=== PATIENT | female | born 1955 | race Caucasian/White ===

== ENCOUNTER 2023-08-28 12:09 | Outpatient (OUT) | payer OTHER, SELFPAY ==
--- NOTE | 2023-08-28 | ECG_ITS ---
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
== END 2023-08-28 12:10 | disposition home or self-care (01) ==
LOC: CARD 12:10
PROVIDERS: PCP Family Medicine; Visit Provider Family Medicine
DX: Z01.818 Encounter for other preprocedural examination (principal)
CPT/HCPCS: 93005

== ENCOUNTER 2025-01-18 10:57 | Outpatient (RCR) | payer MEDICARE, SELFPAY | END 2025-02-16 06:57 | disposition home or self-care (01) | LOC: PT 10:57 | PROVIDERS: PCP Family Medicine; Visit Provider Family Medicine | DX: R26.89 Other abnormalities of gait and mobility (principal) | CPT/HCPCS: 97110; 97112; 97163 ==

== ENCOUNTER 2025-07-18 11:42 | Outpatient (OUT) | payer MEDICARE, SELFPAY ==
--- OUTSIDE RECORDS SUMMARY | 2025-07-14 06:08 | XMS_ITS | Continuity of Care Document ---
Author Organization [facility] Address [address] [place] [address] Phone Care Team Providers Care Vending Machine Host/Hostess Name Role Phone Frank Herndon DO Primary Care Provider [phone] Self, Referral Attending Provider Unavailable Isi Escudero NP-C Referring Provider [phone] Frank Herndon DO Attending Provider [phone] Care Teams Patient Care Team Team Status: Active Member Role/Relationship Status Dates Frank Herndon DO Primary Care Provider Active Visit Care Team Team Status: Inactive Member Role/Relationship Status Dates Frank Herndon DO Primary Care Provider Active S tart: July 11, 2025 End: July 11, 2025Referral SelfAttending ProviderActiveStart: July 11, 2025 End: July 11, 2025Isi Escudero NP-CReferring ProviderActiveStart: July 11, 2025 End: July 11, 2025 Patient Care Team Team Status: Inactive Member Role/Relationship Status Dates Frank Herndon DO Primary Care Provider Active S tart: July 14, 2025 End: July 14, 2025Davimauricio Herndon DOAttending ProviderActiveStart: July 14, 2025 End: July 14, 2025 Chief Complaint and Reason for Visit Chief Complaint Admit Date Screening July 11, 2025 1 :48pm telephone/cough July 14, 2025 1 0:41am Reason for Visit Admit Date Bronchitis July 14, 2025 1 0:41am 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, 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: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 Allergies, Adverse Reactions, Alerts Allergen Type Severity Reaction Last Updated Verified Status Sulfa (Sulfonamide Antibiotics) Allergy Unknown Swelling of Lip/Tongue/Thr oat, rash July 14, 2025 8:24am Yes Active fluticasone Adverse Reaction Unknown nasal bleeding July 14, 2025 8:24am Yes Active Social History Smoking Status Status Start Date End Date Date of Observa tion Never smoked tobacco (finding) March 20, 2025 11:21am Observation Status Observation Response Date of Response Legal Sex [facility] (finding) [facility] Family History Relationship Condition Age at Onset Recorded Date/T alexis mother Heart disease Unknown Diabetes mellitusUnknownSleep apneaUnknownDepressionUnknownDeceasedUnknown Autoimmune diseaseUnknownfatherDeceasedUnknownHeart diseaseUnknownAcute myocardial infarctionUnknownMyocardial infarctionUnknownDepressionUnknown grandparentCongestive heart failureUnknownDeceasedUnknowngrandparentDeceased UnknowngrandparentDeceasedUnknowngrandparentDeceasedUnknownbrotherDiabetes mellitusUnknownOverweightUnknownsisterOverweightUnknowndaughterAutoimmune diseaseUnknownHashimoto's thyroiditisUnknownmotherDiabetes mellitusUnknown HypertensionUnknownfatherHeart diseaseUnknown Problems Active Problems Problem Diagnosis/Recorded Date Onset Date Stat us 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, 2025 11:03am Unknown Active Exercise counseling December 21, 2023 12:46pm Unknown Active Insomnia December 14, 2023 3:16pm Unknown Active Fatty liver disease, nonalcoholic December 08, 2023 9:2 0am Unknown Active NICA on CPAP November 25, 2023 12:27pm Unknown Act pascual Dietary surveillance and counseling December 21, 2023 12: 45pm Unknown Active Fatty liver January 30, 2025 9:54am Unknown Activ e Bruxism May 6th, 2024 3:16pm Unknown Active Depression May 28, 2023 7:21am Unknown Ac tive Dyspepsia December 08, 2023 9:08am Unknown Acti ve Edema March 20, 2025 10:49am Unknown Ac tive Hyperglycemia January 14, 2024 9:20am Unknown Activ e Hyperlipidemia December 22, 2023 2:53pm Unknown Acti ve Hypothyroidism December 22, 2023 2:53pm Unknown Acti ve Obesity, Class II, BMI 35-39.9 June 09, 2024 12:3 8pm Unknown Active BMI 40.0-44.9, adult January 30, 2025 9:03am Unknown Active Prediabetes February 22, 2024 12:51pm Unknown Acti ve Low hemoglobin January 17, 2025 9:18am Unknown Act pascual Impacted cerumen of right ear February 13, 2025 3:03pm Un known Active Balance problem January 17, 2025 9:36am Unknown Ac tive GERD (gastroesophageal reflux disease) December 07 9:24am Unknown Active Severe obesity (BMI >= 40) December 21, 2023 12:45pm Unkn own Active Bronchitis July 14, 2025 10:57am Unknown A ctive Obesity December 08, 2023 9:23am Unknown Acti ve Hyperkalemia January 14, 2024 9:20am Unknown Active Medications Medication Status Dose Units Route Directions Qty Days Refills S tart Date Stop Date End Date Reason(s) Instructions Adherence Atorvastatin 20 mg tablet Discontinued 20 MG PO D aily 90 3March 2023 11:00pmJune 2023 9:42amBupropion Hcl 150 mg tablet extended release 24 xrZzoqibyjvhes445LADAUbsoe948Wyepn 2023 1:20pmJuly 2023 2:54pmLevothyroxine 150 mcg huxuyuVmzigjbmnlvz745BFTKQVeqgt972Mlekj 2023 1:21pmJune 2023 9:42amtake first thing in the morning on an empty stomach and do not eat or drink anything for 30-45 min after taking Bupropion Hcl 150 mg tablet extended release 24 ybInzwvsnlhxce472SJTDIcckn733 February 17, 2024 2:54pmDecember 2023 10:34amAtorvastatin 20 mg tablet Mujhrzxsrrnp30DCKNQiywi399Eowzzki 2023 2:20pmce2023 10:34am Levothyroxine 175 mcg npjeylKdzwpeclyoym540HLSUYHxdtv990Ieqs 2024 9:02am March 20, 2025 10:48amtake first thing in the morning on an empty stomach, do not eat or drink for 45 min after takingAtorvastatin 20 mg tabletDiscontinued0 .ROUTE.IAPGXZQ805Tdbuglrkw 2024 6:55amDecember 2024 10:43amTAKE 1 TABLET EVERY DAYLevothyroxine 175 mcg sekkjlMwvrdr524OPWUQ.QOHCEZH436Ixqikdhds 2024 11:30ht301 mcg orally on odd days of the month, alternating with 150 MCG; take first thing in the morning on an empty stomach, do not eat or drink for 45 min after takingComplies with drug therapyAzelastine 137 mcg (0.1 %) spray,non-nknmddtHfernfynxbhv0RSEJBPTQMZEBVGW.COMPLEXOctober 2024 11:37am June 07, 2025 11:39am2 SPRAYS INTO EACH NOSTRIL EVERY DAY;Azelastine 137 mcg (0.1 %) spray,non-ipptuuzKjxfrwjgpxiv5ALMRPMTBIKVLLJT.PXRNVNR990Zxaxqth 2024 11:38amNovember 2024 9:07am2 SPRAYS INTO EACH NOSTRIL EVERY DAY;Azelastine 137 mcg (0.1 %) spray,non-aerosolActive0.ROUTE.BROPXSX732Wcpydpfp 2024 9:07amSPRAY 2 SPRAYS IN TO EACH NOSTRIL DAILYComplies with drug therapyAzithromycin 250 mg eninpqMsnmxx1GL.IHLONAG05Xhmmbxmt 3rd, 2025 12:00am For 250 mg dose pack: take 500 mg today (day 1), then 250 mg for 4 days (days 2- 5) POComplies with drug therapyPrednisone 20 mg vlequdZaoxdj0ID.with food or ffit099Zmlslbex 2024 12:00am20 MG BID orally WITH FOOD OR MILK;Complies with drug therapyAtorvastatin 20 mg gfusbvQugjglstiusi08DRSJ2 times dailyOct2022 11:00pmMarch 2023 1:19pmOxybutynin Chloride 10 mg tablet extended release 70ryXfrcoduucgfy56XVDKZcshyGjqqadk 18th, 2023 11:00pmMay 2023 12:19pmLevothyroxine 150 mcg kgokjlDqjfitvuanbt630KUNZOJkubgOyskhlv 18th, 2023 11:00pmMarch 2023 1:22pmOmeprazole 20 mg capsule,delayed release(DR/EC)Dnlsggztzqaa01KCEGWndqgMafbfbn 18th, 2023 11:00pmApril 2023 9:22amBupropion Hcl 150 mg tablet extended release 24 dwXuxepxqsckwl332KSZOJulvu May 27, 2023 11:00pmMarch 2023 1:21pmOmeprazole 20 mg capsule,delayed release(DR/EC)Qyvqhhqhbloz80NBFNWsgyd30008Gxotq 2023 9:17amMay 2023 12:21pmCyclobenzaprine 5 mg tabletDiscontinuedMGPOFebruary 2023 12:00amFebruary 2023 9:54amFreeTextSi-2 tablets Orally q8- 12 hrs prn; Note: Source Status: Refillprn; Refills: 0; Provider: Katrina Pak Azelastine 137 mcg (0.1 %) aerosol,sprayDiscontinuedINTRANASALFebruary 2023 12:00amJune 2023 9:36amFreeTextSig: SPRAY 2 SPRAYS INTO EACH NOSTRIL EVERY DAY; Note: Source Status: Takingprn; Provider: Katrina Marie CBaclofen 10 mg dlmmbsUzxcntobxtgs7IG.q8-12 szisa683Iiwemcyb 2023 12:00amMay 2023 12:19pmtake 1/2 of a 10 MG tablet (5 MG) orally Q8-12 HOURS;Omeprazole 20 mg capsule,delayed release(DR/EC)Ecwcge34YUZUIufqw75544Ezfv 2024 10:16amTake 1 capsule orally 30 minutes before morning meal.Complies with drug therapy Omeprazole 20 mg capsule,delayed release(DR/EC)Refklgquvdhx65YDFNYenox as needed December 21, 2023 12:19pmJune 2024 9:57amMetformin 500 mg tablet extended release 24 hhVqwcadyduaac3398EJUPFuvru805642Cpj 12th, 2024 11:00pmMay 2023 6:41amFirst 2 weeks, take 1 tablet once dailyOmeprazole 20 mg capsule,delayed release(DR/EC)Txnlghzvswpr94QGYY.prn as neededJun2024 9:57amJune 2024 10:18amTizanidine 4 mg wmxdfdOqqnpgdwlyyx8DKWOVqjqp 6 hours as needed July 12, 2024 12:00amFebruary 2024 2:50pmDocusate Sodium (Stool Softener) 100 mg ldemascYlkfuhexgbzc247VAIVDjozo dailyDeceer 2023 12:00am January 17, 2025 9:04amAtorvastatin 20 mg ainisdHczjoikftyif30CLXILfbpf388 July 12, 2024 10:32amSeptember 2024 6:55amBupropion Hcl 150 mg tablet extended release 24 uhSpemvr176ZYECBafye128Egnlbdlv 2023 10:32amComplies with drug therapyLevothyroxine 150 mcg foazwkLfgtukeavycf033LWYJIZorzp715 July 12, 2024 10:32amJune 2024 9:23amtake first thing in the morning on an empty stomach and do not eat or drink anything for 30-45 min after taking Semaglutide Base 0.6 mg/0.5 mLDiscontinued0.5MLSUBCUTevery sfjx86Snueoyj2023 11:00pmFebruary 2024 2:50pmBuderer Drug Compounded Pre-filled Syringes using Semaglutide Base. Dispense 2 mL = (Four 0.5 mL pre-filled syringes)Multivitamin-Calcium Carb-Iron tabletActiveTABPOFebruary 2024 12:00amComplies with drug therapy Ihwefsjk-1-Pip-Lemon [place] Xt 50-12.5-0.5 mg tablet,chewableDiscontinuedTABPO Daily at bedtimeFebruary 2024 12:00amAugust 2024 10:21am Gvxlzngo-7-Qsc-Lemiris Johnstonm Xt 50-12.5-0.5 mg tablet,chewableDiscontinuedTABPO Daily at bedtime as neededAugust 2024 10:20amDecember 2024 10:39am Azelastine 137 mcg (0.1 %) spray,non-vvhhaukKrmpusvejani794IUXHDBYFUXANA.COMPLEX [place] 2024 10:28amOctober 2024 11:90vq392 mcg intranasally 2 SPRAYS INTO EACH NOSTRIL EVERY DAY;Levothyroxine 175 mcg fdezvlLrmnvnzvnyyj022PZFAL .MIFQWEZ325Qfqpws 2024 10:45amSeptember 2024 11:96xl329 mcg orally on odd days of the month, alternating with 150 MCG; take first thing in the morning on an empty stomach, do not eat or drink for 45 min after taking Levothyroxine 150 mcg nldxorAdhijf910ACEQM.EIYXMFY230Qnhgnf 10th, 2025 11:00pm 150 mcg orally on even days of the month, alternating with 175 MCG; take first thing in the morningon an empty stomach, do not eat or drink for 30-45 min after taking;Complies with drug therapyTizanidine 4 mg xicvbeDcseyj9ABIOGfmzc 6 hours as needed for teeth drmlgjphq208Rsxdsn 2024 11:29amComplies with drug therapyCetirizine (Zyrtec) 10 mg qchcfaVdrvbpsyaggh18DADFKocjp as neededMay 2023 11:00pmFebruary 2024 2:49pmConjugated Estrogens (Premarin) 0.625 mg/gram creamDiscontinued0.625MGVAGINALDailyMay 2023 11:00pmOctober 2023 9:12amSaccharomyces Boulardii (Daily Probiotic (S. Boulardii)) 250 mg bjouwfvFxgmwfmyflqz586IEOFWuufa dailyMay 2023 11:00pmJuly 2023 12:03pmRhubarb Root Extract (Estroven Cmplt Menopause Rlf) 4 mg tablet Xokhlhuzsmjd2JMZV9 to 2 times per dayMay 2023 11:00pmJune 2023 9:01am Azelastine 137 mcg (0.1 %) aerosol,ngemnLmawpnzoebqs4WONFDTCWJMVXYMR.COMPLEXJun2023 9:36amJune 2023 9:41amSPRAY 2 SPRAYS INTO EACH NOSTRIL EVERY DAY Azelastine 137 mcg (0.1 %) aerosol,khmbpLfkmpfmajgux4EXQHXTRFDSXNDOW.NBNMLXQ262 January 14, 2024 9:40amAugust 2024 10:28amSPRAY 2 SPRAYS INTO EACH NOSTRIL EVERY DAYAtorvastatin 20 mg rdpxcyKjsxwkzrpjou33LCUZCllso530Eija 6th, 2024 9:41amOctober 2023 2:20pmLevothyroxine 150 mcg qyeysgDczsbbekpsxg419LASNY Gnglq794Ehqy 6th, 2024 9:42amDecember 2023 10:34amtake first thing in the morning on an empty stomach and do not eat or drink anything for 30-45 min after takingSaccharomyces Boulardii (Daily Probiotic (S. Boulardii)) 250 mg capsule Zassyq896OMZHKuespZreu 2023 12:03pmComplies with drug therapyConjugated Estrogens (Premarin) 0.625 mg/gram creamActive0.625MGVAGINALTwice a WeekJune 09, 2024 9:11amComplies with drug therapySemaglutide Base 0.3 mg/0.25 mL Discontinued0.25MLSUBCUTevery tmnq58Gkdkrqqzh 9th, 2024 11:00pmOctober 2023 9:22amBuderer Drug Compounded Pre-filled Syringes using Semaglutide Base. Dispense 1 mL = (Four 0.25 mL pre-filled syringes)Levothyroxine 175 mcg tablet Lyixsvnguwma634PYVCRLvxlb045Ccgr 9th, 2025 11:00pmJune 2024 9:02amtake first thing in the morning on an empty stomach, do not eat or drink for 45 min after takingAtorvastatin 20 mg jielwdEzbfrl88KGNJFoxepRjcoisns 2024 10:43am Unknown Immunizations Immunization Event Date Not Given Reason Dose Number Director Of Event Marketing Lot Number Reason(s) Given Vaccine Information Statement (VIS) Detail Administration Location COVID-19 mRNA, Comirnaty (Pfizer) September 19, 2020 COVID-19 mRNA, Comirnaty (Pfizer)October 10OVID-19 mRNA, Comirnaty (Pfizer)May 07OVID mRNA, Comirnaty (Pfizer)December 03, 2021 COVID-19 Comirnaty (Pfizer) Tri-Sucrose +December 03OVI Comirnaty (Pfizer) Tri-Sucrose +June 22OVI mRNA Bivalent Booster (Pfizer)May 22OVI (Vitrinepix) 12Y and olderOctober OVID (Vitrinepix) 12Y and olderSeptember iphtheria, Tetanus (Ped)October 04, 1997Fluzone TIV High-Dose 65YR+April 13, 2024 Fluzone QIV High-Dose 65YR+May 07, 2021Fluzone QIV High-Dose 65YR+ May 22, 2022Hepatitis A Vaccine, adult dosageJanuary 2018Influenza vaccine, quadrivalent, adjuvantedOctober 2022Influenza vaccine, quadrivalent, adjuvantedSeptember 2019Novel Influenza Z3L1Jzraqsja 2008Pneumococcal Conjugate Vaccine, 13 valentOctober 2017Pneumococcal Polysacc. Vaccine, 23 valentNovember 2018RSV, preF3, adj, pfSeptember 2023Zoster Vaccine Recombinant, AdjuvantedApril 2018Zoster Vaccine Recombinant, AdjuvantedJuly 2018Tetanus, Diphtheria, Pertussis (Tdap) August 17, 2018Trivalent Influenza VaccineOctober 2017Trivalent Influenza VaccineSeptember 2019Trivalent Influenza VaccineSeptember 2020Trivalent Influenza VaccineOctober 2021Trivalent Influenza Vaccine May 30, 2013typhoid vaccine, parenteralJanuary 2018Shingles (Zoster) June 06, 2013 Procedures Procedure Date Performed Status MM screening mammo BI w/CAD July 11, 2025 1 :51pm completed Relevant Diagnostic Tests and/or Laboratory Data Diagnostic Imaging Reports Author Jonah Finney [facility] HospitalAuthoredDece 2024 2:49pmReportDictated Date/TimeDictated ByStatusRadiology ReportDe2024 2:49pmJonah Finney II MDcompleted [facility] [address] [place] [address] Mammography Report Signed Patient: Patt Irene MR#: [id number] : 1955 Acct:[id number] Age/Sex: 70 / F Adm Date: 5 Loc: [place] Room: Type: [facility] CL Attending Dr: Referral Girish Ordering Provider: SELF,REFERRAL Date of Service: 07/11/25 Procedure(s): MM screening mammo BI w/CAD Accession Number(s): ([id number]) MM/MM screening mammo BI w/CAD: SCREENING Copies to: Frank Herndon, SELF,REFERRAL BERE Min~ CLINICAL DATA: Screening for malignancy. BILATERAL SCREENING MAMMOGRAMS - FULL FIELD DIGITAL WITH TOMOSYNTHESIS AND CAD Tomosynthesis craniocaudal and mediolateral oblique views of both breasts were obtained using low-dose digital technique. Comparison is made to prior studies from 06/28/2024, 06/18/2023, 07/22/2012, 07/25/2011, and 07/23/2010. This examination was reviewed with the aid of CAD. The breast parenchyma is heterogeneously dense. Benign-appearing calcifications are present. Benign-appearing lymph nodes are noted. There are no dominant masses, typically malignant calcifications or architectural distortion. There has been no significant interval change. MM/MM screening mammo BI w/CAD IMPRESSION: NO MAMMOGRAPHIC EVIDENCE OF MALIGNANCY. ROUTINE FOLLOW-UP IS RECOMMENDED IN ONE YEAR. RESULT CODE: 2 Benign Findings(s) DENSITY CODE: 3 (approximately 51-75% glandular) The breasts are heterogeneously dense, which may obscure small masses. FOLLOW UP: 1YR The false-negative rate of mammography is approximately 10-percent. Management of a palpable abnormality must be based on clinical grounds. Patient was entered into a reminder system with a target due date for the next mammogram. Impression dictated by: Jonah Finney M.D. 07/11/2025 3:02 PM Dictation Location: [facility] Dictated By: Jonah Finney II, MD 07/11/25 1449 Signed By: <Electronically signed by Jonah Finney II, MD in [place]> 07/11/25 1502 Vital Signs Vital Reading Result Reference Range Collection Date/Time Height 61.5 [in_i] July 14, 2025 10:40am Advance Directives Advance Directive Response Recorded Date/ Time Advance Directives No July 11, 2017 10:03am Insurance Providers Guarantor Patt Trey Irene Address [address] [place] [phone] Info.Home Phone: Coverage Status Update:2024 Payer Group Member ID Coverage Type Subscriber Relationship to Subscriber Effective Date Expiration Date [facility] Employees [id number] A Loparo Id: [id number] [facility] [phone] Home Phone: Email: [email or web address] [id number] A Loparo Id: [id number] [address] [place] [phone] Home Phone: Email: [email or web address] [email or web address] Encounter Location(s) Arrival/Admit Date Discharge/Departure Date Discharge/Departure Disposition Provider(s) [facility] July 11, 2025 1:48pm July 11, 2025 1:49pm Discharged to home care or self care (routine discharge) REFERRAL SELF Departed Physician/ Provider Office Visit -[facility] Family Medicine [place] July 14, 2025 10:41am July 14, 2025 11:07am Discharged to home care or self care (routine discharge) Frank Herndon , DO Recent Diagnosis Onset Date Admit Date Bronchitis Unknown July 14 10:41am Leukoplakia of oral cavity Unknown Decem 2024 10:41am Assessments Diagnosis Onset Date Resolution Status Admit Date Bronchitis acuteDeceer 2024 10:41amLeukoplakia of oral cavityacuteDedign[facility] 2024 10:41am Plan of Treatment Author Lissy Antony [facility] HospitalAuthoredWellspan Health 2024 11:06amShe started Zithromax and Prednisone on 07/12/25 and is feeling better today (07/14/25). She did not want her symptoms to progress because her had similar symptoms. She feels she caught her symptoms in time. She is taking a cough DM cough suppressant for the cough which is helping her symptoms. She is to continue with what she is doing. Rest, push fluids. 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 She voices that the oral surgeon told her that this is more prevalent in women than men. She has to be seen every three to five months. She has had to use Clotrimazole troches prior to the laser surgery a few times. Future Tests Future scheduled test information is unavailable Pending Tests Pending diagnostic test information is unavailable Future Visits Future appointment information is unavailable Future Procedures Future procedure information is unavailable Future Medications Future medication information is unavailable Patient Instructions Patient instructions are unavailable
--- OUTSIDE RECORDS SUMMARY | 2025-07-18 11:52 | XMS_ITS | CCD ---
Author Organization [facility] Care Team Providers Care Preload Supervisor Name Role Phone DO Klaus oHrton Primary Care Provider Community, Outreach Attending Provider Klaus Horton Unavailable CLIFFORD, DR ENRIQUE Admitting Unavailable GIRFAVIAN, DR ENRIQUE Attending Unavailable GIRVIN, DR ENRIQUE Consulting Unavailable GIRVIN, DR ENRIQUE Primary Care Unavailable GIRVIN, DR ENRIQUE Admitting Unavailable GIRVIN, DR ENRIQUE Attending Unavailable GIRVIN, DR ENRIQUE Consulting Unavailable GIRVIN, DR ENRIQUE Primary Care Unavailable GIRVIN, DR ENRIQUE Admitting Unavailable GIRVIN, DR ENRIQUE Attending Unavailable GIRVIN, DR ENRIQUE Consulting Unavailable GIRVIN, DR ENRIQUE Primary Care Unavailable GIRVIN, DR ENRIQUE Admitting Unavailable GIRVIN, DR ENRIQUE Attending Unavailable GIRVIN, DR ENRIQUE Consulting Unavailable GIRVIN, DR ENRIQUE Primary Care Unavailable Timothy Baird Unavailable DO Klaus Horton Attending Provider Klaus Horton Primary Care Physician DO Klaus Horton Primary Care Provider Community, Outreach Attending Provider DO Klaus Horton Primary Care Provider [phone] DO Klaus Horton Attending Provider Shant Daugherty Unavailable DO Klaus Horton Primary Care Provider Community, Outreach Attending Provider DO Klaus Horton Attending Provider [phone] MD Shant Daugherty Attending Provider [phone] DO Klaus Horton Primary Care Provider DO Klaus Horton Attending Provider [phone] ANDRIY Ortega Attending Provider DO Klaus Horton Primary Care Provider MD Timothy Baird Attending Provider [phone] Johanny Sultana Unavailable DO Klaus Horton Primary Care Provider [phone] MD Timothy Baird Attending Provider [phone] DO Klaus Horton Attending Provider DO Klaus Horton Referring Provider [phone] VITALY BECKER Attending Unavailable DO Klaus Horton Primary Care Provider [phone] MD Timothy Baird Attending Provider [phone] DO Klaus Horton Attending Provider DO Klaus Horton Primary Care Provider [phone] DO Klaus Horton Attending Provider [phone] ADRIÁN Patterson Attending Provider [phone] Klaus Horton MD Primary Care Provider [phone] Klaus Horton DO Primary Care Provider Klaus Horton DO Attending Provider REFERRAL, SELF Attending Unavailable REFERRAL, SELF Referring Unavailable Isi Escudero Consulting Unavailable REFERRAL, SELF Admitting Unavailable ACE Escudero Consulting Unavailable Isi Escudero Consulting Unavailable Klaus Horton DO Primary Care Provider Timothy Baird MD Attending Provider Klaus Horton DO Primary Care Provider [phone] Klaus Horton DO Attending Provider Klaus Horton MD Primary Care Provider Timothy Baird MD Other Provider Jordan DELIVERY TRUCK DRIVER HEAVY, Juliet Attending Provider Derek Bennett MD Attending Provider Klaus Horton Primary Care Unavailable Community, Outreach Admitting Unavailable Community, Outreach Attending Unavailable Rishi Patterson Admitting Unavailable Rishi Patterson Attending Unavailable Girvin, Klaus Primary Care Unavailable Girvin, Klaus Primary Care Unavailable Girvin, Klaus Attending Unavailable Girvin, Klaus Admitting Unavailable Girvin, Klaus Primary Care Unavailable Girvin, Klaus Attending Unavailable Girvin, Klaus Admitting Unavailable Girvin, Klaus Primary Care Unavailable Ditty, Timothy Lan Admitting Unavailable Dittgenia, Timothy Lan Attending Unavailable Girvin, Klaus Primary Care Unavailable Girvin, Klaus Attending Unavailable Girvin, Klaus Admitting Unavailable Girvin, Klaus Primary Care Unavailable Girvin, Klaus Attending Unavailable Girvin, Klaus Admitting Unavailable DOLCE, RISHI Giraldo Attending Unavailable DOLCE, RISHI Giraldo Attending Unavailable DOLCE, RISHI Giraldo Attending Unavailable DOLCE, RISHI Giraldo Attending Unavailable FELTER, ABDULLAHI Yang Attending Unavailable DOLCE, RISHI Giraldo Attending Unavailable DOLCE, RISHI Giraldo Attending Unavailable FELTER, ABDULLAHI A Attending Unavailable DOLCE, RISHI Giraldo Attending Unavailable DOLCE, RISHI Giraldo Referring Unavailable DOLCE, RISHI Enzo Attending Unavailable DOLCE, RISHI Giraldo Attending Unavailable DOLCE, RISHI Enzo Attending Unavailable DOLCE, RISHI Enzo Attending Unavailable Allergies Allergy ClassificationReported Allergen(s)Allergy TypeDate of OnsetReaction(s) Facility (20 sources)Sulfonamides (Antibiotic); Translations: [Sulfa (Sulfonamide Antibiotics)]Allergy to -[phone] of Lip/Tongue/Throat, Swelling of Lip/Tongue/Throat, [facility] (20 sources)Sulfonamides (Antibiotic)Propensity to [facility] [employer] Other (1 source)Sulfonamides (Antibiotic)Drug allergy (disorder)[phone] [facility] (4 sources)Sulfonamides (Antibiotic); Translations: [sulfa drugs]Drug allergy [facility] (20 sources)fluticasoneDrug Kjtdxml67-16-0285jhmhn [facility] (20 sources)Sulfamethoxazole / TrimethoprimDrug Dowudze07-88-7375XyvgjmrPIAW Healthcare (20 sources)Sulfonamides (Antibiotic)Drug Jqpspwv10-28-0186Zxlrf, Anaphylaxis [facility] Work Phone: (1 source)fluticasoneDrug Xufbjum19-76-7342WsnojqfpgSelect Medical [facility] [place] [facility] Medications Current Medications MedicationDrug Class(es)DatesSig (Normalized)Sig (Original)acetaminophen 325 mg / HYDROcodone bitartrate 5 mg oral tablet (1 source)Opioid AgonistStart: 04-27-2024 End: 07-88-2986sybm 1 tablet by mouth every six hours as needed for pain HYDROcodone-acetaminophen ([place]) 5-325 MG tablet Indications: Pain Take 1 tablet by mouth every 6 (six) hours if needed for moderate pain (PRN pain) for up to 5 days 20 tablet 04/27/2024 05/02/2024 ActiveAcidophilus Probiotic Blend (3 sources)Start: 82-40-0253Ehdcjktasqw Probiotic Blend Oral, Daily, Refill(s) 0 Start Date: 08/30/20 Status: Orderedazelastine hydrochloride 0.137 mg/actuat metered dose nasal spray (20 sources)Histamine-1 Receptor AntagonistStart: 81-89-6691hwvr 2 spray(s) nasal route once dailyStart: 63-09-1449yylq 2 spray(s) nasal route once daily Azelastine 137 mcg (0.1 %) aerosol,spray Active 2 SPRAY INTRANASAL .COMPLEX January 14, 2024 10:40am SPRAY 2 SPRAYS INTO EACH NOSTRIL EVERY DAYStart: 43-05-2353mjer 2 spray(s) nasal route once dailyAzelastine 137 mcg (0.1 %) aerosol,spray Active 2 SPRAY INTRANASAL .COMPLEX January 14, 2024 9:40am SPRAY 2 SPRAYS INTO EACH NOSTRIL EVERY DAYStart: 59-90-5473viym 2 spray(s) nasal route once dailyAzelastine Active 2 SPRAY INTRANASAL .COMPLEX January 14, 2024 10:40am SPRAY 2 SPRAYS INTO EACH NOSTRIL EVERY DAYStart: 01-14-2024 End: 47-70-7414entf 2 spray(s) nasal route once dailyAzelastine 137 mcg (0.1 %) aerosol,spray Discontinued 2 SPRAY INTRANASAL .COMPLEX January 130:40am March 20, 2025 11:28am SPRAY 2 SPRAYS INTO EACH NOSTRIL EVERY DAYStart: 09-30-2023 End: 05-54-2630Svjzfqkcjl 137 mcg (0.1 %) aerosol,spray Discontinued INTRANASAL September 30, 2023 1:00am January 14, 2024 10:36am FreeTextSig: SPRAY 2 SPRAYS INTO EACH NOSTRIL EVERY DAY; Note: Source Status: Takingprn; Provider: Clifford Enrique CStart: 86-31-5833afmxrogzzg (Astelin) 0.1 % nasal spray 12/16/2022 Active take 2 spray(s) nasal route once daily as neededAzelastine HCl 137 MCG/SPRAY SPRAY 2 SPRAYS INTO EACH NOSTRIL EVERY DAY prn Activetake 2 spray(s) nasal route once daily as neededAzelastine HCl 137 MCG/SPRAY SPRAY 2 SPRAYS INTO EACH NOSTRIL EVERY DAY prn Irajkq69 hr buPROPion hydrochloride 150 mg extended release oral tablet (20 sources)AminoketoneStart: 89-48-1620hrxt 1 tablet by mouth every twenty-four hours in the morningbuPROPion XL (Wellbutrin XL) 150 MG 24 hr tablet Take 150 mg by mouth in the morning. 09/21/2024 ActiveStart: 11-24-2022 End: 20-36-9475oohc 1 tablet by mouth once dailyBupropion Hcl 150 mg tablet extended release 24 hr Discontinued 150 MG PO Daily May 28, 2023 12:00am October 21, 2023 2:21pmStart: 75-07-2957zhbv 1 tablet by mouth every twenty-four hoursbuPROPion 300 mg XL /24 hrs 300 mg = 1 tab(s), Oral, q24hr, Refills(s) 0, Depression Start Date: 09/28/19 Status: Ordered End: 04-81-2364uoRRCJmut XL (Wellbutrin XL) 300 MG 24 hr tablet 1 (one) time each day at the same time 01/30/2025 Discontinued (Dose adjustment)CBD oils (4 sources)CBD oils Activeclindamycin 300 mg oral capsule (20 sources)Lincosamide AntibacterialStart: 33-63-3937beox 2 tablets by mouth once at mealtimeclindamycin (Cleocin) 300 MG capsule Indications: History of total bilateral knee replacement 2 tabs PO once 30-60 mins before dental procedure with food 2 capsule 3 02/16/2025 ActiveStart: 62-57-3978rvoy 2 tablets by mouth once at mealtimeclindamycin (Cleocin) 300 MG capsule Indications: History of total bilateral knee replacement 2 tabs PO once 30-60 mins before dental procedure with food 2 capsule 3 08/11/2024 ActiveStart: 38-10-4461qxtb 2 tablets by mouth once at mealtimeclindamycin (Cleocin) 300 MG capsule Indications: History of total bilateral knee replacement 2 tabs PO once 30-60 mins before dental procedure with food 2 capsule 3 08/25/2023 Active[facility] [place] 0.05 % (3 sources)Start: 00-98-7281Qluqm: 85-59-4807bmws 0.05 spray(s) nasal route once dailyCVS Nasal [place] 0.05 % 2 sprays each nose Nasally daily as directed for 30 days [facility] AllergySpray December, Activedocosahexaenoic acid 120 mg / eicosapentaenoic acid 180 mg oral capsule (20 sources)omega-3 (Fish Oil) 1000 MG capsule 1 capsule 1 (one) time each day at the same time ActiveDosoquin (3 sources)Start: 46-47-2953Zrljsaye Refill(s) 0 Start Date: 05/30/20 Status: OrderedVagifem (8 sources)EstrogenStart: 85-81-4045Mhsvtnw 10 microgram, Vaginal, Twice Weekly, Refills(s) 0 Start Date: 11/24/13 Status: Ordered End: 40-01-4347nrvuldhte (Vagifem) 10 MCG tablet vaginal tablet Insert 10 mcg into the vagina. 04/19/2024 Discontinuedestrogens, conjugated (assisted) 0.625 mg/ml vaginal cream (20 sources)EstrogenStart: 40-80-8263Nlsmelaebt Estrogens (Premarin) 0.625 mg/gram cream Active 0.625 MG VAGINAL Twice a Week June 09, 2024 10:11am Complies with drug therapyStart: 01-01-2024 End: 06-86-1776Vhbfxsedsf Estrogens (Premarin) 0.625 mg/gram cream Discontinued 0.625 MG VAGINAL Daily January 01, 2024 12:00am June 09, 2024 10:12am Estrogens Conjugated (Premarin) 0.625 MG/GM cream ActivePremarin 0.625 MG/GM Vaginal ActiveEstroven (3 sources)Estroven Activefexofenadine (3 sources)Histamine-1 Receptor AntagonistAllegra ActiveguaiFENesin (7 sources)guaiFENesin ActiveMucinex Not-TakingMucinex Activelevothyroxine sodium 0.175 mg oral tablet (20 sources)l-ThyroxineStart: 59-27-1599Uzmkqvmhopasm 150 mcg tablet Active 150 MCG PO .COMPLEX March 20, 2025 12:00am 150 mcg orallyon even days of the month, alternating with 175 MCG; take first thing in the morning on an empty sto mach, do not eat or drink for 30-45 min after taking; Complies with drug therapy Start: 01-17-2025 End: 16-52-5364Rgmqledndwpod 175 mcg tablet Active 175 MCG PO .COMPLEX March 20, 2025 11:45am 175 mcg orallyon odd days of the month, alternating with 150 MCG; take first thing in the morning on an empty stomach, do not eat or drink for 45 min after taking Complies with drug therapyStart: 05-28-2023 End: 65-90-0641sijs 1 tablet by mouth once daily in the morningLevothyroxine 150 mcg tablet Discontinued 150 MCG PO Daily January 14, 2024 10:42am July 12, 2024 11:34am take first thing in the morning on an empty stomach and do not eat or drink anything for 30-45 min after takingStart: 16-90-2170sdfr 1 tablet by mouth once dailylevothyroxine 50 mcg (0.05 mg) Tab mcg tab(s), Oral, Daily, Refills(s) 0 Start Date: 05/30/20 Status: Orderedtake 1 tablet by mouth once daily in the morningLevoxyl 150 MCG TAKE 1 TABLET BY MOUTH ON AN EMPTY STOMACH IN THE MORNING ONCE A DAY Orally as directed ActiveLevoxyl 137 MCG TAKE 1 TABLET BY MOUTH ON AN EMPTY STOMACH IN THE MORNING ONCE A DAY Orally Once a day Active Melatonin (8 sources)Melatonin ActiveMultiple Vitamin (MULTIVITAMIN ADULT PO) (20 sources)Multiple Vitamin (MULTIVITAMIN ADULT PO) 1 (one) time each day at the same time ActiveMultiple Vitamin (MULTIVITAMIN ADULT PO) 1 (one) time each day at the same time. ActiveMultivitamin-Calcium Carb-Iron tablet (8 sources)Start: 59-53-5003Tihjg: 38-39-7759Tgbcqhghnjqb-Calcium Carb-Iron tablet Active TAB PO September 14, 2024 1:00am Complies with drug therapyStart: 69-17-7504Ylsgobskjoqk-Calcium Carb-Iron tablet Active TAB PO September 14, 2024 1:00amStart: 12-35-8673Nckkpnxxzmhf-Calcium Carb-Iron tablet Active TAB PO September 14, 2024 12:00amMultivitamins and Minerals (3 sources)Start: 47-73-5645cmth 1 tablet by mouth once dailyMultivitamins and Minerals 1 tab, Oral, Daily, Refill(s) 0, Prophylaxis Start Date: 08/31/19 Status:Orderedprobiotic (12 sources)probiotic Not-Takingprobiotic Activesaccharomyces boulardii 250 mg oral capsule (20 sources)Start: 28-51-6015kywk 1 capsule by mouth once dailySaccharomyces Boulardii (Daily Probiotic (S. Boulardii)) 250 mg capsule Active 250 MG PO Daily 2023 1:03pm Complies with drug therapyStart: 01-01-2024 End: 07-99-6342mlje 1 capsule by mouth twice dailySaccharomyces Boulardii (Daily Probiotic (S. Boulardii)) 250 mg capsule Discontinued 250 MG PO Twice daily January 01, 2024 12:00am February 22, 2024 1:83glDofvnurl-9-Aws-Lemon [place] Xt 50-12.5-0.5 mg tablet,chewable (9 sources)Start: 02-46-7669afku 5 tablets by mouth once daily at bedtime as zrzmxgToaisvrt-5-Gow-Lemon [place] Xt 50-12.5-0.5 mg tablet,chewable Active TAB PO Daily at bedtime as needed March 20, 2025 11:20am Complies with drug therapy Start: 09-14-2024 End: 69-38-3368fuoc 5 tablets by mouth once daily at jaynxljSdqtzaay-0-Bfh-Lemon [place] Xt 50-12.5-0.5 mg tablet,chewable Discontinued TAB PO Daily at bedtime [facility] 2024 1:00am March 20, 2025 11:21amStart: 43-93-9207fllf 5 tablets by mouth once daily at bedtimeStart: 74-57-5878avpr 5 tablets by mouth once daily at lrypungEiovmcwy-9-Cth-Lemon [place] Xt 50-12.5-0.5 mg tablet,chewable Active TAB PO Daily at bedtime 2024 1:00am Complies with drug therapyStart: 80-67-4858ykqn 5 tablets by mouth once daily at bedtime Hncltzro-0-Khy-Lemon [place] Xt 50-12.5-0.5 mg tablet,chewable Active TAB PO Daily at bedtime 2024 1:00amStart: 48-22-1545wysr 5 tablets by mouth once daily at joewmxtRhuwluez-3-Ozc-Lemon [place] Xt 50-12.5-0.5 mg tablet,chewable Active TAB PO Daily at bedtime 2024 12:00amtriamcinolone acetonide 1 mg/ml topical cream (20 sources)CorticosteroidStart: 29-14-4706slcqytklwcinh (Kenalog) 0.1 % cream Indications: Stasis dermatitis of both legs Apply to affected areas, up to twice a day when flared, do not use one the face, groin, or underarms, 30 day supply 80 g 11 06/27/2024 ActiveTurmeric extract (3 sources)Turmeric ActiveVitamin A (3 sources)Vitamin AStart: 97-09-2067rtto 1 tablet by mouth once dailyvitamin A 1 tab, Oral, Daily, Refills(s) 0, Prophylaxis Start Date: 08/31/19 Status: OrderedVitamin B Complex oral capsule (3 sources)Start: 06-65-9770jpzw 1 capsule by mouth once dailyVitamin B Complex oral capsule 1 cap(s), Oral, Daily, Refill(s) 0, Prophylaxis Start Date: 04/19/13 Status: Ordered Completed/Discontinued Medications MedicationDrug Class(es)DatesSig (Normalized)Sig (Original)acetaminophen 325 mg / oxyCODONE hydrochloride 5 mg oral tablet (4 sources)Opioid AgonistStart: 07-27-2024 End: 75-63-3535zeci 1 tablet by mouth every six hours for painoxyCODONE- acetaminophen (Percocet) 5-325 MG tablet Indications: Pain Take 1 tablet by mouth every 6(six) hours if needed for severe pain for up to 5 days 15 tablet 07/27/2024 08/01/2024 Expiredamoxicillin 875 mg / clavulanate 125 mg oral tablet (6 sources)Penicillin-class AntibacterialStart: 07-63-0736cuee 1 tablet by mouth twice daily at mealtimeAmoxicillin-Pot Clavulanate 875-125 MG 1 tablet Orally two times a day with food for 7 days Not-Takingatorvastatin 20 mg oral tablet (20 sources)HMG-CoA Reductase InhibitorStart: 05-28-2023 End: 15-52-9660urkf 1 tablet by mouth twice dailyAtorvastatin 20 mg tablet Discontinued 20 MG PO 2 times daily May 28, 2023 12:00am October 21, 2023 2:19pmStart: 08-22-2013 End: 94-75-2026yfxr 1 tablet by mouth once dailyAtorvastatin 20 mg tablet Discontinued 20 MG PO Daily January 14, 2024 10:41am June 06, 2024 3:20pm azithromycin 250 mg oral tablet (6 sources)Macrolide AntimicrobialStart: 10-55-1444Kpjceddxdsrn 250 MG 2 tablets on day 1 Orally then take 1 tablet daily on days 2-5 for 5 days Sep, Not-Takingbaclofen 10 mg oral tablet (14 sources)gamma-Aminobutyric Acid-ergic AgonistStart: 09-30-2023 End: 20-60-1521Vkreftds 10 mg tablet Discontinued 0 PO .q8-12 hours September 30, 2023 1:00am December 21, 2023 1:19pm take 1/2 of a 10 MG tablet (5 MG) orally Q8-12 HOURS;Start: 09-30-2023 End: 54-68-8671Uitsirps Discontinued 0 PO .q8-12 hours September 30, 2023 1:00am December 21, 2023 1:19pm take 1/2 of a 10 MG tablet (5 MG) orally Q8-12 HOURS;bifidobacterium animalis [id number] unt / lactobacillus acidophilus [id number] unt oral capsule (20 sources) End: 51-25-3632nhog 1 capsule by mouth in the morningProbiotic Product (Get Smart Content) capsule Take 1 capsule by mouth in the morning. 08/31/2024 DiscontinuedCBD gummies (11 sources)CBD gummies Not-TakingCBD gummies Activecetirizine hydrochloride 10 mg oral tablet (20 sources)Histamine-1 Receptor AntagonistStart: 01-01-2024 End: 30-79-0984rwod 1 tablet by mouth once daily as neededCetirizine (Zyrtec) 10 mg tablet Discontinued 10 MG PO Daily as needed January 01, 2024 12:00am September 14, 2024 3:49pmZyrTEC Not-Taking/PRNZyrTEC Not-TakingZyrTEC ActiveZyrTEC Allergy prn ActiveCranberry preparation (8 sources)Non-Standardized Food Allergenic Extract, Non-Standardized Plant Allergenic ExtractCranberry Not-TakingCranberry Activecyclobenzaprine hydrochloride 10 mg oral tablet (20 sources)Muscle RelaxantStart: 07-20-2024 End: 22-42-2440magz 1 tablet by mouth in the morning, then take 1 tablet by mouth in the evening, then take 1 tablet by mouth at bedtimecyclobenzaprine (Flexeril) 10 MG tablet Indications: Peroneal tendon tear, right, initial encounterTake 1 tablet (10 mg) by mouth in the morning and 1 tablet (10 mg) in the evening and 1 tablet (10 mg) before bedtime. Do all this for 10 days. 30 tablet 07/20/2024 08/31/2024 DiscontinuedStart: 09-30-2023 End: 92-63-3583Uiwiehprehseqqd Discontinued MG PO September 30, 2023 1:00am September 30, 2023 10:54am FreeTextSi-2 tablets Orally q8-12 hrs prn; Note: Source Status: Refillprn; Refills: 0; Provider: Clifford Enrique CStart: 08-12-2022 End: 95-01-1143Eswjvwcpktlfplg 5 mg tablet Discontinued MG PO September 30, 2023 1:00am September 30, 2023 10:54am FreeTextSi-2 tablets Orally q8-12 hrs prn; Note: Source Status: Refillprn; Refills: 0; Provider: Clifford Pak docusate sodium 100 mg oral capsule (9 sources)Start: 07-12-2024 End: 54-68-0835kvef 1 capsule by mouth twice dailyDocusate Sodium (Stool Softener) 100 mg capsule Discontinued 100 MG PO Twice daily July 12, 2024 1:00am January 17, 2025 10:04amDosoquin 5500-200 UNIT-MCG (12 sources)Dosoquin 5500-200 UNIT-MCG as directed Orally Not-TakingDosoquin 5500-200 UNIT-MCG as directed Orally Activefluocinonide 0.0005 mg/mg topical gel (18 sources)CorticosteroidStart: 12-30-2022 End: 84-57-5478jlbtpiuyfehq (Lidex) 0.05 % gel APPLY THIN LAYER TO ORAL LESIONS 2-4 TIMES PER DAY 12/30/2022 04/19/2024 DiscontinuedFluocinonide Active fluticasone propionate 0.05 mg/actuat metered dose nasal spray (5 sources)Corticosteroid End: 11-45-3927olikcljlwpc (Flonase) 50 MCG/ACT nasal spray 1 (one) time each day at the same time. 04/19/2024 DiscontinuedGarlic preparation (5 sources)Non-Standardized Food Allergenic Extract End: 68-25-5838vqkm 1 capsule by mouth in the morningGARLIC PO Take 1 capsule by mouth in the morning. 04/19/2024 Discontinuedtake 1 capsule by mouth in the morningGARLIC PO Take 1 capsule by mouth in the morning. Activeginkgo biloba extract 60 mg oral tablet (5 sources) End: 38-95-8221Qwtwva 60 MG tablet 1 (one) time each day at the same time. 04/19/2024 DiscontinuedKetorolac (20 sources)Nonsteroidal Anti-inflammatory Drug, Cyclooxygenase InhibitorStart: 43-60-9084Owjxzfx per 15 mg May, 2 ccLutein (5 sources) End: 68-89-3696dkdd 1 tablet by mouth in the morningLUTEIN PO Take 1 tablet by mouth in the morning. 04/19/2024 Discontinuedtake 1 tablet by mouth in the morningLUTEIN PO Take 1 tablet by mouth in the morning. Activemeloxicam 15 mg oral tablet (20 sources)Nonsteroidal Anti-inflammatory DrugStart: 08-12-2022 End: 78-52-3696jrsu 1 tablet by mouth once dailymeloxicam (Mobic) 15 MG tablet Indications: Right Achilles tendinitis TAKE 1 TABLET BY MOUTH EVERY DAY 30 tablet 1 07/20/2024 08/31/2024 Mtmcrrpymzri82 hr metFORMIN hydrochloride 500 mg extended release oral tablet (13 sources)BiguanideStart: 12-21-2023 End: 36-09-9914Srjolcdxt 500 mg tablet extended release 24 hr Discontinued 1000 MG PO Daily 180 90 December 21, 2023 12:00am January 06, 2024 7:41am First 2 weeks, take 1 tablet once dailymethylPREDNISolone 4 mg oral tablet (2 sources)CorticosteroidStart: 06-03-2024 End: 92-99-0895bhtd 1 tablet by mouth oncemethylPREDNISolone (Medrol Dospak) 4 MG tablets Indications: Acute Bursitis Take 1 tablet (4 mg) bymouth 1 (one) time for 1 dose Follow schedule on package instructions 1 each 06/03/2024 06/03/2024 ExpiredMultiple Vitamins-Minerals (Hair/Skin/Nails) tablet (5 sources) End: 44-59-9939Chpunrpw Vitamins-Minerals (Hair/Skin/Nails) tablet as directed Orally 04/19/2024 DiscontinuedMultiple Vitamins-Minerals (Hair/Skin/Nails) tablet as directed Orally Activenaproxen 500 mg oral tablet (5 sources)Nonsteroidal Anti-inflammatory Drug End: 79-28-0137cuvf 1 tablet by mouth in the morningnaproxen (Naprosyn) 500 MG tablet Take 500 mg by mouth in the morning and 500 mg in the evening. Take with meals. 04/19/2024 Discontinuednystatin 993513 unt/ml oral suspension (10 sources)Polyene AntifungalStart: 06-12-2023 End: 33-91-1423rvxd 4 mL by mouth four times dailynystatin (Mycostatin) 632053 UNIT/ML suspension SWISH AND SWALLOW 4ML BY MOUTH/THROAT FOUR TIMES A DAY 14 DAYS 06/12/2023 04/19/2024 DiscontinuedStart: 09-20-3652enns 4 mL by mouth four times dailyNystatin 923425 UNIT/ML 4 ml swish and swallow Mouth/Throat Four times a day for 14 days Jun, Activeomeprazole 20 mg delayed release oral capsule (20 sources)Proton Pump InhibitorStart: 01-01-2021 End: 23-70-2888Qobcqddufn 20 mg capsule,delayed release(DR/EC) Discontinued 20 MG PO .prn as needed January 30, 2025 10:57am January 30, 2025 11:18am24 hr oxybutynin chloride 10 mg extended release oral tablet (20 sources)Cholinergic Muscarinic AntagonistStart: 05-19-2023 End: 61-47-9656ctjodjljyk XL (Ditropan-XL) 10 MG 24 hr tablet 05/19/2023 04/19/2024 DiscontinuedStart: 09-28-2019 End: 33-47-2191yeax 1 tablet by mouth once dailyOxybutynin Chloride 10 mg tablet extended release 24hr Discontinued 10 MG PO Daily May 28, 2023 12:00am December 21, 2023 1:19pm End: 62-39-0804xgfdiaioby XL (Ditropan-XL) 5 MG 24 hr tablet 1 (one) time each day at the same time. 04/19/2024 Discontinuedpsyllium 525 mg oral capsule (3 sources)Start: 04-73-4629ozdq 8 capsules by mouth once dailyMetamucil 525 mg oral capsule 1,050 mg = 2 cap(s), Oral, Daily, Take 2 hour apart from the other medications with at least 8 ounces of water, # 160 cap(s), Refills(s) 1, Pharmacy: [facility]/pharmacy #[id number], cm, 05/30/20 15:11:00 EDT, Height/Length Dosing, 92.5, kg, 05/30/20 15:11:00 EDT, Weight Dosing Start Date: 05/30/20 Status: OrderedRhubarb Root Extract (Estroven Cmplt Menopause Rlf) 4 mg tablet (12 sources)Start: 01-01-2024 End: 42-91-6865Xanlhyc Root Extract (Estroven Cmplt Menopause Rlf) 4 mg tablet Discontinued 4 MG PO 1 to 2 times per day December 31, 2023 11:00pm January 14, 2024 9:01amStart: 01-01-2024 End: 60-89-9047Zmyynur Root Extract (Estroven Cmplt Menopause Rlf) 4 mg tablet Discontinued 4 MG PO 1 to 2 times per day January 01, 2024 12:00am January 14, 2024 10:01amStart: 69-55-1506Qiphfau Root Extract ([facility]) 4 mg tablet Active 4 MG PO 1 to 2 times per dayJanuary 01, 2024 12:00amSemaglutide Base 0.3 mg/0.25 mL (9 sources)Start: 04-19-2024 End: 50-49-8630vdjnoa 1 mL by subcutaneous injection every weekSemaglutide Base 0.3 mg/0.25 mL Discontinued 0.25 ML SUBCUT every week April 19, 2024 12:00am June 09, 2024 10:22am [facility] Pre-filled Syringes using Semaglutide Base. Dispense 1 mL = (Four 0.25 mL pre-filled syringes)Start: 04-19-2024 End: 04-12-7778qkorbs 1 mL by subcutaneous injection every weekSemaglutide Base 0.3 mg/0.25 mL Discontinued 0.25 ML SUBCUT every week April 18, 2024 11:00pm June 09, 2024 9:22am [facility] Pre-filled Syringes using Semaglutide Base. Dispense 1 mL = (Four 0.25 mL pre-filled syringes) Semaglutide Base 0.6 mg/0.5 mL (9 sources)Start: 06-09-2024 End: 70-92-8090flvedd 1 mL by subcutaneous injection every weekSemaglutide Base 0.6 mg/0.5 mL Discontinued 0.5 ML SUBCUT every week June 09, 2024 12:00am September 14, 2024 3:50pm [facility] Pre-filled Syringes using Semaglutide Base. Dispense 2 mL = (Four 0.5 mL pre-filled syringes)Start: 06-09-2024 End: 18-08-7102vieros 1 mL by subcutaneous injection every weekSemaglutide Base 0.6 mg/0.5 mL Discontinued 0.5 ML SUBCUT every week June 08, 2024 11:00pm September 14, 2024 2:50pm [facility] Pre-filled Syringes using Semaglutide Base. Dispense 2 mL = (Four 0.5 mL pre-filled syringes)Start: 63-63-5907nzhnnw 1 mL by subcutaneous injection every weekSemaglutide Base 0.6 mg/0.5 mL Active 0.5 ML SUBCUT every week 2 June 08, 2024 11:00pm [facility] Pre-filled Syringes using Semaglutide Base. Dispense 2 mL = (Four 0.5 mL pre-filledsyringes)terconazole 4 mg/ml vaginal cream (11 sources)Azole AntifungalStart: 21-50-4242Ezdhhjwpvbs 0.4 % 1 applicatorful per vagina Vaginal every day at bedtime for 7 day(s) Jan,Not-Taking End: 51-14-0642Nbujmkacmmq (TERAZOL 7 VA) Terazol 7 04/19/2024 Discontinued Terconazole (TERAZOL 7 VA) Terazol 7 ActivetiZANidine 4 mg oral tablet (20 sources)Central alpha-2 Adrenergic AgonistStart: 06-28-2024 End: 29-81-4631rdps 1 tablet by mouth every six hours as neededTizanidine 4 mg tablet Discontinued 4 MG PO Every 6 hours as needed July 12, 2024 1:00am September 14, 2024 3:50pmtrospium chloride 20 mg oral tablet (10 sources)Cholinergic Muscarinic Antagonist End: 81-94-5031ibwx 1 tablet by mouth in the morningtrospium (Sanctura) 20 MG tablet Take 20 mg by mouth in the morning and 20 mg in the evening. 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, unspecified]Onset: 07-99-8482RzagiosJvbpzipdbt and other anemia (10 sources)Hemoglobin low; Translations: [Anemia, unspecified]01-17-2025 EpisodicDeficiency and other anemia (2 sources)Anemia, unspecified; Translations: [Anemia, unspecified]Onset: 739589-83-4473RliakqmfLahjjruy of white blood cells (20 sources)Leukopenia; Translations: [Decreased white blood cell count, unspecified]ChronicDisorders of lipid metabolism (20 sources)Hyperlipidemia; Translations: [Hyperlipidemia, unspecified]Onset: 08-14-2021 Resolved: 48-69-4224PizspywLmldlhqxax disorders (20 sources)Gastroesophageal reflux disease; Translations: [Gastro-esophageal reflux disease without esophagitis]Onset: 08-14-2021 Resolved: 18-89-4268DvzkajeMylns and electrolyte disorders (13 sources)Hyperkalemia; Translations: [Hyperkalemia]15-69-5307Glqsnqmz Hepatitis (20 sources)Nonalcoholic steatohepatitis; Translations: [Nonalcoholic steatohepatitis (BOWSER)]Onset: 11-06-2021 Resolved: 68-29-0275LssgkwxYltgg disorders and dislocations; trauma-related (6 sources)Dislocation of temporomandibular joint; Translations: [Subluxation of peroneal tendon]26-79-1276CqcmnyueUjfmwsncrpppv mental health disorders (20 sources)Bruxism (teeth grinding); Translations: [Other somatoform disorders] 88-05-9619XyytqotLncy disorders (20 sources)Major depressive disorder, single episode, unspecified; Translations: [Depression]ChronicMycoses (3 sources)Candidal stomatitisEpisodicOsteoarthritis (3 sources)Osteoarthritis of flqq34-50-1375KozadyhVgwkjmt on above:LEFT KNEE Other acquired deformities (2 sources)Contracture of joint of right ankle; Translations: [Contracture, right ankle]83-95-9989SsldvzhEhtye and unspecified benign neoplasm (14 sources)History of polyp of colon; Translations: [Personal history of colonic polyps]10-93-1914OujmpmyrJwqeu and unspecified benign neoplasm (1 source)Personal history of colonic polypsEpisodicOther and unspecified benign neoplasm (2 sources)Melanocytic nevus of trunk; Translations: [Melanocytic nevi of trunk] 33-36-4710FnbbpbkySmrcl circulatory disease (2 sources)Spider nevus; Translations: [Nevus, non-neoplastic]02-19-9546Akrfdcfd Other connective tissue disease (1 source)Trigger finger, unspecified fingerEpisodicOther connective tissue disease (17 sources)Right achilles tendonitis; Translations: [Achilles tendinitis, right leg]57-71-3124MfcklmbiFodzu connective tissue disease (4 sources)Plantar fasciitis; Translations: [Plantar fascial fibromatosis] 90-05-5431GpdcuyohLpale connective tissue disease (6 sources)Calcaneal spur of right foot; Translations: [Calcaneal spur, right foot]14-31-7041OwfinmrgAdqdq connective tissue disease (9 sources)Synovitis and tenosynovitis; Translations: [Other synovitis and tenosynovitis, right ankle and foot]75-26-5853NrfhyqweNglyl connective tissue disease (4 sources)Nontraumatic rupture of tibialis posterior tendon; Translations: [Spontaneous rupture of other tendons, right ankle and foot]88-99-9841Owjmfejp Other diseases of bladder and urethra (3 sources)Bladder muscle dysfunction - koudniestd25-03-9219XfoyruuTlbng diseases of veins and lymphatics (2 sources)Disorder of vein of lower extremity; Translations: [Venous insufficiency (chronic) (peripheral)]86-57-2432TidzqyqjUsdbr ear and sense organ disorders (20 sources)Otitis externa; Translations: [Other otitis externa, right ear] ChronicOther ear and sense organ disorders (8 sources)Impacted cerumen in right ear; Translations: [Impacted cerumen, right ear]15-88-6285VcfwhwbhRempg gastrointestinal disorders (20 sources)Irritable bowel syndrome; Translations: [Irritable bowel syndrome without diarrhea]32-13-1590OfkngqiCjbov liver diseases (20 sources)Steatosis of liver; Translations: [Fatty (change of) liver, not elsewhere classified]80-28-7082ExvqltnQtdzy liver diseases (20 sources)Fatty (change of) liver, not elsewhere classified; Translations: [Nonalcoholic fatty liver disease]Onset: 07-24-2021 Resolved: 07-00-3737HazohuzNcwig liver diseases (3 sources)Non-alcoholic fatty -75-4996VyderihEkfcc nervous system disorders (20 sources)Carpal tunnel syndrome of left wrist; Translations: [Carpal tunnel syndrome, left upper limb]ChronicOther nervous system disorders (20 sources)Paresthesia; Translations: [Paresthesia of skin]EpisodicOther nervous system disorders (12 sources)Impairment of balance; Translations: [Other abnormalities of gait and mobility]89-83-4585DpowdshpAecam nervous system disorders (1 source)Other abnormalities of gait and mobility; Translations: [Other symptoms involving nervous and musculoskeletal systems]96-63-6758GxowndihXcmgs nutritional; endocrine; and metabolic disorders (17 sources)Obesity; Translations: [Obesity, unspecified]44-29-8017UeesexqLghyr nutritional; endocrine; and metabolic disorders (20 sources)Body mass index 40+ - severely obese; Translations: [Body mass index (BMI) 40.0-44.9, adult]92-29-4426UlkocosUocml nutritional; endocrine; and metabolic disorders (4 sources)Obesity, unspecified; Translations: [Obesity, unspecified]12-08-2023 ChronicOther nutritional; endocrine; and metabolic disorders (5 sources)Morbid (severe) obesity due to excess calories; Translations: [Morbid obesity]74-36-6894NpuyiezAcvmg nutritional; endocrine; and metabolic disorders (11 sources)Obese class II; Translations: [Class 2 obesity]81-18-3363Urxdtyf Other nutritional; endocrine; and metabolic disorders (3 sources)Abnormal weight gainOnset: 08-14-2021 Resolved: 73-16-9413XdhxlbnmSbfvw nutritional; endocrine; and metabolic disorders (2 sources)Abnormal weight lossEpisodicOther skin disorders (2 sources)Seborrheic keratosis; Translations: [Other seborrheic keratosis] 86-28-8245BunoihtmEwfgf skin disorders (2 sources)Lentiginosis; Translations: [Other melanin hyperpigmentation] 24-43-2488GrirwxcoAhtdw skin disorders (2 sources)Inflamed seborrheic keratosis; Translations: [Inflamed seborrheic keratosis]33-72-1999XvkdhdizJodbm upper respiratory disease (20 sources)Allergic rhinitis; Translations: [Allergic rhinitis, unspecified] ChronicOther upper respiratory disease (1 source)Allergic rhinitis, unspecifiedChronicOther upper respiratory infections (20 sources)Sinusitis; Translations: [Chronic sinusitis, unspecified]Chronic Other upper respiratory infections (1 source)Acute sinusitis, unspecifiedEpisodicResidual codes; unclassified (20 sources)Sleep apnea; Translations: [Sleep apnea, unspecified]ChronicResidual codes; unclassified (2 sources)Sleep apnea, unspecifiedChronicResidual codes; unclassified (20 sources)Obstructive sleep apnea syndrome; Translations: [Obstructive sleep apnea (adult) (pediatric)]47-89-3555ZhdfwqjBgomcgcz codes; unclassified (9 sources)Obstructive sleep apnea (adult) (pediatric); Translations: [Obstructive sleep apnea (adult)(pediatric)]50-92-2054KdhxnxbRzxontvp codes; unclassified (20 sources)Procedure related finding; Translations: [Encounter for cosmetic surgery]EpisodicResidual codes; unclassified (17 sources)Insomnia; Translations: [Insomnia, unspecified]39-06-6716Wiauhkwx Residual codes; unclassified (3 sources)Insomnia, unspecified; Translations: [Insomnia, unspecified] 38-38-8196FgxsickvAdzaggwl codes; unclassified (2 sources)Edema; Translations: [Edema, unspecified]66-45-7933Hmdcidmj Spondylosis; intervertebral disc disorders; other back problems (5 sources)Low back pain; Translations: [Cervicalgia]18-97-7903HqiuddunIzivmfn and strains (20 sources)Tendon injury - lower limb; Translations: [Strain of muscle(s) and tendon(s) of peroneal muscle group at lower leg level, right leg, initial encounter]18-79-6152LovudunzKwzmvzz disorders (20 sources)Hypothyroidism; Translations: [Hypothyroidism, unspecified]Onset: 08-08-2021 Resolved: 43-14-1756FmwebmeTzfemoytascr (3 sources)R26.89 - Other abnormalities of gait and mobilityUrinary tract infections (5 sources)Acute cystitis without hematuria; Translations: [Cystitis, unspecified without hematuria]Onset: 01-14-2022 Resolved: 35-28-6611Aidzgfik Past or Other Problems Problem ClassificationProblemDateDocumented DateEpisodic/ChronicDiabetes mellitus without complication (20 sources)Hyperglycemia, unspecified; Translations: [Hyperglycemia]Onset: 08-14-2021 Resolved: 93-58-3615KszluldfSbwxcgxboturq symptoms and ill-defined conditions (13 sources)Frequency of micturition; Translations: [Hematuria, unspecified] Onset: 08-12-2021 Resolved: 44-68-3071PviufticHaqkd aftercare (6 sources)Other salvage determiner (current) drug therapy; Translations: [OTH CHEMICAL PLANT OPERATOR CURRENT DRUG THERAPY]Onset: 08-14-2021 Resolved: 83-39-9080HuioxiecGtqozweeopcr (2 sources)Cough R05.9 Results Test NameValueInterpretationReference RangeFacilityBasophils [#/volume] in Blood by Automated countOrdered By: Klaus Horton on 93-92-7529Aakxonwmn (Bld) [#/Vol] 0.0 10*3/uLNormal0.0-0.2FKettering Health Greene MemorialComment on above:Result Comment: PERFORMED BY: [place] [address] PATHOLOGIST [employer] MECHANIC SHANIQUA SANTIAGO M.D.Performed By: #### BMP, CBC #### [place] [address] USABasophils/100 leukocytes in Blood by Automated count Ordered By: Klaus Horton on 58-22-5217Ihlbywjfp/100 WBC (Bld)1.0 %Normal. [facility], BeachwoodComment on above:Performed By: #### BMP, CBC #### [place] [address] USAComplete Blood Count Auto Diffon 65-97-7409Kjfj Corpuscular HGB Conc33.4 g/uHWbzcyu39.0-35.0The [facility] Physician GroupComment on above:Performed By: #### BMP, CBC #### [place] [address] USANRBC%0.2 /100{WBC}Normal0-0.5The [facility] Comment on above:Performed By: #### BMP, CBC #### [place] [address] USAWhite Blood Count4.6 [CFU]/mLNormal3.8-11.6The [facility] Physician GroupComment on above:Performed By: #### BMP, CBC #### [place] [id number] USAEosinophils [#/volume] in Blood by Automated countOrdered By: Klaus Horton on 98-59-0094Cfertaglllp (Bld) [#/Vol]0.2 10*3/uLNormal0.0-0.45 [facility], BeachwoodComment on above:Performed By: #### BMP, CBC #### [place] [address] USAEosinophils/100 leukocytes in Blood by Automated count Ordered By: Klaus Horton on 82-71-1023Pamkdqewynt/100 WBC (Bld)3.8 %Normal. [facility], BeachwoodComment on above:Performed By: #### BMP, CBC #### [place] [address] USAErythrocyte distribution width [Ratio] by Automated count Ordered By: Klaus Horton on 89-19-5880Abepjfucscv distribution width (RBC) [Ratio]14.8 %Omblsv84.9-15.3FKettering Health Greene MemorialComment on above: Performed By: #### BMP, CBC #### [place] [address] USAErythrocytes [#/volume] in Blood by Automated countOrdered By: Klaus Horton on 28-22-4609HXR (Bld) [#/Vol]4.33 10*6/uLNormal3.60-5.00 [facility], BeachwoodComment on above:Performed By: #### BMP, CBC #### [place] [address] USAFerritin [Mass/volume] in Serum or PlasmaOrdered By: Klaus Horton on 30-23-7218Tayfiivc [Mass/Vol]87.3 ng/mPPtocgk76.0-306.8[facility], BeachwoodComment on above:Performed By: #### BMP, CBC #### [place] [address] USAHematocrit [Volume Fraction] of Blood by Automated count Ordered By: Klaus Horton on 68-66-7252Btojlrtpdy (Bld) [Volume fraction]37.3 % Ubvruw64.0-46.4FKettering Health Greene MemorialComment on above:Performed By: #### BMP, CBC #### [facility] [address] [place] [address] USAHemoglobin [Mass/volume] in BloodOrdered By: Klaus Horton on 23-82-8545Nbyrhyjubt (Bld) [Mass/Vol]12.5 g/dRHpywqo73.8-15.4FKettering [facility] Greene MemorialComment on above:Performed By: #### BMP, CBC #### [facility] [address] [place] [address] USAIron [Mass/volume] in Serum or PlasmaOrdered By: Klaus Horton on 74-90-5356Nhnn [Mass/Vol]90 ug/pEUixjev56-866EdasccwngSelect Medical [facility], BeachwoodComment on above:Performed By: #### BMP, CBC #### [place] [address] USAIron and TIBC Profileon 03-16-2025% Iron Ejulpiqwte35.6 % Hpkmfd74-16Bxm [facility] Physician GroupComment on above:Performed By: #### BMP, CBC #### [place] [id number] USATotal Iron Binding Mhvyijzr262 ug/xOYhztmk503-095Sbg [facility] Physician GroupComment on above:Performed By: #### BMP, CBC #### [place] [address] USALeukocytes [#/volume] corrected for nucleated erythrocytes in Blood by Automated counOrdered By: Klaus Horton on 09-90-1406AKF corrected for nucl RBC Auto (Bld) [#/Vol]4.6 10*3/uL3.8-11.6FKettering Health Greene MemorialLeukocytes [#/volume] in Blood by Automated countOrdered By: Klaus Horton on 02-48-4276RND (Bld) [#/Vol]4.6 10*3/uLNormal3.8-11.6FKettering Health Greene MemorialComment on above:Performed By: #### BMP, CBC #### [facility] [address] [place] [address] USALymphocytes [#/volume] in Blood by Automated countOrdered By: Klaus Horton on 43-29-6314Xrrbkjzdqsu (Bld) [#/Vol]1.4 10*3/uLNormal1.00-4.8 [facility], BeachwoodComment on above:Performed By: #### BMP, CBC #### [facility] [address] [place] [address] USALymphocytes/100 leukocytes in Blood by Automated count Ordered By: Klaus Horton on 60-62-1914Adikmxdgnfu/100 WBC (Bld)29.9 %Normal. [facility], BeachwoodComment on above:Performed By: #### BMP, CBC #### [address] [Entitic mass] by Automated countOrdered By: Klaus Horton on 26-05-4609MKY (RBC) [Entitic mass]28.8 uwOodpqe37.7-34.3FKettering Health Greene MemorialComment on above:Performed By: #### BMP, CBC #### [address] Auto (RBC) [Mass/Vol]Ordered By: Klaus Horton on 94-13-8197DFJY (RBC) [Mass/Vol]33.4 g/dL32.0-35.0[facility] HospitalV [Entitic volume] by Automated countOrdered By: Klaus Horton on 27-83-2208TML (RBC) [Entitic vol]86.1 hNPwojnm02-414ApzywvfftSelect Medical [facility], BeachwoodComment on above:Performed By: #### BMP, CBC #### [place] [address] USAMonocytes [#/volume] in Blood by Automated countOrdered By: Klaus Horton on 52-85-0838Tdwfvpfco (Bld) [#/Vol]0.3 10*3/uLNormal0.0-0.8 [facility], BeachwoodComment on above:Performed By: #### BMP, CBC #### [place] [address] USAMonocytes/100 leukocytes in Blood by Automated count Ordered By: Klaus Horton on 21-75-8627Xqpvqxhrx/100 WBC (Bld)7.4 %Normal. [facility], BeachwoodComment on above:Performed By: #### BMP, CBC #### [place] [address] USANeutrophils [#/volume] in Blood by Automated countOrdered By: Klaus Horton on 96-31-6917Jftaqwyuape (Bld) [#/Vol]2.7 10*3/uLNormal1.8-7.7 [facility], BeachwoodComment on above:Performed By: #### BMP, CBC #### [place] [address] USANeutrophils/100 leukocytes in Blood by Automated count Ordered By: Klaus Horton on 90-83-2364Jbyegakcvtj/100 WBC (Bld)57.9 %Normal. [facility], BeachwoodComment on above:Performed By: #### BMP, CBC #### [place] [address] USANucleated erythrocytes [Presence] in Blood by Automated countOrdered By: Klaus Horton on 27-35-3080Ukuimuznh RBC Auto Ql (Bld)0.2 /100{WBC}0-0.5FK[facility]tering [facility] Greene MemorialPlatelet mean volume [Entitic volume] in Blood by Automated countOrdered By: Klaus Horton on 03-16-2025 Platelet mean volume (Bld) [Entitic vol]8.1 fLNormal6.3-10.7FKettering Health Greene MemorialComment on above:Performed By: #### BMP, CBC #### [place] [address] USAPlatelets [#/volume] in Blood by Automated countOrdered By: Klaus Horton on 10-33-2813Stgsftrbb (Bld) [#/Vol]220 10*3/sVDgkptn604-893 [facility], BeachwoodComment on above:Performed By: #### BMP, CBC #### [facility] [address] [place] [id number] USASerum or plasma iron binding capacity measurement (mass/volume)Ordered By: Klaus Horton on 30-41-2928Cxil binding capacity [Mass/Vol]381 ug/zY960-501BsgiiqrhfCleveland Clinic Children's Hospital for Rehabilitationerum or plasma iron saturation measurement (mass fraction)Ordered By: Klaus Horton on 35-88-2248Jmvi saturation [Mass fraction]23.6 %20-50[facility] [place] Thyrotropin [Units/volume] in Serum or PlasmaOrdered By: Klaus Horton on 49-25-8077RWG Qn0.43 m[IU]/LLow0.45-5.33[facility], BeachwoodComment on above:Result Comment: PERFORMED BY: [place] [address] PATHOLOGIST [employer] MECHANIC SHANIQUA SANTIAGO M.D.Performed By: #### BMP, CBC #### [place] [id number] USATransferrin [Mass/volume] in Serum or PlasmaOrdered By: Klaus Horton on 88-00-4779Hjlcfaqpghc [Mass/Vol]272 mg/oHYfwhtb423-404IahklgysxSelect [facility], BeachwoodComment on above:Performed By: #### BMP, CBC #### [facility] [address] [place], [place] [id number] USANo Panel Informationon 34-40-3418VFDW IbammdnkxxK3R with Estimated Average Gluon 04-88-7385Jmhygsj [Mass/Vol]126 mg/dLNoAtrium Health Cleveland Physician GroupComment on above:Result Comment: PERFORMED BY: [place] [address] PATHOLOGIST [employer] MECHANIC SHANIQUA SANTIAGO M.D.Performed By: #### CMP, LIPID #### [address] [address] USAAlanine aminotransferase [Enzymatic activity/volume] in Serum or PlasmaOrdered By: Klaus Horton on 88-15-0849QQA [Catalytic activity/Vol]Alanine aminotransferase [Enzymatic activity/volume] in Serum or PlasmaSelect Medical [facility] Clinic [facility] Hospital, BeachwoodALT [Catalytic activity/Vol]31 U/L Normal7[facility], BeachwoodComment on above:Performed By: #### CMP, LIPID #### [facility] [address] [place] [address] USAAlbumin [Mass/volume] in Serum or Plasma by Bromocresol green (BCG) dye binding methoOrdered By: Klaus Horton on 99-79-9646Vwydffq BCG dye [Mass/Vol]Albumin [Mass/volume] in Serum or Plasma by Bromocresol green (BCG) dye binding metho3.5-5.7FK[facility]tering Health Greene MemorialAlbumin BCG dye [Mass/Vol]4.1 g/dL3.5-5.7FKettering Health Greene MemorialAlkaline phosphatase [Enzymatic activity/volume] in Serum or PlasmaOrdered By: Klaus Horton on 80-24-3060HJM [Catalytic activity/Vol]Alkaline phosphatase [Enzymatic activity/volume] in Serum or Bbzrwy09-558Uzhtqozlm[address] Nguyen StreetALP [Catalytic activity/Vol]96 U/FFwwqny93-539Wkzslaean[address] [place] [address] Comment on above:Performed By: #### CMP, LIPID #### [facility] [address] [place] [address] USAAspartate aminotransferase [Enzymatic activity/volume] in Serum or PlasmaOrdered By: Klaus Horton on 15-59-4464RIZ [Catalytic activity/Vol]Aspartate aminotransferase [Enzymatic activity/volume] in Serum or Ppwaap55-44Vpcvztzjz[address] StreetAST [Catalytic activity/Vol]26 U/L Ndlrpv46-60Hjlokppxg[address] [place], [place] [address]Comment on above:Performed By: #### CMP, LIPID #### [facility] [address] [place] [address] USABasophils Auto (Bld) [#/Vol]Ordered By: Klaus Horton on 60-53-9498Xuuincfhd (Bld) [#/Vol]Automated basophil count0.0-0.2FKettering Health Greene MemorialBasophils [#/volume] in Blood by Automated countOrdered By: Klaus Horton on 30-98-5034Gsaxpuyzp (Bld) [#/Vol]0.0 10*3/uLNormal0.0-0.2 [facility], BeachwoodComment on above:Result Comment: PERFORMED BY: [place] [address] PATHOLOGIST [employer] MECHANIC SHANIQUA SANTIAGO M.D.Performed By: #### CMP, LIPID #### [place] [address] USABasophils/100 WBC Auto (Bld)Ordered By: Klaus Horton on 26-37-3616Jrumeunam/100 WBC (Bld)Automated basophil %.[facility], BeachwoodBasophils/100 leukocytes in Blood by Automated countOrdered By: Klaus Horton on 94-79-6464Jnfhehxeh/100 WBC (Bld)0.8 %Normal.[facility], BeachwoodComment on above:Performed By: #### CMP, LIPID #### [place] [address] USABilirubin.total [Mass/volume] in Serum or PlasmaOrdered By: Klaus Horton on 92-43-9556Ehhiawgxl [Mass/Vol]Bilirubin.total [Mass/volume] in Serum or Plasma0.3-1.0[facility], BeachwoodBilirubin [Mass/Vol] 0.6 mg/dLNormal0.3-1.0[facility], BeachwoodComment on above: Performed By: #### CMP, LIPID #### [place] [address] USABlood estimated average glucose determination by estimation from glycated hemoglobinOrdered By: Klaus Horton on 33-23-0297Ctvxgww glucose Estimated from glycated hemoglobin (Bld) [Mass/Vol]Glucose mean value [Mass/volume] in Blood Estimated from glycated hemoglobinSelect Medical [facility], BeachwoodAverage glucose Estimated from glycated hemoglobin (Bld) [Mass/Vol]126 mg/dLSelect Medical [facility] Clinic Rehabilitation Hospital, BeachwoodCalcium [Mass/volume] in Serum or PlasmaOrdered By: Klaus Horton on 12-18-2248Lhfkmax [Mass/Vol]Calcium [Mass/volume] in Serum or Plasma8.6-10.3FKettering [facility] MemorialCalcium [Mass/Vol]8.6 mg/dLNormal8.6-10.3FKettering Health Greene MemorialComment on above:Performed By: #### CMP, LIPID #### [facility] [address] [place] [address] USACarbon dioxide, total [Moles/volume] in Serum or Plasma Ordered By: Kluas Horton on 32-09-9626YU8 [Moles/Vol]Carbon dioxide, total [Moles/volume] in Serum or Fsqdyb74.0-31.0[facility], BeachwoodCO2 [Moles/Vol]28.5 mmol/MVtfsgl21.0-31.0[facility], BeachwoodComment on above:Performed By: #### CMP, LIPID #### [facility] [address] [place] [id number] USAChloride [Moles/volume] in Serum or PlasmaOrdered By: Klaus Horton on 66-40-9489Xendlrvx [Moles/Vol]Chloride [Moles/volume] in Serum or Zzymar96-246VjdiokxjwSelect Medical [facility], BeachwoodChloride [Moles/Vol]106 mmol/L Asiuuo09-541Qu[address] [place], [place] [address]Comment on above:Performed By: #### CMP, LIPID #### [facility] [address] [place] [id number] USACholesterol [Mass/volume] in Serum or PlasmaOrdered By: Klaus Horton on 84-80-8926Tjocdpmflcb [Mass/Vol]Cholesterol [Mass/volume] in Serum or Dqmryb211-240WzxrpxrdeSelect Medical [facility], BeachwoodComment on above:Chol less than 200 mg/dl low riskChol 201-239 mg/dl borderline riskChol 240 mg/dl and greater high riskCholesterol [Mass/Vol]155 mg/uZOeuzmb269-525QvzilgakySelect Medical [facility], BeachwoodComment on above:Chol less than 200 mg/dl low riskChol 201-239 mg/dl borderline riskChol 240 mg/dl and greater high riskResult Comment: Chol less than 200 mg/dl low risk Chol 201-239 mg/dl borderline risk Chol 240 mg/dl and greater high riskPerformed By: #### CMP, LIPID #### [facility] [address] [place] [address] USACholesterol in HDL [Mass/volume] in Serum or PlasmaOrdered By: Klaus Horton on 83-68-7500Ngcpfwrhqxw in HDL [Mass/Vol]Serum or plasma high density lipoprotein (HDL) cholesterol tbjinxccskv78-89VjnveigjoSelect Medical [facility] Hospital, BeachwoodComment on above:HDL CHOL ATP-III CLASSIFICATION Cardiovascular RiskHDL > or equal to 60 mg/dL LOWHDL < 40 mg/dL HIGHCholesterol in HDL [Mass/Vol]66 mg/oNQgsbyf51-92QacruoztdSelect Medical [facility], BeachwoodComment on above: HDL CHOL ATP-III CLASSIFICATION Cardiovascular RiskHDL > or equal to 60 mg/dL LOWHDL < 40 mg/dL HIGHResult Comment: HDL CHOL ATP-III CLASSIFICATION Cardiovascular Risk HDL > or equal to 60 mg/dL LOW HDL < 40 mg/dL HIGHPerformed By: #### CMP, LIPID #### [facility] [address] [place] [address] USACholesterol in LDL Calc [Mass/Vol]Ordered By: Klaus Horton on 63-47-9994Yhilxitztan in LDL [Mass/Vol]Cholesterol in LDL [Mass/volume] in Serum or Plasma by calculationSelect Medical [facility] Hospital, BeachwoodComment on above:LDL ATP III CLASSIFICATIONLDL less than 100 mg/dL OptimalLDL 100-129 mg/dL Near or above fprccfdPQX400-101 mg/dL Borderline highLDL 160-189 mg/dL HighLDL greater than 189 mg/dL Very highCholesterol in LDL [Mass/Vol]71 mg/dL0100 [facility], BeachwoodComment on above:LDL ATP III CLASSIFICATIONLDL less than 100 mg/dL OptimalLDL 100-129 mg/dL Near or above rgyoucbMPZ360-786 mg/dL Borderline highLDL 160-189 mg/dL HighLDL greater than 189 mg/dL Very high Cholesterol in VLDL Calc [Mass/Vol]Ordered By: Klaus Horton on 01-12-2025 Cholesterol in VLDL [Mass/Vol]Cholesterol in VLDL [Mass/volume] in Serum or Plasma by calculationSelect Medical [facility] Hospital, BeachwoodCholesterol in VLDL [Mass/Vol]17 mg/dLSelect Medical [facility], BeachwoodComplete Blood Count Auto Diffon 54-01-7360Vltw Corpuscular HGB Conc33.2 g/fXZldvcr62.0-35.0The [facility] Physician GroupComment on above:Performed By: #### CMP, LIPID #### [place] [address] USANRBC%0.1 /100{WBC}Normal0-0.5[facility] Comment on above:Performed By: #### CMP, LIPID #### [place] [address] USAComprehensive Metabolic Panelon 17-47-5016Jrnbwtw [Mass/Vol]4.1 g/dLNormal3.5-5.7[facility] HospitalComment on above: Performed By: #### CMP, LIPID #### [place] [address] USAGFR/1.73 sq M.predicted MDRD (S/P/Bld) [Vol rate/Area] mL/min/{1.73_m2}NormalThe [facility] Physician [facility] HospitalComment on above:Performed By: #### CMP, LIPID #### [place] [address] USACreatinine [Mass/volume] in Serum or PlasmaOrdered By: Klaus Horton on 13-32-6976Vfyybbsknz [Mass/Vol]Creatinine [Mass/volume] in Serum or Plasma0.60-1.20[facility], BeachwoodCreatinine [Mass/Vol]0.78 mg/dLNormal0.60-1.20[facility], BeachwoodComment on above:Performed By: #### CMP, LIPID #### [place] [address] USAEosinophils Auto (Bld) [#/Vol]Ordered By: Klaus Horton on 20-93-5335Wopkwajsdhv (Bld) [#/Vol]Automated eosinophil count0.0-0.45[facility], BeachwoodEosinophils [#/volume] in Blood by Automated countOrdered By: Klaus Horton on 39-83-1380Fsscideolse (Bld) [#/Vol]0.1 10*3/uLNormal 0.0-0.45[facility], BeachwoodComment on above:Performed By: #### CMP, LIPID #### [facility] [address] [place] [address] USAEosinophils/100 WBC Auto (Bld)Ordered By: Klaus Horton on 23-84-7911Kdgsyqufzsj/100 WBC (Bld)Automated eosinophil %.[facility], BeachwoodEosinophils/100 leukocytes in Blood by Automated countOrdered By: Klaus Horton on 08-43-3190Rtnuqpjpdsp/100 WBC (Bld)2.3 %Normal.[facility], BeachwoodComment on above:Performed By: #### CMP, LIPID #### [place] [address] USAErythrocyte distribution width Auto (RBC) [Ratio]Ordered By: Klaus Horton on 78-53-4086Fedmpdqylcm distribution width (RBC) [Ratio] Erythrocyte distribution width [Ratio] by Automated count11.9-15.3FKettering Health Greene MemorialErythrocyte distribution width [Ratio] by Automated count Ordered By: Klaus Horton on 49-15-4452Hdihwhumlpg distribution width (RBC) [Ratio]14.5 %Rwprpr14.9-15.3FKettering Health Greene MemorialComment on above: Performed By: #### CMP, LIPID #### [place] [address] USAErythrocytes [#/volume] in Blood by Automated countOrdered By: Klaus Horton on 16-91-3441YLB (Bld) [#/Vol]4.51 10*6/uLNormal3.60-5.00 [facility], BeachwoodComment on above:Performed By: #### CMP, LIPID #### [place] [address] USAGlobulin Calc (S) [Mass/Vol]Ordered By: Klaus Horton on 34-84-6504Jgoqsjsw (S) [Mass/Vol]Serum globulin measurement by calculation (mass/volume)[facility], BeachwoodGlucose [Mass/volume] in Serum or PlasmaOrdered By: Klaus Horton on 47-79-4267Mzonjuw [Mass/Vol]Glucose [Mass/volume] in Serum or Zddgku43-922NrgmuemgwSelect Medical [facility], BeachwoodComment on above:ADA recommended reference rangeRandom Glucose Reference Range is dependent on time and content of last meal. Glucose of more than 200 mg/dL in a nonstressed, ambulatory subject supports the diagnosisof Diabetes Mellitus. Glucose [Mass/Vol]90 mg/dRPdiubf82-390InbsrtltoSelect Medical [facility] Hospital, BeachwoodComment on above:ADA recommended reference rangeRandom Glucose Reference Range is dependent on time and content of last meal. Glucose of more than 200 mg/dL in a nonstressed, ambulatory subject supports the diagnosisof Diabetes Mellitus. Result Comment: Random Glucose Reference Range is dependent on time and content of last meal. Glucose of more than 200 mg/dL in a nonstressed, ambulatory subject supports the diagnosis of Diabetes Mellitus. ADA recommended reference rangePerformed By: #### CMP, LIPID #### [facility] [address] [place] [id number] USAHematocrit Auto (Bld) [Volume fraction]Ordered By: Klaus Horton on 12-57-9330Ttcdchncrd (Bld) [Volume fraction]Hematocrit [Volume Fraction] of Blood by Automated count34.0-46.4FKettering Health [facility] Memorial Hematocrit [Volume Fraction] of Blood by Automated countOrdered By: Klaus Horton on 56-95-2280Rjxsmygcth (Bld) [Volume fraction]38.6 %Wobyzv04.0-46.4FKettering Health Greene MemorialComment on above:Performed By: #### CMP, LIPID #### [facility] [address] [place] [id number] USAHemoglobin A1c/Hemoglobin.total in BloodOrdered By: Klaus Horton on 76-64-5460SbI6v (Bld) [Mass fraction]Hemoglobin A1c percentageHigh 4.3-5.6FKettering Health Greene MemorialComment on above:Increased risk for diabetes: 5.7 - 6.4diabetes: >6.4glycemic control for adults with diabetes: &l t;7.0HbA1c (Bld) [Mass fraction]6.0 %High4.3-5.6FKettering Health Greene MemorialComment on above:Increased risk for diabetes: 5.7 - 6.4diabetes: >6.4glycemic control for adults with diabetes: <7.0Result Comment: Increased risk for diabetes: 5.7 - 6.4 diabetes: >6.4 glycemic control for adults with diabetes: <7.0Performed By: #### CMP, LIPID #### [facility] [address] [place] [address] USAHemoglobin [Mass/volume] in BloodOrdered By: Klaus Horton on 38-40-5266Qmtnfylrfw (Bld) [Mass/Vol]Hemoglobin [Mass/volume] in Blood 11.8-15.4FKettering Health Greene MemorialHemoglobin (Bld) [Mass/Vol]12.8 g/dL Jftrux60.8-15.4FKettering Health Greene MemorialComment on above:Performed By: #### CMP, LIPID #### [facility] [address] [place] [address] USALeukocytes [#/volume] corrected for nucleated erythrocytes in Blood by Automated counOrdered By: Klaus Horton on 83-25-6850GWV corrected for nucl RBC Auto (Bld) [#/Vol]Leukocytes [#/volume] corrected for nucleated erythrocytes in Blood by Automated coun3.8-11.6FKettering [facility] Memorial WBC corrected for nucl RBC Auto (Bld) [#/Vol]4.0 10*3/uL3.8-11.6FKettering Health Greene MemorialLeukocytes [#/volume] in Blood by Automated countOrdered By: Klaus Horton on 83-46-4915ZIX (Bld) [#/Vol]4.0 10*3/uLNormal3.8-11.6 [facility], BeachwoodComment on above:Performed By: #### CMP, LIPID #### [facility] [address] [place] [address] USALipid Panelon 17-71-8223KGD Cholesterol,Kvqjvdlwyz14 mg/dL Normal0-100The [facility] Physician GroupComment on above:Result Comment: LDL ATP III CLASSIFICATION LDL less than 100 mg/dL Optimal LDL 100-129 mg/dL Near or above optimal LDL 130-159 mg/dL Borderline high LDL 160-189 mg/dL High LDL greater than 189 mg/dL Very highPerformed By: #### CMP, LIPID #### [facility] [address] [place] [address] USATriglyceride w/Yclxio00 mg/dLNormal0-149[facility] Physician GroupComment on above:Result Comment: TRIG ATP III CLASSIFICATION TRIG less than 150 mg/dL Normal TRIG 150-199 mg/dL Borderline high TRIG 200-500 mg/dL High TRIG greater than 500 mg/dL Very high Standard traceable to the Center for Disease Conrtrol and Prevention (CDC) test method.Performed By: #### CMP, LIPID #### [facility] [address] [place] [address] USAVLDL SJOKDNWPOME66 mg/dLNormalThe [facility] Physician GroupComment on above:Performed By: #### CMP, LIPID #### [place] [address] USALymphocytes Auto (Bld) [#/Vol]Ordered By: Klaus Horton on 22-66-5184Decddnjyfnb (Bld) [#/Vol]Lymphocytes [#/volume] in Blood by Automated count1.00-4.8[facility], BeachwoodLymphocytes [#/volume] in Blood by Automated countOrdered By: Klaus Horton on 20-57-8355Frwufxujfkb (Bld) [#/Vol] 1.2 10*3/uLNormal1.00-4.8[facility], BeachwoodComment on above: Performed By: #### CMP, LIPID #### [place] [address] USALymphocytes/100 WBC Auto (Bld)Ordered By: Klaus Horton on 58-80-9322Reowcwezwyf/100 WBC (Bld)Lymphocytes/100 leukocytes in Blood by Automated count.[facility], BeachwoodLymphocytes/100 leukocytes in Blood by Automated countOrdered By: Klaus Horton on 28-40-9086Rweuqyfqmul/100 WBC (Bld)30.3 %Normal.[facility], BeachwoodComment on above: Performed By: #### CMP, LIPID #### [place] [address] USAH Auto (RBC) [Entitic mass]Ordered By: Klaus Horton on 70-62-7719CYU (RBC) [Entitic mass]MCH [Entitic mass] by Automated count24.7-34.3 [facility] [Entitic mass] by Automated countOrdered By: Klaus Horton on 26-42-7882PUT (RBC) [Entitic mass]28.4 nfYxtgcy34.7-34.3 [facility], BeachwoodComment on above:Performed By: #### CMP, LIPID #### [facility] [address]HC Auto (RBC) [Mass/Vol]Ordered By: Klaus Horton on 65-70-6703OWWD (RBC) [Mass/Vol]MCHC [Mass/volume] by Automated count32.0-35.0 [facility] HospitalHC (RBC) [Mass/Vol]33.2 g/dL32.0-35.0 [facility] Auto (RBC) [Entitic vol]Ordered By: Klaus Horton on 96-00-0570IGG (RBC) [Entitic vol]MCV [Entitic volume] by Automated tsbir64-587HpstnnttbUC Health [Entitic volume] by Automated countOrdered By: Klaus Horton on 48-98-6698QFH (RBC) [Entitic vol]85.6 fLNormal 80-100[facility], BeachwoodComment on above:Performed By: #### CMP, LIPID #### [facility] [address] [place] [address] USAMonocytes Auto (Bld) [#/Vol]Ordered By: Klaus Horton on 63-39-6587Zngraekjr (Bld) [#/Vol]Automated blood monocyte count0.0-0.8[facility], BeachwoodMonocytes [#/volume] in Blood by Automated countOrdered By: Klaus Horton on 63-97-1155Lwusmzkvg (Bld) [#/Vol]0.4 10*3/uLNormal0.0-0.8 [facility], BeachwoodComment on above:Performed By: #### CMP, LIPID #### [facility] [address] [place] [id number] USAMonocytes/100 WBC Auto (Bld)Ordered By: Klaus Horton on 26-19-4173Qbaukcxfp/100 WBC (Bld)Automated monocyte %.[facility], BeachwoodMonocytes/100 leukocytes in Blood by Automated countOrdered By: Klaus Horton on 25-33-5312Tmfginczn/100 WBC (Bld)10.3 %Normal.[facility], BeachwoodComment on above:Performed By: #### CMP, LIPID #### [facility] [address] [place] [id number] USANeutrophils Auto (Bld) [#/Vol]Ordered By: Klaus Horton on 31-52-5613Gfegtmkpcdj (Bld) [#/Vol]Neutrophils [#/volume] in Blood by Automated count1.8-7.7FKettering Health Greene MemorialNeutrophils [#/volume] in Blood by Automated countOrdered By: Klaus Horton on 28-39-3191Cmvyrclzkwi (Bld) [#/Vol] 2.2 10*3/uLNormal1.8-7.7FKettering Health Greene MemorialComment on above: Performed By: #### CMP, LIPID #### [facility] [address] [place] [id number] USANeutrophils/100 WBC Auto (Bld)Ordered By: Klaus Horton on 43-48-7597Salirhxacux/100 WBC (Bld)Automated neutrophil %.[facility], BeachwoodNeutrophils/100 leukocytes in Blood by Automated countOrdered By: Klaus Horton on 35-43-6418Pbkvexcuxgt/100 WBC (Bld)56.3 %Normal.[facility], BeachwoodComment on above:Performed By: #### CMP, LIPID #### [facility] [address] [place] [id number] USANo Panel InformationOrdered By: Klaus Horton on 01-12-2025 Estimated GFR (CKD-EPI)> 60.0 mL/MinSelect Medical Cleveland Clinic Rehabilitation Hospital, BeachwoodPharmacy Creatinine Clearance (ChemN/[facility] HospitalNucleated erythrocytes [Presence] in Blood by Automated countOrdered By: Klaus Horton on 69-01-0156Ifxwiegvy RBC Auto Ql (Bld)Nucleated erythrocytes [Presence] in Blood by Automated count0-0.5FK[facility] Health Greene MemorialNucleated RBC Auto Ql (Bld)0.1 /100{WBC}0-0.5FKettering Health Greene MemorialPlatelet mean volume Auto (Bld) [Entitic vol]Ordered By: Klaus Horton on 74-24-4035Irgtuesu mean volume (Bld) [Entitic vol]Platelet mean volume [Entitic volume] in Blood by Automated count6.3-10.7FKettering Health Greene MemorialPlatelet mean volume [Entitic volume] in Blood by Automated countOrdered By: Klaus Horton on 13-28-9090Eidyhbok mean volume (Bld) [Entitic vol]7.4 fLNormal6.3-10.7FKettering Health Greene MemorialComment on above:Performed By: #### CMP, LIPID #### [facility] [address] [place] [address] USAPlatelets Auto (Bld) [#/Vol]Ordered By: Klaus Horton on 07-16-5916Wppthxbix (Bld) [#/Vol]Platelets [#/volume] in Blood by Automated vooxu497-264DuryrcsfwSelect Medical [facility] Clinic Rehabilitation Hospital, BeachwoodPlatelets [#/volume] in Blood by Automated countOrdered By: Klaus Horton on 98-25-2649Spghpsbyo (Bld) [#/Vol]219 10*3/wWWpyitq618-930Ewkt[address] [place], [place] [address]Comment on above:Performed By: #### CMP, LIPID #### [facility] [address] [place], [place] [id number] USAPotassium [Moles/volume] in Serum or PlasmaOrdered By: Klaus Horton on 31-93-7366Dnhyiwbku [Moles/Vol]Potassium [Moles/volume] in Serum or Plasma3.5-5.1FK[facility]tering Health Greene MemorialPotassium [Moles/Vol]4.2 mmol/LNormal3.5-5.1FKettering Health Greene MemorialComment on above:Performed By: #### CMP, LIPID #### [facility] [address] [place], [place] [id number] USAProtein [Mass/volume] in Serum or PlasmaOrdered By: Klaus Horton on 97-11-7502Ykascgu [Mass/Vol]Protein [Mass/volume] in Serum or Plasma 6.4-8.9[facility], BeachwoodProtein [Mass/Vol]6.6 g/dLNormal6.4-8.9 [facility], BeachwoodComment on above:Performed By: #### CMP, LIPID #### [facility] [address] [place] [address] USARBC Auto (Bld) [#/Vol]Ordered By: Klaus Horton on 53-45-9172IJZ (Bld) [#/Vol]Erythrocytes [#/volume] in Blood by Automated count 3.60-5.00[facility] for Rehabilitationerum globulin measurement by calculation (mass/volume)Ordered By: Klaus Horton on 61-10-4469Xawyzndc (S) [Mass/Vol]2.5 g/dLNoOhioHealth Dublin Methodist HospitalComment on above: Performed By: #### CMP, LIPID #### [facility] [address] [place] [address] USASerum or plasma albumin/globulin mass ratioOrdered By: Klaus Horton on 22-06-3719Ifqdlob/Globulin [Mass ratio]Serum or plasma albumin/globulin mass ratioSelect Medical [facility] Clinic Rehabilitation Hospital, BeachwoodAlbumin/Globulin [Mass ratio]1.6 {ratio}NormalSelect Medical [facility] Clinic Rehabilitation Hospital, BeachwoodComment on above: Performed By: #### CMP, LIPID #### [place] [id number] USASerum or plasma anion gap determinationOrdered By: Klaus Horton on 08-67-8428Wlows gap [Moles/Vol]Serum or plasma anion gap determination 6.0-15.0[facility], BeachwoodAnion gap [Moles/Vol]8.7 mmol/LNormal 6.0-15.0[facility], BeachwoodComment on above:Performed By: #### CMP, LIPID #### [facility] [address] [place] [id number] USASerum or plasma total cholesterol/high density lipoprotein (HDL) cholesterol mass ratOrdered By: Klaus Horton on 01-12-2025 Cholesterol.total/Cholesterol in HDL [Mass ratio]Serum or plasma total cholesterol/high density lipoprotein (HDL) cholesterol mass rat<5.0[facility], BeachwoodCholesterol.total/Cholesterol in HDL [Mass ratio]2.3 {ratio}Normal<5.0[facility], BeachwoodComment on above:Performed By: #### CMP, LIPID #### [facility] [address] [place] [address] USASodium [Moles/volume] in Serum or PlasmaOrdered By: Klaus Horton on 63-11-7611Zdxsie [Moles/Vol]Sodium [Moles/volume] in Serum or Plasma 136-145[facility] for Rehabilitationodium [Moles/Vol]139 mmol/LNormal 136-145[facility], BeachwoodComment on above:Performed By: #### CMP, LIPID #### [facility] [address] [place], [place] [id number] USAThyrotropin [Units/volume] in Serum or PlasmaOrdered By: Klaus Horton on 14-81-3869RXD QnThyrotropin [Units/volume] in Serum or Plasma 0.45-5.33[facility], BeachwoodTSH Qn4.18 m[IU]/LNormal0.45-5.33 [facility], BeachwoodComment on above:Result Comment: PERFORMED BY: [place] [id number] PATHOLOGIST [employer] SHANIQUA SANTIAGO M.D.Performed By: #### CMP, LIPID #### [facility] [address] [place], [place] [id number] USATriglyceride [Mass/volume] in Serum or PlasmaOrdered By: Klaus Horton on 79-80-8832Trdgmqyiqlgp [Mass/Vol]Triglyceride [Mass/volume] in Serum or Plasma0-149[facility], BeachwoodComment on above:TRIG ATP III CLASSIFICATIONTRIG less than 150 mg/dL NormalTRIG 150-199 mg/dL Borderline highTRIG 200-500 mg/dL High TRIG greater than 500 mg/dL Very highStandard traceable to the Center for Disease Conrtrol and Prevention (CDC) test method. Triglyceride [Mass/Vol]88 mg/dL0-149[facility], BeachwoodComment on above:TRIG ATP III CLASSIFICATIONTRIG less than 150 mg/dL NormalTRIG 150-199 mg/dL Borderline highTRIG 200-500 mg/dL High TRIG greater than 500 mg/dL Very highStandard traceable to the Center for Disease Conrtrol and Prevention (CDC) test method.Urea nitrogen [Mass/volume] in Serum or PlasmaOrdered By: Klaus Horton on 78-62-1845Unip nitrogen [Mass/Vol]Urea nitrogen [Mass/volume] in Serum or Plasma03-03[facility], BeachwoodUrea nitrogen [Mass/Vol]24 mg/dL Normal03-03[facility], BeachwoodComment on above:Performed By: #### CMP, LIPID #### [facility] [address] [place] [address] USAWBC Auto (Bld) [#/Vol]Ordered By: Klaus Horton on 17-09-0233CWL (Bld) [#/Vol]Leukocytes [#/volume] in Blood by Automated count 3.8-11.6FK[facility]tering Health Greene MemorialPatient Letter FTon [phone] Letter FTPatient Letter FT August 18, 2024 [address]ATT IRENE [address] [place] [phone] : 1955 Dear Patt, This is a reminder that you are due for an appointment with [facility]. Please contact our office at [phone] to schedule an appointment at your earliest convenience. Thank you, [facility] Patient contacted office and stated she is seeing a different GI provider.Normal [facility] HospitalAlanine aminotransferase [Enzymatic activity/volume] in Serum or PlasmaOrdered By: Klaus Horton on 09-21-6723OWZ [Catalytic activity/Vol]Alanine aminotransferase [Enzymatic activity/volume] in Serum or PlasmaSelect Medical Cleveland Clinic Rehabilitation Hospital, BeachwoodAlbumin [Mass/volume] in Serum or Plasma by Bromocresol green (BCG) dye binding methoOrdered By: Klaus Horton on 29-50-4147Ksfnjtj BCG dye [Mass/Vol]Albumin [Mass/volume] in Serum or Plasma by Bromocresol green (BCG) dye binding metho3.5-5.7FKettering Health Greene MemorialAlkaline phosphatase [Enzymatic activity/volume] in Serum or PlasmaOrdered By: Klaus Horton on 13-11-4494JNJ [Catalytic activity/Vol]Alkaline phosphatase [Enzymatic activity/volume] in Serum or Figngn20-447JrgpsqemvSelect Medical [facility] Clinic [facility] Hospital, BeachwoodAspartate aminotransferase [Enzymatic activity/volume] in Serum or Plasma Ordered By: Klasu Horton on 78-52-1700USC [Catalytic activity/Vol]Aspartate aminotransferase [Enzymatic activity/volume] in Serum or Xamjgr51-23VkfmkowboSelect Medical [facility] Hospital, BeachwoodBilirubin.total [Mass/volume] in Serum or PlasmaOrdered By: Klaus Horton on 02-89-9180Ajtxpddom [Mass/Vol]Bilirubin.total [Mass/volume] in Serum or Plasma0.3-1.0[facility], BeachwoodCalcium [Mass/volume] in Serum or PlasmaOrdered By: Klaus Horton on 82-51-5657Ikvxwqm [Mass/Vol] Calcium [Mass/volume] in Serum or Plasma8.6-10.3FKettering Health Greene MemorialCarbon dioxide, total [Moles/volume] in Serum or PlasmaOrdered By: Klaus Horton on 30-84-4778UL6 [Moles/Vol]Carbon dioxide, total [Moles/volume] in Serum or Vihlzz15.0-31.0[facility], BeachwoodChloride [Moles/volume] in Serum or PlasmaOrdered By: Klaus Horton on 47-36-9110Lbxzjngg [Moles/Vol] Chloride [Moles/volume] in Serum or Oomxvl04-386UoqpcpjtxSelect Medical [facility], BeachwoodCholesterol [Mass/volume] in Serum or PlasmaOrdered By: Klaus Horton on 66-80-5308Vgglpdlbtxk [Mass/Vol]Cholesterol [Mass/volume] in Serum or Plasma 140-200[facility], BeachwoodComment on above:Chol less than 200 mg/dl low riskChol 201-239 mg/dl borderline riskChol 240 mg/dl and greater high riskCholesterol in HDL [Mass/volume] in Serum or PlasmaOrdered By: Klaus Horton on 69-94-8968Luvcvrkwtsk in HDL [Mass/Vol]Serum or plasma high density lipoprotein (HDL) cholesterol -80OizccnuvySelect Medical [facility], [place] Comment on above:HDL CHOL ATP-III CLASSIFICATION Cardiovascular RiskHDL > or equal to 60 mg/dL LOWHDL < 40 mg/dL HIGHCholesterol in LDL Calc [Mass/Vol] Ordered By: Klaus Horton on 25-08-3180Axwbabooyiu in LDL [Mass/Vol]Cholesterol in LDL [Mass/volume] in Serum or Plasma by calculationHigh0-100[facility], BeachwoodComment on above:LDL ATP III CLASSIFICATIONLDL less than 100 mg/dL OptimalLDL 100-129 mg/dL Near or above mkdbfooOAZ401-890 mg/dL Borderline highLDL 160-189 mg/dL HighLDL greater than 189 mg/dL Very high Cholesterol in VLDL Calc [Mass/Vol]Ordered By: Klaus Horton on 09-09-2024 Cholesterol in VLDL [Mass/Vol]Cholesterol in VLDL [Mass/volume] in Serum or Plasma by calculationSelect Medical [facility], BeachwoodComprehensive Metabolic Panelon 18-99-5492Tqhniwh [Mass/Vol]4.1 g/dLNormal3.5-5.7The [facility] Physician GroupComment on above:Performed By: #### CMP, LIPID #### [facility] [address] [place] [address] USAAlbumin/Globulin [Mass ratio]1.6 {ratio}NormalThe [facility] Physician [facility] HospitalComment on above:Performed By: #### CMP, LIPID #### [facility] [address] [place] [address] USAALP [Catalytic activity/Vol]88 U/HFcripd59-954Hgd [facility] Physician GroupComment on above:Performed By: #### CMP, LIPID #### [facility] [address] [place] [address] USAALT [Catalytic activity/Vol]33 U/LNormal7-52The [facility] Physician GroupComment on above:Performed By: #### CMP, LIPID #### [facility] [address] [place] [address] USAAnion gap [Moles/Vol]8.4 mmol/LNormal6.0-15.0The [facility] Physician GroupComment on above:Performed By: #### CMP, LIPID #### [facility] [address] [place] [address] USAAST [Catalytic activity/Vol]23 U/OHxnegd63-33Euj [facility] Physician GroupComment on above:Performed By: #### CMP, LIPID #### [facility] [address] [place] [address] USABilirubin [Mass/Vol]0.5 mg/dLNormal0.3-1.0The [facility] Physician GroupComment on above:Performed By: #### CMP, LIPID #### [facility] [address] [place] [address] USACalcium [Mass/Vol]9.1 mg/dLNormal8.6-10.3The [facility] Physician GroupComment on above:Performed By: #### CMP, LIPID #### [facility] [address] [place] [address] USAChloride [Moles/Vol]106 mmol/UYhcvbp37-046Cwn [facility] Physician GroupComment on above:Performed By: #### CMP, LIPID #### [facility] [address] [place] [address] USACO2 [Moles/Vol]29.8 mmol/VRkokmf14.0-31.0The [facility] Physician GroupComment on above:Performed By: #### CMP, LIPID #### [facility] [address] [place] [address] USACreatinine [Mass/Vol]0.90 mg/dLNormal0.60-1.20The [facility] Physician GroupComment on above:Performed By: #### CMP, LIPID #### [facility] [address] [place] [address] USAGFR/1.73 sq M.predicted MDRD (S/P/Bld) [Vol rate/Area] mL/min/{1.73_m2}NormalThe [facility] Physician GroupComment on above:Performed By: #### CMP, LIPID #### [facility] [address] [place] [id number] USAGlobulin (S) [Mass/Vol]2.5 g/dLNormalThe [facility] Physician GroupComment on above:Performed By: #### CMP, LIPID #### [facility] [address] [place] [address] USAGlucose [Mass/Vol]95 mg/gOOtwuft71-512Bkb [facility] Physician GroupComment on above:Result Comment: Random Glucose Reference Range is dependent on time and content of last meal. Glucose of more than 200 mg/dL in a nonstressed, ambulatory subject supports the diagnosis of Diabetes Mellitus. ADA recommended reference rangePerformed By: #### CMP, LIPID #### [facility] [address] [place] [address] USAPotassium [Moles/Vol]4.2 mmol/LNormal3.5-5.1The [facility] Physician GroupComment on above:Performed By: #### CMP, LIPID #### [facility] [address] [place] [address] USAProtein [Mass/Vol]6.6 g/dLNormal6.4-8.9The [facility] Physician GroupComment on above:Performed By: #### CMP, LIPID #### [facility] [address] [place] [address] USASodium [Moles/Vol]140 mmol/LTbmjjp287-625Spu [facility] Physician GroupComment on above:Performed By: #### CMP, LIPID #### [facility] [address] [place] [id number] USAUrea nitrogen [Mass/Vol]19 mg/dLNormal7-25The [facility] Physician GroupComment on above:Performed By: #### CMP, LIPID #### [facility] [address] [place] [id number] USACreatinine [Mass/volume] in Serum or PlasmaOrdered By: Klaus Horton on 50-87-1089Axixopobkq [Mass/Vol]Creatinine [Mass/volume] in Serum or Plasma0.60-1.20[facility], BeachwoodGlobulin Calc (S) [Mass/Vol] Ordered By: Klaus Horton on 84-81-0269Ycnpjbgd (S) [Mass/Vol]Serum globulin measurement by calculation (mass/volume)[facility], BeachwoodGlucose [Mass/volume] in Serum or PlasmaOrdered By: Klaus Horton on 52-44-1429Uqrvjoc [Mass/Vol]Glucose [Mass/volume] in Serum or Rfnwgm27-742DveokhrjcSelect Medical [facility], BeachwoodComment on above:ADA recommended reference rangeRandom Glucose Reference Range is dependent on time and content of last meal. Glucose of more than 200 mg/dL in a nonstressed, ambulatory subject supports the diagnosisof Diabetes Mellitus.Lipid Panelon 98-91-0623Xzedsxtkxvd [Mass/Vol]194 mg/dLNormal 140-200The [facility] Physician GroupComment on above:Result Comment: Chol less than 200 mg/dl low risk Chol 201-239 mg/dl borderline risk Chol 240 mg/dl and greater high riskPerformed By: #### CMP, LIPID #### [facility] [address] [place] [id number] USACholesterol in HDL [Mass/Vol]60 mg/wJVkdyii46-73Gsf [facility] Physician GroupComment on above:Result Comment: HDL CHOL ATP-III CLASSIFICATION Cardiovascular Risk HDL > or equal to 60 mg/dL LOW HDL < 40 mg/dL HIGHPerformed By: #### CMP, LIPID #### [facility] [address] [place] [id number] USACholesterol.total/Cholesterol in HDL [Mass ratio]3.2 {ratio}Normal<5.0The [facility] Physician GroupComment on above:Result Comment: PERFORMED BY: [place] [address] PATHOLOGIST [employer] MECHANIC DAYNE BAUM M.D.Performed By: #### CMP, LIPID #### [place] [id number] USALDL Cholesterol,Ffdnnrfvbt809 mg/dLHigh0-100The [facility] Physician GroupComment on above:Result Comment: LDL ATP III CLASSIFICATION LDL less than 100 mg/dL Optimal LDL 100-129 mg/dL Near or above optimal LDL 130-159 mg/dL Borderline high LDL 160-189 mg/dL High LDL greater than 189 mg/dL Very highPerformed By: #### CMP, LIPID #### [facility] [address] [place] [id number] USATriglyceride w/Ihwejp865 mg/dLNormal0-149The [facility] Physician GroupComment on above:Result Comment: TRIG ATP III CLASSIFICATION TRIG less than 150 mg/dL Normal TRIG 150-199 mg/dL Borderline high TRIG 200-500 mg/dL High TRIG greater than 500 mg/dL Very high Standard traceable to the Center for Disease Conrtrol and Prevention (CDC) test method.Performed By: #### CMP, LIPID #### [facility] [address] [place] [address] USAVLDL LWEYTRMPQCQ40 mg/dLNoAtrium Health Cleveland Physician GroupComment on above:Performed By: #### CMP, LIPID #### [facility] [address] [place] [address] USANo Panel InformationOrdered By: Klaus Horton on 09-09-2024 Estimated GFR (CKD-EPI)> 60.0 mL/MinSelect Medical [facility] Clinic Rehabilitation Hospital, BeachwoodPharmacy Creatinine Clearance (ChemN/[facility] HospitalPotassium [Moles/volume] in Serum or PlasmaOrdered By: Klaus Horton on 61-88-7157Ibmhawpzp [Moles/Vol]Potassium [Moles/volume] in Serum or Plasma3.5-5.1FKettering Health Greene MemorialProtein [Mass/volume] in Serum or PlasmaOrdered By: Klaus Horton on 77-08-9327Aquwjky [Mass/Vol]Protein [Mass/volume] in Serum or Plasma6.4-8.9 [facility] for Rehabilitationerum or plasma albumin/globulin mass ratio Ordered By: Klaus Horton on 86-34-5990Xqolsaj/Globulin [Mass ratio]Serum or plasma albumin/globulin mass ratioCleveland Clinic Children's Hospital for Rehabilitationerum or plasma anion gap determinationOrdered By: Klaus Horton on 75-79-4033Xioky gap [Moles/Vol]Serum or plasma anion gap determination6.0-15.0[facility] for Rehabilitationerum or plasma total cholesterol/high density lipoprotein (HDL) cholesterol mass ratOrdered By: Klaus Horton on 09-09-2024 Cholesterol.total/Cholesterol in HDL [Mass ratio]Serum or plasma total cholesterol/high density lipoprotein (HDL) cholesterol mass rat<5.0[facility] for Rehabilitationodium [Moles/volume] in Serum or PlasmaOrdered By: Klaus Horton on 69-70-1651Fvsrpj [Moles/Vol]Sodium [Moles/volume] in Serum or Plasma 136-145[facility], BeachwoodTriglyceride [Mass/volume] in Serum or PlasmaOrdered By: Klaus Horton on 43-85-9073Qheayapmoymb [Mass/Vol]Triglyceride [Mass/volume] in Serum or Plasma0-149[facility], BeachwoodComment on above:TRIG ATP III CLASSIFICATIONTRIG less than 150 mg/dL NormalTRIG 150-199 mg/dL Borderline highTRIG 200-500 mg/dL High TRIG greater than 500 mg/dL Very highStandard traceable to the Center for Disease Conrtrol and Prevention (CDC) test method.Urea nitrogen [Mass/volume] in Serum or PlasmaOrdered By: Klaus Horton on 48-14-6512Wcjy nitrogen [Mass/Vol]Urea nitrogen [Mass/volume] in Serum or Plasma03-03[facility], BeachwoodA1C with Estimated Average Gluon 44-23-6023Mhvalmv [Mass/Vol]120 mg/dLNormalThe [facility] Physician GroupComment on above:Result Comment: PERFORMED BY: [place] [address] PATHOLOGIST [employer]CHANIC DAYNE BAUM M.D.Performed By: #### CUU, CBC, LIPID, CMP, A1C WT eA, T3F, T4F, TSH3, ADDONUAPLUS #### [facility] [address] [place] [address] MYWXkZ4x (Bld) [Mass fraction]5.8 %High4.3-5.6The [facility] Physician GroupComment on above:Result Comment: Increased risk for diabetes: 5.7 - 6.4 diabetes: >6.4 glycemic control for adults with diabetes: <7.0Performed By: #### CUU, CBC, LIPID, CMP, A1C WTH eA, T3F, T4F, TSH3, ADDONUAPLUS #### [facility] [address] [place] [id number] USAAlanine aminotransferase [Enzymatic activity/volume] in Serum or PlasmaOrdered By: Klaus Horton on 98-96-9195RCX [Catalytic activity/Vol]Alanine aminotransferase [Enzymatic activity/volume] in Serum or PlasmaMary Babb Randolph Cancer CenterSelect Medical [facility], BeachwoodAlbumin [Mass/volume] in Serum or Plasma by Bromocresol green (BCG) dye binding methoOrdered By: Klaus Horton on 76-72-8437Jhilhoh BCG dye [Mass/Vol]Albumin [Mass/volume] in Serum or Plasma by Bromocresol green (BCG) dye binding metho3.5-5.7FKettering Health Greene MemorialAlkaline phosphatase [Enzymatic activity/volume] in Serum or PlasmaOrdered By: Klaus Horton on 20-79-4319BUY [Catalytic activity/Vol]Alkaline phosphatase [Enzymatic activity/volume] in Serum or Srzbxx92-497FmtifpwvuSelect Medical Cleveland Clinic Rehabilitation Hospital, BeachwoodAppearance of UrineOrdered By: Klaus Horton on 16-90-6158Hjkeafvewc (U) Urine appearanceCleLakeHealth TriPoint Medical CenterAspartate aminotransferase [Enzymatic activity/volume] in Serum or PlasmaOrdered By: Klaus Horton on 06-91-4653BEX [Catalytic activity/Vol]Aspartate aminotransferase [Enzymatic activity/volume] in Serum or Iwgtzr86-55DigmaybrzSelect Medical [facility] Clinic [facility], [place] Bacteria [Presence] in Urine by AutomatedOrdered By: Klaus Horton on 07-04-2024 Bacteria Auto Ql (U)Bacteria [Presence] in Urine by AutomatedNone SeenSelect Medical Cleveland Clinic Rehabilitation Hospital, BeachwoodBasophils Auto (Bld) [#/Vol]Ordered By: Klaus Horton on 00-99-8460Dmyelabpr (Bld) [#/Vol]Automated basophil count0.0-0.2FKettering Health Greene MemorialBasophils/100 WBC Auto (Bld)Ordered By: Klaus Horton on 47-15-9930Neotrijzd/100 WBC (Bld)Automated basophil %.[facility], BeachwoodBilirubin Test strip Ql (U)Ordered By: Klaus Horton on 07-04-2024 Bilirubin Ql (U)Bilirubin.total [Presence] in Urine by Test stripNegative [facility], BeachwoodBilirubin.total [Mass/volume] in Serum or PlasmaOrdered By: Klaus Horton on 39-88-3197Ifjwyeasz [Mass/Vol]Bilirubin.total [Mass/volume] in Serum or Plasma0.3-1.0[facility], BeachwoodBlood estimated average glucose determination by estimation from glycated hemoglobin Ordered By: Klaus Horton on 14-42-8818Ktblqul glucose Estimated from glycated hemoglobin (Bld) [Mass/Vol]Glucose mean value [Mass/volume] in Blood Estimated from glycated hemoglobinSelect Medical [facility] Clinic Rehabilitation Hospital, BeachwoodCalcium [Mass/volume] in Serum or PlasmaOrdered By: Klaus Horton on 68-66-5112Vbazxuu [Mass/Vol] Calcium [Mass/volume] in Serum or Plasma8.6-10.3FKettering Health Greene MemorialCarbon dioxide, total [Moles/volume] in Serum or PlasmaOrdered By: Klaus Horton on 39-43-1214WW9 [Moles/Vol]Carbon dioxide, total [Moles/volume] in Serum or Jjcqgl61.0-31.0[facility], BeachwoodChloride [Moles/volume] in Serum or PlasmaOrdered By: Klaus Horton on 53-96-1035Tjbemjkc [Moles/Vol] Chloride [Moles/volume] in Serum or Lfyryv82-295QgpkylugrSelect Medical Cleveland Clinic Rehabilitation Hospital, BeachwoodCholesterol [Mass/volume] in Serum or PlasmaOrdered By: Klaus Horton on 35-91-7305Cqkzytzcpjq [Mass/Vol]Cholesterol [Mass/volume] in Serum or PlasmaHigh 140-200[facility], BeachwoodComment on above:Chol less than 200 mg/dl low riskChol 201-239 mg/dl borderline riskChol 240 mg/dl and greater high riskCholesterol in HDL [Mass/volume] in Serum or PlasmaOrdered By: Klaus Horton on 27-98-9680Cvukzagcbxi in HDL [Mass/Vol]Serum or plasma high density lipoprotein (HDL) cholesterol gtxyvakvucs53-73XwaprhzgeSelect Medical [facility] Clinic [facility], [place] Comment on above:HDL CHOL ATP-III CLASSIFICATION Cardiovascular RiskHDL > or equal to 60 mg/dL LOWHDL < 40 mg/dL HIGHCholesterol in LDL Calc [Mass/Vol] Ordered By: Klaus Horton on 15-60-6070Agppgijljhb in LDL [Mass/Vol]Cholesterol in LDL [Mass/volume] in Serum or Plasma by calculationHigh0-100[facility], BeachwoodComment on above:LDL ATP III CLASSIFICATIONLDL less than 100 mg/dL OptimalLDL 100-129 mg/dL Near or above jqroszcNFU982-006 mg/dL Borderline highLDL 160-189 mg/dL HighLDL greater than 189 mg/dL Very high Cholesterol in VLDL Calc [Mass/Vol]Ordered By: Klaus Horton on 07-04-2024 Cholesterol in VLDL [Mass/Vol]Cholesterol in VLDL [Mass/volume] in Serum or Plasma by calculationSelect Medical [facility] Clinic Rehabilitation Hospital, BeachwoodColor Auto (U)Ordered By: Klaus Horton on 56-97-2825Patsy (U)Color of Urine by AutoYelKindred Hospital LimaComplete Blood Count Auto Diffon 13-99-6143Ckbmebmrj (Bld) [#/Vol]0.0 10*3/uLNormal0.0-0.2The [facility] Physician GroupComment on above:Result Comment: PERFORMED BY: [place] [address] PATHOLOGIST [employer] MECHANIC DAYNE BAUM M.D.Performed By: #### CUU, CBC, LIPID, CMP, A1C WTH eA, T3F, T4F, TSH3, ADDONUAPLUS #### [place] [address] USABasophils/100 WBC (Bld)1.0 %Normal.The [facility] Physician GroupComment on above:Performed By: #### CUU, CBC, LIPID, CMP, A1C WTH eA, T3F, T4F, TSH3, ADDONUAPLUS #### [place] [address] USAEosinophils (Bld) [#/Vol]0.1 10*3/uLNormal0.0-0.45The [facility] Physician GroupComment on above:Performed By: #### CUU, CBC, LIPID, CMP, A1C WTH eA, T3F, T4F, TSH3, ADDONUAPLUS #### [place] [address] USAEosinophils/100 WBC (Bld)2.3 %Normal.The [facility] Physician GroupComment on above:Performed By: #### CUU, CBC, LIPID, CMP, A1C WTH eA, T3F, T4F, TSH3, ADDONUAPLUS #### [place] [address] USAErythrocyte distribution width (RBC) [Ratio]15.0 %Normal 11.9-15.3The [facility] Physician GroupComment on above:Performed By: #### CUU, CBC, LIPID, CMP, A1C WTH eA, T3F, T4F, TSH3, ADDONUAPLUS #### [place] [address] USAHematocrit (Bld) [Volume fraction]41.9 %Bjxbwz41.0-46.4The [facility] Physician GroupComment on above:Performed By: #### CUU, CBC, LIPID, CMP, A1C WTH eA, T3F, T4F, TSH3, ADDONUAPLUS #### [place] [address] USAHemoglobin (Bld) [Mass/Vol]14.0 g/qLLekmhe10.8-15.4The [facility] Physician GroupComment on above:Performed By: #### CUU, CBC, LIPID, CMP, A1C WTH eA, T3F, T4F, TSH3, ADDONUAPLUS #### [place] [address] USALymphocytes (Bld) [#/Vol]1.2 10*3/uLNormal1.00-4.8The [facility] Physician GroupComment on above:Performed By: #### CUU, CBC, LIPID, CMP, A1C WTH eA, T3F, T4F, TSH3, ADDONUAPLUS #### [place] [address] USALymphocytes/100 WBC (Bld)29.5 %Normal.The [facility] Physician GroupComment on above:Performed By: #### CUU, CBC, LIPID, CMP, A1C WTH eA, T3F, T4F, TSH3, ADDONUAPLUS #### [place] [address] USAH (RBC) [Entitic mass]28.9 tpThvwui58.7-34.3The [facility] Physician GroupComment on above:Performed By: #### CUU, CBC, LIPID, CMP, A1C WTH eA, T3F, T4F, TSH3, ADDONUAPLUS #### [place] [address] USAV (RBC) [Entitic vol]86.6 zXXynjvt72-963Hrd [facility] Physician GroupComment on above:Performed By: #### CUU, CBC, LIPID, CMP, A1C WTH eA, T3F, T4F, TSH3, ADDONUAPLUS #### [facility] [address] [place] [address] USAMean Corpuscular HGB Conc33.4 g/oSSdrdtt26.0-35.0The [facility] Physician GroupComment on above:Performed By: #### CUU, CBC, LIPID, CMP, A1C WTH eA, T3F, T4F, TSH3, ADDONUAPLUS #### [facility] [address] [place] [address] USAMonocytes (Bld) [#/Vol]0.4 10*3/uLNormal0.0-0.8The [facility] Physician GroupComment on above:Performed By: #### CUU, CBC, LIPID, CMP, A1C WTH eA, T3F, T4F, TSH3, ADDONUAPLUS #### [facility] [address] [place] [address] USAMonocytes/100 WBC (Bld)8.7 %Normal.The [facility] Physician GroupComment on above:Performed By: #### CUU, CBC, LIPID, CMP, A1C WTH eA, T3F, T4F, TSH3, ADDONUAPLUS #### [place] [address] USANeutrophils (Bld) [#/Vol]2.5 10*3/uLNormal1.8-7.7The [facility] Physician GroupComment on above:Performed By: #### CUU, CBC, LIPID, CMP, A1C WTH eA, T3F, T4F, TSH3, ADDONUAPLUS #### [facility] [address] [place], [place] [id number] USANeutrophils/100 WBC (Bld)58.5 %Normal.The [facility] Physician GroupComment on above:Performed By: #### CUU, CBC, LIPID, CMP, A1C WTH eA, T3F, T4F, TSH3, ADDONUAPLUS #### [facility] [address] [place] [address] USANRBC%0.0 /100{WBC}Normal0-0.5The [facility] Comment on above:Performed By: #### CUU, CBC, LIPID, CMP, A1C WTH eA, T3F, T4F, TSH3, ADDONUAPLUS #### [facility] [address] [place] [address] USAPlatelet mean volume (Bld) [Entitic vol]7.2 fLNormal 6.3-10.7The [facility] Physician GroupComment on above:Performed By: #### CUU, CBC, LIPID, CMP, A1C WTH eA, T3F, T4F, TSH3, ADDONUAPLUS #### [facility] [address] [place] [address] USAPlatelets (Bld) [#/Vol]248 10*3/wKAijjfj516-205Cav [facility] Physician GroupComment on above:Performed By: #### CUU, CBC, LIPID, CMP, A1C WTH eA, T3F, T4F, TSH3, ADDONUAPLUS #### [facility] [address] [place] [address] USARBC (Bld) [#/Vol]4.84 10*6/uLNormal3.60-5.00The [facility] Physician GroupComment on above:Performed By: #### CUU, CBC, LIPID, CMP, A1C WTH eA, T3F, T4F, TSH3, ADDONUAPLUS #### [facility] [address] [place] [address] USAWBC (Bld) [#/Vol]4.2 10*3/uLNormal3.8-11.6The [facility] Physician GroupComment on above:Performed By: #### CUU, CBC, LIPID, CMP, A1C WTH eA, T3F, T4F, TSH3, ADDONUAPLUS #### [place] [address] USAComprehensive Metabolic Panelon 56-02-0100Iiusmqc [Mass/Vol]4.4 g/dLNormal3.5-5.7The [facility] Physician GroupComment on above: Performed By: #### CMP, LIPID #### [facility] [address] [place] [address] USAAlbumin/Globulin [Mass ratio]1.6 {ratio}NormalThe [facility] Physician GroupComment on above:Performed By: #### CMP, LIPID #### [facility] [address] [place] [address] USAALP [Catalytic activity/Vol]94 U/UZotuju07-569Jjm [facility] Physician GroupComment on above:Performed By: #### CMP, LIPID #### [facility] [address] [place] [address] USAALT [Catalytic activity/Vol]55 U/LHigh7-52The [facility] Physician GroupComment on above:Performed By: #### CMP, LIPID #### [facility] [address] [place] [address] USAAnion gap [Moles/Vol]9.5 mmol/LNormal6.0-15.0The [facility] Physician GroupComment on above:Performed By: #### CMP, LIPID #### [facility] [address] [place] [address] USAAST [Catalytic activity/Vol]33 U/XLxogrg89-23Bfu [facility] Physician GroupComment on above:Performed By: #### CMP, LIPID #### [facility] [address] [place] [address] USABilirubin [Mass/Vol]0.4 mg/dLNormal0.3-1.0The [facility] Physician GroupComment on above:Performed By: #### CMP, LIPID #### [facility] [address] [place] [address] USACalcium [Mass/Vol]9.7 mg/dLNormal8.6-10.3The [facility] Physician GroupComment on above:Performed By: #### CMP, LIPID #### [facility] [address] [place] [address] USAChloride [Moles/Vol]105 mmol/RJpxsqz48-902Gce [facility] Physician GroupComment on above:Performed By: #### CMP, LIPID #### [facility] [address] [place] [address] USACO2 [Moles/Vol]29.4 mmol/JYnczst21.0-31.0The [facility] Physician GroupComment on above:Performed By: #### CMP, LIPID #### [facility] [address] [place] [address] USACreatinine [Mass/Vol]1.03 mg/dLNormal0.60-1.20The [facility] Physician GroupComment on above:Performed By: #### CMP, LIPID #### [facility] [address] [place] [address] USAEstimated GFR58.132 mL/MinNormalThe [facility] Physician GroupComment on above:Performed By: #### CMP, LIPID #### [facility] [address] [place] [address] USAGlobulin (S) [Mass/Vol]2.7 g/dLNormMetroHealth Main Campus Medical Centere [facility] Physician GroupComment on above:Performed By: #### CMP, LIPID #### [facility] [address] [place] [address] USAGlucose [Mass/Vol]86 mg/cHRkygie74-454Zbr [facility] Physician GroupComment on above:Result Comment: Random Glucose Reference Range is dependent on time and content of last meal. Glucose of more than 200 mg/dL in a nonstressed, ambulatory subject supports the diagnosis of Diabetes Mellitus. ADA recommended reference rangePerformed By: #### CMP, LIPID #### [facility] [address] [place] [address] USAPotassium [Moles/Vol]4.9 mmol/LNormal3.5-5.1The [facility] Physician GroupComment on above:Performed By: #### CMP, LIPID #### [facility] [address] [place] [address] USAProtein [Mass/Vol]7.1 g/dLNormal6.4-8.9The [facility] Physician GroupComment on above:Performed By: #### CMP, LIPID #### [facility] [address] [place] [address] USASodium [Moles/Vol]139 mmol/KYqpcfh341-367Wlu [facility] Physician GroupComment on above:Performed By: #### CMP, LIPID #### [facility] [address] [place] [address] USAUrea nitrogen [Mass/Vol]19 mg/dLNormal7-25The [facility] Physician GroupComment on above:Performed By: #### CMP, LIPID #### [facility] [address] [place] [address] USACreatinine [Mass/volume] in Serum or PlasmaOrdered By: Klaus Horton on 78-77-0302Ouhhweztdz [Mass/Vol]Creatinine [Mass/volume] in Serum or Plasma0.60-1.20[facility], BeachwoodDipstick and Microscopicon 50-97-9409Cfghrigomg (U)ClearNormalClearThe [facility] Physician GroupComment on above:Order Comment: Name Collection Type:: Clean-Voided MidstreamPerformed By: #### CUU, CBC, LIPID, CMP, A1C WTH eA, T3F, T4F, TSH3, ADDONUAPLUS #### [facility] [address] [place] [address] USABacteria,UrineRareNormalNone SeenThe [facility] Physician GroupComment on above:Order Comment: Name Collection Type:: Clean-Voided MidstreamPerformed By: #### CUU, CBC, LIPID, CMP, A1C WTH eA, T3F, T4F, TSH3, ADDONUAPLUS #### [facility] [address] [place] [address] USABilirubin,UrineNegativeNormalNegativeThe [facility] Physician GroupComment on above:Order Comment: Name Collection Type:: Clean- Voided MidstreamPerformed By: #### CUU, CBC, LIPID, CMP, A1C WTH eA, T3F, T4F, TSH3, ADDONUAPLUS #### [facility] [address] [place] [id number] USAColor (U)Light-YellowNormalYellowThe [facility] Physician GroupComment on above:Order Comment: Name Collection Type:: Clean-Voided MidstreamPerformed By: #### CUU, CBC, LIPID, CMP, A1C WTH eA, T3F, T4F, TSH3, ADDONUAPLUS #### [facility] [address] [place] [id number] USAGlucose Ql (U)NormalNormalNormalThe [facility] Physician GroupComment on above:Order Comment: Name Collection Type:: Clean-Voided MidstreamPerformed By: #### CUU, CBC, LIPID, CMP, A1C WTH eA, T3F, T4F, TSH3, ADDONUAPLUS #### [facility] [address] [place] [address] USAHyaline Casts,UrineNoneNormal0-8The [facility] Physician GroupComment on above:Order Comment: Name Collection Type:: Clean-Voided MidstreamPerformed By: #### CUU, CBC, LIPID, CMP, A1C WTH eA, T3F, T4F, TSH3, ADDONUAPLUS #### [facility] [address] [place] [address] USAKetones Ql (U)NegativeNormalNegativeBaptist Health [facility] Hospital Physician GroupComment on above:Order Comment: Name Collection Type:: Clean- Voided MidstreamPerformed By: #### CUU, CBC, LIPID, CMP, A1C WTH eA, T3F, T4F, TSH3, ADDONUAPLUS #### [facility] [address] [place], [place] [id number] USALeukocyte esterase Test strip Ql (U)3+HighNegativeBaptist Health [facility]aton [facility] Hospital Physician GroupComment on above:Order Comment: Name Collection Type:: Clean-Voided MidstreamPerformed By: #### CUU, CBC, LIPID, CMP, A1C WTH eA, T3F, T4F, TSH3, ADDONUAPLUS #### [facility] [address] [place], [place] [id number] USAMucus,UrineRareNormalThe [facility] Physician GroupComment on above:Order Comment: Name Collection Type:: Clean-Voided MidstreamResult Comment: PERFORMED BY: [place] [address] PATHOLOGIST [employer] MECHANIC DAYNE BAUM M.D.Performed By: #### CUU, CBC, LIPID, CMP, A1C WTH eA, T3F, T4F, TSH3, ADDONUAPLUS #### [facility] [address] [place] [address] USANitrite,UrineNegativeNormalNegativeThe [facility] Physician GroupComment on above:Order Comment: Name Collection Type:: Clean-Voided MidstreamPerformed By: #### CUU, CBC, LIPID, CMP, A1C WTH eA, T3F, T4F, TSH3, ADDONUAPLUS #### [facility] [address] [place] [address] USANon-Squamous Epithelial Cell,U1 [HPF]HighNone SeenThe [facility] Physician GroupComment on above:Order Comment: Name Collection Type:: Clean-Voided MidstreamPerformed By: #### CUU, CBC, LIPID, CMP, A1C WTH eA, T3F, T4F, TSH3, ADDONUAPLUS #### [place] [address] USAOccult Blood,UrineNegativeNormalNegativeThe [facility] Physician GroupComment on above:Order Comment: Name Collection Type:: Clean- Voided MidstreamPerformed By: #### CUU, CBC, LIPID, CMP, A1C WTH eA, T3F, T4F, TSH3, ADDONUAPLUS #### [place] [address] USApH (U)6.5 [pH]Normal5.0-9.0The [facility] Comment on above:Order Comment: Name Collection Type:: Clean-Voided Midstream Performed By: #### CUU, CBC, LIPID, CMP, A1C WTH eA, T3F, T4F, TSH3, ADDONUAPLUS #### [place] [id number] USAProtein,UrineNegativeNormalNegativeThe [facility] Physician GroupComment on above:Order Comment: Name Collection Type:: Clean-Voided MidstreamPerformed By: #### CUU, CBC, LIPID, CMP, A1C WTH eA, T3F, T4F, TSH3, ADDONUAPLUS #### [address] [address] USARBC,UrineNone SeenNormal0-4The [facility] Comment on above:Order Comment: Name Collection Type:: Clean-Voided Midstream Performed By: #### CUU, CBC, LIPID, CMP, A1C WTH eA, T3F, T4F, TSH3, ADDONUAPLUS #### [facility] [address] [place] [address] USASpecificy [place],Urine1.515Evrpfq2.001-1.030The [facility] Physician GroupComment on above:Order Comment: Name Collection Type:: Clean- Voided MidstreamPerformed By: #### CUU, CBC, LIPID, CMP, A1C WTH eA, T3F, T4F, TSH3, ADDONUAPLUS #### [facility] [address] [place] [address] USASquamous Epithelial Cell,Urine1 [HPF]Normal0-2The [facility] Physician GroupComment on above:Order Comment: Name Collection Type:: Clean-Voided MidstreamPerformed By: #### CUU, CBC, LIPID, CMP, A1C WTH eA, T3F, T4F, TSH3, ADDONUAPLUS #### [facility] [address] [place] [address] USAUrobilinogen,UrineNormalNormalNormalThe [facility] Physician GroupComment on above:Order Comment: Name Collection Type:: Clean- Voided MidstreamPerformed By: #### CUU, CBC, LIPID, CMP, A1C WTH eA, T3F, T4F, TSH3, ADDONUAPLUS #### [facility] [address] [place], [place] [id number] USAWBC,Urine5 [HPF]High0-4The [facility] Comment on above:Order Comment: Name Collection Type:: Clean-Voided Midstream Performed By: #### CUU, CBC, LIPID, CMP, A1C WTH eA, T3F, T4F, TSH3, ADDONUAPLUS #### [facility] [address] [place], [place] [id number] USAEosinophils Auto (Bld) [#/Vol]Ordered By: Klaus Horton on 18-56-6394Wlwjibqiypy (Bld) [#/Vol]Automated eosinophil count0.0-0.45[facility], BeachwoodEosinophils/100 WBC Auto (Bld)Ordered By: Klaus Horton on 66-16-3546Npvleqyypzz/100 WBC (Bld)Automated eosinophil %.[facility], BeachwoodEpithelial cells.non-squamous [#/area] in Urine sediment by Automated countOrdered By: Klaus Horton on 30-70-4709Evgtzipekx cells.non- squamous Auto (Urine sed) [#/Area]Epithelial cells.non-squamous [#/area] in Urine sediment by Automated countHighNone SeenSelect Medical [facility] Clinic [facility], [place] Epithelial cells.squamous [#/area] in Urine sediment by Automated countOrdered By: Klaus Horton on 26-63-2794Pojtnpzftw cells.squamous Auto (Urine sed) [#/Area]Epithelial cells.squamous [#/area] in Urine sediment by Automated count 0-2FKettering Health Greene MemorialErythrocyte distribution width Auto (RBC) [Ratio]Ordered By: Klaus Horton on 11-19-1092Gpffnvmhfhd distribution width (RBC) [Ratio]Erythrocyte distribution width [Ratio] by Automated count11.9-15.3 [facility], BeachwoodErythrocytes [#/area] in Urine sediment by Automated countOrdered By: Klaus Horton on 23-85-8698EMS Auto (Urine sed) [#/Area]Erythrocytes [#/area] in Urine sediment by Automated count0-4FKettering Health Greene MemorialFree T4 (Free Thyroxine)on 72-88-5411Omyi T4 [Mass/Vol] 0.92 ng/dLNormal0.61-1.12The [facility] Physician GroupComment on above:Performed By: #### CMP, LIPID #### [facility] [address] [place] [address] USAGlobulin Calc (S) [Mass/Vol]Ordered By: Klaus Horton on 77-76-9577Thymxzga (S) [Mass/Vol]Serum globulin measurement by calculation (mass/volume)[facility], BeachwoodGlucose [Mass/volume] in Serum or PlasmaOrdered By: Klaus Horton on 93-92-9375Xgpfyzb [Mass/Vol]Glucose [Mass/volume] in Serum or Qutogj40-719UlqfxedxvSelect Medical [facility] Hospital, BeachwoodComment on above:ADA recommended reference rangeRandom Glucose Reference Range is dependent on time and content of last meal. Glucose of more than 200 mg/dL in a nonstressed, ambulatory subject supports the diagnosisof Diabetes Mellitus. Glucose [Mass/volume] in Urine by Test stripOrdered By: Klaus Horton on 59-03-0443Xsbijzr Test strip (U) [Mass/Vol]Glucose [Mass/volume] in Urine by Test stripNormalSelect Medical [facility], BeachwoodHematocrit Auto (Bld) [Volume fraction]Ordered By: Klaus Horton on 74-34-7499Tuwvvfheqd (Bld) [Volume fraction]Hematocrit [Volume Fraction] of Blood by Automated count34.0-46.4 [facility], BeachwoodHemoglobin A1c/Hemoglobin.total in BloodOrdered By: Klaus Horton on 03-43-9814FqQ1v (Bld) [Mass fraction]Hemoglobin A1c percentageHigh4.3-5.6FKettering Health Greene MemorialComment on above:Increased risk for diabetes: 5.7 - 6.4diabetes: >6.4glycemic control for adults with diabetes: <7.0Hemoglobin Test strip Ql (U)Ordered By: Klaus Horton on 20-39-8343Vusvklqqkn Ql (U)Hemoglobin [Presence] in Urine by Test stripNegative [facility], BeachwoodHemoglobin [Mass/volume] in BloodOrdered By: Klaus Horton on 43-68-4084Rpbmqrxvoh (Bld) [Mass/Vol]Hemoglobin [Mass/volume] in Blood11.8-15.4FKettering Health Greene MemorialHyaline casts [#/area] in Urine sediment by Automated countOrdered By: Klaus Horton on 27-21-5752Qxxqpxh casts Auto (Urine sed) [#/Area]Hyaline casts [#/area] in Urine sediment by Automated count0-8[facility], BeachwoodKetones Test strip Ql (U)Ordered By: Klaus Horton on 64-44-2011Xkaqxzd Ql (U)Ketones [Presence] in Urine by Test stripNegativeSelect Medical [facility], BeachwoodLeukocyte esterase [Presence] in Urine by Test stripOrdered By: Klaus Horton on 75-77-7148Bsfrrqmka esterase Test strip Ql (U)Leukocyte esterase [Presence] in Urine by Test stripHighNegative [facility], BeachwoodLeukocytes [#/area] in Urine sediment by Automated countOrdered By: Klaus Horton on 50-81-8412RES Auto (Urine sed) [#/Area]Leukocytes [#/area] in Urine sediment by Automated countHigh0-4FKettering Health Greene MemorialLeukocytes [#/volume] corrected for nucleated erythrocytes in Blood by Automated counOrdered By: Klaus Horton on 52-74-9552OML corrected for nucl RBC Auto (Bld) [#/Vol]Leukocytes [#/volume] corrected for nucleated erythrocytes in Blood by Automated coun3.8-11.6FKettering Health Greene MemorialLipid Panelon 91-09-1590Bzmahoomtju [Mass/Vol]290 mg/oWCooi019-839 The [facility] Physician GroupComment on above:Result Comment: Chol less than 200 mg/dl low risk Chol 201-239 mg/dl borderline risk Chol 240 mg/dl and greater high riskPerformed By: #### CMP, LIPID #### [facility] [address] [place] [address] USACholesterol in HDL [Mass/Vol]68 mg/xYZberso83-57Szh [facility] Physician GroupComment on above:Result Comment: HDL CHOL ATP-III CLASSIFICATION Cardiovascular Risk HDL > or equal to 60 mg/dL LOW HDL < 40 mg/dL HIGHPerformed By: #### CMP, LIPID #### [facility] [address] [place] [address] USACholesterol.total/Cholesterol in HDL [Mass ratio]4.3 {ratio}Normal<5.0The [facility] Physician GroupComment on above:Performed By: #### CMP, LIPID #### [facility] [address] [place] [address] USALDL Cholesterol,Tnpgulrcez413 mg/dLHigh0-100The [facility] Physician GroupComment on above:Result Comment: LDL ATP III CLASSIFICATION LDL less than 100 mg/dL Optimal LDL 100-129 mg/dL Near or above optimal LDL 130-159 mg/dL Borderline high LDL 160-189 mg/dL High LDL greater than 189 mg/dL Very highPerformed By: #### CMP, LIPID #### [facility] [address] [place] [id number] USATriglyceride w/Lblesl081 mg/dLNormal0-149The [facility] Physician GroupComment on above:Result Comment: TRIG ATP III CLASSIFICATION TRIG less than 150 mg/dL Normal TRIG 150-199 mg/dL Borderline high TRIG 200-500 mg/dL High TRIG greater than 500 mg/dL Very high Standard traceable to the Center for Disease Conrtrol and Prevention (CDC) test method.Performed By: #### CMP, LIPID #### [facility] [address] [place] [address] USAVLDL XZOPLWQTCKT20 mg/dLNormalThe [facility] Physician GroupComment on above:Performed By: #### CMP, LIPID #### [facility] [address] [place] [id number] USALymphocytes Auto (Bld) [#/Vol]Ordered By: Klaus Horton on 35-64-2607Atxexwdxphy (Bld) [#/Vol]Lymphocytes [#/volume] in Blood by Automated count1.00-4.8[facility], BeachwoodLymphocytes/100 WBC Auto (Bld) Ordered By: Klaus Horton on 84-36-0023Awdbcxkfyjl/100 WBC (Bld)Lymphocytes/100 leukocytes in Blood by Automated count.[facility] Auto (RBC) [Entitic mass]Ordered By: Klaus Horton on 23-19-7043LOW (RBC) [Entitic mass]MCH [Entitic mass] by Automated count24.7-34.3FOhioHealth Mansfield HospitalHC Auto (RBC) [Mass/Vol]Ordered By: Klaus Horton on 48-36-3540IXOT (RBC) [Mass/Vol]MCHC [Mass/volume] by Automated count32.0-35.0[facility] HospitalV Auto (RBC) [Entitic vol]Ordered By: Klaus Horton on 07-04-2024 MCV (RBC) [Entitic vol]MCV [Entitic volume] by Automated vqeze86-982CpttyuxonSelect Medical [facility] Clinic Rehabilitation Hospital, BeachwoodMonocytes Auto (Bld) [#/Vol]Ordered By: Klaus Horton on 74-22-3719Tmykfgvpu (Bld) [#/Vol]Automated blood monocyte count0.0-0.8[facility], BeachwoodMonocytes/100 WBC Auto (Bld)Ordered By: Kalus Horton on 97-59-3890Iyqbtgigp/100 WBC (Bld)Automated monocyte %.[facility], BeachwoodMucus [Presence] in Urine by AutomatedOrdered By: Klaus Horton on 55-07-4875Eyurx Auto Ql (U)Mucus [Presence] in Urine by AutomatedSelect Medical [facility] Clinic Rehabilitation Hospital, BeachwoodNeutrophils Auto (Bld) [#/Vol]Ordered By: Klaus Horton on 05-65-7050Brywifxpeod (Bld) [#/Vol]Neutrophils [#/volume] in Blood by Automated count1.8-7.7FKettering Health Greene MemorialNeutrophils/100 WBC Auto (Bld) Ordered By: Klaus Horton on 00-62-0187Kctvduntdos/100 WBC (Bld)Automated neutrophil %.[facility], BeachwoodNitrite Test strip Ql (U)Ordered By: Klaus Horton on 53-85-8559Lovdwxt Ql (U)Nitrite [Presence] in Urine by Test stripNegativeSelect Medical [facility], BeachwoodNo Panel InformationOrdered By: Klaus Horton on 42-29-8277Embtvemxr GFR (CKD-EPI)58.132 mL/MinSelect Medical [facility] Clinic Rehabilitation Hospital, BeachwoodPharmacy Creatinine Clearance (ChemN/[facility] HospitalNucleated erythrocytes [Presence] in Blood by Automated countOrdered By: Klaus Horton on 66-04-8782Acqkteddr RBC Auto Ql (Bld)Nucleated erythrocytes [Presence] in Blood by Automated count0-0.5FKettering Health Greene Memorial Platelet mean volume Auto (Bld) [Entitic vol]Ordered By: Klaus Horton on 46-14-1683Gsdioqsw mean volume (Bld) [Entitic vol]Platelet mean volume [Entitic volume] in Blood by Automated count6.3-10.7FKettering [facility] Memorial Platelets Auto (Bld) [#/Vol]Ordered By: Klaus Horton on 34-28-5924Edeehejws (Bld) [#/Vol]Platelets [#/volume] in Blood by Automated xzsyf241-119YuaenhhobSelect Medical Cleveland Clinic Rehabilitation Hospital, BeachwoodPotassium [Moles/volume] in Serum or PlasmaOrdered By: Klaus Horton on 54-35-6339Qcpqdhuse [Moles/Vol]Potassium [Moles/volume] in Serum or Plasma3.5-5.1FKettering Health Greene MemorialProtein Test strip (U) [Mass/Vol]Ordered By: Klaus Horton on 47-27-1074Zhxhmxu (U) [Mass/Vol]Protein [Mass/volume] in Urine by Test stripNegativeSelect Medical [facility], [place] Protein [Mass/volume] in Serum or PlasmaOrdered By: Klaus Horton on 07-04-2024 Protein [Mass/Vol]Protein [Mass/volume] in Serum or Plasma6.4-8.9[facility], BeachwoodRBC Auto (Bld) [#/Vol]Ordered By: Klaus Horton on 13-22-1019RFH (Bld) [#/Vol]Erythrocytes [#/volume] in Blood by Automated count 3.60-5.00[facility] for Rehabilitationerum or plasma albumin/globulin mass ratioOrdered By: Klaus Horton on 69-32-0078Ghimjdw/Globulin [Mass ratio]Serum or plasma albumin/globulin mass ratioCleveland Clinic Children's Hospital for Rehabilitationerum or plasma anion gap determinationOrdered By: Klaus Horton on 85-14-9845Mmizt gap [Moles/Vol]Serum or plasma anion gap determination6.0-15.0[facility] for Rehabilitationerum or plasma total cholesterol/high density lipoprotein (HDL) cholesterol mass ratOrdered By: Klaus Horton on 07-04-2024 Cholesterol.total/Cholesterol in HDL [Mass ratio]Serum or plasma total cholesterol/high density lipoprotein (HDL) cholesterol mass rat<5.0[facility] for Rehabilitationodium [Moles/volume] in Serum or PlasmaOrdered By: Klaus Horton on 98-68-9043Xiramd [Moles/Vol]Sodium [Moles/volume] in Serum or Plasma 136-145[facility] for Rehabilitationpecific gravity Test strip (U) [Rel density]Ordered By: Klaus Horton on 13-43-9288Fsxvyhlc gravity (U) [Rel density] Specific gravity of Urine by Test strip1.001-1.030[facility], BeachwoodThyroid Stimulating Hormoneon 49-21-6158LKS Qn2.67 m[IU]/LNormal0.45-5.33 The [facility] Physician GroupComment on above:Result Comment: PERFORMED BY: [address] [address] PATHOLOGIST [employer] MECHANIC DAYNE BAUM M.D.Performed By: #### CMP, LIPID #### [facility] [address] [place] [address] USAThyrotropin [Units/volume] in Serum or PlasmaOrdered By: Klaus Horton on 79-84-1425QHB QnThyrotropin [Units/volume] in Serum or Plasma 0.45-5.33[facility], BeachwoodThyroxine (T4) free [Mass/volume] in Serum or PlasmaOrdered By: Klaus Horton on 74-43-4019Txpp T4 [Mass/Vol]Thyroxine (T4) free [Mass/volume] in Serum or Plasma0.61-1.12[facility], BeachwoodTriglyceride [Mass/volume] in Serum or PlasmaOrdered By: Klaus Horton on 25-23-9077Qiiipguejqpz [Mass/Vol]Triglyceride [Mass/volume] in Serum or Plasma 0-149[facility], BeachwoodComment on above:TRIG ATP III CLASSIFICATIONTRIG less than 150 mg/dL NormalTRIG 150-199 mg/dL Borderline highTRIG 200-500 mg/dL High TRIG greater than 500 mg/dL Very highStandard traceable to the Center for Disease Conrtrol and Prevention (CDC) test method. Triiodothyronine (T3) Freeon 95-44-3747Ovzkklgzapnsqsro (T3) Free3.09 pg/mL Normal2.50-3.90The [facility] Physician GroupComment on above:Result Comment: PERFORMED BY: [address] [address] PATHOLOGIST [employer] MECHANIC DAYNE BAUM M.D.Performed By: #### CUU, CBC, LIPID, CMP, A1C WTH eA, T3F, T4F, TSH3, ADDONUAPLUS #### [facility] [address] [place] [id number] USATriiodothyronine (T3) Free [Mass/volume] in Serum or PlasmaOrdered By: Klaus Horton on 08-77-4232Jlwf T3 [Mass/Vol]Triiodothyronine (T3) Free [Mass/volume] in Serum or Plasma2.50-3.90[facility], BeachwoodUrea nitrogen [Mass/volume] in Serum or PlasmaOrdered By: Klaus Horton on 37-12-1702Kfjy nitrogen [Mass/Vol]Urea nitrogen [Mass/volume] in Serum or Plasma 03-03[facility], BeachwoodUrine Cultureon 43-46-1348Wrhstbte identified Cx Nom (U)20,000 colonies/ml mixed bacterial skin contaminants 2 Days PERFORMED BY: [place] [address] PATHOLOGIST [employer] MECHANIC DAYNE BAUM M.D.NormalBaptist Health Boca Raton Regional Hospital Physician GroupComment on above: Performed By: #### CMP, LIPID #### [place] [address] USAUrine cultureOrdered By: Klaus Horton on 07-04-2024 Bacteria identified Cx Nom (U)Urine cultureSelect Medical Cleveland Clinic Rehabilitation [facility], Beachwood Urobilinogen Test strip (U) [Mass/Vol]Ordered By: Klaus Horton on 07-04-2024 Urobilinogen (U) [Mass/Vol]Urobilinogen [Mass/volume] in Urine by Test strip [facility] HospitalWBC Auto (Bld) [#/Vol]Ordered By: Klaus Horton on 81-75-0105CBH (Bld) [#/Vol]Leukocytes [#/volume] in Blood by Automated count3.8-11.6FKettering Health Greene MemorialpH Test strip (U)Ordered By: Klaus Horton on 25-59-3723nL (U)pH of Urine by Test strip5.0-9.0[facility], BeachwoodMA Mamm Screen w/CAD if perf and 3D Bilon 93-10-8256GG Mamm Screen w/CAD if perf and 3D BilExam Date/Time: 06/28/2024 10:39 EST Reason for Exam: SCREENING Report IMPRESSION: BIRADS 1 NEGATIVE, NORMAL INTERVAL FOLLOW-UP. CLINICAL HISTORY: Screening. COMPARISON: Priors dating back to 2018. RESULT: Digital mammography and 3D tomosynthesis of bilateral breasts was performed. Category C - Heterogenously dense, which may obscure small masses. There is no suspicious mass, asymmetry, architectural distortion, or calcification. Vascular calcifications: Absent. CAD analysis was performed and used in the interpretation. Dense Breast: Yes Follow-up: 12 MONTH RECALL. Board Certified Radiologists. Accredited by the ACR and FDA. MAMMOGRAPHY IS VERY IMPORTANT TO YOUR HEALTH. THE [place] [employer] GUIDELINES RECOMMEND THAT WOMEN 40 YEARS OF AGE AND OLDER SHOULD HAVE A MAMMOGRAM EVERY YEAR. A REMINDER LETTER WILL BE SENT AT THE APPROPRIATE TIME. THIS FACILITY UTILIZES A REMINDER SYSTEM TO ENSURE ALL PATIENTS RECEIVE REMINDER NOTIFICATIONS AT THE APPROPRIATE TIME BASED ON THE RECOMMENDATIONS OF THIS EXAM. THIS INCLUDES REMINDERS FOR ROUTINE SCREENING MAMMOGRAMS, DIAGNOSTIC MAMMOGRAMS IN WHICH THE PATIENT IS ASKED TO RETURN FOR ADDITIONAL VIEWS, OR OTHER BREAST IMAGING INTERVENTIONS WHEN APPROPRIATE. THE PATIENT WILL BE PLACED IN THE APPROPRIATE REMINDER SYSTEM INCLUDING A REMINDER AT THE APPROPRIATE TIME FOR ANY PENDING ADDITIONAL VIEWS. Report Ordering Provider: REFERRAL, SELF FINAL REPORT Dictated: 06/28/2024 4:05 pm Sanya Joshua MD Signed (Electronic Signature): 06/28/2024 4:05 pm Signed by: Sanya Joshua MD Transcribed by: ALEXUS Technologist: HAYDEN Assessment: BI-RADS Category 1-Negative Recommendation: Normal [facility] Automated basophil %Ordered By: Rishi Patterson on 39-18-6020Chtpbdgxd/100 WBC (Bld) 0.7 %Normal.[facility], BeachwoodComment on above:Performed By: #### BMP, CBC #### [place] [address] USAAutomated basophil countOrdered By: Rishi Patterson on 90-90-5781Sjcglbqyx (Bld) [#/Vol]0.0 10*3/uLNormal0.0-0.2FKettering Health Greene MemorialComment on above:Result Comment: PERFORMED BY: [place] [address] PATHOLOGIST [employer] MECHANIC GENOVEVA LEE M.D.Performed By: #### BMP, CBC #### [place] [address] USAAutomated blood monocyte countOrdered By: Rishi Patterson on 70-81-7094Nwqysxtsq (Bld) [#/Vol]0.4 10*3/uLNormal0.0-0.8[facility], BeachwoodComment on above:Performed By: #### BMP, CBC #### [place] [address] USAAutomated eosinophil %Ordered By: Rishi Yesenia on 04-12-2024 Eosinophils/100 WBC (Bld)2.1 %Normal.[facility], BeachwoodComment on above:Performed By: #### BMP, CBC #### [place] [address] USAAutomated eosinophil countOrdered By: Rishi Yesenia on 38-89-4607Crczldvtved (Bld) [#/Vol]0.1 10*3/uLNormal0.0-0.45[facility], BeachwoodComment on above:Performed By: #### BMP, CBC #### [place] [address] USAAutomated monocyte %Ordered By: Rishi Patterson on 04-12-2024 Monocytes/100 WBC (Bld)8.1 %Normal.[facility], BeachwoodComment on above:Performed By: #### BMP, CBC #### [place] [address] USAAutomated neutrophil %Ordered By: Rishi Yesenia on 04-12-2024 Neutrophils/100 WBC (Bld)58.7 %Normal.[facility], BeachwoodComment on above:Performed By: #### BMP, CBC #### [place] [address] USABasic Metabolic Panelon 39-72-7090FTZ/1.73 sq M.predicted MDRD (S/P/Bld) [Vol rate/Area]58.132 mL/min/{1.73_m2}NormalThe Kindred Hospital [facility] Greensboro Physician GroupComment on above:Performed By: #### BMP, CBC #### [place] [address] USABasic metabolic 1998 panelon 53-81-0317Apmhd gap [Moles/Vol]8.1 mmol/L6.0 - 15.0NOMS HealthcareCalcium [Mass/Vol]9.9 mg/dL8.6 - 10.3 mg/dLNOMS HealthcareChloride [Moles/Vol]105 mmol/L98 - 107 mmol/LNOMS HealthcareCO2 [Moles/Vol]29.2 mmol/L21.0 - 31.0 mmol/LNOMS HealthcareCreatinine (U) [Mass/Vol]1.03 mg/dL0.60 - 1.20 mg/dLNORI HealthcareGFR/1.73 sq M.predicted MDRD (S/P/Bld) [Vol rate/Area]58.132 mL/min/{1.73_m2}[facility]OMS HealthcareGlucose [Mass/Vol]97 mg/dL70 - 100 mg/dLNORI HealthcareComment on above:Random Glucose Reference Range is dependent on time and content of last meal. Glucose of more than 200 mg/dL in a nonstressed, ambulatory subject supports the diagnosis of Diabetes Mellitus. ADA recommended reference range Potassium [Moles/Vol]4.3 mmol/L3.5 - 5.1 mmol/LNOMS HealthcareSodium [Moles/Vol] 138 mmol/L136 - 145 mmol/LNOMS HealthcareUrea nitrogen [Mass/Vol]19 mg/dL7 - 25 mg/dLNORI HealthcareNORI HealthcareCBC W Auto Differential panel (Bld)on 94-10-4844Vcxvkvadm (Bld) [#/Vol]0.0 10*3/uL0.0 - 0.2 10*3/uLNOMS Healthcare Basophils/100 WBC Manual cnt (Syn fld)0.7 %.NOMS HealthcareEosinophils (Bld) [#/Vol]0.1 10*3/uL0.0 - 0.45 10*3/uLNOMS HealthcareEosinophils/100 WBC Manual cnt (Syn fld)2.1 %.NOMS HealthcareErythrocyte distribution width (RBC) [Ratio] 14.3 %11.9 - 15.3 %NOMS HealthcareHematocrit (Bld) [Volume fraction]39.9 %34.0 - 46.4 %NOMS HealthcareHemoglobin (Bld) [Mass/Vol]13.4 g/dL11.8 - 15.4 g/dLALTA VIEW HOSPITAL HealthcareLymphocytes (Bld) [#/Vol]1.7 10*3/uL1.00 - 4.8 10*3/uLNOMS Healthcare Lymphocytes/100 WBC Manual cnt (Syn fld)30.4 %.[facility] HospitalH (RBC) [Entitic mass]28.8 pg24.7 - 34.3 pgFreeman Neosho HospitalHC (RBC) [Mass/Vol]33.5 g/dL32.0 - 35.0 g/dLFreeman Neosho HospitalV (RBC) [Entitic vol]86.0 fL80 - 100 fLALTA VIEW HOSPITAL Healthcare Monocytes (Bld) [#/Vol]0.4 10*3/uL0.0 - 0.8 10*3/uLNOMS Healthcare Monocytes+Macrophages/100 WBC Manual cnt (Syn fld)8.1 %.[facility] Neutrophils (Bld) [#/Vol]3.3 10*3/uL1.8 - 7.7 10*3/uLNOMS Healthcare Neutrophils/100 WBC Manual cnt (Syn fld)58.7 %.[facility] HealthcareNRBC0.1 /100{WBC}0 - 0.5 /100{WBC}[facility] HealthcarePlatelet mean volume (Bld) [Entitic vol]7.6 fL6.3 - 10.7 fLALTA VIEW HOSPITAL HealthcarePlatelets (Bld) [#/Vol]224 10*3/uL150 - 450 10*3/uLNOMS Medina HospitalRBC LM.HPF (Urine sed) [#/Area]4.65 /[HPF]3.60 - 5.00[facility] WBC (Bld) [#/Vol]5.6 10*3/uL3.8 - 11.6 10*3/uLNOMS HealthcareWBC LM.HPF (Urine sed) [#/Area]5.6 10*3/uL3.8 - 11.6 10*3/uLNOMS [facility] HealthcareCalcium [Mass/volume] in Serum or PlasmaOrdered By: Rishi Patterson on 63-55-6930Udouqxv [Mass/Vol]9.9 mg/dLNormal8.6-10.3FKettering Health Greene MemorialComment on above:Result Comment: PERFORMED BY: [place] [address] PATHOLOGIST [employer] MECHANIC GENOVEVA LEE M.D.Performed By: #### BMP, CBC #### [place] [address] USACarbon dioxide, total [Moles/volume] in Serum or Plasma Ordered By: Rishi Patterson on 82-05-4957XC0 [Moles/Vol]29.2 mmol/EHsvuyy53.0-31.0 [facility], BeachwoodComment on above:Performed By: #### BMP, CBC #### [place] [address] USAChloride [Moles/volume] in Serum or PlasmaOrdered By: Rishi Patterson on 43-57-9313Objnrymk [Moles/Vol]105 mmol/AIaxeaw04-978RmvpehyelSelect Medical [facility], BeachwoodComment on above:Performed By: #### BMP, CBC #### [place] [address] USAComplete Blood Count Auto Diffon 05-56-4024Yrid Corpuscular HGB Conc33.5 g/hMHxbnjh69.0-35.0The [facility] Physician GroupComment on above:Performed By: #### BMP, CBC #### [place] [address] USANRBC%0.1 /100{WBC}Normal0-0.5The [facility] Comment on above:Performed By: #### BMP, CBC #### [place] [address] USACreatinine [Mass/volume] in Serum or PlasmaOrdered By: Rishi Patterson on 42-46-7899Jlpvmvhiks [Mass/Vol]1.03 mg/dLNormal0.60-1.20[facility], BeachwoodComment on above:Performed By: #### BMP, CBC #### [place] [address] USAECG 12 lead ECGon 18-44-6441RKG 12 lead ECGMANSFIELD [place] [address] Electrocardiograph Report Signed Patient: Patt Irene MR#: [id number] [birth year] : 1955 Acct:[id number] Age/Sex: 69 / F ADM Date: 04/12/24 Loc: Room: Type: [facility] Attending Dr: Rishi Patterson DPM Ordering Provider: Rishi Patterson DPM Date of Service: 04/12/24/ ECG/ECG 12 lead ECG: PST Copies to: Test Reason : Blood Pressure : */* mmHG Vent. Rate : 68 BPM Atrial Rate : 68 BPM P-R Int : 162 ms QRS Dur : 94 ms QT Int : 368 ms P-R-T Axes : 54 31 41 degrees QTcB Int : 391 ms Normal sinus rhythm Normal ECG When compared with ECG of 06-Dec-2016 10:10, No significant change was found Confirmed by Rene Israel ([id number]) on 04/13/2024 3:04:56 PM Referred By: Electronically Signed By: Rene Israel Transcribed By: MUS Signed By Rene Israel MD 04/13/[address] [place] [address] Physician GroupErythrocyte distribution width [Ratio] by Automated countOrdered By: Rishi Patterson on 38-55-8226Ophdtnzqzdr distribution width (RBC) [Ratio]14.3 %Suedbl47.9-15.3FKettering Health Greene MemorialComment on above:Performed By: #### BMP, CBC #### [facility] [address] [place] [address] USAErythrocytes [#/volume] in Blood by Automated countOrdered By: Rishi Patterson on 14-58-8198DJC (Bld) [#/Vol]4.65 10*6/uLNormal3.60-5.00 [facility], BeachwoodComment on above:Performed By: #### BMP, CBC #### [facility] [address] [place] [address] USAGlucose [Mass/volume] in Serum or PlasmaOrdered By: Rishi Patterson on 26-16-2554Nivfdaa [Mass/Vol]97 mg/bXDxgyhj75-497EskptkhtsSelect Medical [facility] Hospital, BeachwoodComment on above:ADA recommended reference rangeRandom Glucose Reference Range is dependent on time and content of last meal. Glucose of more than 200 mg/dL in a nonstressed, ambulatory subject supports the diagnosisof Diabetes Mellitus.Result Comment: Random Glucose Reference Range is dependent on time and content of last meal. Glucose of more than 200 mg/dL in a nonstressed, ambulatory subject supports the diagnosis of Diabetes Mellitus. ADA recommended reference rangePerformed By: #### BMP, CBC #### [facility] [address] [place] [id number] USAHematocrit [Volume Fraction] of Blood by Automated count Ordered By: Rishi Patterson on 90-00-6393Cxvyyozlnr (Bld) [Volume fraction]39.9 % Ydguza96.0-46.4FKettering Health Greene MemorialComment on above:Performed By: #### BMP, CBC #### [place] [address] USAHemoglobin [Mass/volume] in BloodOrdered By: Rishi Patterson on 92-97-3320Filjrjbuqs (Bld) [Mass/Vol]13.4 g/yDGxtgzj98.8-15.4FKettering Health Greene MemorialComment on above:Performed By: #### BMP, CBC #### [place] [address] USALeukocytes [#/volume] corrected for nucleated erythrocytes in Blood by Automated counOrdered By: Rishi Patterson on 78-51-4815JVL corrected for nucl RBC Auto (Bld) [#/Vol]5.6 10*3/uL3.8-11.6FKettering Health Greene Memorial Leukocytes [#/volume] in Blood by Automated countOrdered By: Rishi Patterson on 99-99-5038WZY (Bld) [#/Vol]5.6 10*3/uLNormal3.8-11.6FKettering Health Greene MemorialComment on above:Performed By: #### BMP, CBC #### [place] [address] USALymphocytes [#/volume] in Blood by Automated countOrdered By: Rishi Patterson on 26-22-8838Rjvheraapxr (Bld) [#/Vol]1.7 10*3/uLNormal1.00-4.8 [facility], BeachwoodComment on above:Performed By: #### BMP, CBC #### [facility] [address] [place] [id number] USALymphocytes/100 leukocytes in Blood by Automated count Ordered By: Rishi Patterson on 40-66-9151Akvvssyxuvm/100 WBC (Bld)30.4 %Normal. [facility], BeachwoodComment on above:Performed By: #### BMP, CBC #### [address] [Entitic mass] by Automated countOrdered By: Rishi Patterson on 39-43-1413DWF (RBC) [Entitic mass]28.8 xtCuocpu11.7-34.3FKettering Health Greene MemorialComment on above:Performed By: #### BMP, CBC #### [address] Auto (RBC) [Mass/Vol]Ordered By: Rishi Patterson on 29-28-5398BHUQ (RBC) [Mass/Vol]33.5 g/dL32.0-35.0[facility], BeachwoodMCV [Entitic volume] by Automated countOrdered By: Rishi Patterson on 00-35-4638NMK (RBC) [Entitic vol]86.0 rHGsnciu03-691HlhcukodbSelect Medical [facility] Clinic Rehabilitation Hospital, BeachwoodComment on above:Performed By: #### BMP, CBC #### [place] [address] USANeutrophils [#/volume] in Blood by Automated countOrdered By: Rishi Patterson on 97-65-3843Cxsebywkukz (Bld) [#/Vol]3.3 10*3/uLNormal1.8-7.7 [facility], BeachwoodComment on above:Performed By: #### BMP, CBC #### [place] [address] USANo Panel InformationOrdered By: Rishi Patterson on 04-12-2024 Estimated GFR (CKD-EPI)58.132 mL/MinSelect Medical Cleveland Clinic Rehabilitation Hospital, BeachwoodPharmacy Creatinine Clearance (ChemN/AFKettering Health Greene MemorialNucleated erythrocytes [Presence] in Blood by Automated countOrdered By: Rishi Patterson on 36-13-4574Cklfjnlha RBC Auto Ql (Bld)0.1 /100{WBC}0-0.5FKettering Health Greene MemorialPlatelet mean volume [Entitic volume] in Blood by Automated count Ordered By: Rishi Patterson on 06-15-7794Ewhxifqf mean volume (Bld) [Entitic vol]7.6 fLNormal6.3-10.7FKettering Health Greene MemorialComment on above:Performed By: #### BMP, CBC #### [facility] [address] [place] [address] USAPlatelets [#/volume] in Blood by Automated countOrdered By: Rishi Patterson on 53-37-4074Hslxhjfyb (Bld) [#/Vol]224 10*3/zCUsdsib635-828 [facility], BeachwoodComment on above:Performed By: #### BMP, CBC #### [facility] [address] [place] [address] USAPotassium [Moles/volume] in Serum or PlasmaOrdered By: Rishi Patterson on 57-19-1777Bxompkkre [Moles/Vol]4.3 mmol/LNormal3.5-5.1FKettering Health Greene MemorialComment on above:Performed By: #### BMP, CBC #### [facility] [address] [place] [address] USASerum or plasma anion gap determinationOrdered By: Rishi Patterson on 87-61-6786Aeyil gap [Moles/Vol]8.1 mmol/LNormal6.0-15.0[facility], BeachwoodComment on above:Performed By: #### BMP, CBC #### [facility] [address] [place] [address] USASodium [Moles/volume] in Serum or PlasmaOrdered By: Rishi Patterson on 59-88-3023Aqneiu [Moles/Vol]138 mmol/IIaemle004-286FutemxjyqSelect Medical [facility], BeachwoodComment on above:Performed By: #### BMP, CBC #### [facility] [address] [place] [address] USAUrea nitrogen [Mass/volume] in Serum or PlasmaOrdered By: Rishi Patterson on 76-49-9605Dlza nitrogen [Mass/Vol]19 mg/dLNormal7-25[facility], BeachwoodComment on above:Performed By: #### BMP, CBC #### [facility] [address] [place] [id number] USAXR chest 2V*on 08-13-6508AY chest 2V*[facility] [address] [place] [address] XRay Report Signed Patient: Patt Irene MR#: [id number] [birth year] : 1955 Acct:[id number] Age/Sex: 69 / F ADM Date: 04/12/24 Loc: Room: Type: [facility] Attending Dr: Rishi Patterson DPM Copies to: Rishi Patterson DPM Ordering Provider: Rishi Patterson DPM Date of Service: 04/12/24 XR/XR chest 2V*: Z01.818 Chest 2 views CLINICAL HISTORY: Preop foot surgery. COMPARISON: Chest 12/01/2022 FINDINGS: Heart normal size. Lungs are clear. No free air. XR/XR chest 2V* IMPRESSION: NO ACUTE CARDIOPULMONARY ABNORMALITY. Impression dictated by: Rafat Birmingham Jr., D.O.04/12/2024 2:28 PM Dictation Location: [place] [address] Transcribed By: [facility] 04/12/24 1428 Dictated By: Rafat Birmingham Jr, DO 04/12/24 1428 Signed By: 04/12/24 1428NoAtrium Health Cleveland Physician GroupCalcium [Mass/volume] in Serum or PlasmaOrdered By: Klaus Horton on 07-90-1776Jmoplme [Mass/Vol]9.5 mg/dL 8.6-10.3FKettering Health Greene MemorialCarbon dioxide, total [Moles/volume] in Serum or PlasmaOrdered By: Klaus Horton on 85-96-4550CX3 [Moles/Vol]29.7 mmol/L 21.0-31.0[facility], BeachwoodChloride [Moles/volume] in Serum or PlasmaOrdered By: Klaus Horton on 08-95-7151Quirdluf [Moles/Vol]104 mmol/L98-107 [facility], BeachwoodCreatinine [Mass/volume] in Serum or Plasma Ordered By: Klaus Hroton on 19-33-7002Wrdeuvfixs [Mass/Vol]0.95 mg/dL0.60-1.20 [facility], BeachwoodGlucose [Mass/volume] in Serum or PlasmaOrdered By: Klaus Horton on 00-83-2048Hsutfkq [Mass/Vol]97 mg/nO51-631GzyfklmmbSelect Medical Cleveland Clinic Rehabilitation Hospital, BeachwoodComment on above:ADA recommended reference rangeRandom Glucose Reference Range is dependent on time and content of last meal. Glucose of more than 200 mg/dL in a nonstressed, ambulatory subject supports the diagnosisof Diabetes Mellitus.No Panel InformationOrdered By: Klaus Horton on 60-42-8496Dqlmntnvo GFR (CKD-EPI)> 60.0 mL/MinSelect Medical Cleveland Clinic Rehabilitation Hospital, Beachwood Pharmacy Creatinine Clearance (ChemN/[facility] HospitalPotassium [Moles/volume] in Serum or PlasmaOrdered By: Klaus Horton on 02-16-2024 Potassium [Moles/Vol]4.3 mmol/L3.5-5.1FKettering Health Springfielderum or plasma anion gap determinationOrdered By: Klaus Horton on 28-06-9260Qqvxr gap [Moles/Vol]9.6 mmol/L6.0-15.0[facility] for Rehabilitationodium [Moles/volume] in Serum or PlasmaOrdered By: Klaus Horton on 62-19-4880Bnzjzk [Moles/Vol]139 mmol/V477-649HzomgbfwiSelect Medical [facility] Clinic Rehabilitation Hospital, BeachwoodUrea nitrogen [Mass/volume] in Serum or PlasmaOrdered By: Klaus Horton on 70-28-3091Avgn nitrogen [Mass/Vol]22 mg/dL7-25[facility], BeachwoodCholesterol [Mass/volume] in Serum or PlasmaOrdered By: Klaus Horton on 01-13-2024 Cholesterol [Mass/Vol]228 mg/hLOobm890-173AolsuhdfsSelect Medical Cleveland Clinic Rehabilitation Hospital, [place] Comment on above:Chol less than 200 mg/dl low riskChol 201-239 mg/dl borderline riskChol 240 mg/dl and greater high riskCholesterol in LDL Calc [Mass/Vol] Ordered By: Klaus Horton on 09-66-8568Xtxhxgoyhso in LDL [Mass/Vol]136 mg/dLHigh 0-100[facility], BeachwoodComment on above:LDL ATP III CLASSIFICATIONLDL less than 100 mg/dL OptimalLDL 100-129 mg/dL Near or above mljgbgqZFH962-223 mg/dL Borderline highLDL 160-189 mg/dL HighLDL greater than 189 mg/dL Very highCholesterol in VLDL Calc [Mass/Vol]Ordered By: Klaus Horton on 23-31-7349Ikbucituaso in VLDL [Mass/Vol]20 mg/dLCleveland Clinic Children's Hospital for Rehabilitationerum or plasma high density lipoprotein (HDL) cholesterol measurement Ordered By: Klaus Horton on 26-62-2030Bctksgjvzra in HDL [Mass/Vol]71 mg/dL23-92 [facility], BeachwoodComment on above:HDL CHOL ATP-III CLASSIFICATION Cardiovascular RiskHDL > or equal to 60 mg/dL LOWHDL < 40 mg/dL HIGHSerum or plasma total cholesterol/high density lipoprotein (HDL) cholesterol mass ratOrdered By: Klaus Horton on 57-81-0657Ifwqxtmbpmp.total/Cholesterol in HDL [Mass ratio]3.2 {ratio}<5.0[facility], BeachwoodTriglyceride [Mass/volume] in Serum or PlasmaOrdered By: Klaus Horton on 01-13-2024 Triglyceride [Mass/Vol]103 mg/dL0-149[facility], BeachwoodComment on above:TRIG ATP III CLASSIFICATIONTRIG less than 150 mg/dL NormalTRIG 150-199 mg/dL Borderline highTRIG 200-500 mg/dL High TRIG greater than 500 mg/dL Very highStandard traceable to the Center for Disease Conrtrol and Prevention (CDC) test method.Alanine aminotransferase [Enzymatic activity/volume] in Serum or PlasmaOrdered By: Klaus Horton on 82-87-4955YGQ [Catalytic activity/Vol]27 U/L 7-52[facility], BeachwoodAlbumin [Mass/volume] in Serum or Plasma by Bromocresol green (BCG) dye binding methoOrdered By: Klaus Horton on 05-17-2024 Albumin BCG dye [Mass/Vol]4.4 g/dL3.5-5.7FKettering Health Greene Memorial Alkaline phosphatase [Enzymatic activity/volume] in Serum or PlasmaOrdered By: Klaus Horton on 52-12-8510WAO [Catalytic activity/Vol]95 U/L30-582EsbiwusmjSelect Medical Cleveland Clinic Rehabilitation Hospital, BeachwoodAspartate aminotransferase [Enzymatic activity/volume] in Serum or PlasmaOrdered By: Klaus Horton on 96-37-3158EUV [Catalytic activity/Vol]23 U/V84-95MlzvohussSelect Medical Cleveland Clinic Rehabilitation Hospital, BeachwoodBasophils Auto (Bld) [#/Vol]Ordered By: Klaus Horton on 38-32-4447Kiyahzvwk (Bld) [#/Vol]0.0 10*3/uL 0.0-0.2FKettering Health Greene MemorialBasophils/100 WBC Auto (Bld)Ordered By: Klaus Horton on 27-42-6692Jjrbcmyfg/100 WBC (Bld)0.9 %.[facility], BeachwoodBilirubin.total [Mass/volume] in Serum or PlasmaOrdered By: Klaus Horton on 51-64-2619Qflhjlmpg [Mass/Vol]0.5 mg/dL0.3-1.0[facility], BeachwoodCalcium [Mass/volume] in Serum or PlasmaOrdered By: Klaus Horton on 87-00-4159Atmrodg [Mass/Vol]9.3 mg/dL8.6-10.3FKettering Health Greene MemorialCarbon dioxide, total [Moles/volume] in Serum or PlasmaOrdered By: Klaus Horton on 65-79-3311WK6 [Moles/Vol]27.0 mmol/L21.0-31.0[facility], BeachwoodChloride [Moles/volume] in Serum or PlasmaOrdered By: Klaus Horton on 08-66-3771Tjtshlrm [Moles/Vol]106 mmol/D08-232CnbbfrbnySelect Medical Cleveland Clinic Rehabilitation Hospital, BeachwoodCreatinine [Mass/volume] in Serum or PlasmaOrdered By: Klaus Horton on 32-30-8641Wdvasatdel [Mass/Vol]0.96 mg/dL0.60-1.20[facility], BeachwoodEosinophils Auto (Bld) [#/Vol]Ordered By: Klaus Horton on 12-25-2023 Eosinophils (Bld) [#/Vol]0.1 10*3/uL0.0-0.45[facility] [place] Eosinophils/100 WBC Auto (Bld)Ordered By: Klaus Horton on 12-25-2023 Eosinophils/100 WBC (Bld)2.2 %.[facility], BeachwoodErythrocyte distribution width Auto (RBC) [Ratio]Ordered By: Klaus Horton on 12-25-2023 Erythrocyte distribution width (RBC) [Ratio]14.1 %11.9-15.3FKettering Health Greene MemorialGlobulin Calc (S) [Mass/Vol]Ordered By: Klaus Horton on 12-25-2023 Globulin (S) [Mass/Vol]2.8 g/dLSelect Medical Cleveland Clinic Rehabilitation Hospital, BeachwoodGlucose [Mass/volume] in Serum or PlasmaOrdered By: Klaus Horton on 84-24-1818Cujxloe [Mass/Vol]95 mg/iW01-081QjukiminsSelect Medical Cleveland Clinic Rehabilitation Hospital, BeachwoodComment on above:ADA recommended reference rangeRandom Glucose Reference Range is dependent on time and content of last meal. Glucose of more than 200 mg/dL in a nonstressed, ambulatory subject supports the diagnosisof Diabetes Mellitus.Glucose mean value [Mass/volume] in Blood Estimated from glycated hemoglobinOrdered By: Klaus Horton on 82-89-3809Dtiotce glucose Estimated from glycated hemoglobin (Bld) [Mass/Vol]123 mg/dLSelect Medical Cleveland Clinic Rehabilitation Hospital, BeachwoodHematocrit Auto (Bld) [Volume fraction]Ordered By: Klaus Horton on 10-85-7632Jmchaifakh (Bld) [Volume fraction]40.1 %34.0-46.4FKettering Health Greene MemorialHemoglobin A1c percentageOrdered By: Klaus Horton on 35-07-6670JmJ5u (Bld) [Mass fraction]5.9 % High4.3-5.6FKettering Health Greene MemorialComment on above:Increased risk for diabetes: 5.7 - 6.4diabetes: >6.4glycemic control for adults with diabetes: &l t;7.0Hemoglobin [Mass/volume] in BloodOrdered By: Klaus Horton on 12-25-2023 Hemoglobin (Bld) [Mass/Vol]13.2 g/dL11.8-15.4FKettering Health Greene Memorial Leukocytes [#/volume] corrected for nucleated erythrocytes in Blood by Automated counOrdered By: Klaus Horton on 93-78-7599HEQ corrected for nucl RBC Auto (Bld) [#/Vol]4.3 10*3/uL3.8-11.6FKettering Health Greene MemorialLymphocytes Auto (Bld) [#/Vol]Ordered By: Klaus Horton on 26-67-7588Hkjnxinzzfu (Bld) [#/Vol]1.4 10*3/uL1.00-4.8[facility], BeachwoodLymphocytes/100 WBC Auto (Bld) Ordered By: Klaus Horton on 15-57-1354Oliwyfvhvyu/100 WBC (Bld)33.2 %.[facility] Auto (RBC) [Entitic mass]Ordered By: Klaus Horton on 85-71-3943GKR (RBC) [Entitic mass]28.6 pg24.7-34.3FKettering Health Greene MemorialMCHC Auto (RBC) [Mass/Vol]Ordered By: Klaus Horton on 13-11-8690XLWG (RBC) [Mass/Vol]32.8 g/dL32.0-35.0[facility], BeachwoodMCV Auto (RBC) [Entitic vol]Ordered By: Klaus Horton on 74-92-6718INE (RBC) [Entitic vol]87.1 aW56-743FhsttljtmSelect Medical Cleveland Clinic Rehabilitation Hospital, BeachwoodMonocytes Auto (Bld) [#/Vol]Ordered By: Klaus Horton on 41-50-9013Drhlcaaii (Bld) [#/Vol]0.4 10*3/uL0.0-0.8[facility], BeachwoodMonocytes/100 WBC Auto (Bld)Ordered By: Klaus Horton on 41-36-7115Ylvlaahun/100 WBC (Bld)9.8 %.Select [facility] [place] Neutrophils Auto (Bld) [#/Vol]Ordered By: Klaus Horton on 52-31-5089Yplioxrftvc (Bld) [#/Vol]2.3 10*3/uL1.8-7.7FKettering Health Greene MemorialNeutrophils/100 WBC Auto (Bld)Ordered By: Klaus Horton on 20-66-0081Cdfxddyekkf/100 WBC (Bld) 53.9 %.[facility] BeachwoodNo Panel InformationOrdered By: Klaus Horton on 96-87-0889Iunwpctvq GFR (CKD-EPI)> 60.0 mL/MinSelect Medical [facility], BeachwoodPharmacy Creatinine Clearance (ChemN/AFKettering Health Greene MemorialNucleated erythrocytes [Presence] in Blood by Automated countOrdered By: Klaus Horton on 05-09-3013Lwuyoxaud RBC Auto Ql (Bld)0.2 /100{WBC}0-0.5FKettering Health Greene MemorialPlatelet mean volume Auto (Bld) [Entitic vol]Ordered By: Klaus Horton on 31-04-6921Mocfvdvy mean volume (Bld) [Entitic vol]7.5 fL6.3-10.7 [facility], BeachwoodPlatelets Auto (Bld) [#/Vol]Ordered By: Klaus Horton on 24-17-9345Wivxkmvsc (Bld) [#/Vol]229 10*3/qX344-209CvnekzvfzSelect Medical [facility], [place]woodPotassium [Moles/volume] in Serum or PlasmaOrdered By: Klaus Horton on 44-70-0564Ndykbcgqo [Moles/Vol]5.2 mmol/LHigh3.5-5.1FKettering Health Greene MemorialProtein [Mass/volume] in Serum or PlasmaOrdered By: Klaus Horton on 27-92-9964Pobaiyy [Mass/Vol]7.2 g/dL6.4-8.9[facility] [place] RBC Auto (Bld) [#/Vol]Ordered By: Klaus Horton on 96-96-9253VFF (Bld) [#/Vol] 4.61 10*6/uL3.60-5.00[facility] Rehabilitationerum or plasma albumin/globulin mass ratioOrdered By: Klaus Horton on 12-25-2023 Albumin/Globulin [Mass ratio]1.6 {ratio}[facility] for Rehabilitationerum or plasma anion gap determinationOrdered By: Klaus Horton on 31-11-2224Whehw gap [Moles/Vol]10.2 mmol/L6.0-15.0[facility] Rehabilitationodium [Moles/volume] in Serum or PlasmaOrdered By: Klaus Horton on 82-87-6005Wcvadc [Moles/Vol]138 mmol/H869-506SbxpeogkySelect Medical [facility], BeachwoodThyrotropin [Units/volume] in Serum or PlasmaOrdered By: Klaus Horton on 66-67-7394AFU Qn 3.62 m[IU]/L0.45-5.33[facility], BeachwoodThyroxine (T4) free [Mass/volume] in Serum or PlasmaOrdered By: Klaus Horton on 25-00-6425Acst T4 [Mass/Vol]1.05 ng/dL0.61-1.12[facility], BeachwoodTriiodothyronine (T3) Free [Mass/volume] in Serum or PlasmaOrdered By: Klaus Horton on 12-25-2023 Free T3 [Mass/Vol]3.23 pg/mL2.50-3.90[facility] BeachwoodUrea nitrogen [Mass/volume] in Serum or PlasmaOrdered By: Klaus Horton on 12-25-2023 Urea nitrogen [Mass/Vol]20 mg/dL7-25[facility], BeachwoodWBC Auto (Bld) [#/Vol]Ordered By: Klaus Horton on 93-82-9871YSA (Bld) [#/Vol]4.3 10*3/uL 3.8-11.6FKettering Health Greene MemorialAlanine aminotransferase [Enzymatic activity/volume] in Serum or PlasmaOrdered By: Timothy Baird on 18-92-3472ZLU [Catalytic activity/Vol]33 U/L7-52[facility], BeachwoodAlbumin [Mass/volume] in Serum or Plasma by Bromocresol green (BCG) dye binding metho Ordered By: Timothy Baird on 09-84-1764Nbpmbvk BCG dye [Mass/Vol]4.3 g/dL3.5-5.7 [facility], BeachwoodAlkaline phosphatase [Enzymatic activity/volume] in Serum or PlasmaOrdered By: Timotyh Baird on 53-71-7541PCK [Catalytic activity/Vol]90 U/M50-283JlxpsufqgSelect Medical [facility], BeachwoodAspartate aminotransferase [Enzymatic activity/volume] in Serum or PlasmaOrdered By: Timothy Baird on 61-46-2935OXL [Catalytic activity/Vol]26 U/H45-77UwffpgmneSelect Medical [facility], BeachwoodBilirubin.direct [Mass/volume] in Serum or PlasmaOrdered By: Timothy Baird on 60-37-6369Sicuhlpld.direct [Mass/Vol]0.10 mg/dL0.03-0.18 [facility], BeachwoodBilirubin.total [Mass/volume] in Serum or PlasmaOrdered By: Timothy Baird on 07-79-7710Olwpcorvz [Mass/Vol]0.7 mg/dL 0.3-1.0[facility], BeachwoodGlobulin Calc (S) [Mass/Vol]Ordered By: Timothy Baird on 76-58-5273Leolusvb (S) [Mass/Vol]2.3 g/dLSelect Medical [facility], BeachwoodProtein [Mass/volume] in Serum or PlasmaOrdered By: Timothy Baird on 45-80-6801Uqkpsop [Mass/Vol]6.6 g/dL6.4-8.9[facility] [place] Serum or plasma albumin/globulin mass ratioOrdered By: Timothy Baird on 65-91-3665Kusavgi/Globulin [Mass ratio]1.9 {ratio}[facility] Rehabilitationerum or plasma non-glucuronidated bilirubin measurement (mass/volume) Ordered By: Timothy Baird on 00-50-2608Sweertrfi.indirect [Mass/Vol]0.6 mg/dL [facility], BeachwoodAlanine aminotransferase [Enzymatic activity/volume] in Serum or PlasmaOrdered By: Klaus Horton on 29-75-7122ZPT [Catalytic activity/Vol]25 U/L7-52[facility] BeachwoodAlbumin [Mass/volume] in Serum or Plasma by Bromocresol green (BCG) dye binding metho Ordered By: Klaus Horton on 26-59-7351Epycgxo BCG dye [Mass/Vol]4.3 g/dL3.5-5.7 [facility] BeachwoodAlkaline phosphatase [Enzymatic activity/volume] in Serum or PlasmaOrdered By: Klaus Horton on 88-67-6577HMM [Catalytic activity/Vol]90 U/O88-539NywhnqugeSelect Medical [facility], BeachwoodAspartate aminotransferase [Enzymatic activity/volume] in Serum or PlasmaOrdered By: Klaus Horton on 15-58-9066QXG [Catalytic activity/Vol]21 U/L68-48MpmoektojSelect Medical [facility], BeachwoodBasophils Auto (Bld) [#/Vol]Ordered By: Klaus Horton on 06-30-2023 Basophils (Bld) [#/Vol]0.0 10*3/uL0.0-0.2FKettering Health Greene Memorial Basophils/100 WBC Auto (Bld)Ordered By: Klaus Horton on 69-61-0041Ibczeymsk/100 WBC (Bld)0.9 %.[facility], BeachwoodBilirubin.total [Mass/volume] in Serum or PlasmaOrdered By: Klaus Horton on 24-88-8335Axahmmddw [Mass/Vol]0.6 mg/dL0.3-1.0[facility] BeachwoodCalcium [Mass/volume] in Serum or PlasmaOrdered By: Klaus Horton on 38-94-6401Smbvxem [Mass/Vol]9.4 mg/dL8.6-10.3 [facility] BeachwoodCarbon dioxide, total [Moles/volume] in Serum or PlasmaOrdered By: Klaus Horton on 39-32-2387NF4 [Moles/Vol]30.7 mmol/L 21.0-31.0[facility] [place]woodChloride [Moles/volume] in Serum or PlasmaOrdered By: Klaus Horton on 99-24-9898Qdgcdhut [Moles/Vol]106 mmol/L98-107 [facility] [place]woodCholesterol [Mass/volume] in Serum or Plasma Ordered By: Klaus Horton on 36-42-4536Scgkpwjpejk [Mass/Vol]183 mg/fU298-050 [facility], BeachwoodComment on above:Chol less than 200 mg/dl low riskChol 201-239 mg/dl borderline riskChol 240 mg/dl and greater high risk Cholesterol in LDL Calc [Mass/Vol]Ordered By: Klaus Horton on 06-30-2023 Cholesterol in LDL [Mass/Vol]94 mg/dL0-100[facility] [place] Comment on above:LDL ATP III CLASSIFICATIONLDL less than 100 mg/dL OptimalLDL 100-129 mg/dL Near or above yzklovpIXF038-022 mg/dL Borderline highLDL 160-189 mg/dL HighLDL greater than 189 mg/dL Very highCholesterol in VLDL Calc [Mass/Vol]Ordered By: Klaus Horton on 56-68-6256Ukzpyhaqerz in VLDL [Mass/Vol]26 mg/dLSelect Medical [facility], BeachwoodCreatinine [Mass/volume] in Serum or PlasmaOrdered By: Klaus Horton on 22-55-3185Iqonqqdrrp [Mass/Vol]0.89 mg/dL 0.60-1.20[facility] BeachwoodEosinophils Auto (Bld) [#/Vol]Ordered By: Klaus Horton on 80-22-0303Enwwuuktokj (Bld) [#/Vol]0.1 10*3/uL0.0-0.45 [facility] BeachwoodEosinophils/100 WBC Auto (Bld)Ordered By: Klaus Horton on 58-78-7330Hqebtyjonqt/100 WBC (Bld)2.0 %.[facility] BeachwoodErythrocyte distribution width Auto (RBC) [Ratio]Ordered By: Klaus Horton on 97-87-2248Vkppxliksvu distribution width (RBC) [Ratio]14.0 %11.9-15.3 [facility] [place]woodGlobulin Calc (S) [Mass/Vol]Ordered By: Klaus Horton on 80-29-6171Xzsiynsm (S) [Mass/Vol]2.7 g/dLSelect Medical [facility], BeachwoodGlucose [Mass/volume] in Serum or PlasmaOrdered By: Klaus Horton on 85-24-2889Suneqgg [Mass/Vol]90 mg/nI76-494WuhgjihcsSelect [facility] [place] Comment on above:ADA recommended reference rangeRandom Glucose Reference Range is dependent on time and content of last meal. Glucose of more than 200 mg/dL in a nonstressed, ambulatory subject supports the diagnosisof Diabetes Mellitus. Glucose mean value [Mass/volume] in Blood Estimated from glycated hemoglobin Ordered By: Klaus Horton on 24-42-3882Qtfzgqm glucose Estimated from glycated hemoglobin (Bld) [Mass/Vol]126 mg/dLSelect Medical [facility], BeachwoodHematocrit Auto (Bld) [Volume fraction]Ordered By: Klaus Horton on 54-58-8239Dobaivjopo (Bld) [Volume fraction]39.3 %34.0-46.4FKettering Health Greene Memorial Hemoglobin A1c percentageOrdered By: Klaus Horton on 54-30-3537CsB8s (Bld) [Mass fraction]6.0 %4.3-5.6FKettering Health Greene MemorialComment on above: Increased risk for diabetes: 5.7 - 6.4diabetes: >6.4glycemic control for adults with diabetes: <7.0Hemoglobin [Mass/volume] in BloodOrdered By: Klaus Horton on 52-38-6830Zfujojyfml (Bld) [Mass/Vol]12.9 g/dL11.8-15.4FKettering Health Greene MemorialLeukocytes [#/volume] corrected for nucleated erythrocytes in Blood by Automated counOrdered By: Klaus Horton on 15-25-7132CNP corrected for nucl RBC Auto (Bld) [#/Vol]5.0 10*3/uL3.8-11.6FKettering Health [facility] Memorial Lymphocytes Auto (Bld) [#/Vol]Ordered By: Klaus Horton on 87-01-7463Besmojhgdif (Bld) [#/Vol]1.4 10*3/uL1.00-4.8[facility] BeachwoodLymphocytes/100 WBC Auto (Bld)Ordered By: Klaus Horton on 73-94-5907Yyxvbnpbnvx/100 WBC (Bld) 27.3 %.[facility] Auto (RBC) [Entitic mass]Ordered By: Klaus Horton on 10-12-0666BUC (RBC) [Entitic mass]28.1 pg24.7-34.3FKettering Health Greene MemorialMCHC Auto (RBC) [Mass/Vol]Ordered By: Klaus Horton on 28-57-7685MAPO (RBC) [Mass/Vol]32.8 g/dL32.0-35.0[facility] BeachwoodMCV Auto (RBC) [Entitic vol]Ordered By: Klaus Horton on 92-22-3382JIN (RBC) [Entitic vol]85.7 yG30-897LeirpvtkhSelect Medical [facility], [place]woodMonocytes Auto (Bld) [#/Vol]Ordered By: Klaus Horton on 96-79-7573Kvfcazuew (Bld) [#/Vol]0.4 10*3/uL0.0-0.8[facility] [place]woodMonocytes/100 WBC Auto (Bld) Ordered By: Klaus Horton on 99-56-3303Hwvzokyks/100 WBC (Bld)7.9 %.[facility] [place]woodNeutrophils Auto (Bld) [#/Vol]Ordered By: Klaus Horton on 71-84-4194Bhmuavzftwv (Bld) [#/Vol]3.1 10*3/uL1.8-7.7FKettering Health Greene MemorialNeutrophils/100 WBC Auto (Bld)Ordered By: Klaus Horton on 06-30-2023 Neutrophils/100 WBC (Bld)61.9 %.[facility] [place]woodNo Panel InformationOrdered By: Klaus Horton on 46-67-8681Koinhdiap GFR (CKD-EPI)> 60.0 mL/MinSelect Medical [facility], BeachwoodPharmacy Creatinine Clearance (ChemN/A [facility] BeachwoodNucleated erythrocytes [Presence] in Blood by Automated countOrdered By: Klaus Horton on 49-87-6714Gtkvblyjc RBC Auto Ql (Bld) 0.1 /100{WBC}0-0.5FKettering Health Greene MemorialPlatelet mean volume Auto (Bld) [Entitic vol]Ordered By: Klaus Horton on 45-53-3711Deplkvqo mean volume (Bld) [Entitic vol]7.3 fL6.3-10.7FKettering Health Greene MemorialPlatelets Auto (Bld) [#/Vol]Ordered By: Klaus Horton on 42-03-5693Kbhwyocrf (Bld) [#/Vol]230 10*3/dI420-289XdubydynoSelect Medical [facility], [place]woodPotassium [Moles/volume] in Serum or PlasmaOrdered By: Klaus Horton on 84-96-7455Xyrujrgrp [Moles/Vol]4.6 mmol/L 3.5-5.1FKettering Health Greene MemorialProtein [Mass/volume] in Serum or Plasma Ordered By: Klaus Horton on 12-36-0225Mknhmyp [Mass/Vol]7.0 g/dL6.4-8.9[facility], [place]woodRBC Auto (Bld) [#/Vol]Ordered By: Klaus Horton on 71-92-2028MOE (Bld) [#/Vol]4.59 10*6/uL3.60-5.00[facility] for Rehabilitationerum or plasma albumin/globulin mass ratioOrdered By: Klaus Horton on 25-48-0333Ojcppiw/Globulin [Mass ratio]1.6 {ratio}[facility] for Rehabilitationerum or plasma anion gap determinationOrdered By: Klaus Horton on 68-45-4258Oswyw gap [Moles/Vol]7.9 mmol/L6.0-15.0[facility] for Rehabilitationerum or plasma high density lipoprotein (HDL) cholesterol measurement Ordered By: Klaus Horton on 84-47-9019Jaoqlfhbhhf in HDL [Mass/Vol]62 mg/dL23-92 [facility], BeachwoodComment on above:HDL CHOL ATP-III CLASSIFICATION Cardiovascular RiskHDL > or equal to 60 mg/dL LOWHDL < 40 mg/dL HIGHSerum or plasma total cholesterol/high density lipoprotein (HDL) cholesterol mass ratOrdered By: Klaus Horton on 06-24-3032Zozgjlcwigk.total/Cholesterol in HDL [Mass ratio]3.0 {ratio}<5.0[facility] Rehabilitationodium [Moles/volume] in Serum or PlasmaOrdered By: Klaus Horton on 52-38-6013Ilbcot [Moles/Vol]140 mmol/Y283-762JlvbuantcSelect Medical [facility], [place]woodThyrotropin [Units/volume] in Serum or PlasmaOrdered By: Klaus Horton on 80-31-9139PZI Qn 0.72 m[IU]/L0.45-5.33[facility], BeachwoodThyroxine (T4) free [Mass/volume] in Serum or PlasmaOrdered By: Klaus Horton on 29-95-8130Yqzm T4 [Mass/Vol]1.09 ng/dL0.61-1.12[facility], [place]woodTriglyceride [Mass/volume] in Serum or PlasmaOrdered By: Klaus Horton on 06-30-2023 Triglyceride [Mass/Vol]134 mg/dL0-149[facility], BeachwoodComment on above:TRIG ATP III CLASSIFICATIONTRIG less than 150 mg/dL NormalTRIG 150-199 mg/dL Borderline highTRIG 200-500 mg/dL High TRIG greater than 500 mg/dL Very highStandard traceable to the Center for Disease Conrtrol and Prevention (CDC) test method.Triiodothyronine (T3) Free [Mass/volume] in Serum or PlasmaOrdered By: Klaus Horton on 80-73-9237Teqa T3 [Mass/Vol]3.10 pg/mL2.50-3.90[facility] BeachwoodUrea nitrogen [Mass/volume] in Serum or PlasmaOrdered By: Klaus Horton on 63-49-2551Twev nitrogen [Mass/Vol]18 mg/dL7-25[facility] [place]woodWBC Auto (Bld) [#/Vol]Ordered By: Klaus Horton on 44-02-2011BUK (Bld) [#/Vol]5.0 10*3/uL3.8-11.6FKettering Health [facility] Memorial XR chest 2V*on 43-90-6228IO chest 2V*[facility] [employer] Other XR chest 2V*[facility] [employer] Other XR chest 2V*[address] [place] [address] [employer] Other XR chest 2V*[place] [address]Eow[place] [employer] Other XR chest 2V*XRay [facility] [employer] Other XR chest 2V*[facility] [employer] Other XR chest 2V*Patient: Patt Irene MR#: [id number] [employer] Other XR chest 2V*[address] [place] [address] [employer] Other XR chest 2V*: 1955 Acct:[id number] [employer] Other XR chest 2V*Age/Sex: 67 / F ADM Date: 12/01/22[place] [employer] Other XR chest 2V*Loc: ICXD Room: Type: REG CLINmiacosa Other XR chest 2V*Attending Dr: Klaus Horton [facility] [employer] Other XR chest 2V*Copies to: Klaus Horton,[employer] Other XR chest 2V*Ordering Provider: Klaus Horton,[employer] Other XR chest 2V*Date of Service: 12/01/22[facility] Other XR chest 2V* XR/XR chest 2V*: [facility]CRE[facility] Other XR chest 2V*PA AND LATERAL CHEST:[employer] Other XR chest 2V*CLINICAL HISTORY: Chest burning. Hoarseness.[employer] Other XR chest 2V*COMPARISON: 08/27/2011[employer] Other XR chest 2V*There is no focal parenchymal consolidation, effusion or pneumothorax. The cardiac, hilar [facility]CRE[facility] Other XR chest 2V*mediastinal silhouettes are within normal limits. There is no vascular congestion. The visualAdvanced Care Hospital of Southern New MexicoCREATETHE GROUP Other XR chest 2V*ed bony thorax is intact. There is subtle dextroscoliotic curvature and endplate spurring.[employer] Other XR chest 2V* XR/XR chest 2V*[employer] Other XR chest 2V*IMPRESSION:[employer] Other XR chest 2V*NO ACUTE CARDIOPULMONARY ABNORMALITY.[employer] Other XR chest 2V*Impression dictated by: Vandana Matson M.D.12/01/2022 4:44 [facility]EN[facility] Other XR chest 2V*Dictation Location: [id number] [employer] Other XR chest 2V*Transcribed By: LISA 12/01/[address] [place] [address] [employer] Other XR chest 2V*Dictated By: Vandana Matson MD 12/01/[address] [place] [address] [employer] Other XR chest 2V*Signed By:[place]erman [employer] Other XR chest 2V*12/01/[address] [place] [address] [employer] Other XR thoracic spine 3V*on 20-10-3154TQ thoracic spine 3V*[facility] [employer] Other XR thoracic spine 3V*[facility] [employer] Other XR thoracic spine 3V*[facility] [employer] Other XR thoracic spine 3V*[place] [address]Dsqno [employer] Other XR thoracic spine 3V*XRay ReportHerman [employer] Other XR thoracic spine 3V*SignedHerman [employer] Other XR thoracic spine 3V*Patient: Patt Irene MR#: [id number] [employer] Other XR thoracic spine 3V*[address] [place] [address] [employer] Other XR thoracic spine 3V*: 1955 Acct:[id number] [facility] [employer] Other XR thoracic spine 3V*Age/Sex: 67 / F ADM Date: 09/09/22[place] [employer] Other XR thoracic spine 3V*Loc: XD Room: Type: [facility] [employer] Other XR thoracic spine 3V*Attending Dr: Klaus Horton DO [facility] [employer] Other XR thoracic spine 3V*Copies to: Klaus Horton,[employer] Other XR thoracic spine 3V*Ordering Provider: Klaus Horton,[employer] Other XR thoracic spine 3V*Date of Service: 09/09/22[place] [employer] Other XR thoracic spine 3V* XR/XR thoracic spine 3V*: [facility].6[facility] [employer] Other XR thoracic spine 3V*([id number]) XR/XR cervical spine 5V*: M54.2[place] [employer] Other XR thoracic spine 3V*CERVICAL SPINE 5 views, thoracic spine 3 views:[employer] Other XR thoracic spine 3V*CLINICAL HISTORY: Muscle spasms in neck/upper back for 3 weeks.[employer] Other XR thoracic spine 3V*COMPARISON: NoneAudrain Medical CentermSnap Other XR thoracic spine 3V*FINDINGS:[employer] Other XR thoracic spine 3V*Cervical spine: Vertebral body heights appear maintained. Mild disc space narrowing C4-5 C5-6 andHerman [employer] Other XR thoracic spine 3V*C6-7 with endplate, uncovertebral and facet joint degenerative changes. No prevertebral soft tissueHerman [employer] Other XR thoracic spine 3V*swelling.[employer] Other XR thoracic spine 3V*Thoracic spine: Vertebral body heights appear maintained. Scattered endplate degenerative changes.[employer] Other XR thoracic spine 3V*Pedicles appear intact.[employer] Other XR thoracic spine 3V* XR/XR cervical spine 5V*[employer] Other XR thoracic spine 3V*IMPRESSION:[employer] Other XR thoracic spine 3V*DEGENERATIVE CHANGES INVOLVING THE CERVICAL THORACIC SPINE ABOVE. NO ACUTE BONY PROCESS.[employer] Other xr thoracic spine 3V*Impression dictated by: Rafat Birmingham Jr., D.Stephanie09/09/2022 3:08 PMNcox south [employer] Other xr thoracic spine 3V*Dictation Location: [place] [address] [employer] Other xr thoracic spine 3V*Transcribed By: PWS 09/09/22 1508 [employer] Other xr thoracic spine 3V*Dictated By: Rafat Birmingham Jr, DO 09/09/[address] [place] [address] [employer] Other xr thoracic spine 3V*Signed By:[employer] Other xr thoracic spine 3V*09/09/[address] [place] [address] [employer] Other Albumin [Mass/volume] in Serum or PlasmaOrdered By: Klaus Horton on 28-37-8716Rplnpsj [Mass/Vol]4.0 g/dL3.2-5.5FKettering Health Greene MemorialAlkaline phosphatase [Enzymatic activity/volume] in Serum or PlasmaOrdered By: Klaus Horton on 34-36-2911QHC [Catalytic activity/Vol]84 U/L 32-92[facility], BeachwoodAspartate aminotransferase [Enzymatic activity/volume] in Serum or PlasmaOrdered By: Klaus Horton on 32-24-6261PUJ [Catalytic activity/Vol]30 U/C67-53DmlkrgtmbSelect Medical [facility], BeachwoodBasophils Auto (Bld) [#/Vol]Ordered By: Klaus Horton on 59-22-6220Pdtnhzosg (Bld) [#/Vol] 0.1 10*3/uL0.0-0.2FKettering Health Greene MemorialBasophils/100 WBC Auto (Bld) Ordered By: Klaus Horton on 88-99-2985Zmnauewly/100 WBC (Bld)1.2 %.[facility], BeachwoodBilirubin.total [Mass/volume] in Serum or PlasmaOrdered By: Klaus Horton on 61-82-8919Jymxfpehh [Mass/Vol]0.7 mg/dL0.3-1.2FKettering Health Greene MemorialCalcium [Mass/volume] in Serum or PlasmaOrdered By: Klaus Horton on 83-62-0804Ooomhrb [Mass/Vol]9.4 mg/dL8.2-10.2FKettering Health Greene MemorialCarbon dioxide, total [Moles/volume] in Serum or PlasmaOrdered By: Klaus Horton on 83-49-9736US2 [Moles/Vol]27.3 mmol/L22.0-30.0[facility], BeachwoodChloride [Moles/volume] in Serum or PlasmaOrdered By: Klaus Horton on 86-82-2631Dujdwggg [Moles/Vol]105 mmol/H45-088ZrrkkspcaSelect Medical [facility], BeachwoodCholesterol [Mass/volume] in Serum or PlasmaOrdered By: Klaus Horton on 30-91-4943Lqrjjazdcsb [Mass/Vol]191 mg/hH205-397OdbnkkqwlSelect Medical [facility], BeachwoodComment on above:Chol less than 200 mg/dl low riskChol 201-239 mg/dl borderline riskChol 240 mg/dl and greater high riskCholesterol in LDL Calc [Mass/Vol]Ordered By: Klaus Horton on 43-46-8446Dbpgyqyincl in LDL [Mass/Vol] 110 mg/dL0-100[facility], BeachwoodComment on above:LDL ATP III CLASSIFICATIONLDL less than 100 mg/dL OptimalLDL 100-129 mg/dL Near or above joynawsOVZ514-937 mg/dL Borderline highLDL 160-189 mg/dL HighLDL greater than 189 mg/dL Very highCholesterol in VLDL Calc [Mass/Vol]Ordered By: Klaus Horton on 61-87-1957Gzwedoreoso in VLDL [Mass/Vol]9 mg/dLSelect Medical [facility], BeachwoodCreatinine and Glomerular filtration rate.predicted panel (S/P/Bld)Ordered By: Klaus Horton on 38-87-7675Qymoxwiqxe [Mass/Vol]0.87 mg/dL0.44-1.03[facility], BeachwoodEosinophils Auto (Bld) [#/Vol]Ordered By: Klaus Horton on 37-59-0743Itjgcugvwnm (Bld) [#/Vol]0.1 10*3/uL0.0-0.45[facility] BeachwoodEosinophils/100 WBC Auto (Bld)Ordered By: Klaus Horton on 19-07-0112Xfkjazssosh/100 WBC (Bld)2.9 %.[facility] [place] Erythrocyte distribution width Auto (RBC) [Ratio]Ordered By: Klaus Horton on 61-82-0744Kgrhjpskeak distribution width (RBC) [Ratio]14.5 %11.9-15.3FKettering Health Greene MemorialEstimated glomerular filtration rate (GFR) non- AmericanOrdered By: Klaus Horton on 46-84-2267NAX/1.73 sq M.predicted among non- blacks MDRD (S/P/Bld) [Vol rate/Area]> 60 mL/MinSelect Medical [facility] Clinic Rehabilitation Hospital, BeachwoodGlobulin Calc (S) [Mass/Vol]Ordered By: Klaus Horton on 94-64-3219Tpwkrowq (S) [Mass/Vol]2.5 g/dLSelect Medical Cleveland Clinic Rehabilitation Hospital, BeachwoodGlucose [Mass/volume] in Serum or PlasmaOrdered By: Klaus Horton on 54-36-6772Huhqjlg [Mass/Vol]106 mg/dO06-193SjqhgdyzxSelect Medical Cleveland Clinic Rehabilitation Hospital, BeachwoodComment on above:ADA recommended reference rangeRandom Glucose Reference Range is dependent on time and content of last meal. Glucose of more than 200 mg/dL in a nonstressed, ambulatory subject supports the diagnosisof Diabetes Mellitus.Glucose mean value [Mass/volume] in Blood Estimated from glycated hemoglobinOrdered By: Klaus Horton on 31-76-6753Qqfpggp glucose Estimated from glycated hemoglobin (Bld) [Mass/Vol]131 mg/dLSelect Medical Cleveland Clinic Rehabilitation Hospital, BeachwoodHematocrit Auto (Bld) [Volume fraction]Ordered By: Klaus Horton on 81-71-5782Vjyzsequdi (Bld) [Volume fraction]39.7 %34.0-46.4FKettering Health Greene MemorialHemoglobin A1c percentageOrdered By: Klaus Horton on 34-63-3279QxK2c (Bld) [Mass fraction]6.2 % 4.3-5.6FKettering Health Greene MemorialComment on above:Increased risk for diabetes: 5.7 - 6.4diabetes: >6.4glycemic control for adults with diabetes: &l t;7.0Hemoglobin [Mass/volume] in BloodOrdered By: Klaus Horton on 08-25-2022 Hemoglobin (Bld) [Mass/Vol]12.9 g/dL11.8-15.4FKettering [facility] Memorial Leukocytes [#/volume] corrected for nucleated erythrocytes in Blood by Automated counOrdered By: Klaus Horton on 09-01-4120LMJ corrected for nucl RBC Auto (Bld) [#/Vol]4.2 10*3/uL3.8-11.6FKettering Health Greene MemorialLymphocytes Auto (Bld) [#/Vol]Ordered By: Klaus Horton on 92-84-2837Rghgqviywga (Bld) [#/Vol]1.2 10*3/uL1.00-4.8[facility], BeachwoodLymphocytes/100 WBC Auto (Bld) Ordered By: Klaus Horton on 07-04-5837Nsmhnvhlisn/100 WBC (Bld)29.4 %.[facility] Auto (RBC) [Entitic mass]Ordered By: Klaus Horton on 76-75-8466PKC (RBC) [Entitic mass]28.5 pg24.7-34.3FKettering Health Greene MemorialMCHC Auto (RBC) [Mass/Vol]Ordered By: Klaus Horton on 61-21-8061OXIT (RBC) [Mass/Vol]32.5 g/dL32.0-35.0[facility], BeachwoodMCV Auto (RBC) [Entitic vol]Ordered By: Klaus Horton on 51-53-8856VTN (RBC) [Entitic vol]87.6 zB39-947AfnohmdesSelect Medical Cleveland Clinic Rehabilitation Hospital, BeachwoodMonocytes Auto (Bld) [#/Vol]Ordered By: Klaus Horton on 65-81-1422Paduqupyv (Bld) [#/Vol]0.4 10*3/uL0.0-0.8[facility], BeachwoodMonocytes/100 WBC Auto (Bld)Ordered By: Klaus Horton on 62-39-5907Zwgxozyru/100 WBC (Bld)8.4 %.[facility] [place] Neutrophils Auto (Bld) [#/Vol]Ordered By: Klaus Horton on 09-39-5614Hokkkwvqbag (Bld) [#/Vol]2.5 10*3/uL1.8-7.7FKettering Health Greene MemorialNeutrophils/100 WBC Auto (Bld)Ordered By: Klaus Horton on 21-63-2505Zzbqeozbklc/100 WBC (Bld) 58.1 %.[facility], BeachwoodNo Panel InformationOrdered By: Klaus Horton on 65-14-2824Mxotkltgw GFR ()> 60 mL/MinSelect Medical Cleveland Clinic Rehabilitation Hospital, BeachwoodComment on above:GFR estimated reference range: According to KDOQI guidelines, <60 ml/min/1.73m2 is sufficient todiagnose a patient with chronic kidney disease.Pharmacy Creatinine Clearance (ChemN/[facility] HospitalNucleated erythrocytes [Presence] in Blood by Automated count Ordered By: Klaus Horton on 84-52-5157Kcablylbl RBC Auto Ql (Bld)0.0 /100{WBC} 0-0.5FKettering Health Greene MemorialPlatelet mean volume Auto (Bld) [Entitic vol]Ordered By: Klaus Horton on 32-47-7020Flcbikfi mean volume (Bld) [Entitic vol]7.7 fL6.3-10.7FKettering Health Greene MemorialPlatelets Auto (Bld) [#/Vol] Ordered By: Klaus Horton on 99-51-7495Iumkkedle (Bld) [#/Vol]227 10*3/bB268-283 [facility], BeachwoodPotassium [Moles/volume] in Serum or Plasma Ordered By: Klaus Horton on 61-78-0117Rwtkybgdv [Moles/Vol]4.5 mmol/L3.5-5.1 [facility], BeachwoodProtein [Mass/volume] in Serum or PlasmaOrdered By: Klaus Horton on 68-42-3296Mhbqnum [Mass/Vol]6.5 g/dL6.1-7.9[facility], BeachwoodRBC Auto (Bld) [#/Vol]Ordered By: Klaus Horton on 77-80-7421GFX (Bld) [#/Vol]4.53 10*6/uL3.60-5.00[facility] for Rehabilitationerum or plasma alanine aminotransferase measurement without P-5'-P (enzymatic activiOrdered By: Klaus Horton on 08-66-2740YOK No additional P-5'-P [Catalytic activity/Vol]41 U/A29-74TuqxzpnhaCleveland Clinic Children's Hospital for Rehabilitationerum or plasma albumin/globulin mass ratioOrdered By: Klaus Horton on 08-25-2022 Albumin/Globulin [Mass ratio]1.6 {ratio}[facility] for Rehabilitationerum or plasma anion gap determinationOrdered By: Klaus Horton on 06-24-0656Ewgdu gap [Moles/Vol]11.2 mmol/L6.0-15.0[facility] for Rehabilitationerum or plasma high density lipoprotein (HDL) cholesterol measurementOrdered By: Klaus Horton on 53-19-1005Lcrrpndaupw in HDL [Mass/Vol]71 mg/gI27-75JwwvuvdbdSelect Medical Cleveland Clinic Rehabilitation Hospital, BeachwoodComment on above:HDL CHOL ATP-III CLASSIFICATION Cardiovascular RiskHDL > or equal to 60 mg/dL LOWHDL < 40 mg/dL HIGHSerum or plasma total cholesterol/high density lipoprotein (HDL) cholesterol mass ratOrdered By: Klaus Horton on 42-47-1192Kyptzckelmy.total/Cholesterol in HDL [Mass ratio]2.7 {ratio}<5.0[facility] for Rehabilitationodium [Moles/volume] in Serum or PlasmaOrdered By: Klaus Horton on 56-06-0167Cwnyhq [Moles/Vol]139 mmol/X074-924 [facility], BeachwoodTSH DL <= 0.005 mIU/L QnOrdered By: Klaus Horton on 31-44-9432SLM Qn5.35 m[IU]/L0.45-5.33[facility] [place] Thyroxine (T4) free [Mass/volume] in Serum or PlasmaOrdered By: Klaus Horton on 61-80-6621Lvsi T4 [Mass/Vol]0.79 ng/dL0.61-1.12[facility] [place] Triglyceride [Mass/volume] in Serum or PlasmaOrdered By: Klaus Horton on 97-22-3487Ahhuqloepcsy [Mass/Vol]48 mg/kH63-998DvdtdiixdSelect Medical [facility] Clinic [facility], [place] Comment on above:TRIG ATP III CLASSIFICATIONTRIG less than 150 mg/dL NormalTRIG 150-199 mg/dL Borderline highTRIG 200-500 mg/dL High TRIG greater than 500 mg/dL Very highStandard traceable to the Center for Disease Conrtrol and Prevention (CDC) test method.Triiodothyronine (T3) Free [Mass/volume] in Serum or Plasma Ordered By: Klaus Horton on 25-33-3072Lysr T3 [Mass/Vol]3.00 pg/mL2.50-3.90 [facility], BeachwoodUrea nitrogen [Mass/volume] in Serum or Plasma Ordered By: Klaus Horton on 28-85-9973Puvw nitrogen [Mass/Vol]17 mg/dL9-23 [facility], BeachwoodWBC Auto (Bld) [#/Vol]Ordered By: Klaus Horton on 26-90-8192XLF (Bld) [#/Vol]4.2 10*3/uL3.8-11.6FKettering Health Greene MemorialTS DL <= 0.005 mIU/L QnOrdered By: Klaus Horton on 17-29-2766VPG Qn1.13 m[IU]/L0.45-5.33[facility], BeachwoodThyroxine (T4) free [Mass/volume] in Serum or PlasmaOrdered By: Klaus Horton on 42-55-3605Xyud T4 [Mass/Vol]1.36 ng/dL0.61-1.12[facility], BeachwoodTriiodothyronine (T3) Free [Mass/volume] in Serum or PlasmaOrdered By: Klaus Horton on 05-15-2022 Free T3 [Mass/Vol]3.10 pg/mL2.50-3.90[facility], BeachwoodBlood hemoglobin measurement (mass/volume)Ordered By: [facility]ACH [facility] on 04-19-2022 Hemoglobin (Bld) [Mass/Vol]13.5 g/dL11.8-15.4FKet[facility] Memorial Body fluid albumin measurement (mass/volume)Ordered By: [facility] on 52-46-0952Dqayrtj (Body fld) [Mass/Vol]3.9 g/dL3.2-5.5FKettering Health Greene MemorialCholesterol [Mass/volume] in Serum or PlasmaOrdered By: [facility] on 75-03-5111Wuivooywipp [Mass/Vol]283 mg/yH125-205LyzqyeesySelect Medical Cleveland Clinic Rehabilitation Hospital, BeachwoodComment on above:Chol less than 200 mg/dl low risk Chol 201-239 mg/dl borderline risk Chol 240 mg/dl and greater high riskChol less than 200 mg/dl low riskChol 201- 239 mg/dl borderline riskChol 240 mg/dl and greater high riskCholesterol in LDL Calc [Mass/Vol]Ordered By: [facility] on 03-73-2062Urdnyatebvp in LDL [Mass/Vol]192 mg/dL0-100[facility], BeachwoodComment on above:LDL ATP III CLASSIFICATION LDL less than 100 mg/dL Optimal LDL 100-129 mg/dL Near or above optimal LDL 130-159 mg/dL Borderline high LDL 160-189 mg/dL High LDL greater than 189 mg/dL Very highLDL ATP III CLASSIFICATIONLDL less than 100 mg/dL OptimalLDL 100-129 mg/dL Near or above lwqqspwIFB616-777 mg/dL Borderline highLDL 160-189 mg/dL HighLDL greater than 189 mg/dL Very highCholesterol in VLDL Calc [Mass/Vol]Ordered By: [facility] on 92-61-5343Owriqqfynbs in VLDL [Mass/Vol]29 mg/dLSelect Medical [facility] Clinic Rehabilitation Hospital, BeachwoodCreatinine and Glomerular filtration rate.predicted panel (S/P/Bld)Ordered By: [facility] on 75-23-4208Zbtfofhnwe [Mass/Vol]0.91 mg/dL0.44-1.03[facility], BeachwoodErythrocyte distribution width Auto (RBC) [Ratio]Ordered By: [facility] on 58-59-4587Eqzrshljhun distribution width (RBC) [Ratio] 14.9 %11.9-15.3FKettering Health Greene MemorialEstimated glomerular filtration rate (GFR) non- AmericanOrdered By: [facility] on 04-19-2022 GFR/1.73 sq M.predicted among non-blacks MDRD (S/P/Bld) [Vol rate/Area]> 60 mL/MinSelect Medical [facility] Clinic Rehabilitation Hospital, BeachwoodHematocrit Auto (Bld) [Volume fraction] Ordered By: [facility] on 58-35-6253Zfbbdmupbm (Bld) [Volume fraction] 41.0 %34.0-46.4FDetwiler Memorial Hospital Auto (RBC) [Entitic mass] Ordered By: [facility] on 59-68-1453WYK (RBC) [Entitic mass]28.9 pg 24.7-34.3FOhioHealth Mansfield HospitalHC Auto (RBC) [Mass/Vol]Ordered By: [facility] on 92-49-4379DUNE (RBC) [Mass/Vol]33.0 g/dL32.0-35.0[facility] HospitalV Auto (RBC) [Entitic vol]Ordered By: [facility] on 93-63-4391ZTM (RBC) [Entitic vol]87.6 eQ82-010WdqvotshtSelect Medical Cleveland Clinic Rehabilitation Hospital, BeachwoodNo Panel InformationOrdered By: [facility] on 04-19-2022 Estimated GFR ()> 60 mL/MinSelect Medical [facility] Clinic [facility], [place] Comment on above:GFR estimated reference range: According to KDOQI guidelines, <60 ml/min/1.73m2 is sufficient todiagnose a patient with chronic kidney disease.Pharmacy Creatinine Clearance (ChemN/[facility] Triglycerides Mlxsse412 mg/gT05-442HxdyjtblgSelect Medical Cleveland Clinic Rehabilitation Hospital, BeachwoodComment on above:TRIG ATP III CLASSIFICATION TRIG less than 150 mg/dL Normal TRIG 150-199 mg/dL Borderline high TRIG 200-500 mg/dL High TRIG greater than 500 mg/dL Very high Standard traceable to the Center for Disease Conrtrol and Prevention (CDC) test method.TRIG ATP III CLASSIFICATIONTRIG less than 150 mg/dL NormalTRIG 150-199 mg/dL Borderline highTRIG 200-500 mg/dL High TRIG greater than 500 mg/dL Very highStandard traceable to the Center for Disease Conrtrol and Prevention (CDC) test method.Platelet mean volume Auto (Bld) [Entitic vol]Ordered By: [facility] on 86-72-8132Dwotzdrr mean volume (Bld) [Entitic vol]7.6 fL6.3-10.7 [facility], BeachwoodPlatelets Auto (Bld) [#/Vol]Ordered By: [facility] on 65-26-6944Tslraudvf (Bld) [#/Vol]250 10*3/kT647-840 [facility], BeachwoodProtein [Mass/volume] in Serum or PlasmaOrdered By: [facility] on 74-53-3788Ogjgbcd [Mass/Vol]6.7 g/dL6.1-7.9[facility], BeachwoodRBC Auto (Bld) [#/Vol]Ordered By: [facility] on 84-60-8132IQO (Bld) [#/Vol]4.68 10*6/uL3.60-5.00[facility] for Rehabilitationerum or plasma alanine aminotransferase measurement without P-5'-P (enzymatic activiOrdered By: [facility] on 15-81-0983CLU No additional P-5'-P [Catalytic activity/Vol]30 U/I21-56LyftdudluCleveland Clinic Children's Hospital for Rehabilitationerum or plasma alkaline phosphatase measurement (enzymatic activity/volume)Ordered By: [facility] on 04-24-8751MMO [Catalytic activity/Vol]81 U/L32-92 [facility] for Rehabilitationerum or plasma anion gap determinationOrdered By: [facility] on 87-29-6910Ijauq gap [Moles/Vol]15.3 mmol/L6.0-15.0 [facility] for Rehabilitationerum or plasma aspartate aminotransferase measurement (enzymatic activity/volume)Ordered By: [facility] on 76-34-3613GNH [Catalytic activity/Vol]29 U/I64-87OrzymvwbmCleveland Clinic Children's Hospital for Rehabilitationerum or plasma calcium measurement (mass/volume)Ordered By: [facility] on 04-10-5355Kkyyqaj [Mass/Vol]9.9 mg/dL8.2-10.2FKettering Health Springfielderum or plasma chloride measurement (moles/volume)Ordered By: [facility] on 58-22-9204Hkzhmxrk [Moles/Vol]100 mmol/K14-403YxgilznmkCleveland Clinic Children's Hospital for Rehabilitationerum or plasma glucose measurement (mass/volume)Ordered By: [facility] on 52-92-4792Vrltmle [Mass/Vol]89 mg/kW83-831AcfnxozcqSelect Medical [facility], BeachwoodComment on above:ADA recommended reference range Random Glucose Reference Range is dependent on time and content of last meal. Glucose of more than 200 mg/dL in a nonstressed, ambulatory subject supports the diagnosis of Diabetes Mellitus.ADA recommended reference rangeRandom Glucose Reference Range is dependent on time and content of last meal. Glucose of more than 200 mg/dL in a nonstressed, ambulatory subject supports the diagnosisof Diabetes Mellitus.Serum or plasma high density lipoprotein (HDL) cholesterol measurementOrdered By: [facility] on 66-76-8387Lsxlknyjqms in HDL [Mass/Vol]62 mg/hU62-69NahthpuqvSelect Medical Cleveland Clinic Rehabilitation Hospital, BeachwoodComment on above:HDL CHOL ATP-III CLASSIFICATION Cardiovascular Risk HDL > or equal to 60 mg/dL LOW HDL < 40 mg/dL HIGHHDL CHOL ATP-III CLASSIFICATION Cardiovascular RiskHDL > or equal to 60 mg/dL LOWHDL < 40 mg/dL HIGHSerum or plasma potassium measurement (moles/volume)Ordered By: [facility] on 53-27-2420Pecxvdtao [Moles/Vol] 4.2 mmol/L3.5-5.1FKettering Health Springfielderum or plasma sodium measurement (moles/volume)Ordered By: [facility] on 39-72-0705Vkspyn [Moles/Vol]137 mmol/X405-299SiswhkfdaCleveland Clinic Children's Hospital for Rehabilitationerum or plasma total bilirubin measurement (mass/volume)Ordered By: [facility]REACH [facility] on 17-24-7458Lugjstavd [Mass/Vol]0.8 mg/dL0.3-1.2FK[facility] Serum or plasma total carbon dioxide measurement (moles/volume)Ordered By: OUTREACH [facility] on 85-86-8566OK9 [Moles/Vol]25.9 mmol/L22.0-30.0[facility] for Rehabilitationerum or plasma total cholesterol/high density lipoprotein (HDL) cholesterol mass ratOrdered By: OUTREACH [facility] on 52-36-8157Qzzysvfwfot.total/Cholesterol in HDL [Mass ratio]4.6 {ratio}<5.0 [facility] Rehabilitationerum or plasma urea nitrogen measurement (mass/volume)Ordered By: [facility] on 41-54-6105Qute nitrogen [Mass/Vol]20 mg/dL9-23[facility], BeachwoodWBC Auto (Bld) [#/Vol] Ordered By: [facility] on 90-12-1482HKF (Bld) [#/Vol]4.3 10*3/uL3.8-11.6 [facility], BeachwoodBasophils Auto (Bld) [#/Vol]Ordered By: Klaus Horton on 57-24-6026Mmljscnlk (Bld) [#/Vol]0.0 10*3/uL0.0-0.2FK[facility] Greene MemorialBasophils/100 WBC Auto (Bld)Ordered By: Klaus Horton on 02-13-2022 Basophils/100 WBC (Bld)1.0 %.[facility], BeachwoodBlood hemoglobin measurement (mass/volume)Ordered By: Klaus Horton on 74-01-3446Lztgbiseae (Bld) [Mass/Vol]13.1 g/dL11.8-15.4FKet[facility] Health Greene MemorialBlood leukocytes automated count (number/volume)Ordered By: Klaus Horton on 07-16-7700PMD (Bld) [#/Vol]3.7 10*3/uL4.5-11.0[facility], BeachwoodBody fluid albumin measurement (mass/volume)Ordered By: Klaus Horton on 82-70-0480Dwollzi (Body fld) [Mass/Vol]3.9 g/dL3.2-5.5FKettering [facility] Greene MemorialCholesterol [Mass/volume] in Serum or PlasmaOrdered By: Klaus Horton on 02-13-2022 Cholesterol [Mass/Vol]174 mg/dC767-448EtyidkhqwSelect Medical [facility] Clinic Rehabilitation Hospital, BeachwoodComment on above:Chol less than 200 mg/dl low risk Chol 201-239 mg/dl borderline risk Chol 240 mg/dl and greater high riskCholesterol in LDL Calc [Mass/Vol]Ordered By: Klaus Horton on 07-81-1671Kiezkdildbs in LDL [Mass/Vol]97 mg/dL0-100 [facility], BeachwoodComment on above:LDL ATP III CLASSIFICATION LDL less than 100 mg/dL Optimal LDL 100-129 mg/dL Near or above optimal LDL 130-159 mg/dL Borderline high LDL 160-189 mg/dL High LDL greater than 189 mg/dL Very highCholesterol in VLDL Calc [Mass/Vol]Ordered By: Klaus Horton on 44-68-4529Jzaeezjvlrr in VLDL [Mass/Vol]16 mg/dLSelect Medical [facility] Clinic [facility], BeachwoodCreatinine and Glomerular filtration rate.predicted panel (S/P/Bld)Ordered By: Klaus Horton on 96-82-8691Jyvnnzwiwi [Mass/Vol]0.78 mg/dL 0.44-1.03[facility], BeachwoodEosinophils Auto (Bld) [#/Vol]Ordered By: Klaus Horton on 89-25-8177Geircznhsgv (Bld) [#/Vol]0.1 10*3/uL0.0-0.45 [facility], BeachwoodEosinophils/100 WBC Auto (Bld)Ordered By: Klaus Horton on 36-36-8367Ceaolizvdfh/100 WBC (Bld)2.7 %.[facility], BeachwoodErythrocyte distribution width Auto (RBC) [Ratio]Ordered By: Klaus Horton on 64-59-3026Rmatgnsmobg distribution width (RBC) [Ratio]13.6 %11.9-15.3 [facility], BeachwoodEstimated glomerular filtration rate (GFR) non- AmericanOrdered By: Klaus Horton on 82-68-0375EAG/1.73 sq M.predicted among non-blacks MDRD (S/P/Bld) [Vol rate/Area]> 60 mL/MinSelect Medical [facility] Clinic Rehabilitation Hospital, BeachwoodGlobulin Calc (S) [Mass/Vol]Ordered By: Klaus Horton on 02-13-2022 Globulin (S) [Mass/Vol]2.6 g/dLSelect Medical Cleveland Clinic Rehabilitation Hospital, BeachwoodGlucose mean value [Mass/volume] in Blood Estimated from glycated hemoglobinOrdered By: Klaus Horton on 20-47-0685Wxqrtai glucose Estimated from glycated hemoglobin (Bld) [Mass/Vol]123 mg/dLSelect Medical Cleveland Clinic Rehabilitation Hospital, BeachwoodHematocrit Auto (Bld) [Volume fraction]Ordered By: Klaus Horton on 89-88-5087Hoksdlmafs (Bld) [Volume fraction]39.9 %34.0-46.4FK[facility] Greene MemorialHemoglobin A1c percentageOrdered By: Klaus Horton on 89-35-6107LaQ3y (Bld) [Mass fraction]5.9 % 4.3-5.6FKettering Health Greene MemorialComment on above:Increased risk for diabetes: 5.7 - 6.4 diabetes: >6.4 glycemic control for adults with diabetes: <7.0Laboratory - Hematology and Cell countsOrdered By: Klaus Horton on 18-74-3407Tjblcnolh RBC/100 WBC (Bld) [Ratio] 0.2 %0-0.5Fire[facility] Medical CenterLymphocytes Auto (Bld) [#/Vol]Ordered By: Klaus Horton on 13-78-9008Mcbfehhbgxh (Bld) [#/Vol]1.3 10*3/uL1.00-4.8 [facility], BeachwoodLymphocytes/100 WBC Auto (Bld)Ordered By: Klaus Horton on 99-92-1001Lhknjznmeed/100 WBC (Bld)34.7 %.[facility] HospitalH Auto (RBC) [Entitic mass]Ordered By: Klaus Horton on 79-09-1786LOW (RBC) [Entitic mass]28.6 pg24.7-34.3FKettering Health Greene MemorialMCHC Auto (RBC) [Mass/Vol]Ordered By: Klaus Horton on 00-25-4114OAPZ (RBC) [Mass/Vol]32.9 g/dL32.0-35.0[facility], BeachwoodMCV Auto (RBC) [Entitic vol] Ordered By: Klaus Horton on 50-85-5574LGJ (RBC) [Entitic vol]87.0 eT26-372 [facility], BeachwoodMonocytes Auto (Bld) [#/Vol]Ordered By: Klaus Horton on 80-97-1481Pckombkgh (Bld) [#/Vol]0.3 10*3/uL0.0-0.8[facility], BeachwoodMonocytes/100 WBC Auto (Bld)Ordered By: Klaus Horton on 02-13-2022 Monocytes/100 WBC (Bld)9.3 %.[facility], BeachwoodNeutrophils Auto (Bld) [#/Vol]Ordered By: Klaus Horton on 93-07-1857Fnkvmtwakva (Bld) [#/Vol]1.9 10*3/uL1.8-7.7FKettering Health Greene MemorialNeutrophils/100 WBC Auto (Bld) Ordered By: Klaus Horton on 67-37-4368Qocqsxnfcvs/100 WBC (Bld)52.3 %.[facility], BeachwoodNo Panel InformationOrdered By: Klaus Horton on 40-74-9896Egdstrwwg GFR ()> 60 mL/MinSelect Medical [facility] Clinic Rehabilitation Hospital, BeachwoodComment on above:GFR estimated reference range: According to KDOQI guidelines, <60 ml/min/1.73m2 is sufficient todiagnose a patient with chronic kidney disease.Pharmacy Creatinine Clearance (ChemN/[facility] HospitalPlatelet mean volume Auto (Bld) [Entitic vol]Ordered By: Klaus Horton on 75-51-0261Eyfvpwue mean volume (Bld) [Entitic vol]7.7 fL6.3-10.7FKettering Health Greene MemorialPlatelets Auto (Bld) [#/Vol]Ordered By: Klaus Horton on 09-86-5332Mukeqelyc (Bld) [#/Vol]225 10*3/qJ196-144DwfvofuzfSelect Medical [facility], BeachwoodProtein [Mass/volume] in Serum or PlasmaOrdered By: Klaus Horton on 64-30-7787Zuxoytt [Mass/Vol]6.5 g/dL6.1-7.9[facility], BeachwoodRBC Auto (Bld) [#/Vol]Ordered By: Klaus Horton on 44-37-9750YWF (Bld) [#/Vol]4.59 10*6/uL3.60-5.00[facility] for Rehabilitationerum or plasma alanine aminotransferase measurement without P-5'-P (enzymatic activiOrdered By: Klaus Horton on 04-72-4795DHJ No additional P-5'-P [Catalytic activity/Vol]35 U/L10-60 [facility] for Rehabilitationerum or plasma albumin/globulin mass ratio Ordered By: Klaus Horton on 10-51-7336Vclitoy/Globulin [Mass ratio]1.5 {ratio} [facility] for Rehabilitationerum or plasma alkaline phosphatase measurement (enzymatic activity/volume)Ordered By: Klaus Horton on 56-88-8183VWP [Catalytic activity/Vol]72 U/O61-82EnngyrwgmCleveland Clinic Children's Hospital for Rehabilitationerum or plasma aspartate aminotransferase measurement (enzymatic activity/volume)Ordered By: Klaus Horton on 30-54-9282ART [Catalytic activity/Vol]30 U/R05-00DuxokajrsCleveland Clinic Children's Hospital for Rehabilitationerum or plasma calcium measurement (mass/volume)Ordered By: Klaus Horton on 90-69-7303Mmuwjyg [Mass/Vol]9.8 mg/dL8.2-10.2FKettering Health Springfielderum or plasma chloride measurement (moles/volume) Ordered By: Klaus Horton on 52-87-8804Wbjuxvdc [Moles/Vol]102 mmol/L95-114 [facility] Rehabilitationerum or plasma glucose measurement (mass/volume)Ordered By: Klaus Horton on 61-25-4622Ulatzfb [Mass/Vol]92 mg/dL 70-100[facility], BeachwoodComment on above:ADA recommended reference range Random Glucose Reference Range is dependent on time and content of last meal. Glucose of more than 200 mg/dL in a nonstressed, ambulatory subject supports the diagnosis of Diabetes Mellitus.Serum or plasma high density lipoprotein (HDL) cholesterol measurementOrdered By: Klaus Horton on 67-75-5698Joakskgrpmx in HDL [Mass/Vol]61 mg/hO93-53WrveqikamSelect Medical [facility] Clinic [facility] Hospital, BeachwoodComment on above:HDL CHOL ATP-III CLASSIFICATION Cardiovascular Risk HDL > or equal to 60 mg/dL LOW HDL < 40 mg/dL HIGHSerum or plasma potassium measurement (moles/volume)Ordered By: Klaus Horton on 41-86-7827Dmbosylqj [Moles/Vol]4.2 mmol/L3.5-5.1FKettering Health Springfielderum or plasma sodium measurement (moles/volume)Ordered By: Klaus Horton on 69-73-3071Tjpxkn [Moles/Vol]141 mmol/L011-604KgogirbdpCleveland Clinic Children's Hospital for Rehabilitationerum or plasma total bilirubin measurement (mass/volume) Ordered By: Klaus Horton on 75-73-9016Xmihlmfpr [Mass/Vol]0.7 mg/dL0.3-1.2 [facility] for Rehabilitationerum or plasma total carbon dioxide measurement (moles/volume)Ordered By: Klaus Horton on 90-04-2898DC0 [Moles/Vol] 28.0 mmol/L22.0-30.0[facility] for Rehabilitationerum or plasma total cholesterol/high density lipoprotein (HDL) cholesterol mass ratOrdered By: Klaus Horton on 49-96-0101Gprrtminfeb.total/Cholesterol in HDL [Mass ratio]2.9 {ratio}<5.0[facility] for Rehabilitationerum or plasma urea nitrogen measurement (mass/volume)Ordered By: Klaus Horton on 63-43-3287Miea nitrogen [Mass/Vol]17 mg/dL9-23[facility], BeachwoodTS DL <= 0.005 mIU/L Qn Ordered By: Klaus Horton on 70-86-8387SHB Qn0.47 m[IU]/L0.45-5.33[facility], BeachwoodThyroxine (T4) free [Mass/volume] in Serum or Plasma Ordered By: Klaus Horton on 86-32-4691Eirq T4 [Mass/Vol]1.25 ng/dL0.61-1.12 [facility], BeachwoodTriglyceride [Mass/volume] in Serum or Plasma Ordered By: Klaus Horton on 47-12-9768Gcqtsusswqyg [Mass/Vol]80 mg/tN58-292 [facility], BeachwoodComment on above:TRIG ATP III CLASSIFICATION TRIG less than 150 mg/dL Normal TRIG 150-199 mg/dL Borderline high TRIG 200-500 mg/dL High TRIG greater than 500 mg/dL Very high Standard traceable to the Center for Disease Conrtrol and Prevention (CDC) test method.Triiodothyronine (T3) Free [Mass/volume] in Serum or PlasmaOrdered By: Klaus Horton on 59-38-4291Hjfe T3 [Mass/Vol]3.36 pg/mL2.50-3.90[facility], BeachwoodCULTURE URINEon 47-79-7459BZKJQHA URINECulture Observations: HEAVY GROWTH OF MIXED GENITAL OLENA. NO POTENTIAL PATHOGENS SEEN.NormalLima Memorial HospitalComment on above:Performed By: #### URCX #### [facility] [address] [place] [address] Dr. Palak Oconnor RANDOMon 20-32-4594Pwcwacrsc Ql (U)NegativeNormalNEGATIVELima Memorial HospitalComment on above:Performed By: #### UA #### [facility] [address] [address] [address] Palak Tolentino (U)CLEARNormalCLEARLima Memorial HospitalComment on above: Performed By: #### UA #### [facility] [address] [place] [address] Dr. Palak Neri (U)YELLOWNormalYELLOWLima Memorial HospitalComment on above: Performed By: #### UA #### [facility] [address] [address] [address] Palak BandaGlucose Ql (U)NegativeNormalNEGATIVELima Memorial HospitalComment on above:Performed By: #### UA #### [facility] [address] [address] [address] Palak BandaHemoglobin Ql (U)NegativeNormalNEGATIVELima Memorial Hospital Comment on above:Performed By: #### UA #### [facility] [address] [place] [address] Dr. Palak BandaKetones Ql (U)NegativeNormalNEGATIVELima Memorial HospitalComment on above:Performed By: #### UA #### [facility] [address] [place] [address] Dr. Palak BandaLEUKOCYTESNegativeNormalNEGATIVEThe [facility] HospitalComment on above:Performed By: #### UA #### [facility] [address] [place] [address] Dr. Palak BandaNitrite Ql (U)NegativeNormalNEGATIVELima Memorial HospitalComment on above:Performed By: #### UA #### [facility] [address] [place] [address] Dr. Palak BandapH (U)6.0 [pH]Normal5-9The [facility] HospitalComment on above: Performed By: #### UA #### [facility] [address] [place] [address] Dr. Palak BandaSPEC GRAVITY1.413Ttvrro1.005-<=1.025The [facility] HospitalComment on above:Performed By: #### UA #### [facility] [address] [address] [address] Palak BandaUA PROTEINNegativeNormalNEGATIVE/ TRACELima Memorial Hospital Comment on above:Performed By: #### UA #### [facility] [address] [place] [address] Dr. Palak BandaUrobilinogen Qn (U)0.2 {Opal'U}/dLNormal0.2 - 1.0The [facility] HospitalComment on above:Performed By: #### UA #### [facility] [address] [place] [address] Dr. Palak Bradshaw URINEon 03-12-8821OZPHQZY URINEIsolate 1 Escherichia coli >100,000 cfu/ml of ORGANISM 1 Escherichia coli ANTIBIOTIC M.I.C RX STATUS Ampicillin <=2 S F Ampicillin/Sulbactam <=2 S F Piperacillin/Tazobactam <=4 S F Cefazolin <=4 S F Ceftazidime <=1 S F Ceftriaxone <=1 S F Ertapenem <=0.5 S F Imipenem <=0.25 S F Amikacin <=2 S F Gentamicin <=1 S F Tobramycin <=1 S F Ciprofloxacin <=0.25 S F Levofloxacin <=0.12 S F Nitrofurantoin <=16 S F Trimethoprim/Sulfamethoxazole <=20 S FNormalLima Memorial HospitalComment on above:Performed By: #### URCX #### [facility] [address] [place] [address] Dr. Palak Oconnor RANDOMon 44-12-3408Mljcufzwh Ql (U)NegativeNormalNEGATIVELima Memorial HospitalCominsight surgical hospital on above:Performed By: #### UA #### [facility] [address] [place] [address] Dr. Palak Tolentino (U)CLEARNormalCLEARLima Memorial HospitalCominsight surgical hospital on above: Performed By: #### UA #### [facility] [address] [place] [address] Dr. Palak Neri (U)LT. YELLOWNormalYELLOWLima Memorial HospitalCominsight surgical hospital on above:Performed By: #### UA #### [facility] [address] [place] [address] Dr. Palak Tolentinoose Ql (U)NegativeNormalNEGKindred HealthcareCominsight surgical hospital on above:Performed By: #### UA #### [facility] [address] [place] [address] Dr. Palak BandaHemoglobin Ql (U)TRACE-INTACTAbnormalNEGKindred HealthcareComment on above:Performed By: #### UA #### [facility] [address] [address] [address] Palak Castro Ql (U)NegativeNormalNEGATIVEThe [facility] HospitalComment on above:Performed By: #### UA #### [facility] [address] [place] [address] Dr. Palak BandaLEUKOCYTESSMALLAbnormalNEGATIVEThe [facility] HospitalComment on above:Performed By: #### UA #### [facility] [address] [place] [address] Dr. Palak Myerstrgretchen Ql (U)NegativeNormalNEGATIVEThe [facility] HospitalComment on above:Performed By: #### UA #### [facility] [address] [place] [address] Dr. Palak BandapH (U)6.0 [pH]Normal5-9The [facility] HospitalComment on above: Performed By: #### UA #### [facility] [address] [place] [address] Dr. Palak BandaSPEC GRAVITY1.293Wvrepv1.005-<=1.025The [facility] Medical Centerment on above:Performed By: #### UA #### [facility] [address] [place] [address] Dr. Palak Oconnor PROTEINNegativeNormalNEGATIVE/ TRACEThe [facility] Comment on above:Performed By: #### UA #### [facility] [address] [place] [address] Dr. Palak Calvertbilinogen Qn (U)0.2 {Opal'U}/dLNormal0.2 - 1.0The [facility] Medical Centerment on above:Performed By: #### UA #### [facility] [address] [place] [address] Dr. Palak BandaCULTHARDIK URINEon 52-44-0287AFTZTWO URINECulture Observations: HEAVY GROWTH OF MIXED GENITAL OLENA. NO POTENTIAL PATHOGENS SEEN.NormalThe Minneapolis HospitalComment on above:Performed By: #### UA #### [facility] [address] [address] [address] Palak Oconnor RANDOMiris 06-20-8116Ebludvgfe Ql (U)NegativeNormalNEGATIVELima Memorial HospitalComment on above:Performed By: #### UA #### [facility] [address] [address] [address] Palak BandaClarity (U)CLEARNormalCLEARLima Memorial HospitalComment on above: Performed By: #### UA #### [facility] [address] [address] [address] Palak BandaColor (U)YELLOWNormalYELLOWLima Memorial HospitalComment on above: Performed By: #### UA #### [facility] [address] [address] [address] Palak BandaGlucose Ql (U)NegativeNormalNEGATIVELima Memorial HospitalComment on above:Performed By: #### UA #### [facility] [address] [address] [address] Palak BandaHemoglobin Ql (U)NegativeNormalNEGATIVEMercy Health Urbana Hospital on above:Performed By: #### UA #### [facility] [address] [address] [address] Palak BandaKetones Ql (U)NegativeNormalNEGATIVELima Memorial HospitalComment on above:Performed By: #### UA #### [facility] [address] [address] [address] Palak BandaLEUKOCYTESSMALLAbnormalNEGKindred HealthcareCominsight surgical hospital on above:Performed By: #### UA #### [facility] [address] [place] [address] Dr. Palak BandaNitrite Ql (U)NegativeNormalNEGATIVELima Memorial HospitalComment on above:Performed By: #### UA #### [facility] [address] [address] [address] Palak BandapH (U)5.5 [pH]Normal5-9Lima Memorial HospitalComment on above: Performed By: #### UA #### [facility] [address] [place] [address] Dr. Palak BandaSPEC GRAVITY1.388Ffliim6.005-<=1.025The [facility] HospitalComment on above:Performed By: #### UA #### [facility] [address] [place] [address] Dr. Palak Oconnor PROTEINNegativeNormalNEGATIVE/ TRACEThe [facility] Comment on above:Performed By: #### UA #### [facility] [address] [place] [address] Dr. Palak BandaUrobilinogen Qn (U)0.2 {Opal'U}/dLNormal0.2 - 1.0The [facility] HospitalComment on above:Performed By: #### UA #### [facility] [address] [place] [address] Dr. Palak BandaCULTURE URINEon 01-98-5128FQDVLPJ URINECulture Observations: GREATER THAN TWO ORGANISMS PRESENT. PLEASE RESUBMIT CLEAN CATCH MID-STREAM URINE IF CLINICALLY INDICATED.NormalThe [facility] HospitalComment on above:Performed By: #### UA #### [facility] [address] [place] [address] Dr. Palak Ybarra T3 LABCORPon 31-53-6431Jjufsuzuskezrpuv (T3) Free3.2 pg/mL Normal2.0-4.4The [facility] HospitalComment on above:Performed By: #### FT3LC #### [facility] [address] [place] [address] Dr. Palak BandaCBC AUTO DIFFon 96-94-1213VLIJ #0.1 103/ulNormal0.0-0.1The [facility] HospitalComment on above:Performed By: #### CBC #### [facility] [address] [place] [address] Dr. Palak BandaBasophils/100 WBC (Bld)1.1 %Normal0.2-2.0The [facility] Comment on above:Performed By: #### CBC #### [facility] [address] [place], [place] [address] Dr. Palak Garcia #0.2 103/ulNormal0.0-0.7The [facility] HospitalComment on above: Performed By: #### CBC #### [facility] [address] [place] [address] Dr. Palak Alvaosinophils/100 WBC (Bld)3.7 %Normal0.9-7.0The [facility] Comment on above:Performed By: #### CBC #### [facility] [address] [place] [address] Dr. Palak Alvarythrocyte distribution width (RBC) [Ratio]13.7 %Mhfrgh89.0-15.0 The [facility] HospitalComment on above:Performed By: #### CBC #### [facility] [address] [place] [address] Dr. Palak BandaHematocrit (Bld) [Volume fraction]40.0 %Jzfdkf00.0-48.0The [facility] HospitalComment on above:Performed By: #### CBC #### [facility] [address] [place] [address] Dr. Palak BandaHemoglobin (Bld) [Mass/Vol]12.9 g/qBZtgwsv18.0-16.0The [facility] HospitalComment on above:Performed By: #### CBC #### [facility] [address] [place] [address] Dr. Palak Hoover #0.01 10e3/ulNormal0.00-0.03The [facility] HospitalComment on above:Performed By: #### CBC #### [facility] [address] [place] [address] Dr. Palak Hoover %0.2 %Normal0.0-0.5The [facility] HospitalComment on above: Performed By: #### CBC #### [facility] [address] [place] [address] Dr. Palak MensahH #1.4 103/ulNormal1.2-3.8The [facility] HospitalComment on above:Performed By: #### CBC #### [facility] [address] [place] [address] Dr. Palak Parrymphocytes/100 WBC (Bld)30.4 %Tqqyrx84.5-60.0The [facility] HospitalComment on above:Performed By: #### CBC #### [facility] [address] [place] [address] Dr. Palak MayUAL DIFF REQNONormalThe [facility] HospitalComment on above: Performed By: #### CBC #### [facility] [address] [place] [address] Dr. Palak Jaquez (RBC) [Entitic mass]28.4 jcGjmebx95.7-34.0The [facility] HospitalComment on above:Performed By: #### CBC #### [facility] [address] [place] [address] Dr. Palak Jaquez (RBC) [Mass/Vol]32.3 g/uHKdijnq85.9-35.2The [facility] HospitalComment on above:Performed By: #### CBC #### [facility] [address] [place] [address] Dr. Palak Jaquez (RBC) [Entitic vol]87.9 pPRvbvko04.0-99.0The [facility] HospitalComment on above:Performed By: #### CBC #### [facility] [address] [place] [address] Dr. Palak Mason #0.4 103/ulNormal0.3-0.8The [facility] HospitalComment on above:Performed By: #### CBC #### [facility] [address] [place] [address] Dr. Palak Garcíaocytes/100 WBC (Bld)9.6 %Normal1.7-12.0The [facility] Comment on above:Performed By: #### CBC #### [facility] [address] [place] [address] Dr. Palak Dubon #2.5 103/ulNormal1.4-6.5The [facility] HospitalComment on above:Performed By: #### CBC #### [facility] [address] [address] [address] Palak BandaNeutrophils/100 WBC (Bld)55.0 %Zgsmci13.0-75.0The [facility] Centerment on above:Performed By: #### CBC #### [facility] [address] [address] [address] Palak BandaPlatelet mean volume (Bld) [Entitic vol]9.1 fLCritically low 9.5-13.5The [facility] HospitalComment on above:Performed By: #### CBC #### [facility] [address] [place] [address] Dr. Palak BandaPLT230 103/hkWeibje862-244Bja [facility] HospitalComment on above: Performed By: #### CBC #### [facility] [address] [place] [address] Dr. Palak BandaRBC4.55 106/ulNormal4.20-5.40The [facility] HospitalComment on above:Performed By: #### CBC #### [facility] [address] [place] [address] Dr. Palak BadnaWBC4.6 103/ulNormal4.0-11.0The [facility] HospitalCominsight surgical hospital on above: Performed By: #### CBC #### [facility] [address] [place] [address] Dr. Palak BandaFREE T4on 15-79-5224Ilga T4 [Mass/Vol]1.39 ng/dLNormal0.78-2.19 The [facility] HospitalComment on above:Performed By: #### FT4 #### [facility] [address] [place] [address] Dr. Palak BandaGLYCOHEMOGLOBIN A1Con 84-11-5124HKD RECOMMENDATIONADA THERAPEUTIC TARGET 6.0 - 7.0 ACTION SUGGESTED > 7.0NormalThe [facility] HospitalComment on above:Performed By: #### A1C #### [facility] [address] [place] [address] Dr. Palak BandaGlucose [Mass/Vol]123 mg/dLNormalThe Jose HospitalComment on above:Performed By: #### A1C #### [facility] [address] [address] [address] Palak BandaHbA1c (Bld) [Mass fraction]5.9 %Normal<=6.0[facility] Comment on above:Performed By: #### A1C #### [facility] [address] [address] [address] Palak BandaLIPID PROFILEon 51-39-2378TDVD-HDL RATIO NORMSEE Middletown HospitalComment on above:Result Comment: 3.3 - 4.4 LOW RISK 4.4 - 7.1 AVERAGE RISK 7.1 - 11.0 MODERATE RISK >11.0 HIGH RISKPerformed By: #### UA #### [facility] [address] [place] [address] Dr. Palak Naqviesterol [Mass/Vol]201 mg/dLCritically high<=200The [facility] HospitalComment on above:Performed By: #### UA #### [facility] [address] [address] [address] Palak Naqviesterol in HDL [Mass/Vol]73 mg/dLShelby Memorial Hospital Comment on above:Performed By: #### UA #### [facility] [address] [address] [address] Palak Naqviesterol in LDL [Mass/Vol]114.2 mg/dLShelby Memorial HospitalComment on above:Performed By: #### UA #### [facility] [address] [place] [address] Dr. Palak Naqviesterrandy.total/Cholesterol in HDL [Mass ratio]2.8 {ratio} NormalThe [facility] HospitalCominsight surgical hospital on above:Performed By: #### UA #### [facility] [address] [place] [address] Dr. Palak BandaHDL NORMAL> or = 60 mg/dl - LOW CARDIOVASCULAR RISK <40 mg/dl - HIGH CARDIOVASCULAR RISKShelby Memorial HospitalComment on above:Performed By: #### UA #### [facility] [address] [place] [address] Dr. Palak Croft CALC NORMALSEE BELOWShelby Memorial HospitalComment on above:Result Comment: <100 mg/dl OPTIMAL 100 - 129 mg/dl NEAR OR ABOVE OPTIMAL 130 - 159 mg/dl BORDERLINE HIGH 160 - 189 mg/dl HIGH >190 mg/dl VERY HIGH Performed By: #### UA #### [facility] [address] [place] [address] Dr. Palak BandaTriglyceride [Mass/Vol]69 mg/dLNormal<=150The [facility] Comment on above:Performed By: #### UA #### [facility] [address] [place] [address] Dr. Palak JonesLDL CALC13.8 mg/dLNoOhio State Harding HospitalComment on above: Performed By: #### UA #### [facility] [address] [place] [address] Dr. Palak BandaPROSaurav 14(COMP METB)on 63-58-8674Ylqekkx [Mass/Vol]3.6 g/dLNormal 3.5-5.0The [facility] HospitalComment on above:Performed By: #### UA #### [facility] [address] [place] [address] Dr. Palak BnadaAlbumin/Globulin [Mass ratio]0.9 {ratio}NormalThe [facility] HospitalComment on above:Performed By: #### UA #### [facility] [address] [place] [address] Dr. Palak Turner [Catalytic activity/Vol]97 U/LQyqaeu98-868Xru [facility] HospitalComment on above:Performed By: #### UA #### [facility] [address] [place] [address] Dr. Palak Salas [Catalytic activity/Vol]54 U/LCritically high9-52The [facility] HospitalComment on above:Performed By: #### UA #### [facility] [address] [place] [address] Dr. Palak Schultz gap [Moles/Vol]9.7 mmol/LNormalThe [facility] HospitalComment on above:Performed By: #### UA #### [facility] [address] [address] [address] Palak BandaAST [Catalytic activity/Vol]28 U/ICpunwc50-48Bbw [facility] HospitalComment on above:Performed By: #### UA #### [facility] [address] [address] [address] Palak BandaBilirubin [Mass/Vol]0.6 mg/dLNormal0.2-1.3The [facility] Comment on above:Performed By: #### UA #### [facility] Laboratory [address] [address] [address] Palak BandaCalcium [Mass/Vol]8.9 mg/dLNormal8.4-10.2[facility] Comment on above:Performed By: #### UA #### [facility] Laboratory [address] [address] [address] Palak BandaChloride [Moles/Vol]104 mmol/XCmadgh81-920Uhq [facility] Comment on above:Performed By: #### UA #### [facility] Laboratory [address] [address] [address] Palak BandaCO2 [Moles/Vol]28.4 mmol/ROoxcwr22.0-30.0[facility] Comment on above:Performed By: #### UA #### [facility] Laboratory [address] [address] [address] Palak BandaCreatinine [Mass/Vol]0.86 mg/dLNormal0.52-1.04The [facility] HospitalComment on above:Performed By: #### UA #### [facility] Laboratory [address] [address] [address] Palak AlvaGFR-AF PAPUA NEW GUINEAN>60Normal>=60The [facility] HospitalComment on above:Performed By: #### UA #### [facility] Laboratory [address] [address] [address] Palak AlvaGFR-NON AF PAPUA NEW GUINEAN>60Normal>=60The [facility] HospitalComment on above:Performed By: #### UA #### [facility] Laboratory [address] [address] [address] Palak BandaGlobulin (S) [Mass/Vol]3.8 g/dLNormSelect Medical [facility], BeachwoodComment on above:Performed By: #### UA #### [facility] Laboratory [address] [address] [address] Palak BandaGlucose [Mass/Vol]90 mg/bIMzhufa32-125Euo [facility] Comment on above:Performed By: #### UA #### [facility] Laboratory [address] [address] [address] Palak BandaPotassium [Moles/Vol]4.1 mmol/LNormal3.4-5.0The [facility] Comment on above:Performed By: #### UA #### [facility] Laboratory [address] [address] [address] Palak BandaProtein [Mass/Vol]7.4 g/dLNormal6.1-8.2The [facility] Comment on above:Performed By: #### UA #### [facility] Laboratory [address] [address] [address] Palak BandaSodium [Moles/Vol]138 mmol/CJuojly942-693Unu [facility] Comment on above:Performed By: #### UA #### [facility] Laboratory [address] [address] [address] Palak BandaUrea nitrogen [Mass/Vol]20.0 mg/dLCritically high7.0-17.0The [facility] HospitalComment on above:Performed By: #### UA #### [facility] Laboratory [address] [address] [address] Palak Fuentes nitrogen/Creatinine [Mass ratio]23.3 mg/mgNoOhio State Harding HospitalCominsight surgical hospital on above:Performed By: #### UA #### [facility] Laboratory [address] [address] [address] Palak Kim 43-74-2902YIV1.540 uIU/mLNormal0.470-4.680The [facility] HospitalComment on above:Performed By: #### UA #### [facility] Laboratory [address] [address] [address] Palak Aparicio [facility] BELOWShelby Memorial HospitalComment on above: Result Comment: <0.34 UIU/ml HYPERTHYROID 0.34-5.60 UIU/ml EUTHYROID >5.60 UIU/ml HYPOTHYROIDPerformed By: #### UA #### [facility] Laboratory [address] [address] [address] Palak BLAKEon 95-39-4039Nipswwnmg Ql (U)NegativeNormalNEGATIVELima Memorial HospitalComment on above:Performed By: #### UA #### [facility] Laboratory [address] [address] [address] Palak Carrilloarity (U)CLEARNormalCLEARLima Memorial HospitalComment on above: Performed By: #### UA #### [facility] Laboratory [address] [address] [address] Palak Neri (U)LT. YELLOWNormalYUniversity Hospitals Parma Medical CenterComment on above:Performed By: #### UA #### [facility] Laboratory [address] [place] [address] Dr. Palak BandaGlucose Ql (U)NegativeNormalNEGKindred HealthcareComment on above:Performed By: #### UA #### [facility] Laboratory [address] [address] [address] Palak BandaHemoglobin Ql (U)TRACE-LYSEDAbellis fischel cancer centeralSt. Charles Hospital Comment on above:Performed By: #### UA #### [facility] Laboratory [address] [place] [address] Dr. Palak BandaKetones Ql (U)NegativeNormalNEGKindred HealthcareComment on above:Performed By: #### UA #### [facility] Laboratory [address] [address] [address] Palak BandaLEUKOCYTESMODERATEAbnormalNEGKindred HealthcareCominsight surgical hospital on above:Performed By: #### UA #### [facility] Laboratory [address] [address] [address] Palak Rowan Ql (U)NegativeNormalNEGATIVEThe [facility] HospitalComment on above:Performed By: #### UA #### [facility] Laboratory [address] [place] [address] Dr. Palak BandapH (U)6.5 [pH]Normal5-9The [facility] HospitalComment on above: Performed By: #### UA #### [facility] Laboratory [address] [address] [address] Palak BandaSPEC GRAVITY1.994Bozzsh7.005-<=1.025The [facility] HospitalComment on above:Performed By: #### UA #### [facility] Laboratory [address] [place] [address] Dr. Palak Oconnor PROTEINNegativeNormalNEGATIVE/ TRACEThe [facility] Comment on above:Performed By: #### UA #### [facility] Laboratory [address] [place] [address] Dr. Palak Calvertbilinogen Qn (U)0.2 {Opal'U}/dLNormal0.2 - 1.0The [facility] HospitalComment on above:Performed By: #### UA #### [facility] Laboratory [address] [place] [address] Dr. Palak Banda Vital Signs Date TimeVital SignValuePerforming IzeejwsiiSbairxjy48-24-2490 14:39-0400Body malgdq170.9 cmMarc Dolce DPM FACFAS Work Phone: [facility] SouthGxotnjshis85-25-3872 14:39-0400Body mass index (BMI) [Ratio]39.68 kg/m2Marc Dolce DPM FACFAS Work Phone: [phone] SouthBzxdcjkder17-50-6827 14:39-0400Body ficqnw69.25 kgMarc Dolce DPM FACFAS Work Phone: [facility]storeBarn[facility] HospitalPogqhswxpb26-66-6217 14:39-0400Diastolic blood ucjxfcqn19 mm[Hg]Rishi Patterson DPM FACFAS Work Phone: [facility] SouthVslagtgtmo66-17-5824 14:39-0400Heart rate77 /min Rishi Patterson DPM FACFAS Work Phone: [phone])309[facility] SouthFecyovmyqv54-95-9525 14:39-0400Systolic blood llldmhib588 mm[Hg]Rishi Patterson DPM FACFAS Work Phone: 1(881)[address] [place], [place] [address]C[facility] SouthUvjpnsszin47-04-6356 11:12-0400Body ymgbag384.21 cmDavienzo Girfavian DO Work Phone: 1(192)[address]08-11-2025 11:12-0400 Body mass index (BMI) [Ratio]42.5 kg/e9Nzqyp Girfavian DO Work Phone: 1(042)[address] [place], [place] 7874608-11-2025 11:12-0400 Body pibntgyhdpy32.8 [degF]Klaus Horton DO Work Phone: 1(492)[address] [place], [place] 7874608-11-2025 11:12-0400 Body .87 kgDavienzo Varmafavian DO Work Phone: 1(558)[address] [place], [place] 7874608-11-2025 11:12-0400 Diastolic blood yclmuakz77 mm[Hg]Klaus Horton DO Work Phone: 1(718)[address] [place], [place] 7874608-11-2025 11:12-0400 Heart rate78 /minDavid Kojofavian DO Work Phone: 1(298)[address] [place], [place] 7874608-11-2025 11:12-0400 SaO2% (BldA) [Mass fraction]98 %Klaus Horton DO Work Phone: 1(936)[address] [place], [place] 7874608-11-2025 11:12-0400 Systolic blood mm[Hg]Klaus Horton DO Work Phone: 1(472)[address]07-08-2025 13:00-0400 Body .21 cmDavienzo Horton DO Work Phone: 1(003)[address] [place], [place] 7874607-08-2025 13:00-0400 Body mass index (BMI) [Ratio]41.3 kg/t5Ojwrcenzo Horton DO Work Phone: 1(319)[address]07-08-2025 13:00-0400 Body numnwt366.8 kgDakamranenzo Horton DO Work Phone: 1(765)[address] [place], [place] 7874607-08-2025 13:00-0400 Diastolic blood mm[Hg]Klaus Horton DO Work Phone: 1(592)[address] [place], [place] 7874607-08-2025 13:00-0400 Heart rate73 /Austynfilemon Horton DO Work Phone: 1(639)[address] [place], [place] 7874607-08-2025 13:00-0400 Respiratory rate18 /Austynfilemon Horton DO Work Phone: 1(913)[address] [place], [place] 7874607-08-2025 13:00-0400 SaO2% (BldA) [Mass fraction]97 %Klaus Horton DO Work Phone: 1(686)[address] [place], [place] 7874607-08-2025 13:00-0400 Systolic blood kivwgdsn502 mm[Hg]Klaus Horton DO Work Phone: 1(633)[address] [place], [place] 7874607-07-2025 14:20-0400 Body wqoqbb134.21 cmDaadela Horton DO Work Phone: 1(091)[address] [place], [place] 7874607-07-2025 14:20-0400 Body mass index (BMI) [Ratio]41.2 kg/h2Fhttpadela Horton DO Work Phone: 1(343)[address] [place], [place] 7874607-07-2025 14:20-0400 Body dzlqkwgejuo29.6 [degF]Klaus Horton DO Work Phone: 1(964)[address] [place], [place] 7874607-07-2025 14:20-0400 Body .69 kgDaadela Horton DO Work Phone: 1(852)[address] [place], [place] 7874607-07-2025 14:20-0400 Diastolic blood mm[Hg]Klaus Horton DO Work Phone: 1(777)[address] [place], [place] 7874607-07-2025 14:20-0400 Heart rate75 /Carri Horton DO Work Phone: [phone])[address] [place], [place] 7874607-07-2025 14:20-0400 SaO2% (BldA) [Mass fraction]94 %Klaus Kojofavian DO Work Phone: [phone])[address] [place], [place] 7874607-07-2025 14:20-0400 Systolic blood tayyzlcf592 mm[Hg]Klaus Horton DO Work Phone: 1419)[address] [place], [place] 7874606-23-2025 10:55-0400 Body turyoh830.21 cmDavienzo Clifford DO Work Phone: 1419)[address] [place], [place] 7874606-23-2025 10:55-0400 Body mass index (BMI) [Ratio]40.7 kg/p8Vngxa Kojovin DO Work Phone: 1419)[address] [place], [place] 7874606-23-2025 10:55-0400 Body .33 kgDavienzo Varmafavian DO Work Phone: 1419)[address] [place], [place] 7874606-23-2025 10:55-0400 Diastolic blood lzrixzqb30 mm[Hg]Klaus Kojofavian DO Work Phone: 1419)[address] [place], [place] 7874606-23-2025 10:55-0400 Heart rate70 /Amarjitenzo Clifford DO Work Phone: 1(959)[address] [place], [place] 7874606-23-2025 10:55-0400 Systolic blood jidtpzhh090 mm[Hg]Klaus Horton DO Work Phone: 1(766)[address] [place], [place] 7874606-23-2025 09:41-0400 Body .21 cmDavienzo Varmafavian DO Work Phone: 1419)[address] [place], [place] 7874606-23-2025 09:41-0400 Body mass index (BMI) [Ratio]40.7 kg/y9Iowzi Girvin DO Work Phone: 1(475)[address] [place], [place] 7874606-23-2025 09:41-0400 Body dofwni75.33 kgDavid Kojovin DO Work Phone: 1(981)[address] [place], [place] 7874606-23-2025 09:41-0400 Diastolic blood ielbrxkc71 mm[Hg]Klaus Varmafavian DO Work Phone: 1(271)[address]06-23-2025 09:41-0400 Heart rate83 /Austynfilemon Horton DO Work Phone: 1(110)[address]06-23-2025 09:41-0400 SaO2% (BldA) [Mass fraction]95 %Klaus Horton DO Work Phone: 1(498)[address]06-23-2025 09:41-0400 Systolic blood cqgdpyrm796 mm[Hg]Klaus Horton DO Work Phone: 1(592)[address]06-10-2025 09:47-0400 Body eduztz718.21 cmDaadela Varmafavian DO Work Phone: 1(416)[address] [place], [place] 7874606-10-2025 09:47-0400 Body mass index (BMI) [Ratio]41.9 kg/e7Wqmwgadela Horton DO Work Phone: 1(071)[address] [place], [place] 7874606-10-2025 09:47-0400 Body xyyzqkksqjo44.2 [degF]Klaus Horton DO Work Phone: 1(714)[address] [place], [place] 7874606-10-2025 09:47-0400 Body obavht761.28 kgDaadela Varmafavian DO Work Phone: 1(713)[address] [place], [place] 7874606-10-2025 09:47-0400 Diastolic blood mm[Hg]Klaus Horton DO Work Phone: 1(139)[address]06-10-2025 09:47-0400 Heart rate85 /Amarjitenzo Horton DO Work Phone: 1(410)[address] [place], [place] 7874606-10-2025 09:47-0400 SaO2% (BldA) [Mass fraction]94 %Klaus Horton DO Work Phone: 1(767)[address]06-10-2025 09:47-0400 Systolic blood mm[Hg]Klaus Horton DO Work Phone: 1(568)[address]02-17-2025 15:39-0500 Body cwkatt205.9 cmMarc Dolce DPM FACFAS Work Phone: 1(747)[address] [place], [place] 9932202-17-2025 15:39-0500Body mass index (BMI) [Ratio]39.68 kg/m2Marc Dolce DPM FACFAS Work Phone: 1(773)[address] [place], [place] 9932202-17-2025 15:39-0500Body dgauhu70.25 kgMarc Dolce DPM FACFAS Work Phone: 1(646)[address] [place], [place] 9932202-17-2025 15:39-0500Diastolic blood fobfsrfq74 mm[Hg]Rishi Dolce DPM FACFAS Work Phone: 1(779)[address] [place], [place] 9932202-17-2025 15:39-0500Heart rate74 /min Rishi Dolce DPM FACFAS Work Phone: 1(383)[address] [place], [place] 9932202-17-2025 15:39-0500Systolic blood rmkprymd071 mm[Hg]Rishi Dolce DPM FACFAS Work Phone: 1(212)[address] [place], [place] 9932202-05-2025 14:33-0500Body .21 cmDavid Girvin DO Work Phone: 1([phone] [place]02-05-2025 14:33-0500 Body mass index (BMI) [Ratio]40.9 kg/q2Sbyby Girvin DO Work Phone: [phone] [place]02-05-2025 14:33-0500 Body .87 kgDavid Girvin DO Work Phone: [phone] [place]02-05-2025 14:33-0500 Diastolic blood slzczbuj43 mm[Hg]Klaus Horton DO Work Phone: 6(755)441-[address] [place], [place] 3777902-05-2025 14:33-0500 Heart rate75 /minDfilemon Girvin DO Work Phone: [phone] [place]02-05-2025 14:33-0500 Respiratory rate18 /minDavienzo Girvin DO Work Phone: [phone]02-05-2025 14:33-0500 SaO2% (BldA) [Mass fraction]95 %Klaus Horton DO Work Phone: [facility]02-05-2025 14:33-0500 Systolic blood iszytqwd398 mm[Hg]Klaus Horton DO Work Phone: [facility]01-22-2025 16:25-0500 Body uwxfho101.9 cmMarc Dolce DPM FACFAS Work Phone: 1(731)[address] [place], [place] 9932201-22-2025 16:25-0500Body mass index (BMI) [Ratio]39.68 kg/m2Marc Dolce DPM FACFAS Work Phone: 1(586)[address] [place], [place] 9932201-22-2025 16:25-0500Body zhpkyv21.25 kgMarc Dolce DPM FACFAS Work Phone: 1(999)[address] [place], [place] 9932201-22-2025 16:25-0500Diastolic blood bufgyzls44 mm[Hg]Rishi Vázquezce DPM FACFAS Work Phone: 1(203)[address] [place], [place] 9932201-22-2025 16:25-0500Heart rate76 /min Rishi Dolce DPM FACFAS Work Phone: 1(162)[address] [place], [place] 9932201-22-2025 16:25-0500Systolic blood egvyuffw944 mm[Hg]Rishi Dolce DPM FACFAS Work Phone: 1(096)[address] [place], [place] 9932201-08-2025 16:33-0500Body pvwpov832.9 cmMarc Dolce DPM FACFAS Work Phone: 1(804)[address] [place], [place] 9932201-08-2025 16:33-0500Body mass index (BMI) [Ratio]39.68 kg/m2Marc Dolce DPM FACFAS Work Phone: 1(607)[address] [place], [place] 9932201-08-2025 16:33-0500Body infsdz17.25 kgMarc Dolce DPM FACFAS Work Phone: 1(782)[address] [place], [place] 9932201-08-2025 16:33-0500Diastolic blood hamjgsbd57 mm[Hg]Rishi Dolce DPM FACFAS Work Phone: 1(500)[address] [place], [place] 9932201-08-2025 16:33-0500Heart rate72 /min Rishi Vázquezce DPM FACFAS Work Phone: 1(742)[address] [place], [place] 9932201-08-2025 16:33-0500Systolic blood gentdzoz622 mm[Hg]Rishi Vázquezce DPM FACFAS Work Phone: 1(425)[address] [place], [place] 9932212-30-2024 16:37-0500Body tafmes088.9 cmMarc Dolce DPM FACFAS Work Phone: 1(883)[address] [place], [place] 9932212-30-2024 16:37-0500Body mass index (BMI) [Ratio]39.68 kg/m2Marc Dolce DPM FACFAS Work Phone: 1(955)[address] [place], [place] 9932212-30-2024 16:37-0500Body roxidh79.25 kgMarc Dolce DPM FACFAS Work Phone: 1(827)[address] [place], [place] 9932212-30-2024 16:37-0500Diastolic blood ugcthqwq46 mm[Hg]Rishi Patterson DPM FACFAS Work Phone: 1(416)[address] [place], [place] 9932212-30-2024 16:37-0500Heart rate74 /min Rishi Patterson DPM FACFAS Work Phone: 1(698)[address] [place], [place] 9932212-30-2024 16:37-0500Systolic blood mm[Hg]Rishi Patterson DPM FACFAS Work Phone: 1(645)[address] [place], [place] 9932212-23-2024 14:55-0500Body pzajkp240.9 cmMarc Dolce DPM FACFAS Work Phone: 1(682)[address] [place], [place] 9932212-23-2024 14:55-0500Body mass index (BMI) [Ratio]39.68 kg/m2Marc Dolce DPM FACFAS Work Phone: 1(960)[address] [place], [place] 9932212-23-2024 14:55-0500Body vlashj80.25 kgMarc Dolce DPM FACFAS Work Phone: 1(314)[address] [place], [place] 9932212-23-2024 14:55-0500Diastolic blood cqpovrme04 mm[Hg]Rishi Patterson DPM FACFAS Work Phone: 1(340)[address] [place], [place] 9932212-23-2024 14:55-0500Heart rate82 /min Rishi Patterson DPM FACFAS Work Phone: 1(777)[address] [place], [place] 9932212-23-2024 14:55-0500Systolic blood utyykzfz028 mm[Hg]Rishi Patterson DPM FACFAS Work Phone: 1(629)[address] [place], [place] 9932212-06-2024 10:40-0500Body .9 cmMarc Dolce DPM FACFAS Work Phone: 1(008)[address] [place], [place] 9932212-06-2024 10:40-0500Body mass index (BMI) [Ratio]39.68 kg/m2Marc Dolce DPM FACFAS Work Phone: 1(802)[address] [place], [place] 9932212-06-2024 10:40-0500Body etlxmr74.25 kgMarc Dolce DPM FACFAS Work Phone: 1(254)[address] [place], [place] 9932212-06-2024 10:40-0500Diastolic blood meozqiks09 mm[Hg]Rishi Patterson DPM FACFAS Work Phone: 1(641)[address] [place], [place] 9932212-06-2024 10:40-0500Heart rate76 /min Rishi Patterson DPM FACFAS Work Phone: 1(876)[address] [place], [place] 9932212-06-2024 10:40-0500Systolic blood vsxikzsx508 mm[Hg]Rishi Patterson DPM FACFAS Work Phone: 1(584)[address] [place], [place] 9932212-03-2024 09:56-0500Body jywdak812.21 cmDaadela Varmafavian DO Work Phone: [facility]12-03-2024 09:56-0500 Body mass index (BMI) [Ratio]39.6 kg/i8Jhxtaadela Horton DO Work Phone: [facility] [place]12-03-2024 09:56-0500 Body xklejpnwbrs37.8 [degF]Klaus Horton DO Work Phone: [facility] [place]12-03-2024 09:56-0500 Body .61 kgDaadela Horton DO Work Phone: [facility] [place]12-03-2024 09:56-0500 Diastolic blood mm[Hg]Klaus Horton DO Work Phone: [facility] [place]12-03-2024 09:56-0500 Heart rate86 /minDavienzo Horton DO Work Phone: [phone] [place]12-03-2024 09:56-0500 SaO2% (BldA) [Mass fraction]96 %Klaus Horton DO Work Phone: [facility] [place]12-03-2024 09:56-0500 Systolic blood vhfoxgdf950 mm[Hg]Klaus Horton DO Work Phone: [facility] [place]11-19-2024 11:52-0500 Body adnrdj261.9 cmMarc Dolce DPM FACFAS Work Phone: 1(062)[address] [place] [address]-19-2024 11:52-0500Body mass index (BMI) [Ratio]39.68 kg/m2Marc Dolce DPM FACFAS Work Phone: 1(473)[address] [place] [address]-19-2024 11:52-0500Body .25 kgMarc Dolce DPM FACFAS Work Phone: 1(280)[address] [place] [address]-19-2024 11:52-0500Diastolic blood wdjffqah98 mm[Hg]Rishi Patterson DPM FACFAS Work Phone: 1(031)[address] [place] [address]-19-2024 11:52-0500Heart rate70 /min Rsihi Vázquezce DPM FACFAS Work Phone: 1(064)[address] [place] [address]-19-2024 11:52-0500Systolic blood mm[Hg]Rishi Patterson DPM FACFAS Work Phone: 1(112)[address] [place] [address]-05-2024 09:16-0500Body dhdiqf769.9 cmMarc Dolce DPM FACFAS Work Phone: 1(513)[address] [place] [address]-05-2024 09:16-0500Body mass index (BMI) [Ratio]39.68 kg/m2Marc Dolce DPM FACFAS Work Phone: 1(359)[address] [place], [place] 9932211-05-2024 09:16-0500Body esticu43.25 kgMarc Dolce DPM FACFAS Work Phone: 1(869)[address] [place] [address]-05-2024 09:16-0500Diastolic blood yrzkbffs91 mm[Hg]Rishi Dolce DPM FACFAS Work Phone: 1(239)[address] [place], [place] 9932211-05-2024 09:16-0500Heart rate72 /min Rishi Dolce DPM FACFAS Work Phone: 1(785)[address] [place] [address]-05-2024 09:16-0500Systolic blood bevoabxt838 mm[Hg]Rishi Dolce DPM FACFAS Work Phone: 1(249)[address] [place], [place] 9932210-25-2024 10:53-0400Body unrrzk821.9 cmMarc Dolce DPM FACFAS Work Phone: 1(890)[address] [place], [place] 9932210-25-2024 10:53-0400Body mass index (BMI) [Ratio]39.68 kg/m2Marc Dolce DPM FACFAS Work Phone: 1(897)[address] [place], [place] 9932210-25-2024 10:53-0400Body absmop35.25 kgMarc Dolce DPM FACFAS Work Phone: 1(713)[address] [place], [place] 9932210-25-2024 10:53-0400Diastolic blood dmvkuill52 mm[Hg]Rishi Dolce DPM FACFAS Work Phone: 1(956)[address] [place], [place] 9932210-25-2024 10:53-0400Heart rate74 /min Rishi Dolce DPM FACFAS Work Phone: 1(291)[address] [place], [place] 9932210-25-2024 10:53-0400Systolic blood sgnemars534 mm[Hg]Rishi Dolce DPM FACFAS Work Phone: 1(913)[address] [place], [place] 9932209-24-2024 08:20-0400Body dmaase201.9 cmMarc Dolce DPM FACFAS Work Phone: 1(593)[address] [place], [place] 9932209-24-2024 08:20-0400Body mass index (BMI) [Ratio]39.68 kg/m2Marc Dolce DPM FACFAS Work Phone: 1(139)[address] [place], [place] 9932209-24-2024 08:20-0400Body uthdcs20.25 kgMarc Dolce DPM FACFAS Work Phone: 1(770)[address] [place], [place] 9932209-24-2024 08:20-0400Diastolic blood illvziwx88 mm[Hg]Rihsi Dolce DPM FACFAS Work Phone: 1(549)[address] [place], [place] 9932209-24-2024 08:20-0400Heart rate70 /min Rishi Dolce DPM FACFAS Work Phone: 1(213)[address] [place], [place] 9932209-24-2024 08:20-0400Systolic blood ibedzxri579 mm[Hg]Rishi Vázquezce DPM FACFAS Work Phone: 1(024)[address] [place], [place] 9932209-10-2024 08:21-0400Body yebxig364.9 cmMarc Dolce DPM FACFAS Work Phone: 1(574)[address] [place], [place] 9932209-10-2024 08:21-0400Body mass index (BMI) [Ratio]39.68 kg/m2Marc Dolce DPM FACFAS Work Phone: 1(907)[facility] [place], [place] [address]Bteuhpcpfj66-37-6682 08:21-0400Body xwsidi74.25 kgMarc Dolce DPM FACFAS Work Phone: 1(854)[facility] [place], [place] [address]Skjlwshqbc72-61-1846 08:21-0400Diastolic blood zvtordpu51 mm[Hg]Rishi Patterson DPM FACFAS Work Phone: 1(459)[address] [place], [place] 9932209-10-2024 08:21-0400Heart rate72 /min Rishi Dolce DPM FACFAS Work Phone: 1(495)[address]09-10-2024 08:21-0400Systolic blood uuhjhqgr945 mm[Hg]Rishi Patterson DPM FACFAS Work Phone: 1(617)[address]07-15-2024 12:53-0400Body puealz082.21 cmDO Klaus Horton Work Phone: 1(419)[address]07-15-2024 12:53-0400 Body mass index (BMI) [Ratio]42.7 kg/m2DO Klaus Kojofavian Work Phone: 1(885)[address]07-15-2024 12:53-0400 Body .46 kgDO Klaus Varmafavian Work Phone: 1(530)[address]07-15-2024 12:53-0400 Diastolic blood crthisua65 mm[Hg]DO Klaus Varmafavian Work Phone: 1(030)[address]07-15-2024 12:53-0400 Heart rate73 /AustynO Klaus Varmafavian Work Phone: 1(128)[address]07-15-2024 12:53-0400 Respiratory rate18 /Tato Enrique Kojofavian Work Phone: [phone]07-15-2024 12:53-0400 SaO2% (BldA) [Mass fraction]97 %DO Klaus Horton Work Phone: [phone]07-15-2024 12:53-0400 Systolic blood tusniohb608 mm[Hg]DO Klaus Varmafavian Work Phone: [phone]06-06-2024 10:06-0400 Body bqzivv802.21 cmDO Klaus Varmafavian Work Phone: 1(530)[address] [place], [place] 7874606-06-2024 10:06-0400 Body mass index (BMI) [Ratio]42 kg/m2DO Klaus Horton Work Phone: [phone]06-06-2024 10:06-0400 Body acgmgvxnuqw29 [degF]DO Klaus Horton Work Phone: [phone]06-06-2024 10:06-0400 Body azmvyl871.65 kgDO Klaus Horton Work Phone: [phone]06-06-2024 10:06-0400 Diastolic blood rkyivrat30 mm[Hg]DO Klaus Horton Work Phone: [phone])[address]06-06-2024 10:06-0400 Heart rate74 /minDO Klaus Varmafavian Work Phone: [phone])[address]026 [address]06-06-2024 10:06-0400 SaO2% (BldA) [Mass fraction]97 %DO Klaus Kojofavian Work Phone: [phone] [address]06-06-2024 10:06-0400 Systolic blood ekucteso183 mm[Hg]DO Klaus Varmafavian Work Phone: [phone])[address]05-13-2024 13:32-0400 Body qwdbhy676.57 cmDO Klaus Varmafavian Work Phone: [phone] [place], [place] 7874605-13-2024 13:32-0400 Body mass index (BMI) [Ratio]47.8 kg/m2DO Klaus Varmafavian Work Phone: [phone] [place], [place] 7874605-13-2024 13:32-0400 Body hkefjc397.75 kgDO Klaus Clifford Work Phone: [phone])[address] [place], [place] 7874605-13-2024 13:32-0400 Diastolic blood ffhusvqp57 mm[Hg]DO Klaus Varmafavian Work Phone: [phone])[address]05-13-2024 13:32-0400 Heart rate71 /AustynO Klaus Varmafavian Work Phone: [phone])[address]05-13-2024 13:32-0400 Respiratory rate16 /[place]ynO Klaus Varmafavian Work Phone: [phone])[address]05-13-2024 13:32-0400 SaO2% (BldA) [Mass fraction]98 %DO Klaus Varmafavian Work Phone: [phone]05-13-2024 13:32-0400 Systolic blood esmbxojd540 mm[Hg]DO Klaus Varmafavian Work Phone: [phone]05-06-2024 14:40-0400 Body uwipgj902.94 cmDO Klaus Horton Work Phone: [phone] [address]05-06-2024 14:40-0400 Body mass index (BMI) [Ratio]42.5 kg/m2DO Klaus Horton Work Phone: [phone]05-06-2024 14:40-0400 Body mhrfoa993.05 kgDO Klaus Horton Work Phone: [phone])[address]05-06-2024 14:40-0400 Diastolic blood lesezbjv63 mm[Hg]DO Klaus Horton Work Phone: [phone]05-06-2024 14:40-0400 Heart rate74 /minDO Klaus Horton Work Phone: [phone])[address] [place], [place] 7874605-06-2024 14:40-0400 SaO2% (BldA) [Mass fraction]96 %DO Klaus Horton Work Phone: [phone])[address] [place], [place] 7874605-06-2024 14:40-0400 Systolic blood qapaetlc237 mm[Hg]DO Klaus Horton Work Phone: [phone])[address]04-30-2024 10:03-0400 Body gomavh364.94 cmDO Klaus Horton Work Phone: [phone])[address] [place], [place] 7874604-30-2024 10:03-0400 Body mass index (BMI) [Ratio]42 kg/m2DO Klaus Horton Work Phone: [phone]04-30-2024 10:03-0400 Body iosybl187 kgDO Klaus Horton Work Phone: [phone] [place], [place] 7874601-16-2024 12:40-0500 Body iayeep015.21 cmDavienzo Varmafavian Other [facility] [employer] Other [id number] 12:40-0500Body mass index (BMI) [Ratio] 41.63 kg/q0Ipgubadela Horton Other [employer] Other [id number] 12:40-0500Body mnqvhoriqvg19.5 [degF]Klaus Horton Other [employer] Other 01-16-2024 12:40-0500Body yujyoe447.61 kgDaadela Horton Other [employer] Other 01-16-2024 12:40-0500Diastolic blood fchiealp81 mm[Hg] Klaus Horton Other [employer] Other 01-16-2024 12:40-0500Respiratory rate18 /minDavienzo Horton Other [employer] Other 01-16-2024 12:40-4330UiG6% (BldA) [Mass fraction]99 % Klaus Horton Other [employer] Other 01-16-2024 12:40-0500Systolic blood ygenejqt552 mm[Hg] Klaus Horton Other [employer] Other 11-30-2023 10:30-0500Body sswrqe443.21 cmDaadela Horton Other [employer] Other 11-30-2023 10:30-0500Body mass index (BMI) [Ratio] 40.71 kg/a4Tafgradela Horton Other [employer] Other 11-30-2023 10:30-0500Body atmfnncegvr89.8 [degF]Klaus Horton Other [employer] Other 11-30-2023 10:30-0500Body gvarjz96.34 kgDaadela Horton Other [employer] Other 11-30-2023 10:30-0500Diastolic blood gnazsqpl97 mm[Hg] Klaus Horton Other [employer] Other 11-30-2023 10:30-0500Respiratory rate18 /minDavienzo Varmafavian Other [employer] Other 11-30-2023 10:30-9822YvH5% (BldA) [Mass fraction]96 % Klaus Horton Other [employer] Other 11-30-2023 10:30-0500Systolic blood mm[Hg] Klaus Horton Other [employer] Other 11-03-2023 15:00-0400Body gbehya799.21 cmAmbrachel Sultana Other [employer] Other 11-03-2023 15:00-0400Body mass index (BMI) [Ratio] 40.78 kg/n0FbpfmJohanny Sultana Other [employer] Other 11-03-2023 15:00-0400Body tolojknweeu92.9 [degF]Johanny Sultana Other [employer] Other 11-03-2023 15:00-0400Body klomhu54.52 kgJohanny Sultana Other [employer] Other 11-03-2023 15:00-0400Respiratory rate18 /minJohanny Sultana Other [employer] Other 11-03-2023 15:00-9340LtD8% (BldA) [Mass fraction]95 % Johanny Sultana Other [employer] Other 10-19-2023 09:50-0400Diastolic blood ihsjdejs95 mm[Hg] DO Klaus Horton Work Phone: [facility]10-19-2023 09:50-0400 Heart rate81 /Tato Horton Work Phone: [phone] [place], [place] 3777910-19-2023 09:50-0400 Respiratory rate16 /Tato Horton Work Phone: [phone] [place], [place] 3777910-19-2023 09:50-0400 SaO2% (BldA) [Mass fraction]97 %DO Klaus Horton Work Phone: [phone])[address]10-19-2023 09:50-0400 Systolic blood smprmuow371 mm[Hg]DO Klaus Horton Work Phone: [phone])[address]10-19-2023 08:11-0400 Body znerox684.94 cmDO Klaus Horton Work Phone: [phone])71026 [address]10-19-2023 08:11-0400 Body jewlqa99.79 kgDO Klaus Horton Work Phone: [phone] [place], [place] 3777909-06-2023 15:30-0400 Body vmovgy120.21 cmCameron Diginna Other [employer] Other 09-06-2023 15:30-0400Body mass index (BMI) [Ratio] 41.82 kg/e6Axrxzsi Ditty Other [employer] Other 09-06-2023 15:30-0400Body .06 kgCameron Ditty Other [employer] Other 09-06-2023 15:30-0400Diastolic blood zaijpnng81 mm[Hg] Timothy Baird Other [employer] Other 09-06-2023 15:30-0400Systolic blood uqmwhajy819 mm[Hg] Timothy Baird Other [employer] Other 05-25-2023 10:30-0400Body tgsqub008.21 cmKlaus Horton Other [employer] Other 05-25-2023 10:30-0400Body mass index (BMI) [Ratio] 40.33 kg/z2JoacvKlaus Horton Other [employer] Other 05-25-2023 10:30-0400Body hhymnhorjoi73.7 [degF]Klaus Horton Other [employer] Other 05-25-2023 10:30-0400Body .43 kgDaadela Horton Other [employer] Other 05-25-2023 10:30-0400Diastolic blood hvspurdf27 mm[Hg] Klaus Horton Other [employer] Other 05-25-2023 10:30-0400Respiratory rate18 /minDfilemon Horton Other [employer] Other 05-25-2023 10:30-4235GyJ6% (BldA) [Mass fraction]98 % Klaus Horton Other [employer] Other 05-25-2023 10:30-0400Systolic blood zuporuls016 mm[Hg] Klaus Horton Other [employer] Other 01-19-2023 11:30-0500Body pefvvc924.21 cmKlaus Horton Other [employer] Other 01-19-2023 11:30-0500Body mass index (BMI) [Ratio] 39.96 kg/b8CdzmhKlaus Horton Other [employer] Other 01-19-2023 11:30-0500Body tckdwhiaaey82.5 [degF]Klaus Horton Other [employer] Other 01-19-2023 11:30-0500Body gdockk77.52 kgDaadela Horton Other [employer] Other 01-19-2023 11:30-0500Diastolic blood awlufasy07 mm[Hg] Klaus Horton Other [employer] Other [id number] 11:30-0500Respiratory rate18 /minDfilemon Horton Other [employer] Other 01-19-2023 11:30-7807NnW3% (BldA) [Mass fraction]98 % Klaus Horton Other [employer] Other 01-19-2023 11:30-0500Systolic blood tpfubggm779 mm[Hg] Klaus Horton Other [employer] Other 10-10-2022 17:00-0400Body gejyvp885.21 cmShant Daugherty Other [employer] Other 10-10-2022 17:00-0400Body mass index (BMI) [Ratio] 39.22 kg/g9VfycqShant Daugherty Other [employer] Other 10-10-2022 17:00-0400Body jtdfcxewkmg66.1 [degF]Shant Daugherty Other [employer] Other 10-10-2022 17:00-0400Body tdqahd71.71 kgShant Daugherty Other [employer] Other 10-10-2022 17:00-0400Diastolic blood utekqpnj42 mm[Hg] Shant Daugherty Other [employer] Other 10-10-2022 17:00-5981JcF1% (BldA) [Mass fraction]96 % Shant Daugherty Other [employer] Other 10-10-2022 17:00-0400Systolic blood znptgxra413 mm[Hg] Shant Daugherty Other [employer] Other 03-30-2022 14:30-0400Body abfcxh250.21 cmCameron Ditty Other [employer] Other 03-30-2022 14:30-0400Body mass index (BMI) [Ratio] 39.03 kg/s2Jividtu Ditty Other [employer] Other 03-30-2022 14:30-0400Body uxozjg12.26 kgCameron Ditty Other [employer] Other 01-05-2022 15:40-0500Body kdvkbe109.21 cmDaadela Hotron Other [employer] Other 01-05-2022 15:40-0500Body mass index (BMI) [Ratio] 38.29 kg/s1KwqmvKlaus Horton Other [employer] Other 01-05-2022 15:40-0500Body pdnhbctyfsp75.1 [degF]Klaus Horton Other [employer] Other 01-05-2022 15:40-0500Body ptdmaf52.44 kgDaadela Horton Other [employer] Other 01-05-2022 15:40-0500Diastolic blood bnltedww57 mm[Hg] Klaus Horton Other [employer] Other 01-05-2022 15:40-0500Respiratory rate18 /minDfilemon Horton Other [employer] Other [id number] 15:40-8054BmN5% (BldA) [Mass fraction]97 % Klaus Horton Other [employer] Other 01-05-2022 15:40-0500Systolic blood mm[Hg] Klaus Horton Other [employer] Other 12-15-2021 14:00-0500Body pljlhy825.21 cmCameron Ditty Other [employer] Other 12-15-2021 14:00-0500Body mass index (BMI) [Ratio] 37.73 kg/a2Isyqxlv Ditty Other [employer] Other 12-15-2021 14:00-0500Body .08 kgCameron Ditty Other [employer] Other Encounters Encounter DateEncounter TypeCare ProviderFacilityStart: 05-01-2025 End: 87-04-0644nswkbvoptzZZST D DOLCENot AvailableStart: 05-01-2025 End: 96-14-4921Byaope outpatient visit 15 minutesMarc D Dolce DPM FACFAS Work Phone: noms NMA PODComment on above:Peroneal tendon tear, right, initial encounter (Primary Dx)Start: 05-01-2025 End: 37-33-9658Xxruxa flowsheetMarc D Dolce DPM FACFAS Work Phone: noms [facility] [place]Start: 05-01-2025 End: 96-71-8097Dwogjl flowsheetMarc D Dolce DPM FACFAS Work Phone: noms [facility] [place]: 03-20-2025 End: 56-99-8674eqhspswvrgBsrhb Girvin DO Work Phone: [facility] Work Phone: Start: 03-20-2025 End: 42-97-5208Gpusqed encounter procedureKlaus Horton DO-[facility] Work Phone: Start: 03-16-2025 End: 90-86-4562Mqjswnc encounter procedureDaadela Horton DO-[facility] [address] Work Phone: Start: 03-16-2025 End: 31-94-9047qundicozxmQzrdz Girvin DO Work Phone: [facility] Work Phone: Start: 02-14-2025 End: 90-13-8567gbnpeevwxmMuytv Girvin DO Work Phone: [facility] Work Phone: Start: 02-14-2025 End: 33-45-8326Uzqqjwg encounter procedureDerek Bennett MD-[facility] Work Phone: Start: 02-13-2025 End: 70-00-6886lplpdpbofsFfwht Girvin DO Work Phone: [facility] Work Phone: Start: 02-13-2025 End: 14-53-2371Jofmckd encounter procedureDaadela Horton DO-[facility] Work Phone: Start: 01-30-2025 End: 78-51-9757Hhxmll flowsheetNatalie A Felter GLUE MOUNTER OPERATOR-SHELLFISH FARMING SUPERVISOR Work Phone: [facility] SWS DERMStart: 01-30-2025 End: 19-08-4172Odkhir flowsheetNatalie A Felter GLUE MOUNTER OPERATOR-SHELLFISH FARMING SUPERVISOR Work Phone: [facility] SWS DERMStart: 01-30-2025 End: 18-13-5175xcxkpmbimvDUFOHPZ A FELTERNot AvailableStart: 01-30-2025 End: 03-87-3209Ssnvhhf encounter procedureNatalie A Felter GLUE MOUNTER OPERATOR-SHELLFISH FARMING SUPERVISOR Work Phone: noms SWS DERMComment on above:Inflamed seborrheic keratosisStart: 01-17-2025 End: 28-21-7042qhziozdkepLbkay Clifford DO Work Phone: [facility] Work Phone: Start: 01-17-2025 End: 76-75-1454Vdyeaug encounter procedureDaadela Horton DO Work Phone: [facility] Work Phone: Start: 01-12-2025 End: 55-84-2968Xedltoz encounter procedureDaadela Horton DO Work Phone: [facility] [address] Work Phone: Start: 01-12-2025 End: 39-77-2327bskwgowanqZpofa Girvin DO Work Phone: [facility] Work Phone: start: 01-04-2025 End: 41-75-5971kufqphfkenMrbfm Girvin DO Work Phone: [facility] Work Phone: Start: 75-66-5925Lqh-patient / Non-visitDavid Girvin DO Work Phone: [facility] Work Phone: Start: 01-04-2025 End: 04-01-4964Hnlcijr encounter procedureDavid Girvin DO Work Phone: [facility] Work Phone: Start: 09-26-2024 End: 81-22-0443aodwbgcwtuIQXD D DOLCENot AvailableStart: 09-26-2024 End: 58-91-7624Fptwwq follow up visit related to original pxMarc D Dolce DPM FACFAS Work Phone: noms NMA PODComment on above:Peroneal tendon tear, right, initial encounter (Primary Dx)Start: 09-26-2024 End: 00-81-3716Hdthrg flowsheetMarc D Dolce DPM FACFAS Work Phone: noms ASC PODStart: 09-26-2024 End: 89-16-6803Axvfdq flowsheetMarc D Dolce DPM FACFAS Work Phone: noms ASC PODStart: 09-19-2024 End: 63-92-2751chmgieyxhyIjnmj Girvin DO Work Phone: [facility] Work Phone: Start: 09-19-2024 End: 65-36-7163Yheijij encounter procedureDavid Girvin DO Work Phone: [facility] Work Phone: Start: 09-14-2024 End: 69-16-4607Qvspgge encounter procedureDavid Girvin DO Work Phone: [facility] Work Phone: Start: 09-09-2024 End: 79-00-1989Pmjqowb encounter procedureDavienzo Horton DO Work Phone: [facility] [address] Work Phone: Start: 09-09-2024 End: 71-61-9599usvhudimfyKrxpe Clifford DO Work Phone: [facility] Work Phone: Start: 08-31-2024 End: 07-54-3208Qluoelp encounter procedureMarc D Dolce DPM FACFAS Work Phone: noms NMA PODComment on above:Peroneal tendon tear, right, initial encounter (Primary Dx); Contracture of right ankle; Right Achilles tendinitisStart: 08-31-2024 End: 97-75-3753uuxtqtczpbYYKZ D DOLCENot AvailableStart: 08-31-2024 End: 24-35-0224Xfqdnx flowsheetMarc D Dolce DPM FACFAS Work Phone: noMS ASC PODStart: 08-31-2024 End: 22-02-0508Zzljal flowsheetMarc D Dolce DPM FACFAS Work Phone: noms ASC PODStart: 14-93-4215vdcghsiubmDhihu Girfavian [facility]: 08-17-2024 End: 15-56-3598vhemelkrkgVKVJ D DOLCENot AvailableStart: 08-17-2024 End: 02-99-8866Mdssmf follow up visit related to original pxMarc D Dolce DPM FACFAS Work Phone: [facility] NMA PODComment on above:Peroneal tendon tear, right, initial encounter (Primary Dx); Heel spur, rightStart: 08-17-2024 End: 94-33-1284Dqctps flowsheetMarc D Dolce DPM FACFAS Work Phone: [facility] ASC PODStart: 08-17-2024 End: 54-00-3821Oehzcq flowsheetMarc D Dolce DPM FACFAS Work Phone: [phone] ASC PODStart: 08-08-2024 End: 42-65-7115Dexwie follow up visit related to original pxMarc D Dolce DPM FACFAS Work Phone: [phone] NMA PODComment on above:Peroneal tendon tear, right, initial encounter (Primary Dx); Other synovitis and tenosynovitis, right ankle and foot; Right Achilles tendinitisStart: 08-08-2024 End: 46-88-6714trmphlifgoUVVP D DOLCENot AvailableStart: 08-08-2024 End: 67-03-4538Jkrtdy flowsheetMarc D Dolce DPM FACFAS Work Phone: [phone] ASC PODStart: 08-08-2024 End: 99-84-7428Juzbjy flowsheetMarc D Dolce DPM FACFAS Work Phone: [phone] ASC PODStart: 08-01-2024 End: 89-37-0104wbasvhupqaWCWF D DOLCENot AvailableStart: 08-01-2024 End: 51-93-9770Nwhigcs encounter procedureMarc D Dolce DPM FACFAS Work Phone: [phone] NMA PODComment on above:Peroneal tendon tear, right, initial encounter (Primary Dx); Heel spur, rightStart: 08-01-2024 End: 27-93-1874Jzfppg flowsheetMarc D Dolce DPM FACFAS Work Phone: [phone] ASC PODStart: 08-01-2024 End: 82-41-1729Olgyhc flowsheetMarc D Dolce DPM FACFAS Work Phone: [phone] ASC PODStart: 07-27-2024 End: 50-44-6955Yjkrssvjp encounterMarc D Dolce DPM FACFAS Work Phone: [phone] PODStart: 07-20-2024 End: 68-19-3969Jtywhgqzk encounterAisha Hurdan RNNOMS NMA PODComment on above: Medication ChangeStart: 07-19-2024 End: 50-65-3175UnuljeEkpiwcpf A Brown DPM Work Phone: noMS CI PODIATRYComment on above:Right Achilles tendinitisStart: 07-17-2024 End: 54-58-6644Napujctpl encounterMarc D Dolce DPM FACFAS Work Phone: [facility] WH PODStart: 07-15-2024 End: 21-68-1955Wkuzxl flowsheetMarc D Dolce DPM FACFAS Work Phone: [facility] ASC PODStart: 07-15-2024 End: 72-54-7393Fnlvcs flowsheetMarc D Dolce DPM FACFAS Work Phone: [facility] ASC PODStart: 07-15-2024 End: 82-49-7443Igcscg outpatient visit 25 minutesMarc D Dolce DPM FACFAS Work Phone: N[facility] NMA PODComment on above:Peroneal tendon tear, right, initial encounter (Primary Dx); Other synovitis and tenosynovitis, right ankle and foot; 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Start: 07-15-2024 End: 19-18-9891qpaarqgafkKYRT D DOLCENot AvailableStart: 07-13-2024 End: 29-95-7159zkmebkrtkxUZNB D DOLCENot AvailableStart: 07-12-2024 End: 54-63-6699Dxbpicz encounter procedureDaadela Horton DO Work Phone: [facility] Work Phone: Start: 07-04-2024 End: 90-27-2147Yvcvtft encounter procedureDaadela Horton DO Work Phone: [facility] [address] [address] Work Phone: Start: 07-04-2024 End: 26-56-4103jnrtswyszzUhvev GirvinFacility:[facility] Start: 06-28-2024 End: 60-57-6105Ydcowl outpatient visit 25 minutesMarc D Dolce DPM FACFAS Work Phone: noms NMA PODComment on above:Peroneal tendon tear, right, initial encounter (Primary Dx); Right Achilles tendinitis; Nontraumatic rupture of posterior tibial tendon, rightStart: 06-28-2024 End: 32-44-4787zdspipqexuGRPG D DOLCENot AvailableStart: 06-28-2024 End: 01-15-2881gmiigunzowLOHJ REFERRALFacility:FTMCStart: 06-28-2024 End: 59-64-4909Ssldsco encounter procedureSELF REF[facility]ALA[facility] Start: 06-27-2024 End: 31-49-1080Mvcvjt flowsheetNatalie A Felter GLUE MOUNTER OPERATOR-SHELL[employer] FARMING SUPERVISOR Work Phone: noms SWS DERMStart: 06-27-2024 End: 94-47-0369Rfbosd flowsheetNatalie A Felter GLUE MOUNTER OPERATOR-SHELLF[employer] FARMING SUPERVISOR Work Phone: noms SWS DERMStart: 06-27-2024 End: 01-34-5638Qqpngc outpatient visit 15 minutesNatalie A Felter GLUE MOUNTER OPERATOR-SHELLFISH FARMING SUPERVISOR Work Phone: noms SWS DERMComment on above:Seborrheic keratosis (Primary Dx); Melanocytic nevus of trunk; Lentigines; Capillary angioma; Stasis dermatitis of both legsStart: 06-27-2024 End: 05-18-0201tyoosxehtvWPAUTRQ A FELTERNot AvailableStart: 06-14-2024 End: 25-21-8973Dnothv flowsheetMarc D Dolce DPM FACFAS Work Phone: noMS ASC PODStart: 06-14-2024 End: 99-20-9150Jwgmyh flowsheetMarc D Dolce DPM FACFAS Work Phone: noms ASC PODStart: 06-14-2024 End: 43-96-4715iuiqpfozxuIMIC D DOLCENot AvailableStart: 06-14-2024 End: 41-71-2102Iyfims outpatient visit 15 minutesMarc D Dolce DPM FACFAS Work Phone: noMS NMA PODComment on above:Peroneal tendon tear, right, initial encounter (Primary Dx); Plantar fasciitis; Other synovitis and tenosynovitis, right ankle and footStart: 06-03-2024 End: 69-17-4750Ukkctn flowsheetMarc D Dolce DPM FACFAS Work Phone: noms ASC PODStart: 06-03-2024 End: 98-77-3823Lveegl flowsheetMarc D Dolce DPM FACFAS Work Phone: [facility] ASC PODStart: 06-03-2024 End: 79-09-3146arlncbijvgDYBZ D DOLCENot AvailableStart: 06-03-2024 End: 72-81-6814Uhqxar outpatient visit 15 minutesMarc D Dolce DPM FACFAS Work Phone: noMS NMA PODComment on above:Heel spur, right (Primary Dx); Plantar fasciitis; Right Achilles tendinitisStart: 05-24-2024 End: 26-64-6257OawqgiUmubsczh A Brown DPM Work Phone: noms CI PODIATRYComment on above:Right Achilles tendinitis (Primary Dx)Start: 05-03-2024 End: 69-09-2080Msqizm flowsheetMarc D Dolce DPM FACFAS Work Phone: noms ASC PODStart: 05-03-2024 End: 24-16-4063Urqjnw flowsheetMarc D Dolce DPM FACFAS Work Phone: noMS ASC PODStart: 05-03-2024 End: 42-96-5108iezgsqyedxRZLG D DOLCENot AvailableStart: 05-03-2024 End: 84-92-7510Nqpikj follow up visit related to original pxMarc D Dolce DPM FACFAS Work Phone: NOM[facility] NMA PODComment on above:Right Achilles tendinitis (Primary Dx)Start: 04-27-2024 End: 08-79-3254Crihusdkq encounterMarc D Dolce DPM FACFAS Work Phone: [facility] WH PODStart: 04-19-2024 End: 43-01-1487Yprqzm flowsheetMarc D Dolce DPM FACFAS Work Phone: [phone] ASC PODStart: 04-19-2024 End: 21-57-4008Babqrt flowsheetMarc D Dolce DPM FACFAS Work Phone: [facility] ASC PODStart: 04-19-2024 End: 30-05-5048Susbbk outpatient visit 25 minutesMarc D Dolce DPM FACFAS Work Phone: N[facility] NMA PODComment on above:Right Achilles tendinitis (Primary Dx); Other synovitis and tenosynovitis, right ankle and footStart: 04-12-2024 End: 00-86-9567Nqhbnpxp Result EncounterMarc D Dolce DPM FACFAS Work Phone: [facility] External Department UnsolicitedStart: 04-12-2024 End: 81-59-3034Ktdgurih Result EncounterMarc D Dolce DPM FACFAS Work Phone: noms External Department UnsolicitedStart: 04-12-2024 End: 49-53-3877Ltwgada encounter procedureDO Klaus Horton Work Phone: [facility]-Electrodiagn[facility] Work Phone: Start: 04-12-2024 End: 69-04-5699hqwcrpfstcOF Klaus Horton Work Phone: [facility] Work Phone: Start: 82-26-1495Zstptidkm for other preprocedural examinationMarc D GurpreetceThe [facility] GroupStart: 03-15-2024 End: 81-51-2033Bnomayy encounter procedureDO Klaus Horton Work Phone: [facility] Work Phone: Start: 03-15-2024 End: 19-99-2601Frdeshj encounter procedureDO Klaus Horton Work Phone: [facility] Work Phone: Start: 02-22-2024 End: 82-92-8978Toricxa encounter procedureDO Klaus Horton Work Phone: [facility] Work Phone: Start: 02-16-2024 End: 64-74-8857knanqfbforBL Klaus Horton Work Phone: [facility] Work Phone: Start: 02-16-2024 End: 80-88-2635Amktesm encounter procedureDO Klaus Horton Work Phone: [facility] Work Phone: Start: 01-14-2024 End: 84-86-4337Ejktgit encounter procedureDO Klaus Horton Work Phone: [facility] Work Phone: Start: 01-14-2024 End: [id number] encounter procedureDO Klaus Horton Work Phone: [facility] Work Phone: Start: 01-13-2024 End: [id number] Klaus Horton Work Phone: [facility] Work Phone: Start: 01-13-2024 End: [id number] encounter procedureDO Klaus Horton Work Phone: [facility] Work Phone: Start: 12-25-2023 End: [id number] Klaus Horton Work Phone: [facility] Work Phone: Start: 12-25-2023 End: [id number] encounter procedureDO Klaus Horton Work Phone: [facility] [address] Work Phone: Start: 12-21-2023 End: 63-17-4904Tzpcchy encounter procedureDO Klaus Horton Work Phone: [facility] Work Phone: Start: 12-14-2023 End: [id number] encounter procedureDO Klaus Horton Work Phone: [facility] Work Phone: Start: 12-08-2023 End: [id number] Klaus Horton Work Phone: [facility] Work Phone: Start: 12-08-2023 End: [id number] encounter procedureDO Klaus Horton Work Phone: [facility] [address] Work Phone: Start: [phone]-patient / Non-visitDO Klaus Horton Work Phone: [facility] Work Phone: Start: 09-10-2023 End: [id number] DEAN [facility]RedCrit[facility] [employer] Other Start: [id number] encounterDavienzo [facility]ueStart: 08-28-2023 End: [id number] Girvin Other [employer] Other Start: [id number] encounterDaadela [facility] HospitalueStart: 08-25-2023 End: 63-44-1551jqjhsiskebOfate Girvin Other noCRE[employer]HE [employer] Other Start: 92-12-9500Zrandxizn for other preprocedural examinationDavienzo Mcleod [facility] CenterueStart: 68-07-1244Tkuqgn outpatient visit 15 minutesDaadela Mcleod [facility] TierraevueStart: 08-11-2023 End: 01-89-7792uemkcwegsnXkyvb Girvin Other [employer] Other Start: 60-46-3052Fezkqxovd encounterDaadela Mcleod Family [facility] BradfordevueStart: 07-09-2023 End: 71-48-6834wcxjnkhkpvXvpmr Girvin Other [employer] Other Start: 01-31-8212Ligmiv outpatient visit 25 minutes Klaus [facility] [place]vueStart: 06-30-2023 End: 97-96-8905ueosphcuwrUR David Girvin Work Phone: [facility] Work Phone: Start: 06-30-2023 End: 88-07-6558Ehpwkmi encounter procedureDO Klaus Horton Work Phone: [facility]-Lab [address] [place] Work Phone: Start: 06-29-2023 End: 14-71-5441bkcnlpnywnZpmyq Girvin Other [employer] Other Start: 05-36-6576Hrsvslnlv encounterDaadela Mcleod [facility] CenterueStart: 06-24-2023 End: 72-05-9533bzbemvwprpSofsb Girvin Other [employer] Other Start: 68-05-1651Rwokakbxt encounterDavid JoriG Family Medicine [facility] CenterueStart: 06-18-2023 End: 91-17-5401Zpzegbk encounter procedureIsi Edyta Escudero [facility] Start: 06-12-2023 End: 23-77-3991lfjczdmrjzSujin Keller Other [employer] Other Start: 70-46-9174Zdeffs outpatient visit 15 minutes Johanny ElíaslerFPG [facility] Care ClydeStart: 08-83-9196Kqaxuvbek encounterDavid JoriG [facility] ClydeStart: 06-03-2023 End: 76-43-2979pnlqsonzsvToztzpm Ditty Other [employer] Other Start: 17-42-9435Dzrzgzjbt encounterCameron DimarkosyFPG GastroenterologyStart: 05-28-2023 End: 61-82-0555Bpimznewn to same day surgery phil campbellDO Klaus Horton Work Phone: [facility]-Digestive [facility] Work Phone: Start: 05-28-2023 End: 90-33-7196aqsjzpbawaVX Klaus Horton Work Phone: [facility] Work Phone: Start: 04-15-2023 End: 48-48-2911zhrlpmeusjYcadwcg Ditty Other [employer] Other Start: 97-03-2671Rokftce encounter procedureCameron DittyFPG GastroenterologyStart: 01-06-2023 End: 32-85-4811jfqtbesgztIkspb Girvin Other [employer] Other Start: 32-06-7784Ztoztjtdn encounterDavid CliffordFPG Family Medicine BellevueStart: 01-01-2023 End: 53-42-0959wajymmurpyOwhhk Girvin Other [employer] Other Start: 56-08-6949Zuolsi outpatient visit 25 minutes Klaus [facility] BellevueStart: 12-01-2022 End: 43-55-3613kgihgpgzpqUcjnk Girvin Other [employer] Other Start: 82-45-5221Fximpufkk encounterDaadela Mcleod [facility] Medicine BellevueStart: 11-21-2022 End: 98-32-5375wyofcnmmlgOmrdh Girvin Other [employer] Other Start: 49-98-6694Fnksruolj encounterDaadela Mcleod [facility] Medicine BellevueStart: 11-05-2022 End: 15-12-3811hfaqpxztuiNeorx Girvin Other [employer] Other Start: 44-45-6676Tlowaurqg encounterDaadela Mcleod [facility] Medicine BellevueStart: 10-14-2022 End: 66-09-2544obblgzrrqyBE David Girvin Work Phone: [facility] Work Phone: Start: 10-14-2022 End: 20-51-9872Xwjinsx encounter procedureDO Klaus Horton Work Phone: [facility]-Sleep Lab Work Phone: Start: 09-30-2022 End: 78-83-3482ngmcgeqyuaJjily Girvin Other [employer] Other Start: 50-55-7973Ylchwyaed encounterDaadela Mcleod [facility] Medicine [place]vueStart: 09-09-2022 End: 90-91-3198rrryxggbyoHllfy Girvin Other [employer] Other Start: 42-45-3077Aqjfldues encounterDaadela Mcleod [facility] Medicine BellevueStart: 09-09-2022 End: 22-02-5132Gzyqfgc encounter procedureDO Klaus Horton Work Phone: [facility]-XRay [address] [place] Work Phone: Start: 08-28-2022 End: 53-01-6671pkaljjyaewIzowd Girvin Other [employer] Other Start: 19-99-6960Vlzpqc outpatient visit 25 minutes Klaus [facility] [place]vueStart: 08-25-2022 End: 47-28-3614Xsaackd encounter procedureDO Klaus Horton Work Phone: [facility]-Lab [address] [place] Work Phone: Start: 08-22-2022 End: 52-83-9799mrsiqnrgawQuydm Girvin Other [employer] Other Start: 43-03-5417Usfxioutu encounterDaadela Mcleod [facility] Medicine [place]vueStart: 08-12-2022 End: 61-22-5631elnvcjhxfnWqull Girvin Other [employer] Other Start: 47-87-8172Ginmhmoxd encounterDaadela Mcleod [facility] Medicine BellevueStart: 07-16-2022 End: 62-53-3465xizctdjjqbLI David Girvin Work Phone: [facility] Work Phone: Start: 07-16-2022 End: 89-09-7268Ajvsoer encounter procedureDO Klaus Horton Work Phone: [facility]-Sleep LabStart: 06-23-2022 End: 56-23-9118hsjjekfriiPjoti Girvin Other [facility] [employer] Other Start: 25-92-8639Dgsgejhoj encounterDaadela Mcleod [facility] Medicine BellevueStart: 05-19-2022 End: 91-05-3192Soywwsy encounter procedureDO Klaus Horton Work Phone: [facility]-Sleep LabStart: 05-19-2022 End: 51-76-7401lexngysnwrBQ David Girvin Work Phone: [facility] Work Phone: Start: 94-31-2947Taioku outpatient new [facility]aryKaSaint [facility] SouthStart: 05-15-2022 End: 69-40-3498jmlgbrzultRU David Girvin Work Phone: [facility] Work Phone: Start: 05-15-2022 End: 39-95-2790Gqxajwv encounter procedureDO Klaus Horton Work Phone: [facility]-Lab Main CampusStart: 04-19-2022 End: 20-71-5317Axcsfpaa ReferredDO Klaus Horton Work Phone: [facility]-Community Outreach Start: 03-20-2022 End: 03-68-1032Dbyidsu encounter Franck Escudero [facility] Start: 02-24-2022 End: 82-19-3246rqqmcmmdyaBkbxt Girvin Other [facility] [employer] Other Start: 88-69-7935Fvsgqrimi encounterDaadela Mcleod [facility] Medicine [place]vueStart: 02-20-2022 End: 52-68-8144oissrtexgzVzmbvva Ditty Other [employer] Other Start: 94-12-3952Alcwripzo encounterCameron DimarkosyLLUVIAG GastroenterologyStart: 02-13-2022 End: 47-51-6962Qnamgbj encounter procedureDO Klaus Horton Work Phone: [facility]-Lab Main CampusStart: 01-31-2022 End: 63-54-8944cjdlhfmcofUhdry Girvin Other [employer] Other Start: 22-11-8738Bicqtlttl encounterDavienzo Mcleod [facility] Medicine BellueStart: 01-29-2022 End: 10-01-3930coszvltcclOV DAVID GIRVINFacility:Q6Lzblj: 46-65-7032Rmaxfayls encounterDavienzo Mcleod [facility] CenterueStart: 01-14-2022 End: 88-15-4661lrmygmtcvkTT DAVID GIRVINFacility:A8Rkfvy: 12-06-2021 End: 96-16-4448ztbymcdfptNjrkw Girvin Other [employer] Other Start: 11-56-4632Akbgtgtqq encounterDavienzo Mcleod [facility] Medicine BellueStart: 11-30-2021 End: 16-93-5751Mkgdlgiy ReferredDO Klaus Horton Work Phone: [facility]-Community Outreach Start: 11-06-2021 End: 60-79-6907vdhumseahzAkynpqb Ditty Other [employer] Other Start: 12-57-9732Blwhmwr encounter procedureCameron DittyFPG GastroenterologyStart: 08-14-2021 End: 52-70-4224rsywpwscfoZxspc Girvin Other [employer] Other Start: 21-85-5313Xlqzby outpatient visit 25 minutes Klaus Mcleod [facility] BellevueStart: 08-12-2021 End: 06-55-2227hoeiajlnobCL KLAUS HORTONFacility:O9Juiqx: 79-17-0559Iquhehmbs encounterDaadela Mcleod [facility] BellevueStart: 08-08-2021 End: 89-80-1632enyhvtsjyvVT KLAUS HORTONFacility:U0Qhrqq: 07-24-2021 End: 05-80-7734jywuiyqyfuSwquuzy Ditty Other [facility] [employer] Other Start: 41-90-4483PQTI visit new patientCamrosana Baird [facility] Gastroenterology Procedures DateProcedureProcedure DetailPerforming ClinicianStart: 14-76-3552WZERCCNBWNC SKIN LESIONNatalie A Felter GLUE MOUNTER OPERATOR-SHELLFISH FARMING SUPERVISOR Work Phone: Start: 09-37-5197Dsiofzxzfg elastography of liverDaadela Horton DO Work Phone: Start: 51-35-4402Pzjpp cultureDavienzo Horton DO Work Phone: Start: 85-32-8336Wzfns chest X-rayDO Klaus Horton Work Phone: Start: 34-27-0945Sbwiv metabolic panel calcium total Rishi D Dolce DPM FACFAS Work Phone: Start: 86-49-4587Cmbsqbup blood count with white cell differential, automatedMarc D Dolce DPM FACFAS Work Phone: Start: 05-28-2023 End: 99-82-0408WkpipnyymhnpbqbmksockiecjwGP Klaus Horton Work Phone: Start: 11-53-8853Evauiissart of thoracic spineDO Klaus Horton Work Phone: Start: 83-01-1037D-ray of cervical spineDO Klaus Horton Work Phone: Start: 05-37-0712onicjf of achilles tendon with graft Isichrissie Escudero Start: 12-66-8809hwmiu total knee arthroplastyTerchrissie Escudero appendectomyTerfeliciaa Kena arthroplasty of kneeTerfeliciaa Kena comment on above:LEFTColonoscopyTeresa Kena EsophagogastroduodenoscopyTeresa Kena Laparoscopic cholecystectomyTerchrissie Escudero Total abdominal hysterectomy with bilateral salpingo-oophorectomyTerfeliciaa Kena Plan of Treatment DateCare ActivityDetailAuthorStart: 06-27-2025 End: 83-33-2242Htkmdjw encounter procedureNOMS SWS DERMStart: 40-79-5922Yncryrz referralUniversity Hospitals [facility] Work Phone: Start: 09-21-2024 End: 22-68-2318Jvcxokd encounter yiaqgqyfb30/12/2025 3:50 PM EST Office Visit [facility] [address] [place] [phone] Rishi Patterson, DPM FACFAS [address] [place] [address] [facility] NMA PODStart: 08-31-2024 End: 07-21-5346Cyqmyix encounter procedureNOMS NMA PODComment on above:Arrived Start: 08-17-2024 End: 30-73-1273Wlltjig encounter qatfkbtbq16/08/2025 3:50 PM EST Office Visit [facility] [address] [place] [phone] Rishi Patterson, DPM FACFAS [address] [place] [address] [facility] NMA PODStart: 08-08-2024 End: 85-08-3727Mnwbvfp encounter procedureNOMS NMA PODComment on above:Arrived Start: 08-01-2024 End: 57-69-0517Kmphknr encounter oyqpnvyxq91/23/2024 2:20 PM EST Office Visit [facility] [address] [place] [address] Rishi Patterson, DPM FACFAS [address] [place] [address] [facility] NMA PODStart: 07-15-2024 End: 62-18-5442Fxnenge encounter ziwbxypkp41/06/2024 10:30 AM EST Office Visit [facility] [address] [place] [phone] Rishi Patterson, DPM FACFAS [address] [place] [address] ArrivedNOMS NMA PODComment on above:ArrivedStart: 06-28-2024 End: 32-84-1944BL Ankle - right WO contrastMR ankle right wo IV contrast Imaging Routine Peroneal tendon tear, right, initial encounter Right Achilles tendinitis Nontraumatic rupture of posterior tibial tendon, right Expected: 06/28/2024 (Approximate), Expires: 06/28/2025[facility] Work Phone: Comment on above:Expected: 06/28/2024 (Approximate), Expires: 06/28/2025Start: 06-28-2024 End: 48-70-5832Sglekeb encounter yrivinkhd35/19/2024 11:30 AM EST Office Visit [facility] [address] [place] [phone] Rishi Patterson, DPM FACFAS [address] [place] [address] [facility] NMA PODStart: 06-27-2024 End: 32-92-6184Ykevfir encounter procedureNOMS SWS DERMComment on above:Arrived Start: 06-20-2024 End: 06-88-1930Dsmdyir encounter /11/2024 10:00 AM EST Office Visit [facility] [address] [facility] [place] [address] Rishi Patterson, DPM FACFAS [address] [place] [address] [facility] NMA PODStart: 05-03-2024 End: 23-78-8496Nvvbdxc encounter ficshfusr17/24/2024 8:00 AM EDT Office Visit [facility] [address] [place] [phone] Rishi Patterson, DPM FACFAS [address] [place] [address] [facility] NMA PODStart: 04-28-2024 End: 64-17-6008Zsmgtaz encounter procedureNOMS EXT DEPStart: 04-19-2024 End: 97-19-6441Vutjred encounter lsinfpdby26/10/2024 8:10 AM EDT Office Visit [facility] [address] [place] [address] Rishi Patterson, DPM FACFAS [address] [place] [address] [facility] NMA PODStart: 86-96-6817Oaqnafdbn vaccinationInfluenza Vaccine (#1)[facility] HealthcareStart: 87-32-1102Gmouggt referralHenry County Hospital Work Phone: Start: 42-71-4398BwxtkxdrjSelect Medical [facility] Start: 93-06-4737Oqcnndfkn for malignant neoplasm of breastMammogramNOMS HealthcareStart: 74-29-2302Ynelkzfdy for malignant neoplasm of colonNOMS HealthcareBacteria identified in Urine by CultureSelect Medical [facility], BeachwoodComprehensive metabolic 2000 panel - Serum or PlasmaSelect Medical [facility], BeachwoodComprehensive metabolic 2000 panel - Serum or PlasmaSelect Medical [facility], BeachwoodComprehensive metabolic 1999 panel - Serum or Plasma [facility] BeachwoodPatient referralHenry County Hospital Work Phone: Urine [facility] Immunizations Immunization DateImmunizationNotesCare LdwxpqgyLmqexfqr18-22-7319OUYEC-11 (PFIZER) [phone] 12Y and olderDavid Clifford DO Work Phone: [facility] [place]09-04-2024influenza, high dose seasonal, preservative-freeDavid Clifford DO Work Phone: [facility]09-04-2024RSV, preF3, adj, pfDavid Clifford DO Work Phone: [facility]09-04-2024influenza virus vaccine, unspecified formulationMarc Dolce DPM FACFAS Work Phone: [facility] SouthHtmzvsufwi86-12-2373OEWMI-51 Vaccine Pfizer - Documentation Purposes OnlyJohanny Sultana Other [facility]10-12-2023Flu Shot - Documentation Purposes OnlyJohanny Sultana Other [facility]10-12-2023influenza virus vaccine, unspecified formulationMarc Dolce DPM FACFAS Work Phone: [facility] SouthAdowsclsks59-78-2569Cphmlvw QIV High-Dose 65YR+DO Klaus Horton Work Phone: [facility] [place]10-13-2022influenza, seasonal, injectableDavid Clifford Other [facility]10-13-2022COVID-19 Pfizer (bivalent)Klaus Horton Other [facility]04-26-2022COVID-19 Vaccine Pfizer - Documentation Purposes OnlyKlaus Horton Other [address]04-26-2022COVID-19 Comirnaty (Pfizer) Tri-Sucrose 12+DO Klaus Horton Work Phone: [facility]09-28-2021influenza, seasonal, injectableDavid Clifford Other [facility]09-28-2021COVID-19 Vaccine Pfizer - Documentation Purposes OnlyCameron Ditty Other [address] [place], [place] 5204609-28-2021Fluzone QIV High-Dose 65YR+DO Klaus Horton Work Phone: [phone] [place], [place] 3777903-03-2021COVID-19 Vaccine Pfizer - Documentation Purposes OnlyCameron Ditty Other [address] [place], [place] 5975002-10-2021COVID-19 Vaccine Pfizer - Documentation Purposes OnlyCameron Ditty Other [address] [place], [place] 5204609-29-2020Influenza vaccine, quadrivalent, adjuvantedDO Klaus Horton Work Phone: [phone]09-29-2020influenza, seasonal, injectableCameron Ditty Other [address] [place], [place] 5975011-06-2019 pneumococcal polysaccharide vaccine, 23 valentCameron Ditty Other [address] [place], [place] 5204607-31-2019zoster vaccine recombinantCameron Ditty Other [address] [place], [place] 5975004-11-2019zoster vaccine recombinantCameron Ditty Other [address] [place], [place] 5204601-08-2019hepatitis A vaccine, adult dosageDO Klaus Horton Work Phone: [phone]2019tetanus toxoid, reduced diphtheria toxoid, and acellular pertussis vaccine, adsorbedDO Klaus Horton Work Phone: [facility]2019typhoid capsular polysaccharide vaccineDO Klaus Horton Work Phone: [facility] [place]10-23-2018 pneumococcal conjugate vaccine, 13 valentCameron Ditty Other [facility]10-23-2018influenza, seasonal, injectableCameron Ditty Other [facility]10-28-2013zoster vaccine, liveDO Klaus Horton Work Phone: [facility] [place]10-21-2013influenza, seasonal, injectableDO Klaus Horton Work Phone: [facility] [place]11-18-2009novel onqgdsfoc-Q5W6-56, preservative-free, injectableDO Klaus Horton Work Phone: [facility] [place]02-25-1998diphtheria and tetanus toxoids, adsorbed for pediatric useDO Klaus Horton Work Phone: [facility] Payers DatePayer CategoryPayerPolicy [id number] Health InsuranceAARP [id number]-ryf [id number] (Managed Care)[facility] [id number] [facility] [id number] 2023-Present [address] [place]UILAR MARIA [address] [id number] 2018MedicareMEDICARE Member Subscriber Plan / Payer (Effective 2017-Present) Name: Maria Victoria Patt Trey MemberID: [id number] Relation to Subscriber: Self Name: Patt Irene Subscriber ID: [id number] PayerID: STATE Group ID: Not on file Type: Medicare Address: [place] [id number] [id number] [id number] .1.993702.3.57[id number] .1.829495.3.57[id number] ..1.864135.3.57[id number] 2..1.837740.3.57[id number] 2.16.840.1.959333.3.57[id number] 2.16.840.1.501383.3.57[id number] 2.16.840.1.062985.3.57[id number] 2.16.840.1.469888.3.57[id number] 2.16.840.1.896371.3.579.[id number] 2.16.840.1.971590.3.57[id number] 2.16.840.1.018608.3.57[id number] 2.16.840.1.989646.3.579.[id number] 2.16.840.1.922524.3.57[id number] 2.16.840.1.626048.3.57[id number] 2.16.840.1.414884.3.579.2.53[id number] 2.16.840.1.957857.3.579.2.[id number] 2.16.840.1.894848.3.57[id number] 2.16.840.1.171924.3.579.2.679131-34-0856Yxzkyuo8402591 2..840.1.181667.3.579.2.326141-49-0436Ywngndf9926692 2.16.840.1.271733.[id number] x465k678-4w21-56ao-z24y-[id number] 2.16.840.1.7[id number] 2.16.840.1.507957.3.579.2.531 [id number] 2.16.840.1.8[id number] 2.16.840.1.6[id number] 2.16.840.1.263094.3.579.2.531 [id number] 2.16.840.1.491[id number] 2.16.840.1.566731.3.579.2.531 Social History DateTypeDetailFacilityStart: 08-06-2021 End: 97-93-5546Luqwmkz smoking status NHISNever smoked tobacco (finding) [facility] CenterStart: 74-07-8870Emt Assigned At [facility] Hospitaltart: 05-03-2024 End: 08-92-8226Vdb Assigned At [facility] [employer] Other Tobacco smoking statusNeAultman Alliance Community Hospital CenterStart: 50-00-1130Qmtriqr use and exposureSmokeless tobacco non-userNOMS HealthcareStart: 05-03-2024 End: 40-81-6494Qkarpoggc beverage intakeLifetime non-drinker (finding)[facility] HealthcareStart: 05-03-2024 End: 84-83-5903Cmdbqft of Social functionNOMS HealthcareStart: 49-81-0457Szhvsze Commentcaffeine: 3-4 cups per day coffee, teaALTA VIEW HOSPITAL HealthcareStart: 1955 Sex assigned at birthNot on fileALTA VIEW HOSPITAL HealthcareStart: 38-53-1736TinTatqdvk sex unknown (finding)[facility] Rehabilitationtart: 09-19-2024 End: 12-07-2382CxgCfqxsw (finding)[facility] Goals DatePatient GoalDesired Activity/State Clinical Notes 10-30-2009 to 05-01-2025 Note Date & NziwOkzpEoxdkdme74-65-2952 History of Present illness Narrative* Rishi Patterson DPM FACFAS - 05/01/2025 2:20 PM EDT Images from the original note were not included. Patient: Patt Irene : 1955 PCP: Klaus Horton MD SUBJECTIVE This is a 70 y.o. female that presents today for a chief complaint of patient is here for follow upof the longitudinal repair of the peroneal tendon doing very well no complaints. She is having somemild issues with the orthotic devices. Allergies: Allergies Allergen Reactions Sulfa Antibiotics Hives and Anaphylaxis Sulfamethoxazole-Trimethoprim Unknown Past Medical History: Active Ambulatory Problems Diagnosis Date Noted No Active Ambulatory Problems Resolved Ambulatory Problems Diagnosis Date Noted No Resolved Ambulatory Problems Past Medical History: Diagnosis Date Appendicitis Cholelithiasis Esophagitis 2010 Gastroesophageal reflux disease 2010 Hyperlipidemia IBS (irritable bowel syndrome) Thyroid disease Tonsillitis Medications: Current Outpatient Medications: atorvastatin (Lipitor) 20 MG tablet, 1 (one) time each day at the same time, Disp: , Rfl: azelastine (Astelin) 0.1 % nasal spray, , Disp: , Rfl: buPROPion XL (Wellbutrin XL) 150 MG 24 hr tablet, Take 150 mg by mouth in the morning., Disp: , Rfl: clindamycin (Cleocin) 300 MG capsule, 2 tabs PO once 30-60 mins before dental procedure with food, Disp: 2 capsule, Rfl: 3 Estrogens Conjugated (Premarin) 0.625 MG/GM cream, , Disp: , Rfl: levothyroxine (Synthroid, Levoxyl) 150 MCG tablet, , Disp: , Rfl: Multiple Vitamin (MULTIVITAMIN ADULT PO), 1 (one) time each day at the same time, Disp: , Rfl: omega-3 (Fish Oil) 1000 MG capsule, 1 capsule 1 (one) time each day at the same time, Disp: , Rfl: triamcinolone (Kenalog) 0.1 % cream, Apply to affected areas, up to twice a day when flared, do notuse one the face, groin, or underarms, 30 day supply, Disp: 80 g, Rfl: 11 ROS: Constitutional: Denies fever, chills, nausea, vomiting GI: Denies abdominal pain, cramping, loose stool, gastric ulcers Musculoskeletal: Denies low back pain, knee pain, systemic arthritis Neurologic: Denies burning, tingling, transient paralysis OBJECTIVE Physical examination: Vascular: Dorsalis pedis posterior tibial pulses are palpable bilateral, no edema noted Neuro: Whitman-Corinne 5.07 monofilament intact, vibratory sensation intact Derm: All hair growth noted skin temperature is warm to cool knees to toes Musculoskeletal: Muscle strength +5/5 all intrinsic and extrinsic muscles tested no pain along the course of the peroneal tendon much improved XRAY: US: ASSESSMENT 1. Peroneal tendon tear, right, initial encounter PLAN I recommended orthotics modified to reduce the varus component of her peroneal tendon. We will attempt to have this modify Augmentin orthotic devices this point she will follow up with me if it has not improved ADRIÁN Dillon documented in this encounterCox [id number] Evaluation note* Author Derek Bennett [facility] BeachwoodAuthoredJuly 2024 1:51pmStart weight: Initial weight uncertain she does not believe the 255.3 pounds that was recorded. she is down 33.1lbs. today with a weight of 222.2 lbs. she is up 1.9lbs since last visit on 09/14/2024/. Starting Date: 12/21/2023. 1. Abnormal weight gain. She has a strong family history of type 2 diabetes. 2. Obesity- improved with a greater than 10% weight loss but she has had some weight regain of now 7.3 pounds off compounded semaglutide due to some constipation. We do have ways to help mitigate the constipation if you decide to take the medication again. She notes that she feels good though and has good energy. She is going to have her bioimpedance scan done and follow- up closely with our figure skater to try to find the healthiest [employer] sustainable nutrition program along with cardio and strength exercise. She prefers at this point still not to take a medication. She had hoped to lose another 70 pounds but we discussed the brains regulation of weight. We discussed optimum lifestyle in detail. She is active in [employer]. She is now eating less at night, getting some regular exercise including cardio and strength, trying to make better food choices/follow the plate method. She should continue to treat with long-term lifestyle changes of improved nutrition, increased exercise and activity, stress reduction, adequate sleep and behavioral modification versus short-term dieting. 3. MASH-treat with healthy lifestyle changes and weight loss. Her most recent FibroScan showed S3/F1 changes. She has had a greater than 10% weight loss and starting our program. Benefits of losing more weight and following a healthy lifestyle discussed. 4. NICA-on CPAP. She will continue to treat with good sleep hygiene and weight loss. 5. Prediabetes-with most recent A1c worsening up to 6.0 off compounded semaglutide. She stopped compounded semaglutide due to some constipation and not wanting to take the medication if possible. First-line treatment with long-term healthy lifestyle change, decreased simple sweets and refined starches, increased exercise and activity and long-term weight loss. She had been intolerant to metformin. She needs close long-term follow-up for this condition to prevent diabetes. 6. Hypercholesterolemia-significant improvement, her LDL dropped from 194 down to 71 on Lipitor 20 mg. She will continue to treat with decreasing the bad fats, added fats, increase activity and exercise and achieve long-term weight loss. Follow up with me in 8-12 weeks. New labs needed: Up-to-date as of 01/12/2025 and reviewed with the patient. Monitor regularly with her PCP at least yearly. 26 minutes spent treating the patient. Author Klaus Horton [facility]woodAut[facility] 2024 4:24pmThe above note written by ___Lissy Antony____ acting as human recorder, note dictated by Dr. Mandel .I performed the above HPI, ROS, and Examination. I formulated and dictated the treatment plan and was present for entire encounter. Klaus Horton D.O. Author Klaus Horton [facility]woodAuthoredFormerly [facility] 2024 12:32pmThe above note written by ___Lissy Antony____ acting as human recorder, note dictated by Dr. Mandel .I performed the above HPI, ROS, and Examination. I formulated and dictated the treatment plan and was present for entire encounter. Klaus Horton D.O. [facility] Work Phone: [phone]) 104-929806-23-2025 History of Present illness Narrative* Abdullahi Yang Nieves, GLUE MOUNTER OPERATOR-S[employer]LL[employer]ING SUPERVISOR - 01/30/2025 1:00 PM EDT Lesions: Location: Forehead Duration: months Quality: itchy Modifying factors: aggravated by picking Associated symptoms: rough Treatments: none All pertinent medical history, medications, and allergies were reviewed. General Exam: alert, oriented to person, place, and time, normal affect, well appearing Unaccompanied A focused exam completed based on patient reported problems, see below: Skin Exam 1. INFLAMED SEBORRHEIC KERATOSIS (5) Left Forehead (2), Mid Forehead (2), Mid Frontal Scalp Inflamed seborrheic keratoses: pink and brown stuck on verrucous scaly papule with surrounding erythema and bloody crust. The patient was informed that symptomatic seborrheic keratoses are benign growths that become inflamed, itchy, tender, traumatized, caught on clothing, or bleed. Symptomatic lesions can be treated with cryotherapy or curretage. Thicker lesions treated with cryotherapy may require more than one treatment. The patient was instructed to notify the office if abnormal redness or tenderness develops atthe treatment site. Cryotherapy today, see procedure note. Diagnosis: Inflamed seborrheic keratosis Indication: Inflamed Consent: Verbal consent was obtained and risks were discussed, including, but not limited to risks of scarring, darker or head of it pigmentary changes, recurrence, incomplete removal and infection. Method: Liquid nitrogen was used to treat the lesion(s) with two 5-10 second freeze-thaw cycles Number of lesions treated: 5 Post-procedure instructions: Instructions were given verbally. The office will be contacted if the lesion fails to resolve despite treatment, or if a side effect develops such as abnormal crusting, scabbing, redness or tenderness Cryotherapy, skin lesion - Left Forehead (2), Mid Forehead (2), Mid Frontal Scalp Next Visit: 06/27/2025 documented in this encounterCox [id number] Evaluation note* Author Klaus Horton [facility] 2024 12:32pmThe above note written by ___Lissy Antony____ acting as human recorder, note dictated by Dr. Mandel .I performed the above HPI, ROS, and Examination. I formulated and dictated the treatment plan and was present for entire encounter. Klaus Horton D.O. [facility] Work Phone: [phone]) 709-396205-01-2025 Evaluation note* Author Claudia Saavedra [facility]woodAuthoredMichael [facility]. [facility] 2024 1:24pmStart weight: Initial weight uncertain she does not believe the 255.3 pounds that was recorded. she is down 33.1lbs. today with a weight of 222.2 lbs. she is up 1.9lbs since last visit on 09/14/2024/. Starting Date: 12/21/2023. 1. Abnormal weight gain. She has a strong family history of type 2 diabetes. 2. Obesity- improved with a greater than 10% weight loss but now is off compounded semaglutide due to constipation. She prefers not to take a medication at this time. She is active in [employer]. She is now eating less at night, getting some regular exercise including cardio and strength, trying to make better food choices/follow the plate method. She should continue to treat with long-term lifestyle changes of improved nutrition, increased exercise and activity, stress reduction, adequate sleep and behavioral modification versus short-term dieting. 3. MASH-treat with healthy lifestyle changes and weight loss. She has had a greater than 10% weight loss and starting our program. 4. NICA-on CPAP. Treat with good sleep hygiene and weight loss. 5. Prediabetes-with most recent A1c still 5.8 despite being on compounded semaglutide. She stopped compounded semaglutide due to constipation. First-line treatment with long-term healthy lifestyle change, decreased simple sweets and refined starches, increased exercise and activity and long-term weight loss. She has been intolerant to metformin. She needs close long-term follow-up for this condition to prevent diabetes. 6. Hypercholesterolemia-significant improvement, her LDL dropped from 194 down to 110 on Lipitor 20 mg. She will continue to treat with decreasing the bad fats, added fats, increase activity and exercise and achieve long-term weight loss. Follow up with me in 8-12 weeks. New labs needed: Up-to-date. Monitor with her PCP. Author Klaus Horton [facility] [place]AuthoredJuly 2024 4:24pmThe above note written by ___Lissy Antony____ acting as human recorder, note dictated by Dr. Mandel .I performed the above HPI, ROS, and Examination. I formulated and dictated the treatment plan and was present for entire encounter. Klaus Horton D.O. Author Klaus Horton [facility]woodAuthoredAtrium Health Pinevillee 2024 12:32pmThe above note written by ___Lissy Antony____ acting as human recorder, note dictated by Dr. Mandel .I performed the above HPI, ROS, and Examination. I formulated and dictated the treatment plan and was present for entire encounter. Klaus Horton D.O. [facility] Work Phone: [phone] History of Present illness Narrative* Rishi Patterson DPM FACFAS - 09/26/2024 3:00 PM EST Images from the original note were not included. Patient: Patt Irene : 1955 PCP: Klaus Horton MD SUBJECTIVE This is a 69 y.o. 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 Postop week 8. They deny fevers, chills, nausea, vomiting, calf pain and shortness of breath. Pain level is being managed with ice elevation and pain medication. They have been relatively compliant with her postoperative care. Patient states she feels 100 percent better she is leaving for [place] on vacation Allergies: Allergies Allergen Reactions Sulfa Antibiotics Hives and Anaphylaxis Sulfamethoxazole-Trimethoprim Unknown Past Medical History: Past Medical History: Diagnosis Date Appendicitis Cholelithiasis Esophagitis 2010 Gastroesophageal reflux disease 2010 Hyperlipidemia ([facility]) IBS (irritable bowel syndrome) Thyroid disease ([facility]) Tonsillitis Medications: Current Outpatient Medications: atorvastatin (Lipitor) 20 MG tablet, 1 (one) time each day at the same time., Disp: , Rfl: azelastine (Astelin) 0.1 % nasal spray, , Disp: , Rfl: buPROPion XL (Wellbutrin XL) 300 MG 24 hr tablet, 1 (one) time each day at the same time., Disp: , Rfl: clindamycin (Cleocin) 300 MG capsule, 2 tabs PO once 30-60 mins before dental procedure with food, Disp: 2 capsule, Rfl: 3 Estrogens Conjugated (Premarin) 0.625 MG/GM cream, as directed Vaginal, Disp: , Rfl: levothyroxine (Synthroid, Levoxyl) 150 MCG tablet, Orally, Disp: , Rfl: Multiple Vitamin (MULTIVITAMIN ADULT PO), 1 (one) time each day at the same time., Disp: , Rfl: omega-3 (Fish Oil) 1000 MG capsule, 1 capsule 1 (one) time each day at the same time., Disp: , Rfl: triamcinolone (Kenalog) 0.1 % cream, Apply to affected areas, up to twice a day when flared, do notuse one the face, groin, or underarms, 30 day supply, Disp: 80 g, Rfl: 11 Review of systems: Constitutional: Denies fever, chills, nausea, vomiting GI: Denies abdominal pain, cramping, loose stool, gastric ulcers Musculoskeletal: Denies low back pain, knee pain, systemic arthritis Neurologic: Denies burning, tingling, transient paralysis OBJECTIVE Physical Examination: DERM: Positive hair growth to b/l feet with good skin turgor noted. Negative openings in skin VASC: DP /PT were palpable bilateral. Capillary refill time < 3 seconds Digits 1-5 bilateral NEURO: Whitman Corinne 5.07 monofilament was intact B/L. Vibratory sensation was intact B/L Musculoskeletal: Muscle strength was +5 over 5 all intrinsic and extrinsic muscles tested. NegativeHomans test noted Surgical site evaluation: The incision site is healing well without signs infection. Minimal swelling noted. Consistent with the patient's level of surgery consistent with time frame postoperatively pain along the course of the peroneal tendon no pain at the Achilles tendon region much improved. Nopain along the course of the peroneal tendon much improved no pain at the posterior heel ASSESSMENT 1. Peroneal tendon tear, right, initial encounter PLAN Patient is progressing very well. She may continue with the use of the ASO brace to tolerance follow up me p.r.n. she is doing very well. ADRIÁN Dillon documented in this encounterCox [id number] History of Present illness Narrative* ADRIÁN Dillon - 08/31/2024 4:30 PM EST Images from the original note were not included. Patient: Patt Irene : 1955 PCP: Klaus Horton MD SUBJECTIVE This is a 69 y.o. 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 Postop week 6. They deny fevers, chills, nausea, vomiting, calf pain and shortness of breath. Pain level is being managed with ice elevation and pain medication. They have been relatively compliant with her postoperative care. Allergies: Allergies Allergen Reactions Sulfa Antibiotics Hives and Anaphylaxis Sulfamethoxazole-Trimethoprim Unknown Past Medical History: Past Medical History: Diagnosis Date Appendicitis Cholelithiasis Esophagitis 2009 Gastroesophageal reflux disease 2009 Hyperlipidemia (CMS/HCC) IBS (irritable bowel syndrome) Thyroid disease (CMS/HCC) Tonsillitis Medications: Current Outpatient Medications: atorvastatin (Lipitor) 20 MG tablet, 1 (one) time each day at the same time., Disp: , Rfl: azelastine (Astelin) 0.1 % nasal spray, , Disp: , Rfl: buPROPion XL (Wellbutrin XL) 300 MG 24 hr tablet, 1 (one) time each day at the same time., Disp: , Rfl: clindamycin (Cleocin) 300 MG capsule, 2 tabs PO once 30-60 mins before dental procedure with food, Disp: 2 capsule, Rfl: 3 Estrogens Conjugated (Premarin) 0.625 MG/GM cream, as directed Vaginal, Disp: , Rfl: levothyroxine (Synthroid, Levoxyl) 150 MCG tablet, Orally, Disp: , Rfl: Multiple Vitamin (MULTIVITAMIN ADULT PO), 1 (one) time each day at the same time., Disp: , Rfl: omega-3 (Fish Oil) 1000 MG capsule, 1 capsule 1 (one) time each day at the same time., Disp: , Rfl: triamcinolone (Kenalog) 0.1 % cream, Apply to affected areas, up to twice a day when flared, do notuse one the face, groin, or underarms, 30 day supply, Disp: 80 g, Rfl: 11 Review of systems: Constitutional: Denies fever, chills, nausea, vomiting GI: Denies abdominal pain, cramping, loose stool, gastric ulcers Musculoskeletal: Denies low back pain, knee pain, systemic arthritis Neurologic: Denies burning, tingling, transient paralysis OBJECTIVE Physical Examination: DERM: Positive hair growth to b/l feet with good skin turgor noted. Negative openings in skin VASC: DP /PT were palpable bilateral. Capillary refill time < 3 seconds Digits 1-5 bilateral NEURO: Whitman Corinne 5.07 monofilament was intact B/L. Vibratory sensation was intact B/L Musculoskeletal: Muscle strength was +5 over 5 all intrinsic and extrinsic muscles tested. NegativeHomans test noted Surgical site evaluation: The incision site is healing well without signs infection. Minimal swelling noted. Consistent with the patient's level of surgery consistent with time frame postoperatively pain along the course of the peroneal tendon no pain at the Achilles tendon region much improved. ASSESSMENT 1. Peroneal tendon tear, right, initial encounter 2. Contracture of right ankle 3. Right Achilles tendinitis PLAN Patient is progressing very well. I recommended she transition to an ASO brace which was dispensed to her today. She has no pain at this time. The patient was dispensed 1 ASO ankle gauntlet brace prefabricated (L1902). They are instructed on the use of the brace. The brace was adjusted to ensure proper fit. The brace will be utilized perform immobilization and compression during the process. Follow up 3 weeks ASO, Gauntlet Brace, Prefabricated, (L1902) was dispensed, fitted, and adjusted at this visit. The function of the device is to provide support, decrease edema, control motion at the ankle, and subtalar joints. It will redistribute pressure and allow more comfortable weight-bearing and better support. It is for increased stability of the ankle joint and subtalar joint. The device is medically necessary for the condition, symptoms and diagnosis. The patient was educated as to proper use and care, and this was reviewed in detail. Written instructions and warranty information were given with thedevice. The current supplier standards were given to the patient. ADRIÁN Dillon documented in this encounterCox [id number] History of Present illness Narrative* ADRIÁN Dillon - 08/17/2024 3:50 PM EST Images from the original note were not included. Patient: Patt Irene : 1955 PCP: Klaus Horton MD SUBJECTIVE This is a 69 y.o. 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 Postop week 3. They deny fevers, chills, nausea, vomiting, calf pain and shortness of breath. Pain level is being managed with ice elevation and pain medication. They have been relatively compliant with her postoperative care. She is here today to have her sutures removed. Allergies: Allergies Allergen Reactions Sulfa Antibiotics Hives and Anaphylaxis Sulfamethoxazole-Trimethoprim Unknown Past Medical History: Past Medical History: Diagnosis Date Appendicitis Cholelithiasis Esophagitis 2010 Gastroesophageal reflux disease 2010 Hyperlipidemia ([facility]) IBS (irritable bowel syndrome) Thyroid disease ([facility]) Tonsillitis Medications: Current Outpatient Medications: atorvastatin (Lipitor) 20 MG tablet, 1 (one) time each day at the same time., Disp: , Rfl: azelastine (Astelin) 0.1 % nasal spray, , Disp: , Rfl: buPROPion XL (Wellbutrin XL) 300 MG 24 hr tablet, 1 (one) time each day at the same time., Disp: , Rfl: clindamycin (Cleocin) 300 MG capsule, 2 tabs PO once 30-60 mins before dental procedure with food, Disp: 2 capsule, Rfl: 3 cyclobenzaprine (Flexeril) 10 MG tablet, Take 1 tablet (10 mg) by mouth in the morning and 1 tablet(10 mg) in the evening and 1 tablet (10 mg) before bedtime. Do all this for 10 days., Disp: 30 tablet, Rfl: 0 Estrogens Conjugated (Premarin) 0.625 MG/GM cream, as directed Vaginal, Disp: , Rfl: levothyroxine (Synthroid, Levoxyl) 150 MCG tablet, Orally, Disp: , Rfl: meloxicam (Mobic) 15 MG tablet, TAKE 1 TABLET BY MOUTH EVERY DAY, Disp: 30 tablet, Rfl: 1 Multiple Vitamin (MULTIVITAMIN ADULT PO), 1 (one) time each day at the same time., Disp: , Rfl: omega-3 (Fish Oil) 1000 MG capsule, 1 capsule 1 (one) time each day at the same time., Disp: , Rfl: Probiotic Product (Get Smart Content) capsule, Take 1 capsule by mouth in the morning., Disp: ,Rfl: tiZANidine (Zanaflex) 4 MG tablet, Take 1 tablet (4 mg) by mouth every 6 (six) hours if needed for muscle spasms for up to 10 days, Disp: 30 tablet, Rfl: 0 triamcinolone (Kenalog) 0.1 % cream, Apply to affected areas, up to twice a day when flared, do notuse one the face, groin, or underarms, 30 day supply, Disp: 80 g, Rfl: 11 Review of systems: Constitutional: Denies fever, chills, nausea, vomiting GI: Denies abdominal pain, cramping, loose stool, gastric ulcers Musculoskeletal: Denies low back pain, knee pain, systemic arthritis Neurologic: Denies burning, tingling, transient paralysis OBJECTIVE Physical Examination: DERM: Positive hair growth to b/l feet with good skin turgor noted. Negative openings in skin VASC: DP /PT were palpable bilateral. Capillary refill time < 3 seconds Digits 1-5 bilateral NEURO: Whitman Corinne 5.07 monofilament was intact B/L. Vibratory sensation was intact B/L Musculoskeletal: Muscle strength was +5 over 5 all intrinsic and extrinsic muscles tested. NegativeHomans test noted Surgical site evaluation: The incision site is healing well without signs infection. Minimal swelling noted. Consistent with the patient's level of surgery consistent with time frame postoperatively.Sutures remain intact without signs of dehiscence. ASSESSMENT 1. Peroneal tendon tear, right, initial encounter 2. Heel spur, right PLAN Today we removed the sutures we applied Steri-Strips of the incision site continue to ambulate in his surgical shoe elevation is also necessary she will change his Steri-Strips daily follow up with me in 2 weeks for reassessment ADRIÁN Dillon documented in this encounterCox [id number] History of Present illness Narrative* ADRIÁN Dillon - 08/08/2024 4:30 PM EST Images from the original note were not included. Patient: Patt Irene : 1955 PCP: Klaus Horton MD SUBJECTIVE This is a 69 y.o. 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 Postop week 2. They deny fevers, chills, nausea, vomiting, calf pain and shortness of breath. Pain level is being managed with ice elevation and pain medication. They have been relatively compliant with her postoperative care. Allergies: Allergies Allergen Reactions Sulfa Antibiotics Hives and Anaphylaxis Sulfamethoxazole-Trimethoprim Unknown Past Medical History: Past Medical History: Diagnosis Date Appendicitis Cholelithiasis Esophagitis 2010 Gastroesophageal reflux disease 2009 Hyperlipidemia (CMS/HCC) IBS (irritable bowel syndrome) Thyroid disease (CMS/HCC) Tonsillitis Medications: Current Outpatient Medications: atorvastatin (Lipitor) 20 MG tablet, 1 (one) time each day at the same time., Disp: , Rfl: azelastine (Astelin) 0.1 % nasal spray, , Disp: , Rfl: buPROPion XL (Wellbutrin XL) 300 MG 24 hr tablet, 1 (one) time each day at the same time., Disp: , Rfl: clindamycin (Cleocin) 300 MG capsule, 2 tabs PO once 30-60 mins before dental procedure with food, Disp: 2 capsule, Rfl: 3 cyclobenzaprine (Flexeril) 10 MG tablet, Take 1 tablet (10 mg) by mouth in the morning and 1 tablet(10 mg) in the evening and 1 tablet (10 mg) before bedtime. Do all this for 10 days., Disp: 30 tablet, Rfl: 0 Estrogens Conjugated (Premarin) 0.625 MG/GM cream, as directed Vaginal, Disp: , Rfl: levothyroxine (Synthroid, Levoxyl) 150 MCG tablet, Orally, Disp: , Rfl: meloxicam (Mobic) 15 MG tablet, TAKE 1 TABLET BY MOUTH EVERY DAY, Disp: 30 tablet, Rfl: 1 Multiple Vitamin (MULTIVITAMIN ADULT PO), 1 (one) time each day at the same time., Disp: , Rfl: omega-3 (Fish Oil) 1000 MG capsule, 1 capsule 1 (one) time each day at the same time., Disp: , Rfl: Probiotic Product (Get Smart Content) capsule, Take 1 capsule by mouth in the morning., Disp: ,Rfl: tiZANidine (Zanaflex) 4 MG tablet, Take 1 tablet (4 mg) by mouth every 6 (six) hours if needed for muscle spasms for up to 10 days, Disp: 30 tablet, Rfl: 0 triamcinolone (Kenalog) 0.1 % cream, Apply to affected areas, up to twice a day when flared, do notuse one the face, groin, or underarms, 30 day supply, Disp: 80 g, Rfl: 11 Review of systems: Constitutional: Denies fever, chills, nausea, vomiting GI: Denies abdominal pain, cramping, loose stool, gastric ulcers Musculoskeletal: Denies low back pain, knee pain, systemic arthritis Neurologic: Denies burning, tingling, transient paralysis OBJECTIVE Physical Examination: DERM: Positive hair growth to b/l feet with good skin turgor noted. Negative openings in skin VASC: DP /PT were palpable bilateral. Capillary refill time < 3 seconds Digits 1-5 bilateral NEURO: Whitman Corinne 5.07 monofilament was intact B/L. Vibratory sensation was intact B/L Musculoskeletal: Muscle strength was +5 over 5 all intrinsic and extrinsic muscles tested. NegativeHomans test noted Surgical site evaluation: The incision site is healing well without signs infection. Minimal swelling noted. Consistent with the patient's level of surgery consistent with time frame postoperatively.Sutures remain intact without signs of dehiscence. ASSESSMENT 1. Peroneal tendon tear, right, initial encounter 2. Other synovitis and tenosynovitis, right ankle and foot 3. Right Achilles tendinitis PLAN Today we applied a dry sterile dressing with betadine to the incision site. I removed every other suture today Covered the incision with 4x4s, Kerlix and Aditya bandage. The Patient is to continue ice and elevation on a regular basis. They were reminded to remain compliant with her weight-bearing status in the ambulatory surgical device. Place the patient multilayer compressive Pierce dressing. She is to start an 81 mg aspirin per day continue nonweightbearing status follow up with me 1 week to have the remaining sutures removed. ADRIÁN Dillon documented in this encounterCox [id number] History of Present illness Narrative* ADRIÁN Dillon - 08/01/2024 2:20 PM EST Images from the original note were not included. Patient: Patt Irene : 1955 PCP: Klaus Horton MD SUBJECTIVE This is a 69 y.o. 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 Postop week 1. They deny fevers, chills, nausea, vomiting, calf pain and shortness of breath. Pain level is being managed with ice elevation and pain medication. They have been relatively compliant with her postoperative care. Allergies: Allergies Allergen Reactions Sulfa Antibiotics Hives and Anaphylaxis Sulfamethoxazole-Trimethoprim Unknown Past Medical History: Past Medical History: Diagnosis Date Appendicitis Cholelithiasis Esophagitis 2010 Gastroesophageal reflux disease 2010 Hyperlipidemia ([facility]) IBS (irritable bowel syndrome) Thyroid disease ([facility]) Tonsillitis Medications: Current Outpatient Medications: atorvastatin (Lipitor) 20 MG tablet, 1 (one) time each day at the same time., Disp: , Rfl: azelastine (Astelin) 0.1 % nasal spray, , Disp: , Rfl: buPROPion XL (Wellbutrin XL) 300 MG 24 hr tablet, 1 (one) time each day at the same time., Disp: , Rfl: clindamycin (Cleocin) 300 MG capsule, 2 tabs PO once 30-60 mins before dental procedure with food, Disp: 2 capsule, Rfl: 3 cyclobenzaprine (Flexeril) 10 MG tablet, Take 1 tablet (10 mg) by mouth in the morning and 1 tablet(10 mg) in the evening and 1 tablet (10 mg) before bedtime. Do all this for 10 days., Disp: 30 tablet, Rfl: 0 Estrogens Conjugated (Premarin) 0.625 MG/GM cream, as directed Vaginal, Disp: , Rfl: levothyroxine (Synthroid, Levoxyl) 150 MCG tablet, Orally, Disp: , Rfl: meloxicam (Mobic) 15 MG tablet, TAKE 1 TABLET BY MOUTH EVERY DAY, Disp: 30 tablet, Rfl: 1 Multiple Vitamin (MULTIVITAMIN ADULT PO), 1 (one) time each day at the same time., Disp: , Rfl: omega-3 (Fish Oil) 1000 MG capsule, 1 capsule 1 (one) time each day at the same time., Disp: , Rfl: Probiotic Product (Get Smart Content) capsule, Take 1 capsule by mouth in the morning., Disp: ,Rfl: tiZANidine (Zanaflex) 4 MG tablet, Take 1 tablet (4 mg) by mouth every 6 (six) hours if needed for muscle spasms for up to 10 days, Disp: 30 tablet, Rfl: 0 triamcinolone (Kenalog) 0.1 % cream, Apply to affected areas, up to twice a day when flared, do notuse one the face, groin, or underarms, 30 day supply, Disp: 80 g, Rfl: 11 Review of systems: Constitutional: Denies fever, chills, nausea, vomiting GI: Denies abdominal pain, cramping, loose stool, gastric ulcers Musculoskeletal: Denies low back pain, knee pain, systemic arthritis Neurologic: Denies burning, tingling, transient paralysis OBJECTIVE Physical Examination: DERM: Positive hair growth to b/l feet with good skin turgor noted. Negative openings in skin VASC: DP /PT were palpable bilateral. Capillary refill time < 3 seconds Digits 1-5 bilateral NEURO: Whitman Corinne 5.07 monofilament was intact B/L. Vibratory sensation was intact B/L Musculoskeletal: Muscle strength was +5 over 5 all intrinsic and extrinsic muscles tested. NegativeHomans test noted Surgical site evaluation: The incision site is healing well without signs infection. Minimal swelling noted. Consistent with the patient's level of surgery consistent with time frame postoperatively.Sutures remain intact without signs of dehiscence. ASSESSMENT 1. Peroneal tendon tear, right, initial encounter 2. Heel spur, right PLAN Today we applied a dry sterile dressing with betadine to the incision site. Covered the incision with 4x4s, Kerlix and Aditya bandage. The Patient is to continue ice and elevation on a regular basis. They were reminded to remain compliant with her weight-bearing status in the ambulatory surgical device. Place the patient multilayer compressive Pierce dressing. She is to start an 81 mg aspirin per daycontinue nonweightbearing status follow up with me 1 week. ADRIÁN Dillon documented in this [facility]12-18-2024 Telephone encounter Note* Telephone Encounter - ADRIÁN Dillon - 07/27/2024 9:26 PM EST .The prescription has been sent to the pharmacy. Thank you. [id number] Miscellaneous Notes* Telephone Encounter - ADRIÁN Dillon - 07/27/2024 9:26 PM EST .The prescription has been sent to the pharmacy. Thank you. documented in this [facility]12-11-2024 Telephone encounter Note* Telephone Encounter - Aisha Tripp RN - 07/20/2024 11:32 AM EST Patient called and asked if you could send in script for Flexeril? [id number] Miscellaneous Notes* Telephone Encounter - Aisha Tripp RN - 07/20/2024 11:32 AM EST Patient called and asked if you could send in script for Flexeril? documented in this encounterCox [id number] Telephone encounter Note* Telephone Encounter - ADRIÁN DillonFAS - 07/17/2024 12:11 PM EST Phone #: [phone] Insurance: Payor: MEDICARE / Plan: MEDICARE PART B / Product Type: Medicare / Preferred Date/Time: First Available [x] MOI [] Patient Name: Patt Irene : 1955 Surgeon: Dr. Rishi Patterson [x] Dr. Timoteo Patterson [] [place] [facility] [place] [facility] [place] [facility] [] Procedure(s): 1. repair ruptured peroneal brevis tendon 2. Synovectomy peroneal brevis tendon 3. Repair subluxing peroneal tendon CPT Code(s): 02733, 45910, 59915 Diagnosis: ICD-10-CM 1. Peroneal tendon tear, right, initial encounter S86.311A 2. Other synovitis and tenosynovitis, right ankle and foot M65.871 3. 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 Procedure Time: 30 min [] 1 Hour [x] 1.5 Hour [] 2 Hours [] Anesthesia: MAC [x] General [] Local [] Popliteal Block [] Position: Supine [x] Prone [] Lateral [] Special Requests: C-arm [] Pulse Lavage [] VersaJet [] Special Equipment: Arthrex plate /screws [] Internal brace [] Arthrex FiberTak [] Biopro Staple [] Biopro Nakul Impant [] Other [] Pre-op Orders: Abx 30 min Prior: 2g Ancef [x] Clindamycin 600mg [] Vancomycin 1 g [] Post-op WB: Partial WB [] Non-WB [x] Crutches [] Walker [] Knee Scooter [] PCP Clearance: Klaus Horton MD Other Clearance: Cardiology [] Rheumatology [] Other [] [id number] Miscellaneous Notes* Telephone Encounter - ADRIÁN Dillon - 07/17/2024 12:11 PM EST Phone #: [phone] Insurance: Payor: MEDICARE / Plan: MEDICARE PART B / Product Type: Medicare / Preferred Date/Time: First Available [x] MOI [] Patient Name: Patt Irene : 1955 Surgeon: Dr. Rishi Patterson [x] Dr. Timoteo Patterson [] [place] [facility] [place] [facility] [place] [facility] [] Procedure(s): 1. repair ruptured peroneal brevis tendon 2. Synovectomy peroneal brevis tendon 3. Repair subluxing peroneal tendon CPT Code(s): 76423, 97127, 71869 Diagnosis: ICD-10-CM 1. Peroneal tendon tear, right, initial encounter S86.311A 2. Other synovitis and tenosynovitis, right ankle and foot M65.871 3. 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 Procedure Time: 30 min [] 1 Hour [x] 1.5 Hour [] 2 Hours [] Anesthesia: MAC [x] General [] Local [] Popliteal Block [] Position: Supine [x] Prone [] Lateral [] Special Requests: C-arm [] Pulse Lavage [] VersaJet [] Special Equipment: Arthrex plate /screws [] Internal brace [] Arthrex FiberTak [] Biopro Staple [] Biopro Nakul Impant [] Other [] Pre-op Orders: Abx 30 min Prior: 2g Ancef [x] Clindamycin 600mg [] Vancomycin 1 g [] Post-op WB: Partial WB [] Non-WB [x] Crutches [] Walker [] Knee Scooter [] PCP Clearance: Klaus Horton MD Other Clearance: Cardiology [] Rheumatology [] Other [] documented in this encounterCox [id number] History of Present illness Narrative* ADRIÁN Dillon - 07/15/2024 10:30 AM EST Images from the original note were not included. Patient: Patt Irene : 1955 PCP: Klaus Horton MD SUBJECTIVE This is a 69 y.o. female that presents today for a chief complaint of patient had a Tenex procedureperformed on the right Achilles tendon. The bursa has improved she is having pain laterally her MRIpreviously performed revealed a. Split tear of peroneus brevis tendon as it courses along the inferior margin of the lateral malleolus for a length of approximately 3 cm. Peroneus longus tendon is intact. Extensor tendons are intact. She is having pain in that region at this point. Her heel pain has improved her Achilles tendon pain has improved she is still having significant pain at the peroneal tendon region where she does relate some mild subluxation noted she had another MRI which revealed: No pathology was noted at the posterior tibial tendon. MR ankle right wo IV contrast Result Date: 07/14/2024 Impression: Achilles tendinosis. Split tear peroneus brevis. Chronic Patel neuropathy. ELECTRONICALLY SIGNED BY: Sanya Joshua MD Allergies: Allergies Allergen Reactions Sulfa Antibiotics Hives and Anaphylaxis Sulfamethoxazole-Trimethoprim Unknown Past Medical History: Past Medical History: Diagnosis Date Appendicitis Cholelithiasis Esophagitis 2009 Gastroesophageal reflux disease 2010 Hyperlipidemia (CMS/HCC) IBS (irritable bowel syndrome) Thyroid disease (CMS/HCC) Tonsillitis Medications: Current Outpatient Medications: atorvastatin (Lipitor) 20 MG tablet, 1 (one) time each day at the same time., Disp: , Rfl: azelastine (Astelin) 0.1 % nasal spray, , Disp: , Rfl: buPROPion XL (Wellbutrin XL) 300 MG 24 hr tablet, 1 (one) time each day at the same time., Disp: , Rfl: clindamycin (Cleocin) 300 MG capsule, 2 tabs PO once 30-60 mins before dental procedure with food, Disp: 2 capsule, Rfl: 3 Estrogens Conjugated (Premarin) 0.625 MG/GM cream, as directed Vaginal, Disp: , Rfl: levothyroxine (Synthroid, Levoxyl) 150 MCG tablet, Orally, Disp: , Rfl: meloxicam (Mobic) 15 MG tablet, TAKE 1 TABLET BY MOUTH EVERY DAY, Disp: 30 tablet, Rfl: 1 Multiple Vitamin (MULTIVITAMIN ADULT PO), 1 (one) time each day at the same time., Disp: , Rfl: omega-3 (Fish Oil) 1000 MG capsule, 1 capsule 1 (one) time each day at the same time., Disp: , Rfl: Probiotic Product (Get Smart Content) capsule, Take 1 capsule by mouth in the morning., Disp: ,Rfl: tiZANidine (Zanaflex) 4 MG tablet, Take 1 tablet (4 mg) by mouth every 6 (six) hours if needed for muscle spasms for up to 10 days, Disp: 30 tablet, Rfl: 0 triamcinolone (Kenalog) 0.1 % cream, Apply to affected areas, up to twice a day when flared, do notuse one the face, groin, or underarms, 30 day supply, Disp: 80 g, Rfl: 11 ROS: Constitutional: Denies fever, chills, nausea, vomiting GI: Denies abdominal pain, cramping, loose stool, gastric ulcers Musculoskeletal: Denies low back pain, knee pain, systemic arthritis Neurologic: Denies burning, tingling, transient paralysis OBJECTIVE Physical examination: Vascular: Dorsalis pedis posterior tibial pulses are palpable bilateral, no edema noted Neuro: Whitman-Corinne 5.07 monofilament intact, vibratory sensation intact Derm: All hair growth noted skin temperature is warm to cool knees to toes Musculoskeletal: Muscle strength +5/5 all intrinsic and extrinsic muscles tested pain along the course of the peroneal tendon left. Pain with resisted eversion and plantar flexion. Pain at the watershed region of the peroneal brevis tendon mild subluxation noted with the eversion of the foot. Appears to be exquisite tenderness at that region. ASSESSMENT 1. Peroneal tendon tear, right, initial encounter 2. Other synovitis and tenosynovitis, right ankle and foot 3. 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 I am recommending repair of the peroneal brevis split tear with tubularization synovectomy and repair of subluxing peroneal tendon. She is failed conservative care and wishes for surgical intervention. The patient was educated on the pre, sarah, postoperative course of the procedure in great detail. We discussed further conservative therapies which the patient has attempted and has failed. I discussed the surgical procedure in great detail including the risks and possible complications. We discussed the following complications in great detail including but not limited to: Pain, infection, prolonged swelling, numbness, tingling, burning, nonhealing wound, nonunion, malunion, chronicpain, development of complex regional pain syndrome, development of deep venous thrombosis. Patientfully understood all possible risks and complications. All questions have been asked and answered. They have consented for the above-stated procedure. ADRIÁN Dillon documented in this encounterCox [id number] NoteEXAM/TECHNIQUE: MR ANKLE RIGHT WO IV CONTRAST HISTORY: History of Tenex procedure on the Achilles tendon in April. Medial, lateral, and posterior ankle pain for 1 month. Concern for injury to the peroneal or posterior tibial tendons. COMPARISON: MRI 03/15/2024. RESULT: Cartilage: Mild degenerative changes within the midfoot, similar to prior. Tibiotalar and subtalar joint cartilage grossly preserved. Ligaments: Talofibular ligaments, tibiofibular ligaments, calcaneofibular ligament and deltoid ligament all appear to be intact. Tendons: Moderate to severe Achilles tendinosis, without tear. Split tear involving peroneus brevisin the retromalleolar groove, without significant tendon retraction, similar to prior. Peroneus longus appears intact. Extensor tendons and medial flexor tendons appear intact.. Joint Fluid: Physiologic quantity of joint fluid. Bone Marrow: No evidence for fracture, osteochondral lesion, osteomyelitis or other marrow replacing lesion. Plantar Aponeurosis: Minimal thickening of the central band, with tiny calcaneal enthesophyte at origin, without tear. Sinus Tarsi: Sinus tarsi is within normal limits. Muscle: Diffuse fatty atrophy of abductor digiti minimi musculature, suggestive of chronic Patel neuropathy. Other musculature grossly unremarkable. Tarsal Tunnel: Tarsal tunnel is within normal limits. Other: No other significant abnormality. IMPRESSION: Achilles tendinosis. Split tear peroneus brevis. Chronic Patel neuropathy. ELECTRONICALLY SIGNED BY: Lucinda Morales [id number] Evaluation note* Author Klaus Horton [facility] 2023 10:49amThe above note written by ___Lissy Antony____ acting as human recorder, note dictated by Dr. Mandel .I performed the above HPI, ROS, and Examination. I formulated and dictated the treatment plan and was present for entire encounter. Klaus Horton D.O. [facility] Work Phone: [phone]) 487-771512-03-2024 Evaluation note* Author Klaus Horton [facility] 2023 10:49amThe above note written by ___Lissy Antony____ acting as human recorder, note dictated by Dr. Mandel .I performed the above HPI, ROS, and Examination. I formulated and dictated the treatment plan and was present for entire encounter. Klaus Horton D.O. Author Derek Bennett [facility]Aut[facility]Asc[facility] Macombbruary 2024 3:28pmStart weight: Initial weight uncertain she does not believe the 255.3 pounds that was recorded. she is down 35.5lbs, today she is 220.3 lbs. she is up 5.4 lbs since last visit on 06/09/24. Starting Date: 12/21/2023. 1. Abnormal weight gain. She has a strong family history of type 2 diabetes. 2. Obesity- improved with a greater than 10% weight loss but now is off compounded semaglutide due to constipation. She prefers not to take a medication at this time. She is active in [employer]. She is now eating less at night, getting some regular exercise including cardio and strength, trying to make better food choices/follow the plate method. She should continue to treat with long-term lifestyle changes of improved nutrition, increased exercise and activity, stress reduction, adequate sleep and behavioral modification versus short-term dieting. 3. MASH-treat with healthy lifestyle changes and weight loss. She has had a greater than 10% weight loss and starting our program. 4. NICA-on CPAP. Treat with good sleep hygiene and weight loss. 5. Prediabetes-with most recent A1c still 5.8 despite being on compounded semaglutide. She stopped compounded semaglutide due to constipation. First-line treatment with long-term healthy lifestyle change, decreased simple sweets and refined starches, increased exercise and activity and long-term weight loss. She has been intolerant to metformin. She needs close long-term follow-up for this condition to prevent diabetes. 6. Hypercholesterolemia-significant improvement, her LDL dropped from 194 down to 110 on Lipitor 20 mg. She will continue to treat with decreasing the bad fats, added fats, increase activity and exercise and achieve long-term weight loss. Follow up with me in 8-12 weeks. New labs needed: Up-to-date. Monitor with her PCP. [facility] Work Phone: [phone] 217-896011-19-2024 History of Present illness Narrative* Rishi Patterson DPM FACFAS - 06/28/2024 11:30 AM EST Images from the original note were not included. Patient: Patt Irene : 1955 PCP: Klaus Horton MD SUBJECTIVE This is a 69 y.o. female that presents today for a chief complaint of patient had a Tenex procedureperformed on the right Achilles tendon. The bursa has improved she is having pain laterally her MRIpreviously performed revealed a. Split tear of peroneus brevis tendon as it courses along the inferior margin of the lateral malleolus for a length of approximately 3 cm. Peroneus longus tendon is intact. Extensor tendons are intact. She is having pain in that region at this point. Her heel pain has improved Allergies: Allergies Allergen Reactions Sulfa Antibiotics Hives and Anaphylaxis Sulfamethoxazole-Trimethoprim Unknown Past Medical History: Past Medical History: Diagnosis Date Appendicitis Cholelithiasis Esophagitis 2009 Gastroesophageal reflux disease 2010 Hyperlipidemia ([facility]) IBS (irritable bowel syndrome) Thyroid disease ([facility]) Tonsillitis Medications: Current Outpatient Medications: atorvastatin (Lipitor) 20 MG tablet, 1 (one) time each day at the same time., Disp: , Rfl: azelastine (Astelin) 0.1 % nasal spray, , Disp: , Rfl: buPROPion XL (Wellbutrin XL) 300 MG 24 hr tablet, 1 (one) time each day at the same time., Disp: , Rfl: clindamycin (Cleocin) 300 MG capsule, 2 tabs PO once 30-60 mins before dental procedure with food, Disp: 2 capsule, Rfl: 3 Estrogens Conjugated (Premarin) 0.625 MG/GM cream, as directed Vaginal, Disp: , Rfl: levothyroxine (Synthroid, Levoxyl) 150 MCG tablet, Orally, Disp: , Rfl: meloxicam (Mobic) 15 MG tablet, TAKE 1 TABLET BY MOUTH EVERY DAY, Disp: 30 tablet, Rfl: 1 Multiple Vitamin (MULTIVITAMIN ADULT PO), 1 (one) time each day at the same time., Disp: , Rfl: omega-3 (Fish Oil) 1000 MG capsule, 1 capsule 1 (one) time each day at the same time., Disp: , Rfl: Probiotic Product (Get Smart Content) capsule, Take 1 capsule by mouth in the morning., Disp: ,Rfl: tiZANidine (Zanaflex) 4 MG tablet, Take 1 tablet (4 mg) by mouth every 6 (six) hours if needed for muscle spasms for up to 10 days, Disp: 30 tablet, Rfl: 0 triamcinolone (Kenalog) 0.1 % cream, Apply to affected areas, up to twice a day when flared, do notuse one the face, groin, or underarms, 30 day supply, Disp: 80 g, Rfl: 11 ROS: Constitutional: Denies fever, chills, nausea, vomiting GI: Denies abdominal pain, cramping, loose stool, gastric ulcers Musculoskeletal: Denies low back pain, knee pain, systemic arthritis Neurologic: Denies burning, tingling, transient paralysis OBJECTIVE Physical examination: Vascular: Dorsalis pedis posterior tibial pulses are palpable bilateral, no edema noted Neuro: Whitman-Corinne 5.07 monofilament intact, vibratory sensation intact Derm: All hair growth noted skin temperature is warm to cool knees to toes Musculoskeletal: Muscle strength +5/5 all intrinsic and extrinsic muscles tested pain along the course of the peroneal tendon left. Pain with resisted eversion and plantar flexion. Fusiform swelling of the Achilles tendon right. No bursal formation noted she was also having mild pain at the posterior tibial tendon at the medial malleolar region ASSESSMENT 1. Peroneal tendon tear, right, initial encounter 2. Right Achilles tendinitis 3. Nontraumatic rupture of posterior tibial tendon, right PLAN I discussed with the patient the previous MRI findings revealing split tearing of the peroneal brevis tendon. Also recommending evaluation of the posterior tibial tendon at the medial malleolar region.I recommended an updated MRI for further evaluation possible surgical intervention her Tenex procedure has been doing significantly better but her pain is located the peroneal tendon. MRI will be for evaluation of the previous tear comparison purposes and will be necessary for surgical intervention. 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 General Exam: alert, oriented to person, place, and time, normal affect, well appearing Unaccompanied Scalp, Examined , exam limited by hair Right leg Examined Head, Face Examined Left leg Examined Neck Examined Right foot Examined Chest Examined Left foot Examined Back Examined Buttocks Examined Abdomen Examined Digits,nails: Examined Right arm Examined Patient wearing nail tuvaluan, Denies dark streaks under finger nails, Denies darkstreaks on toenails Left arm Examined Lymphatics: Not examined Hands Examined 1. Seborrheic keratosis Stuck on verrucous, variably pigmented papules and plaques. Patient was counseled regarding these benign growths. Removal is normally not necessary, but they may be removed if they are symptomatic or for cosmetic reasons. 2. Melanocytic nevus of trunk Trunk Scattered benign appearing, regular brown to light brown melanocytic papules and macules with similar morphology Counseled regarding these benign growths. Rarely, a nevus can develop into malignant melanoma, so any changing nevi should be promptly re-evaluated. 3. Lentigines Scattered dodd macules in sun-exposed areas. The patient was informed that lentigines are benign pigmented lesions that occur on sun-exposed andsun-damaged skin. No treatment is necessary. Recommended regular use of broad spectrum sunscreen SPF 30 or higher 4. Capillary angioma Trunk Scattered lang-red papule(s). The patient was informed that angiomas are benign growths on the the skin. No treatment is necessary. 5. Stasis dermatitis of both legs Left Leg, Right Leg [place] scaly plaques in areas of edema The patient was informed that stasis dermatitis is a chronic rash on the lower legs due to swellingoften caused by poor circulation. The patient was instructed to keep the legs elevated when seated,avoid standing for long periods of time, and to wear compression stockings. Continue TAC bid prn when flared, hold if clear. Notify clinic if failing to improve despite treatment. Related Medications triamcinolone (Kenalog) 0.1 % cream Apply to affected areas, up to twice a day when flared, do not use one the face, groin, or underarms, 30 day supply Next Visit: 1 year, skin check documented in this encounterCox [id number] History of Present illness Narrative* Rishi Patterson DPM FACFAS - 06/14/2024 9:00 AM EST Images from the original note were not included. Patient: Patt Irene : 1955 PCP: Klaus Horton MD SUBJECTIVE This is a 69 y.o. female that presents today with a chief complaint of painful lateral aspect of the right foot. The pain is located laterally at the level of the subtalar joint. They have noticed significant swelling and pain with ambulation. They deny history of trauma to the area. They have attempted numerous conservative therapies including shoe gear modifications anti- inflammatory medications rest ice and elevation to no avail. She states that the heel pain is doing significantly better aswell as the Achilles tendon pain. Her MRI in the past reviewed today revealed longitudinal tear in the peroneal brevis tendon. However she has not having any pain in the peroneal brevis tendon at this point. Allergies: Allergies Allergen Reactions Sulfa Antibiotics Hives and Anaphylaxis Sulfamethoxazole-Trimethoprim Unknown Past Medical History: Past Medical History: Diagnosis Date Appendicitis Cholelithiasis Esophagitis 2010 Gastroesophageal reflux disease 2010 Hyperlipidemia ([facility]/HCC) IBS (irritable bowel syndrome) Thyroid disease ([facility]) Tonsillitis Medications: Current Outpatient Medications: atorvastatin (Lipitor) 20 MG tablet, 1 (one) time each day at the same time., Disp: , Rfl: azelastine (Astelin) 0.1 % nasal spray, , Disp: , Rfl: buPROPion XL (Wellbutrin XL) 300 MG 24 hr tablet, 1 (one) time each day at the same time., Disp: , Rfl: clindamycin (Cleocin) 300 MG capsule, 2 tabs PO once 30-60 mins before dental procedure with food, Disp: 2 capsule, Rfl: 3 Estrogens Conjugated (Premarin) 0.625 MG/GM cream, as directed Vaginal, Disp: , Rfl: levothyroxine (Synthroid, Levoxyl) 150 MCG tablet, Orally, Disp: , Rfl: meloxicam (Mobic) 15 MG tablet, TAKE 1 TABLET BY MOUTH EVERY DAY, Disp: 30 tablet, Rfl: 1 Multiple Vitamin (MULTIVITAMIN ADULT PO), 1 (one) time each day at the same time., Disp: , Rfl: omega-3 (Fish Oil) 1000 MG capsule, 1 capsule 1 (one) time each day at the same time., Disp: , Rfl: Probiotic Product (Get Smart Content) capsule, Take 1 capsule by mouth in the morning., Disp: ,Rfl: Review of systems: Constitutional: Denies fever, chills, nausea, vomiting GI: Denies abdominal pain, cramping, loose stool, gastric ulcers Musculoskeletal: Denies low back pain, knee pain, systemic arthritis Neurologic: Denies burning, tingling, transient paralysis OBJECTIVE Physical Examination: DERM: Positive hair growth to b/l feet with good skin turgor noted. Negative openings in skin VASC: DP /PT were palpable bilateral. Capillary refill time < 3 seconds Digits 1-5 bilateral NEURO: Whitman Corinne 5.07 monofilament was intact B/L. Vibratory sensation was intact B/L Musculoskeletal: Muscle strength was +5 over 5 all intrinsic and extrinsic muscles tested. There issignificant pain with direct palpation of the sinus tarsi pain with range of motion of the subtalarjoint. Mild swelling noted over the sinus tarsi region. There is mild tenderness noted over the ATFand CF ligament right foot. Unable to elicit an anterior drawer test secondary to guarding. No crepitus noted with range of motion of the ankle or subtalar joint. No pain with direct palpation of themedial band of the plantar fascia right Patient has a mild gastrocnemius-soleus equinus with mild tenderness noted at the level of the Achilles tendon. No palpable deficits noted within the Achilles tendon. No pain with range of motion of the ankle or subtalar joint. Diagnostic ultrasound: Diagnostic ultrasound 12 megahertz linear probe Hypoechoic capsulitis of thesinus tarsi region. With significant fluid collection noted within the subtalar joint and within the joint capsule of the subtalar joint. Unable to visualize the interosseous talocalcaneal ligament ri ght foot ASSESSMENT 1. Plantar fasciitis 2. Other synovitis and tenosynovitis, right ankle and foot 3. Peroneal tendon tear, right, initial encounter PLAN The patient was educated on the etiology of sinus tarsi syndrome as well as capsulitis of the subtalar joint. They are also instructed on rest and icing the on a regular basis as well. They are educated on the diagnostic ultrasound findings as well. The patient was given injection consisting of 1 cc of 2% lidocaine plain and 1 cc of Kenalog 10 via ultrasonic guidance into the subtalar joint capsule right foot. Ultrasound was necessary to ensure exact placement into the bursa /capsule. I discussed with the patient shoe gear modifications. As well as anti-inflammatory medications. Educated the patient on the MRI findings which revealed a longitudinal tear of the peroneal brevis tendon howeverit has not painful at this point. Plantar fasciitis is doing significantly better. As well as her Achilles tendinitis. I did recommend she discontinue the use of the orthotic devices continue with the Mobic daily and follow up with me in 2 weeks. She has to not wear the orthotic devices for 2 weeks. ADRIÁN Dillon documented in this encounterCox [id number] History of Present illness Narrative* ADRIÁN Dillon - 06/03/2024 10:20 AM EDT Images from the original note were not included. Patient: Patt Irene : 1955 PCP: Klaus Horton MD SUBJECTIVE This is a 69 y.o. female that presents today with a chief complaint of painful right medial heel. They stay it hurts when they get out of bed in the morning and when they get up from a seated position. The pain improves with ambulation. They deny a history of trauma to the area. They have attemptednumerous conservative therapies including: shoe gear modifications, [id number] anti-inflammatory medications, [id number] orthotic devices to no avail. They rate the pain scale from 1-10 as an 8 with 10 being the most painful. She recently had a Tenex procedure to her Achilles tendon that area still slightly tender but appears to have improved she is wearing her heel lifts and has purchased a new pair of tennis shoes. This pain appears to be unrelated to her surgical site/ Allergies: Allergies Allergen Reactions Sulfa Antibiotics Hives and Anaphylaxis Sulfamethoxazole-Trimethoprim Unknown Past Medical History: Past Medical History: Diagnosis Date Appendicitis Cholelithiasis Esophagitis 2010 Gastroesophageal reflux disease 2010 Hyperlipidemia ([facility]) IBS (irritable bowel syndrome) Thyroid disease ([facility]) Tonsillitis Medications: Current Outpatient Medications: atorvastatin (Lipitor) 20 MG tablet, 1 (one) time each day at the same time., Disp: , Rfl: azelastine (Astelin) 0.1 % nasal spray, , Disp: , Rfl: buPROPion XL (Wellbutrin XL) 300 MG 24 hr tablet, 1 (one) time each day at the same time., Disp: , Rfl: clindamycin (Cleocin) 300 MG capsule, 2 tabs PO once 30-60 mins before dental procedure with food, Disp: 2 capsule, Rfl: 3 Estrogens Conjugated (Premarin) 0.625 MG/GM cream, as directed Vaginal, Disp: , Rfl: levothyroxine (Synthroid, Levoxyl) 150 MCG tablet, Orally, Disp: , Rfl: meloxicam (Mobic) 15 MG tablet, TAKE 1 TABLET BY MOUTH EVERY DAY, Disp: 30 tablet, Rfl: 1 Multiple Vitamin (MULTIVITAMIN ADULT PO), 1 (one) time each day at the same time., Disp: , Rfl: omega-3 (Fish Oil) 1000 MG capsule, 1 capsule 1 (one) time each day at the same time., Disp: , Rfl: Probiotic Product (Get Smart Content) capsule, Take 1 capsule by mouth in the morning., Disp: ,Rfl: Review of systems: Constitutional: Denies fever, chills, nausea, vomiting GI: Denies abdominal pain, cramping, loose stool, gastric ulcers Musculoskeletal: Denies low back pain, knee pain, systemic arthritis Neurologic: Denies burning, tingling, transient paralysis Cardiac: Denies any cardiac issues Respiratory: Denies shortness of breath denies lung issues or breathing difficulties OBJECTIVE Physical Examination: DERM: Positive hair growth to b/l feet with good skin turgor noted. Negative openings in skin VASC: DP /PT were palpable bilateral. Capillary refill time < 3 seconds Digits 1-5 bilateral NEURO: Whitman Corinne 5.07 monofilament was intact B/L. Vibratory sensation was intact B/L Musculoskeletal: Muscle strength was +5 over 5 all intrinsic and extrinsic muscles tested. There issignificant pain with direct palpation of the medial band of the plantar fascia right foot. Mild pain throughout the course of the plantar fascia. No palpable deficits or ecchymosis noted within the plantar fascial band. There is no pain with lateral compression of the heel. Patient has a mild gastrocnemius -soleus equinus with mild tenderness noted at the level of the Achilles tendon. No palpable deficits noted within the Achilles tendon. No pain with range of motion of the ankle or subtalar joint. Minimal tenderness noted at the posterior aspect of the Achilles tendon incision sites well coapted excellent plantar flexor strength noted Radiographs: AP/MO/LAT: Diagnostic ultrasound: Diagnostic ultrasound 12 megahertz linear probe increased thickness of the plantar fascia greater than 4 mm. Small spur noted at site 4 of the calcaneus right. ASSESSMENT 1. Plantar fasciitis 2. Right Achilles tendinitis 3. Heel spur, right PLAN The patient was educated on the etiology of plantar fasciitis right. They were instructed in detailon stretching on a regular basis. They are also instructed on icing the plantar fascia on a regularbasis as well. I dispensed a night splint to be worn to help provide passive stretch to the plantarfascial band. The patient was given injection consisting of 1 cc of 2% lidocaine plain and 1 cc of Kenalog 10 via ultrasonic guidance into the medial and central bands of the plantar fascia right foot. Ultrasound was necessary to ensure exact placement into the medial and central bands of the plantar fascia and avoid injection into the plantar fat pad. She is to continue wearing her orthotic devices with a heel lift and her new tennis shoes. Her Achilles tendon appears to be improving and did dispensed a prescription for Medrol Dosepak and she will follow up with me in 2 weeks for reassessment. ADRIÁN Dillon documented in this encounterCox [id number] History of Present illness Narrative* ADRIÁN Dillon - 05/03/2024 8:00 AM EDT Images from the original note were not included. Patient: Patt Irene : 1955 PCP: Klaus Horton MD SUBJECTIVE This is a 69 y.o. female that presents today The patient is here status post Tenex procedure right procedure. Postop week 1. They deny fevers, chills, nausea, vomiting, calf pain and shortness of breath. Pain level is being managed with ice elevation and pain medication. They have been relatively compliant with her postoperative care. Patient states she feels 100 percent better. Allergies: Allergies Allergen Reactions Sulfa Antibiotics Hives and Anaphylaxis Sulfamethoxazole-Trimethoprim Unknown Past Medical History: Past Medical History: Diagnosis Date Appendicitis Cholelithiasis Esophagitis 2009 Gastroesophageal reflux disease 2009 Hyperlipidemia ([facility]/HCC) IBS (irritable bowel syndrome) Thyroid disease ([facility]) Tonsillitis Medications: Current Outpatient Medications: atorvastatin (Lipitor) 20 MG tablet, 1 (one) time each day at the same time., Disp: , Rfl: azelastine (Astelin) 0.1 % nasal spray, , Disp: , Rfl: buPROPion XL (Wellbutrin XL) 300 MG 24 hr tablet, 1 (one) time each day at the same time., Disp: , Rfl: clindamycin (Cleocin) 300 MG capsule, 2 tabs PO once 30-60 mins before dental procedure with food, Disp: 2 capsule, Rfl: 3 Estrogens Conjugated (Premarin) 0.625 MG/GM cream, as directed Vaginal, Disp: , Rfl: levothyroxine (Synthroid, Levoxyl) 150 MCG tablet, Orally, Disp: , Rfl: meloxicam (Mobic) 15 MG tablet, 1 tablet Orally Once a day with food for 90 days, Disp: , Rfl: Multiple Vitamin (MULTIVITAMIN ADULT PO), 1 (one) time each day at the same time., Disp: , Rfl: omega-3 (Fish Oil) 1000 MG capsule, 1 capsule 1 (one) time each day at the same time., Disp: , Rfl: Probiotic Product (Get Smart Content) capsule, Take 1 capsule by mouth in the morning., Disp: ,Rfl: Review of systems: Constitutional: Denies fever, chills, nausea, vomiting GI: Denies abdominal pain, cramping, loose stool, gastric ulcers Musculoskeletal: Denies low back pain, knee pain, systemic arthritis Neurologic: Denies burning, tingling, transient paralysis OBJECTIVE Physical Examination: DERM: Positive hair growth to b/l feet with good skin turgor noted. Negative openings in skin VASC: DP /PT were palpable bilateral. Capillary refill time < 3 seconds Digits 1-5 bilateral NEURO: Whitman Corinne 5.07 monofilament was intact B/L. Vibratory sensation was intact B/L Musculoskeletal: Muscle strength was +5 over 5 all intrinsic and extrinsic muscles tested. NegativeHomans test noted Surgical site evaluation: The incision site is healing well without signs infection. Minimal swelling noted. Consistent with the patient's level of surgery consistent with time frame postoperatively.Sutures remain intact without signs of dehiscence. No pain at the insertion of the Achilles tendon of the posterior heel excellent plantar flexor strength ASSESSMENT 1. Right Achilles tendinitis PLAN Patient is doing 100 percent better recommended she continue with the orthotic devices with a heel lift as well as heel lifts shoe. I removed her sutures she will follow up with me p.r.n. T feels 100percent better no pain ADRIÁN Dillon documented in this encounterCox [id number] Telephone encounter Note* Telephone Encounter - ADRIÁN Dillon - 04/27/2024 11:24 PM EDT Sx rx [facility] [id number] Miscellaneous Notes* Telephone Encounter - ADRIÁN Dillon - 04/27/2024 11:24 PM EDT Sx rx documented in this encounterCox [id number] History of Present illness Narrative* ADRIÁN Dillon - 04/19/2024 8:10 AM EDT Images from the original note were not included. Patient: Patt Irene : 1955 PCP: Klaus Horton MD SUBJECTIVE This is a 69 y.o. female that presents today to discuss their upcoming surgery. Planned procedure is Tenex procedure percutaneous tenotomy via the Tenex device she has attemptedconservative care and wishes for surgical intervention. They have attempted numerous conservative options including: Shoe gear modifications, anti-inflammatory medications both steroid all and nonsteroidal, orthotic devices, cortisone injections, immobilization, physical therapy to no avail. They are here to sign consentforms and to address any other questions that may exist. Patient was referred to me by Dr. Malhotra for surgical intervention. She is exhausted conservative care. She underwent an MRI which revealed: She has not having any pain at the peroneal brevis tendon all pain is located at her Achilles tendon right MRI: FINDINGS: Moderate Achilles tendinosis. The visualized plantar fascia is intact and is without thickening or nodularity. The tibialis posterior, flexor hallucis longus, and flexor digitorum longus tendons are intact. No space-occupying lesion within the tarsal tunnel. Split tear of peroneus brevis tendon as it courses along the inferior margin of the lateral malleolus for a length of approximately 3 cm. Peroneus longus tendon is intact. Extensor tendons are intact. The anterior and posterior tibiofibular ligaments, anterior and posterior talofibular ligaments, and calcaneofibular ligament are intact. Superficial and deep fibers of the deltoid ligament are intact. Spring ligament is intact. Sinus tarsi fat is preserved. Mild degenerative changes of the midfoot. No ankle joint effusion. No evidence of fracture or stress reaction of the visualized bones. IMPRESSION: Moderate Achilles tendinosis. Split tear of peroneus brevis tendon. External Result Encounter on 04/12/2024 Component Date Value Ref Range Status Glucose 04/12/2024 97 70 - 100 mg/dL Final Comment: Random Glucose Reference Range is dependent on time and content of last meal. Glucose of more than 200 mg/dL in a nonstressed, ambulatory subject supports the diagnosis of Diabetes Mellitus. ADA recommended reference range BUN 04/12/2024 19 7 - 25 mg/dL Final CREATININE 04/12/2024 1.03 0.60 - 1.20 mg/dL Final ESTIMATED GFR 04/12/2024 58.132 Final Sodium 04/12/2024 138 136 - 145 mmol/L Final Potassium, Bld 04/12/2024 4.3 3.5 - 5.1 mmol/L Final Chloride 04/12/2024 105 98 - 107 mmol/L Final Carbon Dioxide 04/12/2024 29.2 21.0 - 31.0 mmol/L Final Anion Gap 04/12/2024 8.1 6.0 - 15.0 Final Calcium 04/12/2024 9.9 8.6 - 10.3 mg/dL Final External Result Encounter on 04/12/2024 Component Date Value Ref Range Status WBC 04/12/2024 5.6 3.8 - 11.6 10*3/uL Final UNCORRECTED WHITE BLOOD COUNT 04/12/2024 5.6 3.8 - 11.6 10*3/uL Final RBC 04/12/2024 4.65 3.60 - 5.00 Final HEMOGLOBIN 04/12/2024 13.4 11.8 - 15.4 g/dL Final HEMATOCRIT 04/12/2024 39.9 34.0 - 46.4 % Final MCV 04/12/2024 86.0 80 - 100 fL Final MCH 04/12/2024 28.8 24.7 - 34.3 pg Final MCHC 04/12/2024 33.5 32.0 - 35.0 g/dL Final RED CELL DISTRIBUTION WIDTH, RDW 04/12/2024 14.3 11.9 - 15.3 % Final PLATELET COUNT 04/12/2024 224 150 - 450 10*3/uL Final MEAN PLATELET VOLUME, MPV 04/12/2024 7.6 6.3 - 10.7 fL Final NEUTROPHILS, % 04/12/2024 58.7 . % Final LYMPHOCYTES, % 04/12/2024 30.4 . % Final MONOCYTE/MACROPHAGE, % 04/12/2024 8.1 . % Final EOSINOPHILS, % 04/12/2024 2.1 . % Final BASOPHILS, % 04/12/2024 0.7 . % Final NRBC 04/12/2024 0.1 0 - 0.5 /100[WBC] Final NEUTROPHILS 04/12/2024 3.3 1.8 - 7.7 10*3/uL Final LYMPHOCYTES 04/12/2024 1.7 1.00 - 4.8 10*3/uL Final MONOCYTES 04/12/2024 0.4 0.0 - 0.8 10*3/uL Final EOSINOPHILS 04/12/2024 0.1 0.0 - 0.45 10*3/uL Final BASOPHILS 04/12/2024 0.0 0.0 - 0.2 10*3/uL Final Allergies: Allergies Allergen Reactions Sulfa Antibiotics Hives and Anaphylaxis Sulfamethoxazole-Trimethoprim Unknown Past Medical History: Past Medical History: Diagnosis Date Appendicitis Cholelithiasis Esophagitis 2010 Gastroesophageal reflux disease 2010 Hyperlipidemia ([facility]) IBS (irritable bowel syndrome) Thyroid disease ([facility]) Tonsillitis Medications: Current Outpatient Medications: atorvastatin (Lipitor) 20 MG tablet, 1 (one) time each day at the same time., Disp: , Rfl: atorvastatin (Lipitor) 20 MG tablet, Take 20 mg by mouth in the morning., Disp: , Rfl: azelastine (Astelin) 0.1 % nasal spray, , Disp: , Rfl: buPROPion XL (Wellbutrin XL) 300 MG 24 hr tablet, 1 (one) time each day at the same time., Disp: , Rfl: clindamycin (Cleocin) 300 MG capsule, 2 tabs PO once 30-60 mins before dental procedure with food, Disp: 2 capsule, Rfl: 3 cyclobenzaprine (Flexeril) 5 MG tablet, TAKE 1 TO 2 TABLETS BY MOUTH EVERY 8 TO 12 HOURS NEEDED,Disp: , Rfl: estradiol (Vagifem) 10 MCG tablet vaginal tablet, Insert 10 mcg into the vagina., Disp: , Rfl: Estrogens Conjugated (Premarin) 0.625 MG/GM cream, as directed Vaginal, Disp: , Rfl: fluocinonide (Lidex) 0.05 % gel, APPLY THIN LAYER TO ORAL LESIONS 2-4 TIMES PER DAY, Disp: , Rfl: fluticasone (Flonase) 50 MCG/ACT nasal spray, 1 (one) time each day at the same time., Disp: , Rfl: GARLIC PO, Take 1 capsule by mouth in the morning., Disp: , Rfl: Ginkgo 60 MG tablet, 1 (one) time each day at the same time., Disp: , Rfl: levothyroxine (Synthroid, Levoxyl) 150 MCG tablet, Orally, Disp: , Rfl: LUTEIN PO, Take 1 tablet by mouth in the morning., Disp: , Rfl: meloxicam (Mobic) 15 MG tablet, 1 tablet Orally Once a day with food for 90 days, Disp: , Rfl: Multiple Vitamin (MULTIVITAMIN ADULT PO), 1 (one) time each day at the same time., Disp: , Rfl: Multiple Vitamins-Minerals (Hair/Skin/Nails) tablet, as directed Orally, Disp: , Rfl: naproxen (Naprosyn) 500 MG tablet, Take 500 mg by mouth in the morning and 500 mg in the evening. Take with meals., Disp: , Rfl: nystatin (Mycostatin) 050246 UNIT/ML suspension, SWISH AND SWALLOW 4ML BY MOUTH/THROAT FOUR TIMES ADAY 14 DAYS, Disp: , Rfl: omega-3 (Fish Oil) 1000 MG capsule, 1 capsule 1 (one) time each day at the same time., Disp: , Rfl: omeprazole (PriLOSEC) [address] capsule, Take 20 mg by mouth in the morning., Disp: , Rfl: oxybutynin XL (Ditropan-XL) 10 MG 24 hr tablet, , Disp: , Rfl: oxybutynin XL (Ditropan-XL) 5 MG 24 hr tablet, 1 (one) time each day at the same time., Disp: , Rfl: Probiotic Product (Get Smart Content) capsule, Take 1 capsule by mouth in the morning., Disp: ,Rfl: Terconazole (TERAZOL 7 VA), Terazol 7, Disp: , Rfl: trospium (Sanctura) 20 MG tablet, Take 20 mg by mouth in the morning and 20 mg in the evening., Disp: , Rfl: trospium (Sanctura) 20 MG tablet, Trospium Chloride, Disp: , Rfl: Review of systems: Constitutional: Denies fever, chills, nausea, vomiting GI: Denies abdominal pain, cramping, loose stool, gastric ulcers Musculoskeletal: Denies low back pain, knee pain, systemic arthritis Neurologic: Denies burning, tingling, transient paralysis OBJECTIVE Physical Examination: DERM: Positive hair growth to b/l feet with good skin turgor noted. Negative openings in skin VASC: DP /PT were palpable bilateral. Capillary refill time < 3 seconds Digits 1-5 bilateral NEURO: Whitman Corinne 5.07 monofilament was intact B/L. Vibratory sensation was intact B/L Musculoskeletal: Muscle strength was +5 over 5 all intrinsic and extrinsic muscles tested. Significant pain with direct palpation posterior superior aspect of the right Achilles there is significant swelling and retrocalcaneal bursa noted. Pain in that region there is no pain noted along the courseof the peroneal brevis tendon no pain with resisted eversion or plantar flexion of the foot. ASSESSMENT 1. Right Achilles tendinitis 2. Other synovitis and tenosynovitis, right ankle and foot PLAN The patient was educated on the pre, sarah, postoperative course of the procedure in great detail. Ireviewed the preoperative laboratory and diagnostic findings today. We discussed further conservative therapies which the patient has attempted and has failed. I discussed the surgical procedure in great detail including the risks and possible complications. We discussed the following complicationsin great detail including but not limited to: Pain, infection, prolonged swelling, numbness, tingling, burning, nonhealing wound, nonunion, malunion, chronic pain, development of complex regional pain syndrome, development of deep venous thrombosis. Patient fully understood all possible risks and complications. All questions have been asked and answered. They have consented for the above-stated procedure. ADRIÁN Dillon documented in this encounterCox [id number] Evaluation note* Author Klaus Horton [facility] 2023 10:57amThe above note written by ___Lissy Antony____ acting as human recorder, note dictated by Dr. Mandel .I performed the above HPI, ROS, and Examination. I formulated and dictated the treatment plan and was present for entire encounter. Klaus Horton D.O. [facility] Work Phone: [phone]) 233-123406-06-2024 Evaluation note* Author [facility]orton [facility] 20[facility] 10:57amThe above note written by ___Lissy Antony____ acting as human recorder, note dictated by Dr. Mandel .I performed the above HPI, ROS, and Examination. I formulated and dictated the treatment plan and was present for entire encounter. Klaus Horton D.O. Author Derek Bennett [facility] BeachwoodAuthoredMichael E. [facility] 2023 1:56pmAssessment: Start weight: Initial weight uncertain she does not believe the 255.3 pounds that was recorded. Starting Date: 12/21/2023. 1. Abnormal weight gain. She has a strong family history of type 2 diabetes. 2. Obesity-Should be improving as she is starting to eat less at night and trying to make better food choices. She feels she is following the plate method and eating more healthy [employer] overall. She could consider compounded semaglutide if affordable as she has no contraindications. She will call us if she wants to start the medication. This would be the safest most effective medication. She should continue to treat with long-term lifestyle changes of improved nutrition, increased exercise and activity, stress reduction, adequate sleep and behavioral modification versus short-term dieting. 3. MASH 4. NICA 5. Jfbxipwzagl-fnwnf-zmgt treatment with long-term healthy lifestyle change, decreased simple sweets and refined starches, increased exercise and activity and long-term weight loss. Consider metformin. Consider GLP-1 agonist. Needs close long-term follow-up for this condition to prevent diabetes. 6. Hypercholesterolemia-treat with decreasing the bad fats, added fats, increase activity and exercise and achieve long-term weight loss. Follow up with me in 6 weeks. New labs needed: Up-to-date. Monitor with her PCP. 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 Becker. This will be done by laser and he will check her vocal cords to be sure that nothing has spread to the vocal cords. She voices that she is going to see Dr. Rowe in [place] for a consultation to see what can be done to help her from prevent biting down. She has already bitten down and scratched the are a inside her mouth. She will also be seeing her dentist tomorrow to have a crown put back on again.Her surgery is scheduled for 09/08/23. She was told that this was caused by a chronic source of irritation/inflammation and from her biting. She voices that she used to wear a mouthguard (bottom one) and once she stopped wearing it she has rarely been biting. I did recommend that she show that mouthg uard to Dr. Rowe when she is seen next week so that he does not make something similar for her. She has tried to take Flexeril to help prevent her from clenching her teeth at night but did not want to rely on something like this every night. She did take a Serenity tablet and a Flexeril at night and it seemed to help and has also tried CBD which did not seem to make a difference. She needs to make sure that the ENT is comfortable with her taking the muscle relaxer prior to her surgery. Aug,re-op evaluation (ICD-10 - Z01.818)I did advise her that she does need to get an EKG done at [facility] and an order is provided. Once I have the results I can send a letter stating she is medically cleared for surgery. She is able to climbtwo flights of stairs without becoming short or breath. She just did 30 min on the [employer] physical [employer] trainer yesterday without having any issues. She could walk two city blocks without chest pain. She does strength training twice a week. Aug,Weight gain (ICD-10 - R63.5)She is doing another system through [employer] and is taking a capsule 30 min prior to eating and it flushes out the carbs in her system. She has also been cutting back on her intake of carbs. She is doing the [employer] system currently. She is encouraged to continue with what she is doing. [employer] Other 11-30-2023 Evaluation note* Encounter Date Diagnosis Assessment Notes Treatment Notes Treatment Clinical Notes Jun, Hypothyroidism (ICD-10 - E03.9) Discussed thyroid results with patient today. TSH is 0.72. Free T3 is 3.10. Free T4 is 1.09. I would like her to continue with the same dose of Levoxyl. Jun,Hyperlipidemia (ICD-10 - E78.5)Discussed cholesterol results with patient today. Total is 183. HDL is 62. LDL is 94. Triglyceridesare 134. VLDL is 26. She is to continue to monitor her intake of carbs and sugars. Stay active. Jun,Hyperglycemia (ICD-10 - R73.9)Discussed blood sugar results with patient today. Glucose is 90. HgA1C is 6.0. Again, I encouraged her to watch her intake of carbs and sugars. Stay active. She has been back to the gym for the last three weeks. Jun,Fatty liver (ICD-10 - K76.0) Jun,Oral thrush (ICD-10 - B37.0)She will see Dr. Joshi an oral surgeon in [place] on 07/20/23. She originally had the white patches when she would sleep and they seemed to be where the mouthpiece was sitting between her mouth and teeth. She spoke with her dentist about this on 07/06/23 and he gave her Fluconazole. She had been seen by urgent care prior to seeing the dentist and was told to take Nystatin for one week and then get a new toothbrush head. She was told CPAP machines are a common source of developing thrush, I didexplain to her that anything that is not cleaned well can cause thrush. She has been taking Fluconazole and the Nystatin in addition but I advised her that she should not need the oral Nystatin in addition to this. She will stop using the oral Nystatin. She voices that the oral surgeon will be ableto do a biopsy if needed. Jun,llergic rhinitis (ICD-10 - J30.9)Again, she uses above medication when she feels she needs it. Jun,Encounter for long-term (current) use of medications (ICD-10 - Z79.899) Jun,Weight loss (ICD-10 - R63.4) Jun,epression (ICD-10 - F32.9)She does continue to use and benefit from the above medication daily. Jun,ERD (gastroesophageal reflux disease) (ICD-10 - K21.9)Continue with above medication daily as directed. Jun,OtherShe voices that the polyp she had on her vocal cord went away. She voices that she had noticed thather voice was not as raspy as it was when she was at [facility] one Thursday. She started to sing and hervoice was back. She saw the ENT and he said there was a small white dot where the polyp was and that it could have been caused by a coughing jag. She has Azelastine on hand to use if needed. She usessaline nasal spray every morning.She has had her yearly evaluation by the warp hanger. [employer] Other 11-15-2023 Evaluation note* Encounter Date Diagnosis Assessment Notes Treatment Notes Treatment Clinical Notes Jun, Oral thrush (ICD-10 - B37.0) [employer] Other 11-03-2023 Evaluation note* Encounter Date Diagnosis Assessment Notes Treatment Notes Treatment Clinical Notes Jun, Oral thrush (ICD-10 - B37.0) Discussed diagnosis with patient today in office. Physical exam is consistent with oral thrush. We will send in Rx of nystatin to use as directed. Follow up with PCP if no improvement of symptoms. Patient verbalizes understanding and is agreeable with treatment plan [employer] Other 10-19-2023 [facility]* Encounter Date Diagnosis Assessment Notes Treatment Notes Treatment Clinical Notes Apr, BOWSER (nonalcoholic steatohepatit is) (ICD-10 - K75.81) Apr,ERD (gastroesophageal reflux disease) (ICD-10 - K21.9)Patient reports that when she eats she gets a burning in her abdomen Patient reports that she is getting post nasal drip Patinet is to start omeprazole 20 mg daily Apr,History of colon polyps (ICD-10 - Z86.010)Patient is due for a colonoscopy that will be scheduled today prep instructions given in office today Risks and benefits of procedure explained to patient; patient verbalizes understanding. [employer] Other 05-25-2023 Evaluation note* Encounter Date Diagnosis Assessment Notes Treatment Notes Treatment Clinical Notes December, Hypothyroidism (ICD-10 - E03.9) Her TSH is 1.76. Free T3 is 3.02. Free T4 is 1.14. She is to continue with the same dose of Levoxyl. December,Hyperlipidemia (ICD-10 - E78.5)Discussed cholesterol results with patient today. Total is 186. HDL is 65. LDL is 103. Triglycerides are 92. VLDL is 18. Again, continue to monitor intake of carbs and sugars. Stay active. Continue with above medication daily as directed. December,Hyperglycemia (ICD-10 - R73.9)Discussed blood sugar results with patient today. Glucose is 96. HgA1C is 6.2. I would like her to continue with her lifestyle and dietary changes that she has made. She is to stay active. She has lost three pounds since last seen. She does try to only eat one carb per day and is eating gluten freefoods. December,epression (ICD-10 - F32.9)She feels that the Wellbutrin XL is working well for her and she is going to continue with the low dose. December,Encounter for long-term (current) use of medications (ICD-10 - Z79.899) December,Fatty liver (ICD-10 - K76.0)She is following with Dr. Baird for fatty liver, she voices that she will not be able to see Dr. Baird until April. She was encouraged to let Dr. Baird know that she is due for a colonoscopy. December,Weight loss (ICD-10 - R63.4)She eats one carb per day and feels this is working well for her. She is working out again. If she works out she may measure out chips for a snack. She is going to be traveling for the summer and will be trying very hard to stay active and avoid processed foods. She is not going to allow chips in the car, she is going to eat vegetables and fruits instead. She has lost three pounds since last seen. She is to continue with what she is doing as it is working well. December,OtherRadha is going to speech therapy in [place] for a polyp on her left vocal cord. She may have to havethis removed in the fall. [employer] Other 04-24-2023 Evaluation note* Encounter Date Diagnosis Assessment Notes Treatment Notes Treatment Clinical Notes Nov, Cough (ICD-10 - R05.9) [facility] Other 02-21-2023 Evaluation note* Encounter Date Diagnosis Assessment Notes Treatment Notes Treatment Clinical Notes Sep, Acute sinusitis (ICD-10 - J01.90 ) She thought she was going to be able to fight this on her own but it does not seem to be getting any better. Today she is worn out and the drainage has turned beige. I would like to treat her with anantibiotic. She would prefer not to take Augmentin because of the length of treatment. She would like to take Zithromax and is told that this is a five day treatment course but lasts in the body for an additional five days. Guidance is given on how to take the medication. Eat yogurt daily while on ATB to prevent GI upset. Rest, push fluids. I cautioned her against using any OTC Afrin nasal spray for longer than three days because it causes the nose to become addicted. Once it is past 3 days then she can take the pill version and use [place] nasal spray. Sep,ough (ICD-10 - R05.9)Drink clear fluids to keep secretions thin and make them easier to expel. Zithromax will decrease inflammation in the airways. Sep,Other3:06 PM - 3:15 PM [employer] Other 01-19-2023 Evaluation note* Encounter Date Diagnosis Assessment Notes Treatment Notes Treatment Clinical Notes Aug, Hypothyroidism (ICD-10 - E03.9) Her TSH is 5.35. Free T3 is 3.00. Free T4 is 0.79. At this time her thyroid dose needs to be increased. I will have her go back to taking Levoxyl 150 MCG daily. Will repeat lab in four months. Aug,Hyperlipidemia (ICD-10 - E78.5)She did return to taking the Atorvastatin because her LDL did go up to 283 when she was off of it ([facility] She has limited her intake of carbs per day to help with weight loss and improve her metabolic health. Her total cholesterol is 191. HDL is 71. LDL is 110. Triglycerides are 48. VLDL is 9 which is very good. I encouraged her to continue with the lifestyle changes that she has made. She is to continue with her vitamins/supplements and keeping her carb intake down. Stay active. I did explain to her that even though her LDL is 110 this can be broken down further, there is good and bad LDL as well but it is not broken down in this test. Aug,Hyperglycemia (ICD-10 - R73.9)Discussed blood sugar results with patient today. Glucose is 106. HgA1C is up from 5.9 to 6.2 but she has made lifestyle changes since last seen. I suspect that if she had not made the lifestyle changes that she did that her A1C would have been higher. She is encouraged to continue eating low carb,staying active and with her vitamins. Aug,Fatty liver (ICD-10 - K76.0)She has an appointment to see Dr. Baird for a one year follow up in October (2022). Aug,Encounter for long-term (current) use of medications (ICD-10 - Z79.899) Aug,ervical pain (ICD-10 - M54.2)She did see her chiropractor Dr. Farias for evaluation of her neck. She does walk for exercise. Shedid take Flexeril and Meloxicam which did provide her with some relief. I will provide her with an order to have an xray done. Aug,Trigger finger (ICD-10 - M65.30)She only uses above medication as needed and does not need a refill today. She voices that her finger is better at this time. She voices that she should have mentioned this to her chiropractor Dr. Farias when she saw him for her neck but she did not. She does not have to constantly push her finger open. Once she is up and moving her finger is fine. If needed she can see ortho for an injection. For now she will continue to monitor. Aug,Thoracic back pain (ICD-10 - M54.6)She would like to have an x-ray of the thoracic spine done to rule out abnormalities. Aug,Weight gain (ICD-10 - R63.5)She is taking a MetaPWR Supplement at this time. She voices that this helps metabolic syndrome. Shehas done research on this, one of the products in this was grapefruit, but not a concentrated grapefruit juice. This was previously called Slim and Sassy but they made it even better. She had been taking Collagen with magnesium and melatonin but the collagen is in the supplement so she does not have to take it seperately. They carry gum and beadlets that you can use. You can use the product a couple of times per day. She is eating one type of carbohydrate per day, she did this before to help her lose weight. She will use the Assist part of her supplement 30 min prior to taking any type of carb. She also contiues to take a lifelong vitality pack. Aug,Nocturia (ICD-10 - R35.1) Aug,Sleep apnea, unspecified type (ICD-10 - G47.30)She was told she was borderline for sleep apnea and left it up to her as to whether or not she wan raul to be treated. She voices that she is going to see if she can try the mask. She will contact Dr. Daugherty's office to discuss. Aug,OtherShe voices that she is on Dosoquin prescribed by sIi Escudero but this is expensive and she does not feel she needs this. She is going to discuss this with her when she is seen in the summer of 2022. [employer] Other 01-13-2023 Evaluation note* Encounter Date Diagnosis Assessment Notes Treatment Notes Treatment Clinical Notes Aug, Hypothyroidism (ICD-10 - E03.9) [employer] Other 11-14-2022 Evaluation note* Encounter Date Diagnosis Assessment Notes Treatment Notes Treatment Clinical Notes Jun, Hypothyroidism (ICD-10 - E03.9) [facility] Other 10-10-2022 Evaluation note* Encounter Date Diagnosis Assessment Notes Treatment Notes Treatment Clinical Notes May, Sleep apnea, unspecified type (I CD-10 - G47.30) Patient's presentation is highly suggestive of obstructive sleep apnea including her report of waking up in early stages of sleep gasping for breath, reported snoring, memory and concentration difficulties, frequently nonrefreshing sleep. The diagnosis of obstructive sleep apnea, polysomnography for work-up, and treatment including CPAP and weight loss were all discussed [employer] Other 06-07-2022 Evaluation note* Encounter Date Diagnosis Assessment Notes Treatment Notes Treatment Clinical Notes Jan, Cystitis (ICD-10 - N30.90) [facility] Other 03-30-2022 Evaluation note* Encounter Date Diagnosis Assessment Notes Treatment Notes Treatment Clinical Notes Oct, BOWSER (nonalcoholic steatohepatit is) (ICD-10 - K75.81) REVIEWED FIBROSCAN WITH PATIENT. PATIENT IS ENCOURAGED TO WATCH DIET AND CONTINUE EXERCISE. [employer] Other 01-21-2022 Evaluation + Plan note Future Scheduled Tests Laboratory* Hepatic Function Panel 08/30/21 [facility]01-05-2022 Evaluation note* Encounter Date Diagnosis Assessment Notes Treatment Notes Treatment Clinical Notes Aug, Hypothyroidism (ICD-10 - E03.9) Discussed thyroid results with patient today. TSH is 0.540. Free T3 is 3.2. Free T4 is 1.39. I would like her to continue with the same dose of Levoxyl. Aug,Hyperlipidemia (ICD-10 - E78.5) Discussed cholesterol results with patient today. Total is 204. HDL is 73. LDL is 114.2. Triglycerides are 69. I would like to see her LDL between 70-100. I encouraged her to watch her intake of carbs and sugars. Stay active. Aug,Hyperglycemia (ICD-10 - R73.9) Discussed blood sugar results with patient today. Glucose is 90. HgA1C is 5.9 which is at the higher end of normal. She voices that she has had to help her get through alot of health issues this past summer and this is a good reading. She is to continue to watch her intake of carbs and sugars. Stay active. Aug,GERD (gastroesophageal reflux disease) (ICD-10 - K21.9) She voices that Dr. Olivera had advised her that she needed to come off the Omeprazole. Her pharmacyalso advised her to come off the medication. She takes a supplement to help her stomach and she tries to avoid alcohol. She only uses the Omeprazole as needed and is told that she can continue to do this. Aug,Fatty liver (ICD-10 - K76.0) She did see Dr. Baird for evaluation and had a Fibroscan done. She is scheduled to see Dr. Baird [facility] (2021) again. She voices that the pain she had in the right side of her abdomen is gone. Her ALT is 54. AST is 28. She understands that having fatty liver can cause liver enzymes to fluctuate. Aug,Encounter for long-term (current) use of medications (ICD-10 - Z79.899) Aug,Hematuria (ICD-10 - R31.9) When she provided a urine sample it showed blood, a repeat urine was provided on 08-12-21 and it did not show blood. She is to stay well hydrated with plenty of water. She admits she goes in spurts with drinking water and will try to stay well hydrated with water daily. Aug,Weight gain (ICD-10 - R63.5) She has gained three pounds since last seen. She continues to attend [employer] and is active. She is encouraged to watch her intake of carbs and sugars. Stay active. She has recently returned to [employer]. She will be going to [place] this week and is going to take her bike and will be doing some kayaking. Aug,Marta did see her warp hanger for her yearly evaluation. [employer] Other 12-15-2021 Evaluation note* Encounter Date Diagnosis Assessment Notes Treatment Notes Treatment Clinical Notes Jul, Fatty liver (ICD-10 - K76.0) PATIENT STATES HER WORK UP BY AMADA ASHER WAS PATIENT DID HAVE FIBROSCAN- WAS DUE IN AUGUST PATIENT ADVISED WE WILL ORDER FIBROSCAN AND SCHEDULE FOLLOW UP APPOINTMENT IN OCTOBER WHEN BACK FROM [place] [employer] Other 03-23-2010 History general Narrative - Reported* Type Description Date Medical History [address] Hubbard Medical HistoryEGD 10-30-09; Dr. HubbardMedical HistoryColonoscopy 10-30-09; Dr. HubbardMedical HistoryEKG 04-22-13 [facility]; Dr. OdonnellVAedical HistoryLexi Scan Stress Test 04-26-13; Sameer Briones (Dr. Tinajero)Medical HistoryChest X-Ray 04-19-13; Sameer BrionesMedical HistoryBRUSITISMedical Historyfatty liverSurgical HistoryTotal HysterectomySurgical HistoryGallbladder removedSurgical HistoryT & A as a childSurgical Historyarthroscopy of left kneeSurgical Historybilateral knee replacement05/02/2013Surgical Historyright knee replacement08/22/2013Surgical Historyright carpal tunnel surgery ([facility])2005Surgical Historyleft carpel tunnel [id number] HistorySurfield, juvederm volum09/30/17 Surgical Historyrt. [id number] HistoryColonoscopy, Dr. Olivera- repeat in 3 years [id number] Historysee above [employer] Other 03-23-2010 History general Narrative - Reported* Type Description Date Medical History [address] Hubbard Medical HistoryEGD 10-30-09; Dr. Triana HistoryColonoscopy 10-30-09; Dr. Triana HistoryEKG 04-22-13 NO; Dr. Early HistoryLexi Scan Stress Test 04-26-13; Sameer Tinajero)Medical HistoryChest X-Ray 04-19-13; Sameer BrionesMedical HistoryBRUSITISMedical Historyfatty liverMedical HistoryNever SmokedSurgical HistoryTotal HysterectomySurgical HistoryGallbladder removedSurgical HistoryT & A as a childSurgical Historyarthroscopy of left knee Surgical Historybilateral knee replacement05/02/2013Surgical Historyright knee replacement08/22/2013Surgical Historyright carpal tunnel surgery ([facility])2005Surgical Historyleft carpel tunnel [id number] History [place], juvederm voluma2urgical Historyrt. [id number] HistoryColonosccasey, Dr. Olivera- repeat in 3 years [id number] Historysee [employer] Other 03-23-2010 History general Narrative - Reported* Type Description Date Medical History [address] Hubbard Medical HistoryEGD 10-30-09; Dr. Triana HistoryColonoscopy 10-30-09; Dr. Triana HistoryEKG 04-22-13 NO; Dr. Early HistoryLexi Scan Stress Test 04-26-13; Sameer Tinajero)Medical HistoryChest X-Ray 04-19-13; Sameer BrionesMedical HistoryBRUSITISMedical Historyfatty liverMedical HistoryNever SmokedSurgical HistoryTotal HysterectomySurgical HistoryGallbladder removedSurgical HistoryT & A as a childSurgical Historyarthroscopy of left knee Surgical Historybilateral knee replacement05/02/2013Surgical Historyright knee replacement08/22/2013Surgical Historyright carpal tunnel surgery ([facility])2005Surgical Historyleft carpel tunnel [id number] History [place], juvederm voluma2/21/18Surgical Historyrt. [id number] HistoryColonoscopy, Dr. Olivera- repeat in 3 years [id number] History EGD, [id number] Historysee above [employer] Other Chief complaint+Reason for visit Narrative* Chief Complaint 5-6 MONTH F/U-GERD k76.0 NICA/[address] [facility] E78.5 R73.9 Z14.075Reason for VisitFatty liver disease, nonalcoholic GERD (gastroesophageal reflux disease) Obesity Bruxism Insomnia NICA on CPAP Dietary surveillance and counseling Exercise counseling Fatty liver disease, nonalcoholic NICA on CPAP Severe obesity (BMI >= 40) [facility] Work Phone: Chief complaint+Reason for visit Narrative* Chief Complaint 5-6 MONTH F/U-GERD k76.0 NICA/1 year follow up Referral [address]. Baird-[facility] E03.9 E78.5 R73.9 Z53.896 e78.5Reason for VisitFatty liver disease, nonalcoholic GERD (gastroesophageal reflux disease) Obesity Bruxism Insomnia NICA on CPAP Dietary surveillance and counseling Exercise counseling Fatty liver disease, nonalcoholic NICA on CPAP Severe obesity (BMI >= 40) [facility] Work Phone: Chief complaint+Reason for visit Narrative* Chief Complaint 5-6 MONTH F/U-GERD k76.0 NICA/1 [address] [facility] E[facility] E78.5 R73.9 Z79.899 e78.5 review labs preventing diabetes e87.5 understanding cravingsReason for VisitFatty liver disease, nonalcoholic GERD (gastroesophageal reflux disease) Obesity Bruxism Insomnia NICA on CPAP Dietary surveillance and counseling Exercise counseling Fatty liver disease, nonalcoholic NICA on CPAP Severe obesity (BMI >= 40) Depression GERD (gastroesophageal reflux disease) Hyperglycemia Hyperkalemia Hyperlipidemia Hypothyroidism [facility] Work Phone: Evaluation noteNo assessment information available [facility] Work Phone: Evaluation noteNo InformationNort [employer] Other Evaluation noteN[employer] Other Evaluation note* Diagnosis Onset Date Resolution Status Fatty liver disease, nonalcoholic acuteGERD (gastroesophageal reflux disease)acuteObesityacute [facility] Work Phone: Evaluation note* Diagnosis Onset Date Resolution Status Fatty liver disease, nonalcoholic acuteGERD (gastroesophageal reflux disease)acuteObesityacuteBruxismacuteInsomnia acuteOSA on CPAPacuteDietary surveillance and counselingacuteExercise counseling acuteFatty liver disease, nonalcoholicacuteOSA on CPAPacuteSevere obesity (BMI >= 40)acute [facility] Work Phone: Evaluation note* Diagnosis Right Achilles tendinitis- Primary [facility] Diagnosis Heel spur, right- Primary Plantar fasciitis Plantar fascial fibromatosis Right Achilles tendinitis documented [facility]* Diagnosis Peroneal tendon tear, right, initial encounter- Primary Plantar fasciitis Plantar fascial fibromatosis Other synovitis and tenosynovitis, right ankle and foot documented in [facility]* Diagnosis Seborrheic keratosis- Primary Melanocytic nevus of trunk Benign neoplasm of skin of trunk, except scrotum Lentigines Capillary angioma Nevus, non-neoplastic Stasis dermatitis of both legs [facility]* Diagnosis Peroneal tendon tear, right, initial encounter- Primary Right Achilles tendinitis Nontraumatic rupture of posterior tibial tendon, right [facility] Diagnosis Peroneal tendon tear, right, initial encounter- Primary Other synovitis and tenosynovitis, right ankle and foot 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 documented in [facility]* Diagnosis Peroneal tendon tear, right, initial encounter- Primary Other synovitis and tenosynovitis, right ankle and foot 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 documented in [facility]* Diagnosis Peroneal tendon tear, right, initial encounter- Primary documented in this encounter [facility]* Diagnosis Right Achilles tendinitis documented in this [facility]* Diagnosis Right Achilles tendinitis- Primary Other synovitis and tenosynovitis, right ankle and foot documented in this [facility]* Diagnosis Right Achilles tendinitis- Primary documented in this [facility]* Diagnosis Right Achilles tendinitis- Primary documented in [facility]* Diagnosis Peroneal tendon tear, right, initial encounter- Primary documented in this [facility]* Diagnosis Peroneal tendon tear, right, initial encounter- Primary Heel spur, right documented in this [facility]* Diagnosis Peroneal tendon tear, right, initial encounter- Primary Other synovitis and tenosynovitis, right ankle and foot Right Achilles tendinitis documented in [facility]* Diagnosis Peroneal tendon tear, right, initial encounter- Primary Heel spur, right documented in [facility]* Diagnosis Peroneal tendon tear, right, initial encounter- Primary Contracture of right ankle Right Achilles tendinitis documented in this [facility]* Diagnosis Peroneal tendon tear, right, initial encounter- Primary documented in this [facility]* Diagnosis Onset Date Resolution Status Admit Date Balance problem acuteJune 2024 9:53amFatty liver disease, nonalcoholicacuteJune 2024 9:53amHyperglycemiaacuteJune 2024 9:53amHyperlipidemiaacuteJune 2024 9:53amHypothyroidismacuteJune 2024 9:53amLow hemoglobinacuteJune 2024 9:53amOSA on CPAPacuteJune 2024 9:53am [facility] Work Phone: Evaluation note* Diagnosis Inflamed seborrheic keratosis documented [facility] this encounter [facility] Author Timothy Baird [facility] [place] May 28, 2023 8:58amNote Date/TimeOct2022 8:59am[address] [address] Gastroenterology H&P Signed Patient: Patt Irene MR#: [id number] : 1955 Acct:[id number] Age/Sex: 68 / F Adm Date: 3 Loc: Room: Type: [facility] Attending Dr: Timothy Baird MD Copies to: MD Klaus Moe,DO~ Date of Service: 05/28/2023 HISTORY & PHYSICAL: Patient's history with special attention to the cardiovascular, pulmonary systems and the current problem was reviewed with the patient immediately prior to the procedure. Present medications and doses reviewed in the EMR. Allergies and pertinent laboratory tests were also re viewedat this time in the EMR. The physical examination, as below, was then performed. Indication, assessment and HPI: 68-year-old female presents for EGD to evaluate GERD, Salguero's screening, surveillance colonoscopy due to history of colon polyp Family history of GI malignancy? No PHYSICAL EXAMINATION Mouth and Pharynx : Moist mucus membranes, normal dentition Cardiac: Regular rate, regular rhythm Pulmonary: Clear to auscultation bilaterally, no wheezing Neurological: Alert and oriented x3, no focal deficits noted Abdomen: Abdomen soft, non-tender REVIEW OF SYSTEMS Constitutional: Denies malaise, fevers Cardiovascular: Denies chest pain, palpitations Respiratory: Denies shortness of breath, wheezing Gastrointestinal: Per HPI Genitourinary: Denies dysuria, polyuria Musculoskeletal: Denies joint swelling, joint stiffness Neurological: Denies numbness, tingling Integumentary: Denies rashes, skin lesions Endocrine: Denies fatigue, weight loss Written informed consent obtained from the patient. Risks (including but not limited to perforation, infection, bloating, bleeding, need for emergent surgeryand loss of life), benefits and alternatives explained and questions answered. The patient verbalized understanding. Based on history patient is an appropriate candidate for the procedure. Timothy Baird MD Documented By: Timothy Baird MD 05/28/23 0857 Signed By: <Electronically signed by Timothy Baird MD> 05/28/23 0858 [facility] Work Phone: History general Narrative - [facility] [employer] Other Hospital course Narrative No data available for this section [facility] Discharge instructions No data available for this section [facility] Discharge instructions Additional Instructions DISCHARGE INSTRUCTIONS FOR UPPER ENDOSCOPY WHAT TO EXPECT: - You may feel full, gassy or cramping after your procedure. In some cases, this may be from a few hours to a day. Walking may help relieve the discomfort. - Your throat may feel sore today from the scope that the doctor passed through your throat to visualize your stomach. Take a throat lozenge or suck on ice to ease the discomfort. - You may notice some streaks of blood in your sputum if the doctor has taken a biopsy. - You should begin to recover from anesthesia within 1 hour of the procedure, however may feel groggy for the next 24 hours. DO's AND DON'Ts: - Call your doctor right away if you have a hard abdomen, severe pain, vomiting or if you cough up large amounts of blood. - Call your doctor if you develop any rashes, hives or difficulty breathing. - If you take 81 mg aspirin for your heart it is safe to resume this medication. - If you take other blood thinner medications your doctor will instruct you when these can safely be resumed. - Do NOT drive for 24 hours. - Do NOT operate machinery such as power tools, [employer] mowers, [employer], sewing machines, etc. for 24 hours. - Avoid alcoholic beverages and drugs for allergies, nerves, or sleep. - Do NOT stay alone. Do NOT leave your child unattended. - Do NOT make important personal or business decisions or sign any legal documents. - Eat solid foods and drink liquids in smaller amounts than usual until normal appetite returns. If you should experience an upset stomach, liquids high in sugar content (soda, Yair-Aid, non-acid juices) are recommended. - Do NOT smoke. - Do take it easy today. You need not stay in bed, but avoid strenuous activities such as jogging or working out. DISCHARGE INSTRUCTIONS FOR COLONOSCOPY WHAT TO EXPECT: - You may feel full, gassy or cramping after your procedure. In some cases, this may be from a few hours to a day. Walking may help relieve the discomfort. - If you have polyp(s) removed you may note some minor bloody discharge after your first bowel movements. - You should begin to recover from anesthesia within 1 hour of the procedure, however may feel groggy for the next 24 hours. DO's AND DON'Ts: - Call your doctor right away if you have a hard abdomen, sever pain, are passing lots of bright red blood or clots. - Call your doctor if you develop any rashes, hives or difficulty breathing. - Let your doctor know if you have not had a bowel movement by 3 days after your procedure. - If you take 81 mg aspirin for your heart it is safe to resume this medication. - If you take other blood thinner medications your doctor will instruct you when these can safely be resumed. - Do NOT drive for 24 hours. - Do NOT operate machinery such as power tools, [employer] mowers, [employer], sewing machines, etc. for 24 hours. - Avoid alcoholic beverages and drugs for allergies, nerves, or sleep. - Do NOT stay alone. Do NOT leave your child unattended. - Do NOT make important personal or business decisions or sign any legal documents. - Eat solid foods and drink liquids in smaller amounts than usual until normal appetite returns. If you should experience an upset stomach, liquids high in sugar content (soda, Yair-Aid, non-acid juices) are recommended. - You can resume normal activities tomorrow. FOLLOW UP & RECOMMENDATIONS: -Continue omeprazole 20 mg daily. Remember to take this 30 minutes before your first meal of the day. -The GI office will schedule you a follow-up appointment. -Notify the doctor if you have any problems. -Repeat colonoscopy in 10 years. -Follow up with PCP. - Office number [phone].[facility] Work Phone: Progress note No data available for this section [facility] HospitalReason for [facility] (narrative)No reason for referral information availableUniversity [facility]als [facility] Work Phone: Reason for visit NarrativePATIENT HERE AT THE REQUEST OF DR. HORTON FOR EVALUATION & TREATMENT OF FATTY LIVER, patient states that she is trying to get off the omeprazole and its been a week since she has taken that. patient states that she does take and pre and post probiotic.[employer] Other Reason for visit Narrativereview labs, discuss multiple issues, see treatment plan for further informationNort [employer] Other Chief Complaint and Reason for Visit Chief Complaint Screening Chief Complaint Screening E03.9 E78.5 R73.9 Z79.899 Chief Complaint E03.9 E78.5 R73.9 Z7 9.899 CBC Chief Complaint CBC See order Chief Complaint CBC See order daytime somnolence excessive snoring Chief Complaint CBC See order daytime somnolence excessive snoring Unspecified sleep apnea Chief Complaint see order(s) See order nica, new set up/ MSC Chief Complaint Hx of Colon Polyps, GERD Chief Complaint Hx of Colon Polyps, GERD e03.9 e78.5 r73.9z79.899 Chief Complaint Amb Documentation 5-6 MONTH F/U-GERD k76.0Reason for VisitFatty liver disease, nonalcoholic GERD (gastroesophageal reflux disease) Obesity Chief Complaint review labs preventing diabetes e87.5 understanding cravings pt. alternative breads plant based recipes / tofu z01.818Reason for VisitDepression GERD (gastroesophageal reflux disease) Hyperglycemia Hyperkalemia Hyperlipidemia Hypothyroidism Fatty liver disease, nonalcoholic Hyperlipidemia NICA on CPAP Prediabetes Severe obesity (BMI >= 40) Chief Complaint Admit Date e03.9 e78.5 r35.1 r73.9 z79.899 July 04, 2024 11:41am review labs July 12, 2024 1 0:00am z79.899 September 09, 2024 1 :12pm Reason for Visit Admit Date Fatty liver disease, nonalcoholic Decemb er 2023 10:00am Hyperglycemia July 12, 2024 1 0:00am Hyperlipidemia July 12, 2024 1 0:00am Hypothyroidism July 12, 2024 1 0:00am Obesity, Class II, BMI 35-39.9 July 12, 2024 10:00am Chief Complaint Admit Date e03.9 e78.5 r35.1 r73.9 z79.899 July 04, 2024 11:41am review labs July 12, 2024 1 0:00am z79.899 September 09, 2024 1 :12pm One on one September 19, 2024 3:51pm Reason for Visit Admit Date Fatty liver disease, nonalcoholic Decemb 2023 10:00am Hyperglycemia July 12, 2024 1 0:00am Hyperlipidemia July 12, 2024 1 0:00am Hypothyroidism July 12, 2024 1 0:00am Obesity, Class II, BMI 35-39.9 July 12, 2024 10:00am Fatty liver disease, nonalcoholic Februa 2024 2:13pm Hyperlipidemia September 14, 2024 2 :13pm NICA on CPAP September 14, 2024 2 :13pm Prediabetes September 14, 2024 2 :13pm Severe obesity (BMI >= 40) September 14, 2024 2:13pm Chief Complaint Admit Date fatty liver. January 04, 2025 1:10p m Chief Complaint Admit Date fatty liver. January 04, 2025 1:10p m R73.9 Z79.899 E78.5 E03.9 January 12, 2025 12:01pm Chief Complaint Admit Date fatty liver. January 04, 2025 1:10p m R73.9 Z79.899 E78.5 E03.9 January 12, 2025 12:01pm review labs January 17, 2025 9:53 am Reason for Visit Admit Date Balance problem January 17, 2025 9:53 am Fatty liver disease, nonalcoholic January 082024 9:53am Hyperglycemia January 17, 2025 9:53 am Hyperlipidemia January 17, 2025 9:53 am Hypothyroidism January 17, 2025 9:53 am Low hemoglobin January 17, 2025 9:53 am NICA on CPAP January 17, 2025 9:53 am Chief Complaint Admit Date fatty liver. January 04, 2025 1:10p m R73.9 Z79.899 E78.5 E03.9 January 12, 2025 12:01pm review labs January 17, 2025 9:53 am nica/insomnia/annual follow up visit January 30, 2025 9:32am 1 yr follow up January 30, 2025 10:2 8am water in ear February 13, 2025 3:45p m Reason for Visit Admit Date Balance problem January 17, 2025 9:53 am Fatty liver disease, nonalcoholic January 082024 9:53am Hyperglycemia January 17, 2025 9:53 am Hyperlipidemia January 17, 2025 9:53 am Hypothyroidism January 17, 2025 9:53 am Low hemoglobin January 17, 2025 9:53 am NICA on CPAP January 17, 2025 9:53 am BMI 40.0-44.9, adult January 30, 2025 9:3 2am Bruxism January 30, 2025 9:32 am Insomnia January 30, 2025 9:32 am NICA on CPAP January 30, 2025 9:32 am Fatty liver January 30, 2025 10:2 8am GERD (gastroesophageal reflux disease) J une 2024 10:28am Impacted cerumen of right ear February 13, 2025 3:45pm Chief Complaint Admit Date fatty liver. January 04, 2025 1:10p m R73.9 Z79.899 E78.5 E03.9 January 12, 2025 12:01pm review labs January 17, 2025 9:53 am nica/insomnia/annual follow up visit January 30, 2025 9:32am 1 yr follow up January 30, 2025 10:2 8am water in ear February 13, 2025 3:45p m Z79.899 D64.9 E03.9 March 16, 2025 2:5 6pm Reason for Visit Admit Date Balance problem January 17, 2025 9:53 am Fatty liver disease, nonalcoholic January 082024 9:53am Hyperglycemia January 17, 2025 9:53 am Hyperlipidemia January 17, 2025 9:53 am Hypothyroidism January 17, 2025 9:53 am Low hemoglobin January 17, 2025 9:53 am NICA on CPAP January 17, 2025 9:53 am BMI 40.0-44.9, adult January 30, 2025 9:3 2am Bruxism January 30, 2025 9:32 am Insomnia January 30, 2025 9:32 am NICA on CPAP January 30, 2025 9:32 am Fatty liver January 30, 2025 10:2 8am GERD (gastroesophageal reflux disease) J une 2024 10:28am Impacted cerumen of right ear February 13, 2025 3:45pm BMI 40.0-44.9, adult February 14, 2025 12:5 5pm Fatty liver February 14, 2025 12:55 pm Hyperlipidemia February 14, 2025 12:55 pm Prediabetes February 14, 2025 12:55 pm Chief Complaint Admit Date fatty liver. January 04, 2025 1:10p m R73.9 Z79.899 E78.5 E03.9 January 12, 2025 12:01pm review labs January 17, 2025 9:53 am nica/insomnia/annual follow up visit January 30, 2025 9:32am 1 yr follow up January 30, 2025 10:2 8am water in ear February 13, 2025 3:45p m Z79.899 D64.9 E03.9 March 16, 2025 2:5 6pm review labs March 20, 2025 11 :12am Reason for Visit Admit Date Balance problem January 17, 2025 9:53 am Fatty liver disease, nonalcoholic January 082024 9:53am Hyperglycemia January 17, 2025 9:53 am Hyperlipidemia January 17, 2025 9:53 am Hypothyroidism January 17, 2025 9:53 am Low hemoglobin January 17, 2025 9:53 am NICA on CPAP January 17, 2025 9:53 am BMI 40.0-44.9, adult January 30, 2025 9:3 2am Bruxism January 30, 2025 9:32 am Insomnia January 30, 2025 9:32 am NICA on CPAP January 30, 2025 9:32 am Fatty liver January 30, 2025 10:2 8am GERD (gastroesophageal reflux disease) J une 2024 10:28am Impacted cerumen of right ear February 13, 2025 3:45pm BMI 40.0-44.9, adult February 14, 2025 12:5 5pm Fatty liver February 14, 2025 12:55 pm Hyperlipidemia February 14, 2025 12:55 pm Prediabetes February 14, 2025 12:55 pm Edema March 20, 2025 11 :12am GERD (gastroesophageal reflux disease) A ugust 2024 11:12am Hypothyroidism March 20, 2025 11 :12am Low hemoglobin March 20, 2025 11 :12am Prediabetes March 20, 2025 11 :12am Advance Directives No Advanced Directives Records Found Advance Directive Response Recorded Date/ Time Advance Directives No July 11, 2017 11:03am Advance Directive Response Recorded Date/ Time Advance Directives No July 11, 2017 10:03am Advance Directive Response Recorded Date/ Time Advance Directives No December 14, 2023 3:22pm Advance Directive Response Recorded Date/ Time Advance Directives No December 14, 2023 2:22pm Summary Purpose Family History No Family History Records Found Relationship Condition Age at Onset Recorded Date/T alexis Not Specified Heart disease Unknown Diabetes mellitusUnknownfatherMyocardial infarctionUnknown Relationship Condition Age at Onset Recorded Date/T alexis Not Specified Heart disease Unknown Diabetes mellitusUnknownfatherMyocardial infarctionUnknownfatherDeceasedUnknown Heart diseaseUnknownAcute myocardial infarctionUnknowngrandparentCongestive heart failureUnknownDeceasedUnknowngrandparentDeceasedUnknownNot Specified Diabetes mellitusUnknown Relationship Condition Age at Onset Recorded Date/T alexis Not Specified Heart disease Unknown Diabetes mellitusUnknownSleep apneaUnknownDepressionUnknownDeceasedUnknown Autoimmune diseaseUnknownfatherDeceasedUnknownHeart diseaseUnknownAcute myocardial infarctionUnknownMyocardial infarctionUnknowngrandparentCongestive heart failureUnknowngrandparentDeceasedUnknownbrotherDiabetes mellitusUnknown OverweightUnknownsisterOverweightUnknowndaughterAutoimmune diseaseUnknown Evan's thyroiditisUnknown Relationship Condition Age at Onset Recorded Date/T alexis mother Heart disease Unknown Diabetes mellitusUnknownSleep apneaUnknownDepressionUnknownDeceasedUnknown Autoimmune diseaseUnknownfatherDeceasedUnknownHeart diseaseUnknownAcute myocardial infarctionUnknownMyocardial infarctionUnknowngrandparentCongestive heart failureUnknowngrandparentDeceasedUnknownbrotherDiabetes mellitusUnknown OverweightUnknownsisterOverweightUnknowndaughterAutoimmune diseaseUnknown Evan's thyroiditisUnknown Relationship Condition Age at Onset Recorded Date/T alexis mother Heart disease Unknown Diabetes mellitusUnknownSleep apneaUnknownDepressionUnknownDeceasedUnknown Autoimmune diseaseUnknownfatherDeceasedUnknownHeart diseaseUnknownAcute myocardial infarctionUnknownMyocardial infarctionUnknowngrandparentCongestive heart failureUnknowngrandparentDeceasedUnknownbrotherDiabetes mellitusUnknown OverweightUnknownsisterOverweightUnknowndaughterAutoimmune diseaseUnknown Evan's thyroiditisUnknownmotherDiabetes mellitusUnknownHypertensionUnknown fatherHeart diseaseUnknown Reason for Referral SpecialtyDiagnoses / ProceduresReferred By ContactReferred To Contact Diagnoses Right Achilles tendinitis Rishi Patterson, DPM FACFAS [address] [place] [id number] Referral IDStatusReasonStart DateExpiration DateVisits RequestedVisits [id number] Additional Source Comments Care Teams (unrecognized sec tion and content) Team Status: Active Member Role Status Dates Klaus Horton DO Primary Care Provider Active Team Status: Active Member Role Status Dates Klaus Horton DO Primary Care Provider Active S tart: January 04, 2025 Juan Moe Provider, Other ProviderActiveStart: January 04, 2025 Team Status: Inactive Member Role Status Dates Klaus Horton DO Primary Care Provide r, Attending Provider Active Start: January 12, 2025 End: January 12, 2025 Team Status: Inactive Member Role Status Dates Klaus Horton DO Primary Care Provider Active S tart: December 08, 2023 End: December 07Juan Costello ProviderActiveStart: December 08, 2023 End: December 08, 2023 Team Status: Inactive Member Role Status Dates Klaus Horton DO Primary Care Provider Active S tart: December 14, 2023 End: December 13egrajiv Ortega , NPAttending ProviderActiveStart: December 14, 2023 End: December 14, 2023 Team Status: Inactive Member Role Status Dates Klaus Horton DO Primary Care Provider Active S tart: December 21, 2023 End: December 20marco Cho DOAttending ProviderActiveStart: December 21, 2023 End: December 21, 2023 Team Status: Inactive Member Role Status Dates Klaus Horton DO Primary Care Provide r, Attending Provider Active Start: December 25, 2023 End: December 25, 2023 Team Status: Active Member Role Status Dates Klaus Horton DO Primary Care Provider Active S tart: September 30, 2023 Anel Mckoy ProviderActiveStart: September 30, 2023 Team Status: Inactive Member Role Status Dates Klaus Horton , DO Primary Care Provider, Attending Pro vider Active Team Status: Inactive Member Role Status Kaykay Horton DO Primary Care Provider Active Outreach CommunityAttending ProviderActive Team Status: Inactive Member Role Status Kaykay Horton DO Primary Care Provider Active Shant Daugherty MDAttending ProviderActive Team Status: Inactive Member Role Status Dates Klaus Horton DO Primary Care Provider Active Juliet Ortega NPAttending ProviderActive Team Status: Inactive Member Role Status Dates Klaus Horton DO Primary Care Provider Active Timothy Baird MDAttlia ProviderActive Team Status: Inactive Member Role Status Kaykay Horton DO Primary Care Provide r, Attending Provider, Referring Provider Active Team Status: Inactive Member Role Status Kaykay Horton DO Primary Care Provide r, Attending Provider Active Start: January 13, 2024 End: January 13, 2024 Team Status: Inactive Member Role Status Dates Klaus Horton DO Primary Care Provider Active S tart: January 13, 2024 End: January 12DEBORA Velasquezttending ProviderActiveStart: January 13, 2024 End: January 13, 2024 Team Status: Inactive Member Role Status Dates Klaus Horton DO Primary Care Provide r, Attending Provider Active Start: January 14, 2024 End: January 14, 2024 Team Status: Inactive Member Role Status Kaykay Horton DO Primary Care Provider Active S tart: January 14, 2024 End: January 13DEBORA Velasquezttending ProviderActiveStart: January 14, 2024 End: January 14, 2024 Team Status: Inactive Member Role Status Kaykay Horton DO Primary Care Provide r, Attending Provider Active Start: February 16, 2024 End: February 16, 2024 Team Status: Inactive Member Role Status Kaykay Horton DO Primary Care Provider Active S tart: February 16, 2024 End: February 15falguni Harding RD LDAttending ProviderActiveStart: February 16, 2024 End: February 16, 2024 Team Status: Inactive Member Role Status Kaykay Horton DO Primary Care Provider Active S tart: February 22, 2024 End: February 21johnnie Bennett MDAttending ProviderActiveStart: February 22, 2024 End: February 22, 2024 Team Status: Inactive Member Role Status Kaykay Horton DO Primary Care Provider Active S tart: March 15, 2024 End: March 15, 2024Marie Lagun[address] RD LDAttending ProviderActiveStart: March 15, 2024 End: March 15, 2024 Team Status: Inactive Member Role Status Kaykay Horton DO Primary Care Provider Active S tart: March 15, 2024 End: March 15falguni Harding RD LDAttending ProviderActiveStart: March 15, 2024 End: March 15, 2024 Team Status: Inactive Member Role Status Kaykay Horton DO Primary Care Provider Active S tart: April 12, 2024 End: April 12, 2024[facility] Jerseymaritza Patterson , DPMAttending ProviderActiveStart: April 12, 2024 End: April 12, 2024Team MemberRelationshipSpecialtyStart DateEnd Date Klaus Horton MD [address] [place] [address] [facility]/24Team MemberRelationshipSpecialtyStart DateEnd Date Klaus Horton MD [address] [place] [address] [facility] - [facility]/21/24Team MemberRelationshipSpecialtyStart DateEnd Date Klaus Horton MD [address] [place] [address] PCP - [facility]03/21/24Team MemberRelationshipSpecialtyStart DateEnd Date Klaus Horton MD [address] [place] [address] PCP - [facility] Medicine03/21/24Team MemberRelationshipSpecialtyStart DateEnd Date Klaus Horton MD [address] [place] [address] PCP - [facility]03/21/24Team MemberRelationshipSpecialtyStart DateEnd Date Klaus Horton MD [address] [place] [address] PCP - [facility]03/21/24Team MemberRelationshipSpecialtyStart DateEnd Date Klaus Horton MD [address] [place] [address] PCP - [facility]03/21/24Team MemberRelationshipSpecialtyStart DateEnd Date Klaus Horton MD [address] [place] [address] PCP - [facility]03/21/24Team MemberRelationshipSpecialtyStart DateEnd Date Klaus Horton MD [address] [place] [address] [facility] [facility]Team MemberRelationshipSpecialtyStart DateEnd Date Klaus Horton MD [address] [place] [address] PCP - [facility]03/21/24Team MemberRelationshipSpecialtyStart DateEnd Date Klaus Horton MD [address] [place] [address] PCP - [facility]03/21/24Team MemberRelationshipSpecialtyStart DateEnd Date Klaus Horton MD [address] [place] [address] PCP - [facility]03/21/24Team MemberRelationshipSpecialtyStart DateEnd Date lKaus Horton MD [address] [place] [address] PCP - [facility]03/21/24Team MemberRelationshipSpecialtyStart DateEnd Date Klaus Horton MD [address] [place] [address] PCP - [facility]03/21/24Team MemberRelationshipSpecialtyStart DateEnd Date Klaus Horton MD [address] [place] [address] PCP - [facility]03/21/24Team MemberRelationshipSpecialtyStart DateEnd Date Klaus Horton MD [address] [place] [address] PCP - [facility]03/21/24Team MemberRelationshipSpecialtyStart DateEnd Date Klaus Horton MD [address] [place] [address] PCP - [facility]03/21/24 Team Status: Inactive Member Role Status Kaykay Horotn DO Primary Care Provide r, Attending Provider Active Start: July 04, 2024 End: July 04, 2024 Team Status: Inactive Member Role Status Dates Klaus Horton DO Primary Care Provide r, Attending Provider Active Start: July 12, 2024 End: July 12, 2024 Team Status: Inactive Member Role Status Kaykay Horton DO Primary Care Provide r, Attending Provider Active Start: September 09, 2024 End: September 09, 2024 Team Status: Inactive Member Role Status Kaykay Horton DO Primary Care Provider Active S tart: September 14, 2024 End: September 14, 2024Jaun Mcgregor ProviderActiveStart: September 14, 2024 End: September 14, 2024 Team Status: Inactive Member Role Status Kaykay Horton DO Primary Care Provider Active S tart: September 19, 2024 End: September 19, 2024Madisiris MckeonAttlia ProviderActiveStart: September 19, 2024 End: September 19, 2024 Team Status: Inactive Member Role Status Dates Klaus Horton DO Primary Care Provider Active S tart: January 04, 2025 End: January 04Juan Costello ProviderActiveStart: January 04, 2025 End: January 04, 2025 Team Status: Inactive Member Role Status Kaykay Horton DO Primary Care Provide r, Attending Provider Active Start: January 17, 2025 End: January 17, 2025Team MemberRelationshipSpecialtyStart DateEnd Date Klaus Horton MD [address] [place] [address] [place] [address] PCP - [facility]03/21/24Team MemberRelationshipSpecialtyStart DateEnd Date Klaus Horton MD [address] [place] [address] [place] [address] [facility]03/21/24 Team Status: Active Member Role Status Dates Klaus Horton DO Primary Care Provider Active S tart: January 04, 2025 Timothy Baird MDAttending ProviderActiveStart: January 04, 2025 Sky Moe ProviderActiveStart: January 04, 2025 Team Status: Inactive Member Role Status Dates Klaus Horton DO Primary Care Provider Active S tart: January 12, 2025 End: January 12, 2025Daadela Horton DOAttending ProviderActiveStart: January 12, 2025 End: January 12, 2025 Team Status: Inactive Member Role Status Dates Klaus Horton DO Primary Care Provider Active S tart: January 17, 2025 End: January 17, 2025Daadela Horton DOAttending ProviderActiveStart: January 17, 2025 End: January 17, 2025 Team Status: Inactive Member Role Status Dates Klaus Horton DO Primary Care Provider Active S tart: January 30, 2025 End: January 30, 2025Pevazquez Ortega NPAttending ProviderActiveStart: January 30, 2025 End: January 30, 2025 Team Status: Inactive Member Role Status Dates Klaus Horton DO Primary Care Provider Active S tart: January 30, 2025 End: January 30elizabeth Baird MDAttending ProviderActiveStart: January 30, 2025 End: January 30, 2025 Team Status: Inactive Member Role Status Dates Klaus Horton DO Primary Care Provider Active S tart: February 13, 2025 End: February 13, 2025Daadela Horton DOAttending ProviderActiveStart: February 13, 2025 End: February 13, 2025 Team Status: Inactive Member Role Status Dates Klaus Horton DO Primary Care Provider Active S tart: February 14, 2025 End: February 14, 2025Derek Bennett MDAttending ProviderActiveStart: February 14, 2025 End: February 14, 2025 Team Status: Inactive Member Role Status Dates Klaus Horton DO Primary Care Provider Active S tart: March 16, 2025 End: March 16, 2025Daadela Horton DOAttending ProviderActiveStart: March 16, 2025 End: March 16, 2025 Team Status: Inactive Member Role Status Dates Klaus Horton DO Primary Care Provider Active S tart: March 20, 2025 End: March 20, 2025David Clifford DOAttending ProviderActiveStart: March 20, 2025 End: March 20, 2025Team MemberRelationshipSpecialtyStart DateEnd Date Klaus Horton MD [address] [place] [address] [place] [address] PCP - GeneralFamily Medicine03/21/24 Goals (unrecognized section and content) Goals may be documented in a n alternate sectionNo InformationNo InformationNo InformationNo InformationNo InformationNo InformationGoals may be documented in an alternate sectionNo InformationNo Information No data available for this sectionGoals may be documented in an alternate sectionGoals may be documented in an alternate sectionGoals may be documented in an alternate sectionNo InformationNo InformationGoals may be documented in an alternate sectionNo InformationNo InformationNo InformationNo InformationGoals may be documented in an alternate sectionNo InformationNo InformationNo InformationNo InformationNo InformationNo InformationNo InformationNo InformationNo InformationNo Information No data available for this sectionNo InformationNo InformationNo InformationNo InformationNo InformationNo InformationNo InformationGoals may be documented in an alternate sectionGoals may be documented in an alternate sectionGoals may be documented in an alternate sectionGoals may be documented in an alternate sectionGoals may be documented in an alternate section No data available for this sectionGoals may be documented in an alternate sectionGoals may be documented in an alternate sectionGoals may be documented in an alternate sectionGoals may be documented in an alternate sectionGoals may be documented in an alternate sectionGoals may be documented in an alternate sectionGoals may be documented in an alternate sectionGoals may be documented in an alternate section REASON FOR VISIT (unrecogniz ed section and content) ReasonCommentsMed RefillReasonCommentsFoot/ankle Post-opWK 5 post op - RT tenex ReasonCommentsFoot/ankle Post-opWK 7 post opReasonCommentsSkin CheckReason CommentsFoot/ankle Post-opWK 9 post opReasonCommentsFollow-upF/U MRI RT foot ReasonOnset DateCommentsMedication [id number] Or InstructionsSurgery consult for RT achillesReasonCommentsFoot/ankle FractureWK 1 post opReasonCommentsFoot/ankle Post-op1st post opReasonCommentsPost-opWeek 2 post opReasonCommentsFoot/ankle Post-opWK 3 post opReasonCommentsFoot/ankle Post-opWeek 5 post opReasonCommentsSuspicious Skin LesionReasonCommentsFoot OrthoticsWould like to discuss orthotics INFORMATION SOURCE (unrecogn ized section and content) DATE CREATED AUTHOR 02/01/2022 [facility] DATE CREATED AUTHOR AUTHOR'S ORGANIZ ATION 10/08/2023 [facility] DATE CREATED AUTHOR AUTHOR'S ORGANIZ ATION 09/23/2024 [facility] DATE CREATED AUTHOR AUTHOR'S ORGANIZ ATION 03/30/2025 [facility] DATE CREATED AUTHOR AUTHOR'S ORGANIZ ATION 05/02/2025 [facility] EPIC FOR RECORDS PERTAINING TO PATIENTS WHO ARE OR HAVE BEEN ENROLLED IN A CHEMICAL DEPENDENCY/SUBSTANCEABUSE PROGRAM, SOME INFORMATION MAY BE OMITTED. This clinical summary was aggregated from multiple sources. Caution should be exercised in using it in the provision of clinical care. This summary normalizes information from multiple sources, and as a consequence, information in this document may materially change the coding, format and clinical context of patient data. In addition, data may be omitted in some cases. CLINICAL DECISIONS SHOULD BE BASED ON THE PRIMARY CLINICAL RECORDS. [facility]. provides no warranty or guarantee of the accuracy or completeness of information in this document.
[2025-07-18 12:24] LABS: Hematocrit 40.3 % (36.0-48.0); Hemoglobin 13.0 g/dL (12.0-16.0); Immature Granulocytes Abs Auto 0.02 10^3/uL (0.00-0.03); Immature Granulocytes Pct Auto 0.3 % (0.0-0.5); Lymphocytes Absolute Auto 1.9 10^3/uL (1.2-3.8); Mean Corpuscular HGB Conc 32.3 g/dL (29.9-35.2); Mean Corpuscular Hemoglobin 27.5 pg (26.7-34.0); Mean Corpuscular Volume 85.4 fL (81.0-99.0); Platelet Count 263 10^3/uL (150-450); Red Blood Count 4.72 10^6/uL (4.20-5.40); White Blood Count 6.2 10^3/uL (4.0-11.0)
[2025-07-18 12:32] LABS: Glucose Urine UA NEGATIVE (NEGATIVE)
[2025-07-18 13:29] LABS: Alanine Aminotransferase 46 U/L (14-59); Albumin Globulin Ratio 0.9; Albumin Level 3.5 g/dL (3.4-5.0); Alkaline Phosphatase 112 U/L (46-116); Anion Gap 10.8; Aspartate Amino Transferase 21 U/L (15-37); Blood Urea Nitrogen 18.0 mg/dL (7.0-18.0); Calcium 8.9 mg/dL (8.5-10.1); Carbon Dioxide 28.3 mmol/L (21.0-32.0); Chloride 106 mmol/L (98-107); Cholesterol 191 mg/dL (<=200); Estimated GFR (African America >60 (>=60 mL/min/1.73m^2); Estimated GFR (Non-African Ame >60 (>=60 mL/min/1.73m^2); Globulin 3.7 g/dL; Glucose 99 mg/dL (74-106); HDL Cholesterol 64 mg/dL (40-60); Potassium 4.1 mmol/L (3.5-5.1); Sodium 141 mmol/L (136-145); Thyroid Stimulating Hormone 3.194 uIU/mL (0.358-3.740); Total Protein 7.2 g/dL (6.4-8.2); Triglycerides 111 mg/dL (<=150); VLDL CHOLESTEROL 22.2 mg/dL
[2025-07-18 13:39] LABS: Folate 20.30 ng/mL (8.60-58.90)
[2025-07-19 04:07] LABS: Vitamin B12 844 pg/mL (232-1245)
== END 2025-07-18 11:43 | disposition home or self-care (01) ==
LOC: LAB 11:47
PROVIDERS: PCP Family Medicine; Visit Provider Family Medicine
DX: R73.9 Hyperglycemia, unspecified (principal); E03.9 Hypothyroidism, unspecified; Z79.899 Other long term (current) drug therapy; R35.1 Nocturia; K76.0 Fatty (change of) liver, not elsewhere classified; E78.5 Hyperlipidemia, unspecified; D64.9 Anemia, unspecified
CPT/HCPCS: 36415; 80053; 80061; 81003; 82607; 82746; 83036; 84443; 85025; 87086